=== PATIENT | female | born 1950 | race Caucasian/White ===

== ENCOUNTER → 2016-09-13 | Outpatient (REF) | payer MEDICARE ==
[~2016-09-13] MED LIST: ALPR0.5T6 PO; AMBI10TA PO; ATEN25TA PO; BUPR150T3 PO; BUSP10TA PO; CVS20TAB PO; GABA300C3 PO; HYDR-3713 PO; LIPI20TA PO; LOTRCRE TOP; NITR4TASL SL; PLAV75TA38 PO; PROA1AER IN; PROZ20CA11 PO; SYMB80INH INH
[2016-09-13 13:41] LABS: AMYLASE 32 U/L (25-115)
== END ==
LOC: M LAB REF 12:03
DX: R11.2 Nausea with vomiting, unspecified (principal)

== ENCOUNTER → 2017-06-20 | Outpatient (REF) | payer MEDICARE ==
[~2017-06-20] MED LIST changes: +GABA-282 PO; -GABA300C3 PO; +PLAV1TAB2 PO; -PLAV75TA38 PO; -PROA1AER IN; +PROAAER10 IN
[2017-06-20 20:25] LABS: PERCENT SATURATION 5.3 % (13.2-45.0)
== END ==
LOC: M LAB REF 18:39
PROVIDERS: ATTEND Family Medicine
DX: D50.9 Iron deficiency anemia, unspecified (principal)

== ENCOUNTER → 2017-07-20 | Outpatient (CLI) | payer MEDICARE | LOC: M WUC 13:16 | DX: S20.212A Contusion of left front wall of thorax, initial encounter (principal); X58.XXXA Exposure to other specified factors, initial encounter; Y92.9 Unspecified place or not applicable; Y93.9 Activity, unspecified | CPT/HCPCS: 71101 ==

== ENCOUNTER → 2017-11-08 | Outpatient (REF) | payer MEDICARE ==
[2017-11-08 12:53] LABS: FERRITIN 21 NG/ML (8-252); IRON (FE) 270 UG/DL (50-170); PERCENT SATURATION 67.8 % (13.2-45.0); TOTAL IRON BINDING CAPACITY 398 UG/DL (250-450)
== END ==
LOC: M LAB REF 11:51
DX: D64.9 Anemia, unspecified (principal)
CPT/HCPCS: 83550

== ENCOUNTER 2017-12-29 10:28 | Emergency (ER) | payer MEDICARE ==
[2017-12-29] MEDS: METHOCARBAMOL 500 MG TAB PO (11:13)
[2017-12-29] MEDS: NORCO, ANEXSIA 5/325MG TABLET (HYDROcodone/ACETAMINOPHEN) PO (11:14)
== END 2017-12-29 12:40 | disposition home or self-care (01) ==
LOC: M ED 10:28
DX: M48.061 Spinal stenosis, lumbar region without neurogenic claudication (principal); Z91.81 History of falling; Z88.0 Allergy status to penicillin; I10 Essential (primary) hypertension; K44.9 Diaphragmatic hernia without obstruction or gangrene; M54.9 Dorsalgia, unspecified; E11.9 Type 2 diabetes mellitus without complications; F32.9 Major depressive disorder, single episode, unspecified; Z79.899 Other long term (current) drug therapy; Z79.02 Long term (current) use of antithrombotics/antiplatelets
CPT/HCPCS: 72131

== ENCOUNTER → 2018-02-08 | Outpatient (REF) | payer MEDICARE ==
[2018-02-08 20:05] LABS: FERRITIN 20 NG/ML (8-252); IRON (FE) 218 UG/DL (50-170); PERCENT SATURATION 59.1 % (13.2-45.0); TOTAL IRON BINDING CAPACITY 369 UG/DL (250-450)
== END ==
LOC: M LAB REF 17:51
DX: D64.9 Anemia, unspecified (principal)
CPT/HCPCS: 83550

== ENCOUNTER 2018-04-21 15:37 | Emergency (ER) | payer MEDICARE ==
[2018-04-21] MEDS: NS 500 ML IV (16:45)
[2018-04-21] MEDS: NORCO, ANEXSIA 5/325MG TABLET (HYDROcodone/ACETAMINOPHEN) PO (17:30)
[2018-04-21 17:40] LABS: BASO # 0.1 10^3/uL (0.0-0.2); BASO % 0.6 % (0.0-1.0); EOS # 0.5 10^3/uL (0.0-0.50); EOS % 3.8 % (0.0-3.0); HEMATOCRIT 40.7 % (36.0-47.0); HEMOGLOBIN 13.1 g/dl (12.0-15.5); IMMATURE GRANULOCYTE % 0.8 % (0-3.0); LYMPH # 1.6 10^3/uL (1.5-4.5); MEAN CORPUSCULAR HGB CONC 32.2 g/dl (32.0-36.5); MONO # 1.2 10^3/uL (0.0-0.8); MONO % 9.9 % (0.0-5.0); NEUTROPHILS # 8.8 10^3/uL (1.8-7.7); NEUTROPHILS % 71.9 % (36.0-66.0); PLATELET COUNT, AUTOMATED 311 10^3/uL (150-450); RED BLOOD COUNT 4.68 10^6/uL (4.00-5.40); RED CELL DISTRIBUTION WIDTH 15.1 % (11.5-14.5); WHITE BLOOD COUNT 12.2 10^3/uL (4.0-10.0)
[2018-04-21 17:44] LABS: APPEARANCE, URINE CLEAR (CLEAR); BACTERIA, URINE AUTO NEGATIVE (NEGATIVE); BILIRUBIN, URINE AUTO NEGATIVE (NEGATIVE); BLOOD, URINE BLOOD NEGATIVE (NEGATIVE); COLOR, URINE YELLOW (YELLOW); GLUCOSE, URINE (UA) AUTO NEGATIVE (NEGATIVE); KETONE, URINE AUTO NEGATIVE (NEGATIVE); LEUKOCYTE ESTERASE, URINE AUTO 1+ (NEGATIVE); NITRITE, URINE AUTO NEGATIVE (NEGATIVE); PROTEIN, URINE AUTO 1+ mg/dL (NEGATIVE); RBC, URINE AUTO 2 /HPF (0-3); SPECIFIC GRAVITY URINE AUTO 1.015 (1.002-1.035); SQUAMOUS EPITHELIAL CELL UR AU 0 /HPF (0-6); UROBILINOGEN, URINE AUTO 0.2 mg/dL (0.0-2.0); WBC, URINE AUTO 3 /HPF (0-3)
[2018-04-21 17:52] LABS: INR 0.92; PROTHROMBIN TIME 12.5 SECONDS (12.1-14.4)
[2018-04-21 18:09] LABS: ALBUMIN 3.7 GM/DL (3.2-5.2); ALBUMIN/GLOBULIN RATIO 0.97 (1.00-1.93); ALKALINE PHOSPHATASE 122 U/L (45-117); ALT/SGPT 22 U/L (12-78); ANION GAP 8 MEQ/L (8-16); AST/SGOT 19 U/L (7-37); BILIRUBIN,DIRECT 0.1 MG/DL (0.0-0.2); BILIRUBIN,TOTAL 0.5 MG/DL (0.2-1.0); BLOOD UREA NITROGEN 21 MG/DL (7-18); CARBON DIOXIDE LEVEL 26 MEQ/L (21-32); CHLORIDE LEVEL 106 MEQ/L (98-107); GLOMERULAR FILTRATION RATE 47.6 (>45); GLUCOSE, FASTING 150 MG/DL (70-100); POTASSIUM SERUM 4.6 MEQ/L (3.5-5.1); SODIUM LEVEL 140 MEQ/L (136-145); TOTAL PROTEIN 7.5 GM/DL (6.4-8.2)
[2018-04-21] MEDS ORDERED: ISOVUE-370 76% 100ML VIAL (Q9967) As Ordered (18:10)
== END 2018-04-21 19:55 | disposition left against medical advice (07) ==
LOC: M ED 15:37
DX: S30.1XXA Contusion of abdominal wall, initial encounter (principal); W06.XXXA Fall from bed, initial encounter; Y92.89 Other specified places as the place of occurrence of the external cause; I25.10 Atherosclerotic heart disease of native coronary artery without angina pectoris; E11.9 Type 2 diabetes mellitus without complications; I10 Essential (primary) hypertension; K21.9 Gastro-esophageal reflux disease without esophagitis; F17.210 Nicotine dependence, cigarettes, uncomplicated; Z98.890 Other specified postprocedural states; Z95.5 Presence of coronary angioplasty implant and graft; Z79.01 Long term (current) use of anticoagulants; Z88.0 Allergy status to penicillin; Z79.899 Other long term (current) drug therapy
CPT/HCPCS: J2270

== ENCOUNTER 2018-04-21 21:23 | Emergency (ER) | payer MEDICARE ==
[2018-04-21] MEDS: GABAPENTIN 300 MG CAP PO ×2 (22:40→23:23)
[2018-04-21] MEDS ORDERED: MORPHINE 4 MG/ML 1ML VIAL/SYRINGE (J2270) As Ordered (23:20)
[2018-04-21] MEDS: MORPHINE 4 MG/ML 1ML VIAL/SYRINGE (J2270) IV (23:29)
== END 2018-04-22 00:24 | disposition short-term general hospital (02) ==
LOC: M ED 04-22 00:24
DX: I77.72 Dissection of iliac artery (principal); J44.9 Chronic obstructive pulmonary disease, unspecified; E11.51 Type 2 diabetes mellitus with diabetic peripheral angiopathy without gangrene; I25.10 Atherosclerotic heart disease of native coronary artery without angina pectoris; I73.9 Peripheral vascular disease, unspecified; F33.9 Major depressive disorder, recurrent, unspecified; Z79.899 Other long term (current) drug therapy; Z79.02 Long term (current) use of antithrombotics/antiplatelets; Z88.0 Allergy status to penicillin; F17.210 Nicotine dependence, cigarettes, uncomplicated

== ENCOUNTER 2019-01-18 18:55 | Inpatient (IN) | payer MEDICARE ==
[~2019-01-18] VITALS: Ht 170.2 cm; Wt 84.3 kg
[~2019-01-18 18:55] MED LIST changes: +ALPR0.25 PO; -CVS20TAB PO; +FLUO40CA PO; -GABA-282 PO; +GABA-843 PO; +OMEP20TA9 PO; +ROBA500T PO
--- NOTE | 2019-01-18 19:23 | REP ---
Clinical: Acute altered mental status. Comparison: 06/02/2016 . Findings: Age-related atrophy and microvascular ischemic changes are appreciated. The ventricles and sulci are symmetric. Vega-white differentiation is maintained. There is no evidence for acute intracranial hemorrhage, mass/mass effect, pathology or infarction. No extra-axial fluid collection. Calvarium is intact. Paranasal sinuses and mastoid air cells are clear. Impression: Age related atrophy and microvascular ischemic changes. No acute intracranial hemorrhage, infarction, or mass/mass effect. Electronically Signed by Cholo Messer MD 01/18/2019 07:15 P
[2019-01-18 19:46] LABS: BASO # 0.1 10^3/uL (0.0-0.2); BASO % 0.6 % (0.0-1.0); EOS # 0.3 10^3/uL (0.0-0.50); EOS % 2.1 % (0.0-3.0); HEMATOCRIT 27.8 % (36.0-47.0); LYMPH # 1.7 10^3/uL (1.5-4.5); LYMPH % 10.9 % (24.0-44.0); MEAN CORPUSCULAR HEMOGLOBIN 26.8 pg (27.0-33.0); MEAN CORPUSCULAR HGB CONC 32.4 g/dl (32.0-36.5); MEAN CORPUSCULAR VOLUME 82.7 fl (80.0-96.0); MONO # 1.3 10^3/uL (0.0-0.8); MONO % 8.2 % (0.0-5.0); NEUTROPHILS # 12.4 10^3/uL (1.8-7.7); NEUTROPHILS % 77.4 % (36.0-66.0); PLATELET COUNT, AUTOMATED 245 10^3/uL (150-450); RED BLOOD COUNT 3.36 10^6/uL (4.00-5.40)
[2019-01-18 19:47] LABS: VENOUS BASE EXCESS 0.1 (-2.0-2.0); VENOUS HCO3 24.6 MEQ/L (23.0-27.0); VENOUS O2 SATURATION 97.2 % (60.0-80.0); VENOUS PARTIAL PRESSURE O2 100.2 mmHg (30.0-50.0); VENOUS PH 7.417 UNITS (7.330-7.430); VENOUS STANDARD HCO3 24.6 MEQ/L; VENOUS TOTAL CO2 25.8 MEQ/L (24.0-28.0)
--- NOTE | 2019-01-18 19:51 | REP ---
Clinical: Altered mental status . Comparison: 07/20/2017 . Findings: The mediastinum and cardiac silhouette are stable and within normal limits for portable technique. The lung giles are clear without acute consolidation, effusion, or pneumothorax. Skeletal structures are intact. Impression: No acute cardiopulmonary process appreciated. Electronically Signed by Cholo Messer MD 01/18/2019 07:43 P
[2019-01-18 20:25] LABS: ALBUMIN 2.8 GM/DL (3.2-5.2); ALT/SGPT 15 U/L (12-78); BILIRUBIN,DIRECT < 0.1 MG/DL (0.0-0.2); BILIRUBIN,TOTAL 0.2 MG/DL (0.2-1.0); BLOOD UREA NITROGEN 56 MG/DL (7-18); CALCIUM LEVEL 8.9 MG/DL (8.8-10.2); CARBON DIOXIDE LEVEL 26 MEQ/L (21-32); CHLORIDE LEVEL 106 MEQ/L (98-107); CPK CREATINE PHOSPHOKINASE 196 U/L (26-192); CREATININE FOR GFR 1.29 MG/DL (0.55-1.30); GLOMERULAR FILTRATION RATE 43.6 (>45); GLUCOSE, FASTING 161 MG/DL (70-100); MB/CK RELATIVE INDEX 1.53 (< OR =4); SODIUM LEVEL 140 MEQ/L (136-145); TOTAL PROTEIN 6.1 GM/DL (6.4-8.2); TROPONIN I 0.02 NG/ML (< 0.10)
[2019-01-18] MEDS ORDERED: FISH1000 PO (20:25)
[2019-01-18] MEDS ORDERED: GABA-843 PO (20:25)
[2019-01-18] MEDS ORDERED: BAYE325T12 PO (20:25)
[2019-01-18] MEDS ORDERED: BUPR15TASR PO (20:25)
[2019-01-18] MEDS ORDERED: REDCAP4 PO (20:25)
--- NOTE | 2019-01-18 20:32 | ECGEPIP ---
[facility] - ED Test Date: 2019-01-18 Pat Name: KRISTEL SILVA Department: Room: - Gender: Female [employer] Liaison: FERNANDO : 1950 Requested By: Fay Lainez Order Number: [id number] Reading MD: Nitesh Mccarty Measurements Intervals Slemp Rate: 77 P: 11 AK: 165 QRS: 6 QRSD: 88 T: 42 QT: 389 QTc: 441 Interpretive Statements SINUS RHYTHM WITH SINUS ARRHYTHMIA NONSPECIFIC T-WAVE ABNORMALITY SIMILAR TO 10/30/15 Electronically Signed on 01-18-2019 20:32:17 EDT by Nitesh Mccarty
[2019-01-18] MEDS ORDERED: ISOVUE-370 76% 100ML VIAL (Q9967) As Ordered ONE (21:30)
--- NOTE | 2019-01-18 22:39 | REPVR ---
EXAM: CT Abdomen and Pelvis With Contrast EXAM DATE/TIME: 01/18/2019 9:47 PM CLINICAL HISTORY: 68 years old, female; Abdominal pain; Epigastric; Additional info: Epigastric pain, gi bleed, R/O perf TECHNIQUE: Imaging protocol: Axial computed tomography images of the abdomen and pelvis with intravenous contrast. Coronal and sagittal reformatted images were created and reviewed. Radiation optimization: All CT scans at this facility use at least one of these dose optimization techniques: automated exposure control; mA and/or kV adjustment per patient size (includes targeted exams where dose is matched to clinical indication); or iterative reconstruction. Contrast material: ISOVUE 370; Contrast volume: 100 ml; Contrast route: IV; COMPARISON: CT ABD/PEL W/IV CONTRAST ONLY 04/21/2018 6:20 PM FINDINGS: Liver: There is a diffuse decrease in hepatic parenchymal density, consistent with fatty infiltration. Gallbladder and bile ducts: The gallbladder is incompletely distended. This is most likely related to incomplete fasting. Clinical correlation to exclude gallbladder pathology suggested. Pancreas: Normal. No ductal dilation. Spleen: Normal. No splenomegaly. Adrenals: There is a focal hypodense mass in the left adrenal gland measuring 1.5 x 2 cm, consistent in appearance and density with a benign adrenal adenoma. Left adrenal hyperplasia. Kidneys and ureters: Small bilateral renal cysts measure up to 12 mm in the left kidney. Focal parenchymal scars posterior upper pole right and left kidneys. Small probable hyperdense cyst demonstrated in the subcapsular mid pole of the left kidney measuring 7 mm. Ultrasound correlation could be obtained if clinically desired. Stomach and bowel: Mild diverticulosis is present in the distal colon. No diverticulitis. Appendix: No evidence of appendicitis. Intraperitoneal space: Normal. No free air. No significant fluid collection. Vasculature: The aorta demonstrates mild atherosclerotic calcification. 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 Lymph nodes: Normal. No enlarged lymph nodes. Bladder: Unremarkable as visualized. Reproductive: Unremarkable as visualized. Bones/joints: Severe central spinal stenosis at L1 to, mild to moderate central spinal stenosis at L2 through, severe central spinal stenosis at L3-4, severe central spinal stenosis at L4-5, moderate central spinal stenosis at L5-S1. Nonunited fracture right 11th rib. Healed fracture right ninth rib. Soft tissues: Fusiform thick walled fluid collection in the left flank measures 5 x 9 x 1.9 cm containing calcification in the lateral wall. Finding may represent sequelae of prior hemorrhage/ trauma. No air collections demonstrated which might suggest an abscess. Other findings: Osteoporosis. IMPRESSION: 1. There is a diffuse decrease in hepatic parenchymal density, consistent with fatty infiltration. 2. The gallbladder is incompletely distended. This is most likely related to incomplete fasting. Clinical correlation to exclude gallbladder pathology suggested. 3. There is a focal hypodense mass in the left adrenal gland measuring 1.5 x 2 cm, consistent in appearance and density with a benign adrenal adenoma. Left adrenal hyperplasia. 4. Mild diverticulosis is present in the distal colon. No diverticulitis. 5. Fusiform thick walled fluid collection in the left flank measures 5 x 9 x 1.9 cm containing calcification in the lateral wall. Finding may represent sequelae of prior hemorrhage/ trauma. No air collections demonstrated which might suggest an abscess. COMMENT: Consistent with the [employer]'s Incidental Findings Committee Report (J Am Julia Radiol 2010): Unless the patient's specific circumstances suggest otherwise, any liver lesion 0.5 cm or less, any cystic kidney lesion less than 1.0 cm, and/or any adrenal lesion 1.0 cm or less not otherwise characterized in this report as possessing suspicious or indeterminate imaging features is/are highly likely to be benign and do not require follow-up imaging or biopsy. Electronically signed by: Jaxon Cohn On 01/18/2019 22:39:09 PM
[2019-01-18] MEDS: PANTOPRAZOLE SODIUM 40 MG in D5W 50 ML IV SCH (23:09)
[2019-01-19] MEDS ORDERED: ALPRAZolam 0.25 MG TAB PO ONE (01:30)
[2019-01-19] MEDS ORDERED: D5W/0.9% SODIUM CHLORIDE 1,000 ML IV SCH (01:49)
[2019-01-19] MEDS ORDERED: ALPRAZolam 0.25 MG TAB PO PRN (02:00)
[2019-01-19] MEDS ORDERED: PANTOPRAZOLE 40MG INJ (PROTONIX) (C9113) IV ONE (02:00)
[2019-01-19] MEDS ORDERED: FUROSEMIDE 40 MG/4 ML VIAL (J1940) IV ONE (02:15)
[2019-01-19] MEDS: NS 1,000 ML IV SCH ×3 (02:30→20:35)
[2019-01-19] MEDS ORDERED: ALBUTEROL SULFATE 2.5 MG/0.5 ML INH NEB SOLN NEB PRN (03:00)
--- NOTE | 2019-01-19 03:03 | HPEPDOC ---
General Date of Admission Jan 19, 2019 at 01:49 Date of Service: Jan 19, 2019 Chief Complaint The patient is a 68-year-old female admitted with a reason for visit of Gi Bleed. Source: Patient, RN/MD, Old records Exam Limitations: No limitations Severity: Severe History of Present Illness 68 year old female with PMH of COPD, Diabetes, Diaphragmatic hernia, Lumber spinal canal stenosis, chronic low back pain, obesity, PAD s/p bilateral stents, CAD s/p stents, Hypertension, Hyperlipidemia, Anxiety and depression, H/o recurrent fall in the past, Sciatica, osteoarthritis, adrenal adenoma, lumber vertebral fractures after fall on past, diverticulosis called the EMS for weakness. Patient started having hematemesis x 3 last afternoon followed by melena x 4 then started feeling very weak and tired so called the EMS. In the ED she had had melena. She also complained of abdominal pain located in chun epigastrium, left upper quadrant and some in the right upper quadrant, constantly present, 8/10 in intensity , sharp and burning in nature, without any radiation. She says that she has been taking 12 to 16 over the counter ibupr ofen for more than 1 month for her intractable low back pain. She was admitted for GIB. Home Medications Scheduled Aspirin (Aspirin) 325 Mg Tablet, 325 MG PO DAILY, (Reported) Atenolol (Atenolol) 25 Mg Tab, 25 MG PO DAILY, (Reported) Budesonide/Formoterol (Symbicort 80-4.5 Mcg Inhaler) 60 Puff/Inhaler Aers, 2 PUFFS INH BID, (Reported) Bupropion HCl (Bupropion HCl Sr) 150 Mg Tab.er.12h, 150 MG PO DAILY, (Reported) Clopidogrel Bisulfate (Plavix) 75 Mg Tab, 75 MG PO DAILY, (Reported) Fluoxetine Hcl (Fluoxetine HCl) 40 Mg Cap, 40 MG PO DAILY, (Reported) Gabapentin (Gabapentin) 300 Mg Cap, 900 MG PO QAM, (Reported) Gabapentin (Gabapentin) 300 Mg Capsule, 600 MG PO BID, (Reported) TAKES MIDDAY AND AT HS [place]-3 Fatty Acids/Fish Oil (Fish Oil 1,000 mg Capsule) 1 Each Capsule, 1,000 MG PO DAILY, (Reported) Omeprazole (Omeprazole) 20 Mg Tab, 20 MG PO DAILY, (Reported) Red Yeast Rice (Red Yeast Rice) 600 Mg Capsule, 600 MG PO DAILY, (Reported) Zolpidem Tartrate (Ambien) 10 Mg Tab, 10 MG PO QHS, (Reported) Scheduled PRN Alprazolam (Alprazolam) 0.25 Mg Tab, 0.25 MG PO TID PRN for ANXIETY, (Reported) Hydrocodone/Acetaminophen (Hydrocodone-Acetamin 5-325 mg) 1 Tab Tab, 1 TAB PO TID PRN for PAIN, (Reported) Nitroglycerin (Nitrostat) 0.4 Mg Subl, 0.4 MG SL for CHEST PAIN, (Reported) Allergies Coded Allergies: Penicillins (Verified Allergy, Intermediate, SWELLING, 01/18/19) Past Medical History Medical History COPD, Diabetes, Diaphragmatic hernia, Lumber spinal canal stenosis, chronic low back pain, obesity, PAD s/p bilateral stents, CAD s/p stents, Hypertension, Hyperlipidemia, Anxiety and depression, H/o recurrent fall in the past, Sciatica, osteoarthritis, adrenal adenoma, lumber vertebral fractures after fall on past, diverticulosis Surgical History right knee replacement right shoulder surgery Family History Significant Family History: Diabetes (mother an father), Heart disease (mother) Social History * Smoker: current smoker Alcohol: Denies Drugs: denies A-FIB/CHADSVASC A-FIB History Current/History of A-Fib/PAF?: No Review of Systems Constitutional: Reports: Weakness, Fatigue; Denies: Chills, Fever, Night Sweats Eyes: Denies: Pain, Vision change ENT: Denies: Head Aches, Ear Pain, Dysphagia Skin: Denies: Rash, Lesions, Breakdown Pulmonary: Reports: Dyspnea; Denies: Cough, Pleuritic Chest Pain Cardiovascular: Denies: Chest Pain, Palpitations, Orthopnea, Paroxysmal Noc. Dyspnea, Lt Headedness Gastrointestinal: Reports: Nausea, Vomiting, Abdominal Pain, Melena, Other Symptoms (hemetemesis) Genitourinary: Denies: Dysuria, Frequency, Incontinence, Retention Hematologic: Denies: Bruising, Bleeding Excessively Musculoskeletal: Reports: Back Pain, Shoulder Pain, Joint Pain, Muscle Pain, Spasms; Denies: Neck Pain Neurological: Reports: Weakness Psych: Reports: Anxiety, Depression Physical Examination General Exam: Positive: Alert, Cooperative, Moderate Distress Eye Exam: Positive: PERRLA, Conjunctiva & lids normal, EOMI; Negative: Sclera icteric ENT Exam: Positive: Atraumatic, Mucous membr. moist/pink, Pharynx Normal Neck Exam: Positive: Supple; Negative: JVD, thyromegaly Chest Exam: Positive: Wheezing (on deep expiration), Diminished Heart Exam: Positive: Tachycardic, Regular Rhythm, Normal S1, Normal S2; Negative: Murmurs, Rubs Telemetry: Positive: No significant arrhythmia Abdomen Exam: Positive: BS Hypoactive, Soft, Tenderness (in the epigastrium and left upper quadrant), Other (No guarding or rigidity) Extremity Exam: Negative: Clubbing, Cyanosis, Edema Skin Exam: Positive: Nl turgor and temperature; Negative: Breakdown, Lesion Neuro Exam: Positive: Normal Speech, Strength at 5/5 X4 ext, Normal Tone Psych Exam: Positive: Anxiety, Memory Intact, Oriented x 3 Vital Signs Vital Signs Date Time Temp Pulse Resp B/P (MAP) Pulse Ox O2 Delivery O2 Flow Rate FiO2 01/19/19 02:19 79 18 134/82 (99) 94 Room Air 01/18/19 19:37 98.5 Laboratory Data Labs 24H Laboratory Tests 2 01/18/19 19:31: Immature Granulocyte % (Auto) 0.8, White Blood Count 16.0H, Red Blood Count 3.36L, Hemoglobin 9.0L, Hematocrit 27.8L, Mean Corpuscular Volume 82.7, Mean Corpuscular Hemoglobin 26.8L, Mean Corpuscular Hemoglobin Concent 32.4, Red Cell Distribution Width 14.9H, Platelet Count 245, Neutrophils (%) (Auto) 77.4H, Lymphocytes (%) (Auto) 10.9L, Monocytes (%) (Auto) 8.2H, Eosinophils (%) (Auto) 2.1, Basophils (%) (Auto) 0.6, Neutrophils # (Auto) 12.4H, Lymphocytes # (Auto) 1.7, Monocytes # (Auto) 1.3H, Eosinophils # (Auto) 0.3, Basophils # (Auto) 0.1, Nucleated Red Blood Cells % (auto) 0.0, Blood Gas Bicarbonate Standard 24.6, Venous Blood pH 7.417, Venous Blood Partial Pressure CO2 39.0, Venous Blood Pa rtial Pressure O2 100.2H, Venous Blood Total Carbon Dioxide 25.8, Venous Blood HCO3 24.6, Venous Blood Oxygen Saturation 97.2H, Venous Blood Base Excess 0.1, Anion Gap 8, Glomerular Filtration Rate 43.6L, Lactic Acid Level 2.0, Calcium Level 8.9, Aspartate Amino Transf (AST/SGOT) 22, Alanine Aminotransferase (ALT/SGPT) 15, Alkaline Phosphatase 65, Total Bilirubin 0.2, Direct Bilirubin < 0.1, Total Creatine Kinase 196H, Creatine Kinase MB 3.0, Creatine Kinase MB Relative Index 1.53, Troponin I 0.02, Total Protein 6.1L, Albumin 2.8L, Albumin/Globulin Ratio 0.85L, Thyroid Stimulating Hormone (TSH) 1.310 CBC/BMP Laboratory Tests 01/18/19 19:31 Red Blood Count 3.36 L, Mean Corpuscular Volume 82.7, Mean Corpuscular Hemoglobin 26.8 L, Mean Corpuscular Hemoglobin Concent 32.4, Red Cell Distribution Width 14.9 H, Neutrophils (%) (Auto) 77.4 H, Lymphocytes (%) (Auto) 10.9 L, Monocytes (%) (Auto) 8.2 H, Eosinophils (%) (Auto) 2.1, Basophils (%) (Auto) 0.6, Neutrophils # (Auto) 12.4 H, Lymphocytes # (Auto) 1.7, Monocytes # (Auto) 1.3 H, Eosinophils # (Auto) 0.3, Basophils # (Auto) 0.1 Microbiology Microbiology 01/18/19 Blood Culture, Received Pending 01/18/19 Blood Culture, Received Pending Assessment/Plan 68 year old female with PMH of COPD, Diabetes, Diaphragmatic hernia, Lumber sp inal canal stenosis, chronic low back pain, obesity, PAD s/p bilateral stents, CAD s/p stents, Hypertension, Hyperlipidemia, Anxiety and depression, H/o recurrent fall in the past, Sciatica, osteoarthritis, adrenal adenoma, lumber vertebral fractures after fall on past, diverticulosis called the EMS for weakness. Patient started having hematemesis x 3 last afternoon followed by melena x 4 then started feeling very weak and tired so called the EMS. In the ED she had had melena. SHe also complained of abdominal pain located in chun epigastrium, left upper quadrant and some in the right upper quadrant, constantly present, 8/10 in intensity , sharp and burning in nature, without any radiation. She says that she has been taking 12 to 16 over the counter ibuprofen for more than 1 month for her intractable low back pain. She was admitted for GIB. Upper GIB probably due to large mumber of NSAIDS causing gastric erosions/ulcers pantoprazole 80 mg loading followed by 8 mg/ hr infusion, sucralfate GI consult will need EGD. Have not got any response to call at 3: 30 am. Please call again in AM. HH q 6 hrs PRBC transfusion. NPO except meds, NS Will hold ASA and plavix for now. has stents in the legs as well as cardiac so will have to be restarted as soon as safely possible. Morphine prn for pain. COPD seems to be at baseline continue home meds. Symbicort. albuterol prn. Hypertension will continue atenolol with hold parameters. Anxiety and depression will continue xanax but will hold bupropion and fluoxetine till eating orally Lumber stenosis and sciatica will hold gabapentin for now till eating orally offer K pad for low back pain PAD with bilateral stents in legs hold gabapentin for now till eating orally. can use morphine for severe low back and leg pain DVT prophylaxis TEDs and SCDs Plan / VTE VTE Prophylaxis Ordered?: Yes LEDA LOVE MD Jan 19, 2019 03:03
[2019-01-19 03:13] LABS: BASO # 0.1 10^3/uL (0.0-0.2); BASO % 0.5 % (0.0-1.0); EOS % 0.1 % (0.0-3.0); HEMATOCRIT 26.2 % (36.0-47.0); HEMOGLOBIN 8.3 g/dl (12.0-15.5); LYMPH # 1.9 10^3/uL (1.5-4.5); LYMPH % 11.2 % (24.0-44.0); MEAN CORPUSCULAR HEMOGLOBIN 26.3 pg (27.0-33.0); MEAN CORPUSCULAR HGB CONC 31.7 g/dl (32.0-36.5); MEAN CORPUSCULAR VOLUME 82.9 fl (80.0-96.0); MONO # 1.1 10^3/uL (0.0-0.8); MONO % 6.2 % (0.0-5.0); NEUTROPHILS # 14.1 10^3/uL (1.8-7.7); NEUTROPHILS % 81.1 % (36.0-66.0); PLATELET COUNT, AUTOMATED 246 10^3/uL (150-450); RED BLOOD COUNT 3.16 10^6/uL (4.00-5.40); WHITE BLOOD COUNT 17.3 10^3/uL (4.0-10.0)
[2019-01-19] MEDS: PANTOPRAZOLE SODIUM 40 MG in D5W 50 ML IV SCH ×4 (04:39→20:35)
[2019-01-19] MEDS: ONDANSETRON 4MG/2ML VIAL (J2405) IV PRN (04:39)
[2019-01-19 07:08] LABS: HEMATOCRIT 28.6 % (36.0-47.0); HEMOGLOBIN 8.9 g/dl (12.0-15.5)
[2019-01-19] MEDS: SYMBICORT 80/4.5MCG INHALER 6GM INH SCH ×2 (07:36→21:00)
[2019-01-19] MEDS: SUCRALFATE 1 GM TAB PO SCH ×4 (07:42→20:36)
[2019-01-19] MEDS: ATENOLOL 25 MG TAB PO SCH (07:42)
[2019-01-19] MEDS ORDERED: LIDOCAINE 1% MDV 20ML VIAL As Ordered ONE ×3 (11:02→16:40)
[2019-01-19] MEDS ORDERED: LIDOCAINE 1% MDV 20ML VIAL IM ONE (11:03)
[2019-01-19] MEDS ORDERED: PERCOCET 5MG/325MG TAB PO ONE (12:00)
--- NOTE | 2019-01-19 15:11 | IPNPDOC ---
Date Seen The patient was seen on 01/19/19. Progress Note SUBJECTIVE: Pt had multiple bloody bowel movements overnight, with loss of iv access this morning. s/p 2 units RBC transfusion with repeat hgb 10 and systolic pressure of 114 mmHg. Despite 4 attempts by RN to place peripheral line, 2 attempts by general surgery for left subclavian and internal jugular approach with venous collapse at each attempt, and Interventional radiology unable to find access, Thoracic Surgery could not be reached, vascular surgery Dr. Duke has been consulted to assist in the central line placement for poor iv access, iv protonix gtt, and rbc transfusion. pt denies any sob, chest pain, pressure, tightness, lightheadedness, dizziness, or near syncope. OBJECTIVE: Physical Examination VITALS: PLS SEE BELOW General Exam: Positive: Alert, Cooperative, Moderate Distress Eye Exam: Positive: PERRLA, Conjunctiva & lids normal, EOMI; Negative: Sclera icteric ENT Exam: Positive: Atraumatic, Mucous membr. moist/pink, Pharynx Normal Neck Exam: Positive: Supple; Negative: JVD, thyromegaly Chest Exam: Positive: Wheezing (on deep expiration), Diminished Heart Exam: Positive: Tachycardic, Regular Rhythm, Normal S1, Normal S2; Negative: Murmurs, Rubs Telemetry: Positive: No significant arrhythmia Abdomen Exam: Positive: BS Hypoactive, Soft, Tenderness (in the epigastrium and left upper quadrant), Other (No guarding or rigidity) Extremity Exam: Negative: Clubbing, Cyanosis, Edema Skin Exam: Positive: Nl turgor and temperature; Negative: Breakdown, Lesion Neuro Exam: Positive: Normal Speech, Strength at 5/5 X4 ext, Normal Tone Psych Exam: Positive: Anxiety, Memory Intact, Oriented x 3 ADMISSION LABORATORY DATA: 01/18/19 19:31: Immature Granulocyte % (Auto) 0.8, White Blood Count 16.0H, Red Blood Count 3.36L, Hemoglobin 9.0L, Hematocrit 27.8L, Mean Corpuscular Volume 82.7, Mean Corpuscular Hemoglobin 26.8L, Mean Corpuscular Hemoglobin Concent 32.4, Red Cell Distribution Width 14.9H, Platelet Count 245, Neutrophils (%) (Auto) 77.4H, Lymphocytes (%) (Auto) 10.9L, Monocytes (%) (Auto) 8.2H, Eosinophils (%) (Auto) 2.1, Basophils (%) (Auto) 0.6, Neutrophils # (Auto) 12.4H, Lymphocytes # (Auto) 1.7, Monocytes # (Auto) 1.3H, Eosinophils # (Auto) 0.3, Basophils # (Auto) 0.1, Nucleated Red Blood Cells % (auto) 0.0, Blood Gas Bicarbonate Standard 24.6, Venous Blood pH 7.417, Venous Blood Partial Pressure CO2 39.0, Venous Blood Partial Pressure O2 100.2H, Venous Blood Total Carbon Dioxide 25.8, Venous Blood HCO3 24.6, Venous Blood Oxygen Saturation 97.2H, Venous Blood Base Excess 0.1, Anion Gap 8, Glomerular Filtration Rate 43.6L, Lactic Acid Level 2.0, Calcium Level 8.9, Aspartate Amino Transf (AST/SGOT) 22, Alanine Aminotransferase (ALT/SGPT) 15, Alkaline Phosphatase 65, Total Bilirubin 0.2, Direct Bilirubin < 0.1, Total Creatine Kinase 196H, Creatine Kinase MB 3.0, Creatine Kinase MB Relative Index 1.53, Troponin I 0.02, Total Protein 6.1L, Albumin 2.8L, Albumin/Globulin Ratio 0.85L, Thyroid Stimulating Hormone (TSH) 1.310 CBC/BMP Laboratory Tests 01/18/19 19:31 Red Blood Count 3.36 L, Mean Corpuscular Volume 82.7, Mean Corpuscular Hemoglobin 26.8 L, Mean Corpuscular Hemoglobin Concent 32.4, Red Cell Distribution Width 14.9 H, Neutrophils (%) (Auto) 77.4 H, Lymphocytes (%) (Auto) 10.9 L, Monocytes (%) (Auto) 8.2 H, Eosinophils (%) (Auto) 2.1, Basophils (%) (Auto) 0.6, Neutrophils # (Auto) 12.4 H, Lymphocytes # (Auto) 1.7, Monocytes # (Auto) 1.3 H, Eosinophils # (Auto) 0.3, Basophils # (Auto) 0.1 Microbiology Microbiology 01/18/19 Blood Culture, Received Pending 01/18/19 Blood Culture, Received Pending TODAY'S LABORATORY DATA, IMAGING STUDIES, MICROBIOLOGY: PLS SEE BELOW CT abd/pelvis 01/18/19: IMPRESSION: 1. There is a diffuse decrease in hepatic parenchymal density, consistent with fatty infiltration. 2. The gallbladder is incompletely distended. This is most likely related to incomplete fasting. Clinical correlation to exclude gallbladder pathology suggested. 3. There is a focal hypodense mass in the left adrenal gland measuring 1.5 x 2 cm, consistent in appearance and density with a benign adrenal adenoma. Left adrenal hyperplasia. 4. Mild diverticulosis is present in the distal colon. No diverticulitis. 5. Fusiform thick walled fluid collection in the left flank measures 5 x 9 x 1.9 cm containing calcification in the lateral wall. Finding may represent sequelae of prior hemorrhage/ trauma. No air collections demonstrated which might suggest an abscess. Electronically signed by: Jaxon Morris On 01/18/2019 22:39:09 PM DD: JAXON MORRIS MD [id number]/[id number] DT: MARTIN [id number]/18/[id number] DS: CLAUDIA [id number]/[id number] ASSESSMENT AND PLAN: 68 year old female with PMH of COPD, Diabetes, Diaphragmatic hernia, Lumber spinal canal stenosis, chronic low back pain, obesity, PAD s/p bilateral stents, CAD s/p stents, Hypertension, Hyperlipidemia, Anxiety and depression, H/o recurrent fall in the past, Sciatica, osteoarthritis, adrenal adenoma, lumber vertebral fractures after fall on past, diverticulosis called the EMS for weakness. Patient started having hematemesis x 3 last afternoon followed by melena x 4 then started feeling very weak and tired so called the EMS. In the ED she had had melena. SHe also complained of abdominal pain located in chun epigastrium, left upper quadrant and some in the right upper quadrant, constantly present, 8/10 in intensity , sharp and burning in nature, without any radiation. She says that she has been taking 12 to 16 over the counter ibuprofen for more than 1 month for her intractable low back pain. She was admitted for GIB. Upper GIB probably due to large mumber of NSAIDS causing gastric erosions/ulcers pantoprazole 80 mg loading followed by 8 mg/ hr infusion, sucralfate GI consult will need EGD. Have not got any response to call at 3: 30 am. Please call again in AM. HH q 6 hrs PRBC transfusion. NPO except meds, NS Will hold ASA and plavix for now. has stents in the legs as well as cardiac so will have to be restarted as soon as safely possible. Morphine prn for pain. Acute Blood loss anemia due to upper GI bleed probably due to large mumber of NSAIDS causing gastric erosions/ulcers pantoprazole 80 mg loading followed by 8 mg/ hr infusion, sucralfate GI consult will need EGD. Have not got any response to call at 3: 30 am. Please call again in AM. HH q 6 hrs PRBC transfusion. NPO except meds, NS Will hold ASA and plavix for now. has stents in the legs as well as cardiac so will have to be restarted as soon as safely possible. Morphine prn for pain. COPD seems to be at baseline continue home meds. Symbicort. albuterol prn. Hypertension will continue atenolol with hold parameters. Anxiety and depression will continue xanax but will hold bupropion and fluoxetine till eating orally Lumber stenosis and sciatica will hold gabapentin for now till eating orally offer K pad for low back pain PAD with bilateral stents in legs hold gabapentin for now till eating orally. can use morphine for severe low back and leg pain DVT prophylaxis TEDs and SCDs Plan / VTE VTE Prophylaxis Ordered?: Yes VS, I&O, [facility], [facility] Vital Signs/I&O Vital Signs Date Time Temp Pulse Resp B/P (MAP) Pulse Ox O2 Delivery O2 Flow Rate FiO2 01/19/19 06:46 98.9 84 20 142/77 (98) 98 Room Air I&O- Last 24 Hours up to 6 AM 01/19/19 06:00 Output Total 650 ml Balance -650 ml Laboratory Data 24H LABS Laboratory Tests 2 01/18/19 19:31: Immature Granulocyte % (Auto) 0.8, White Blood Count 16.0H, Red Blood Count 3.36L, Hemoglobin 9.0L, Hematocrit 27.8L, Mean Corpuscular Volume 82.7, Mean Corpuscular Hemoglobin 26.8L, Mean Corpuscular Hemoglobin Concent 32.4, Red Cell Distribution Width 14.9H, Platelet Count 245, Neutrophils (%) (Auto) 77.4H, Lymphocytes (%) (Auto) 10.9L, Monocytes (%) (Auto) 8.2H, Eosinophils (%) (Auto) 2.1, Basophils (%) (Auto) 0.6, Neutrophils # (Auto) 12.4H, Lymphocytes # (Auto) 1.7, Monocytes # (Auto) 1.3H, Eosinophils # (Auto) 0.3, Basophils # (Auto) 0.1, Nucleated Red Blood Cells % (auto) 0.0, Blood Gas Bicarbonate Standard 24.6, Venous Blood pH 7.417, Venous Blood Partial Pressure CO2 39.0, Venous Blood Partial Pressure O2 100.2H, Venous Blood Total Carbon Dioxide 25.8, Venous Blood HCO3 24.6, Venous Blood Oxygen Saturation 97.2H, Venous Blood Base Excess 0.1, Anion Gap 8, Glomerular Filtration Rate 43.6L, Lactic Acid Level 2.0, Calcium Level 8.9, Aspartate Amino Transf (AST/SGOT) 22, Alanine Aminotransferase (ALT/S GPT) 15, Alkaline Phosphatase 65, Total Bilirubin 0.2, Direct Bilirubin < 0.1, Total Creatine Kinase 196H, Creatine Kinase MB 3.0, Creatine Kinase MB Relative Index 1.53, Troponin I 0.02, Total Protein 6.1L, Albumin 2.8L, Albumin/Globulin Ratio 0.85L, Thyroid Stimulating Hormone (TSH) 1.310 01/19/19 02:48: Immature Granulocyte % (Auto) 0.9, White Blood Count 17.3H, Red Blood Count 3.16L, Hemoglobin 8.3L, Hematocrit 26.2L, Mean Corpuscular Volume 82.9, Mean Corpuscular Hemoglobin 26.3L, Mean Corpuscular Hemoglobin Concent 31.7L, Red Cell Distribution Width 15.0H, Platelet Count 246, Neutrophils (%) (Auto) 81.1H, Lymphocytes (%) (Auto) 11.2L, Monocytes (%) (Auto) 6.2H, Eosinophils (%) (Auto) 0.1, Basophils (%) (Auto) 0.5, Neutrophils # (Auto) 14.1H, Lymphocytes # (Auto) 1.9, Monocytes # (Auto) 1.1H, Eosinophils # (Auto) 0.0, Basophils # (Auto) 0.1, Nucleated Red Blood Cells % (auto) 0.0 CBC/BMP Laboratory Tests 01/18/19 19:31 Red Blood Count 3.36 L, Mean Corpuscular Volume 82.7, Mean Corpuscular Hemoglobin 26.8 L, Mean Corpuscular Hemoglobin Concent 32.4, Red Cell Distribution Width 14.9 H, Neutrophils (%) (Auto) 77.4 H, Lymphocytes (%) (Auto) 10.9 L, Monocytes (%) (Auto) 8.2 H, Eosinophils (%) (Auto) 2.1, Basophils (%) (Auto) 0.6, Neutrophils # (Auto) 12.4 H, Lymphocytes # (Auto) 1.7, Monocytes # (Auto) 1.3 H, Eosinophils # (Auto) 0.3, Basophils # (Auto) 0.1 01/19/19 02:48 Red Blood Count 3.16 L, Mean Corpuscular Volume 82.9, Mean Corpuscular Hemoglobin 26.3 L, Mean Corpuscular Hemoglobin Concent 31.7 L, Red Cell Distribution Width 15.0 H, Neutrophils (%) (Auto) 81.1 H, Lymphocytes (%) (Auto) 11.2 L, Monocytes (%) (Auto) 6.2 H, Eosinophils (%) (Auto) 0.1, Basophils (%) (Auto) 0.5, Neutrophils # (Auto) 14.1 H, Lymphocytes # (Auto) 1.9, Monocytes # (Auto) 1.1 H, Eosinophils # (Auto) 0.0, Basophils # (Auto) 0.1 Microbiology Microbiology 01/18/19 Blood Culture, Received Pending 01/18/19 Blood Culture, Received Pending EDA GRIMM MD Jan 19, 2019 06:58
[2019-01-19] MEDS ORDERED: PROPOFOL 200 MG/20 ML VIAL As Ordered ONE (16:15)
[2019-01-19] MEDS ORDERED: LIDOCAINE 2% INJ 100 MG/5 ML SDV (FOR ANES.) As Ordered ONE (16:15)
[2019-01-19] MEDS ORDERED: MIDAZOLAM INJ 2 MG/2 ML VIAL (J2250) As Ordered ONE (16:15)
[2019-01-19] MEDS ORDERED: fentaNYL 100 MCG/2 ML INJECTION (J3010) As Ordered ONE (16:15)
[2019-01-19 18:08] LABS: HEMATOCRIT 28.7 % (36.0-47.0); HEMOGLOBIN 9.4 g/dl (12.0-15.5)
--- NOTE | 2019-01-19 18:34 | ROOR ---
Patient Name: Amira Gotti Procedure Date: 01/19/2019 6:12 PM Date of : 1950 Age: 68 Room: Main OR Gender: Female Note Status: Finalized Procedure: Upper GI endoscopy Indications: Acute post hemorrhagic anemia, Hematemesis Providers: Héctor Gresham MD Referring MD: 2. Inpatient 2. Inpatient Requesting Provider: Medicines: Monitored Anesthesia Care Complications: No immediate complications. Procedure: Pre-Anesthesia Assessment: - The heart rate, respiratory rate, oxygen saturations, blood pressure, adequacy of pulmonary ventilation, and response to care were monitored throughout the procedure. The Endoscope was introduced through the mouth, and advanced to the second part of duodenum. The upper GI endoscopy was accomplished without difficulty. The patient tolerated the procedure well. Findings: The Z-line was regular and was found 40 cm from the incisors. One non-bleeding cratered gastric ulcer with no stigmata of bleeding was found at the pylorus. The exam of the duodenum was otherwise normal. Impression: - Z-line regular, 40 cm from the incisors. - Non-bleeding gastric ulcer with no stigmata of bleeding. - No specimens collected. - The examination was otherwise normal. Recommendation: - Return patient to hospital [facility] for ongoing care. - NPO. - Continue present medications. - The findings and recommendations were discussed with the referring physician. Héctor Gresham MD Héctor Gresham MD 01/19/2019 6:34:29 PM Electronically signed by Héctor Gresham MD Number of Addenda: 0 Note Initiated On: 01/19/2019 6:12 PM Estimated Blood Loss: Estimated blood loss: none.
[2019-01-19] MEDS ORDERED: NITROGLYCERIN 0.4 MG SUBL TABLET SL PRN (18:45)
[2019-01-19] MEDS ORDERED: LR 1,000 ML IV SCH (19:00)
[2019-01-19] MEDS ORDERED: ONDANSETRON 4MG/2ML VIAL (J2405) IV PRN (19:00)
[2019-01-19 20:00] VITALS: BP 178/70
[2019-01-19] MEDS ORDERED: SODIUM CHLORIDE 0.9% INJ 10 ML SYR IV PRN (20:00)
[2019-01-19 22:00] VITALS: BP 144/68
[2019-01-19] MEDS: zolPIDEM TARTRATE 5 MG TAB PO PRN (22:14)
[2019-01-19] MEDS: GABAPENTIN 300 MG CAP PO SCH (22:14)
[2019-01-19 22:55] LABS: CALCIUM LEVEL 7.9 MG/DL (8.8-10.2); CREATININE FOR GFR 1.6 MG/DL (0.55-1.30); MAGNESIUM LEVEL 1.8 MG/DL (1.8-2.4); POTASSIUM SERUM 3.9 MEQ/L (3.5-5.1)
[2019-01-19 23:59] VITALS: BP 130/63
[2019-01-20] MEDS: PANTOPRAZOLE SODIUM 40 MG in D5W 50 ML IV SCH ×5 (00:05→21:34)
[2019-01-20] MEDS: NORCO, ANEXSIA 5/325MG TABLET (HYDROcodone/ACETAMINOPHEN) PO PRN ×3 (00:06→13:14)
[2019-01-20 00:10] LABS: HEMATOCRIT 27.4 % (36.0-47.0); HEMOGLOBIN 8.8 g/dl (12.0-15.5)
[2019-01-20] MEDS ORDERED: POTASSIUM CHLORIDE 10 MEQ SR TABLET PO ONE (01:45)
[2019-01-20] MEDS ORDERED: MAG SULF 1GM/100ML (MAG RUN) 1 GM in APPROPRIATE DILUENT 1 EA IV ONE (01:45)
[2019-01-20 04:00] VITALS: BP 127/60
[2019-01-20] MEDS: SODIUM CHLORIDE 0.9% INJ 10 ML SYR IV SCH ×2 (05:18→17:28)
[2019-01-20 05:43] LABS: BASO # 0.1 10^3/uL (0.0-0.2); BASO % 0.8 % (0.0-1.0); EOS # 0.3 10^3/uL (0.0-0.50); EOS % 2.2 % (0.0-3.0); HEMATOCRIT 24.5 % (36.0-47.0); HEMOGLOBIN 7.9 g/dl (12.0-15.5); LYMPH # 2.2 10^3/uL (1.5-4.5); LYMPH % 18.7 % (24.0-44.0); MEAN CORPUSCULAR HEMOGLOBIN 27.1 pg (27.0-33.0); MEAN CORPUSCULAR HGB CONC 32.2 g/dl (32.0-36.5); MEAN CORPUSCULAR VOLUME 84.2 fl (80.0-96.0); MONO # 1.1 10^3/uL (0.0-0.8); MONO % 9.6 % (0.0-5.0); NEUTROPHILS # 8.1 10^3/uL (1.8-7.7); NEUTROPHILS % 68.1 % (36.0-66.0); PLATELET COUNT, AUTOMATED 168 10^3/uL (150-450); RED BLOOD COUNT 2.91 10^6/uL (4.00-5.40); WHITE BLOOD COUNT 11.8 10^3/uL (4.0-10.0)
[2019-01-20 06:04] LABS: CALCIUM LEVEL 7.4 MG/DL (8.8-10.2); CREATININE FOR GFR 1.31 MG/DL (0.55-1.30); GLOMERULAR FILTRATION RATE 42.9 (>45); POTASSIUM SERUM 3.8 MEQ/L (3.5-5.1)
[2019-01-20] MEDS: MORPHINE 4 MG/ML 1ML VIAL/SYRINGE (J2270) IV PRN ×3 (06:12→21:35)
[2019-01-20] MEDS: NS 1,000 ML IV SCH (06:45)
[2019-01-20] MEDS: SYMBICORT 80/4.5MCG INHALER 6GM INH SCH ×2 (07:31→19:52)
[2019-01-20 08:00] VITALS: BP 133/63
[2019-01-20] MEDS: ATENOLOL 25 MG TAB PO SCH (08:18)
[2019-01-20] MEDS: SUCRALFATE 1 GM TAB PO SCH ×4 (08:18→21:33)
[2019-01-20] MEDS ORDERED: OMEPRAZOLE 20 MG CAP PO SCH (09:00)
[2019-01-20] MEDS: GABAPENTIN 300 MG CAP PO SCH ×3 (09:00→21:33)
[2019-01-20] MEDS: FLUoxetine 20 MG CAP PO SCH (09:00)
[2019-01-20] MEDS ORDERED: ASPIRIN 325 MG TAB PO SCH (09:00)
[2019-01-20] MEDS ORDERED: CLOPIDOGREL 75 MG TAB PO SCH (09:00)
[2019-01-20] MEDS: buPROPion **SR TABLET** (ZYBAN) 150MG PO SCH (09:00)
--- NOTE | 2019-01-20 09:46 | IPNPDOC ---
Date Seen The patient was seen on 01/20/19. Progress Note SUBJECTIVE:Pt denies any sob, chest pain, pressure, tightness, lightheadedness, dizziness, or near syncope. s/p EGD by Dr. Gresham 01/19/19-gastric ulcer. on IV protonix gtt and no recurrent bloody bowel movements overnight. Pt had no iv access yesteray. s/p 2 units RBC transfusion with repeat hgb 10 and systolic pressure of 114 mmHg. Despite 4 attempts by RN to place peripheral line, 2 attempts by general surgery for left subclavian and internal jugular approach with venous collapse at each attempt, and Interventional radiology unable to find access, Thoracic Surgery could not be reached, vascular surgery Dr. Duke was consulted to assist in the central line placement for poor iv ac cess, iv protonix gtt, and rbc transfusion. OBJECTIVE: Physical Examination VITALS: PLS SEE BELOW General Exam: Positive: Alert, Cooperative, Moderate Distress Eye Exam: Positive: PERRLA, Conjunctiva & lids normal, EOMI; Negative: Sclera icteric ENT Exam: Positive: Atraumatic, Mucous membr. moist/pink, Pharynx Normal Neck Exam: Positive: Supple; Negative: JVD, thyromegaly Chest Exam: Positive: Wheezing (on deep expiration), Diminished Heart Exam: Positive: Tachycardic, Regular Rhythm, Normal S1, Normal S2; Negative: Murmurs, Rubs Telemetry: Positive: No significant arrhythmia Abdomen Exam: Positive: BS Hypoactive, Soft, Tenderness (in the epigastrium and left upper quadrant), Other (No guarding or rigidity) Extremity Exam: Negative: Clubbing, Cyanosis, Edema Skin Exam: Positive: Nl turgor and temperature; Negative: Breakdown, Lesion Neuro Exam: Positive: Normal Speech, Strength at 5/5 X4 ext, Normal Tone Psych Exam: Positive: Anxiety, Memory Intact, Oriented x 3 ADMISSION LABORATORY DATA: 01/18/19 19:31: Immature Granulocyte % (Auto) 0.8, White Blood Count 16.0H, Red Blood Count 3.36L, Hemoglobin 9.0L, Hematocrit 27.8L, Mean Corpuscular Volume 82.7, Mean Corpuscular Hemoglobin 26.8L, Mean Corpuscular Hemoglobin Concent 32.4, Red Cell Distribution Width 14.9H, Platelet Count 245, Neutrophils (%) (Auto) 77.4H, Lymphocytes (%) (Auto) 10.9L, Monocytes (%) (Auto) 8.2H, Eosinophils (%) (Auto) 2.1, Basophils (%) (Auto) 0.6, Neutrophils # (Auto) 12.4H, Lymphocytes # (Auto) 1.7, Monocytes # (Auto) 1.3H, Eosinophils # (Auto) 0.3, Basophils # (Auto) 0.1, Nucleated Red Blood Cells % (auto) 0.0, Blood Gas Bicarbonate Standard 24.6, Venous Blood pH 7.417, Venous Blood Partial Pressure CO2 39.0, Venous Blood Partial Pressure O2 100.2H, Venous Blood Total Carbon Dioxide 25.8, Venous Blood HCO3 24.6, Venous Blood Oxygen Saturation 97.2H, Venous Blood Base Excess 0.1, Anion Gap 8, Glomerular Filtration Rate 43.6L, Lactic Acid Level 2.0, Calcium Level 8.9, Aspartate Amino Transf (AST/SGOT) 22, Alanine Aminotransferase (ALT/SGPT) 15, Alkaline Phosphatase 65, Total Bilirubin 0.2, Direct Bilirubin < 0.1, Total Creatine Kinase 196H, Creatine Kinase MB 3.0, Creatine Kinase MB Relative Index 1.53, Troponin I 0.02, Total Protein 6.1L, Albumin 2.8L, Albumin/Globulin Ratio 0.85L, Thyroid Stimulating Hormone (TSH) 1.310 CBC/BMP Laboratory Tests 01/18/19 19:31 Red Blood Count 3.36 L, Mean Corpuscular Volume 82.7, Mean Corpuscular Hemoglobin 26.8 L, Mean Corpuscular Hemoglobin Concent 32.4, Red Cell Distribution Width 14.9 H, Neutrophils (%) (Auto) 77.4 H, Lymphocytes (%) (Auto) 10.9 L, Monocytes (%) (Auto) 8.2 H, Eosinophils (%) (Auto) 2.1, Basophils (%) (Auto) 0.6, Neutrophils # (Auto) 12.4 H, Lymphocytes # (Auto) 1.7, Monocytes # (Auto) 1.3 H, Eosinophils # (Auto) 0.3, Basophils # (Auto) 0.1 Microbiology Microbiology 01/18/19 Blood Culture, Received Pending 01/18/19 Blood Culture, Received Pending TODAY'S LABORATORY DATA, IMAGING STUDIES, MICROBIOLOGY: PLS SEE BELOW CT abd/pelvis 01/18/19: IMPRESSION: 1. There is a diffuse decrease in hepatic parenchymal density, consistent with fatty infiltration. 2. The gallbladder is incompletely distended. This is most likely related to incomplete fasting. Clinical correlation to exclude gallbladder pathology suggested. 3. There is a focal hypodense mass in the left adrenal gland measuring 1.5 x 2 cm, consistent in appearance and density with a benign adrenal adenoma. Left adrenal hyperplasia. 4. Mild diverticulosis is present in the distal colon. No diverticulitis. 5. Fusiform thick walled fluid collection in the left flank measures 5 x 9 x 1.9 cm containing calcification in the lateral wall. Finding may represent sequelae of prior hemorrhage/ trauma. No air collections demonstrated which might suggest an abscess. Electronically signed by: Jaxon Morris On 01/18/2019 22:39:09 PM DD: JAXON MORRIS MD [id number]/18/[id number] DT: MARTIN 01/18/192238 DS: CLAUDIA 01/18/192238 ASSESSMENT AND PLAN: 68 year old female with PMH of COPD, Diabetes, Diaphragmatic hernia, Lumber spinal canal stenosis, chronic low back pain, obesity, PAD s/p bilateral stents, CAD s/p stents, Hypertension, Hyperlipidemia, Anxiety and depression, H/o recurrent fall in the past, Sciatica, osteoarthritis, adrenal adenoma, lumber vertebral fractures after fall on past, diverticulosis called the EMS for weakness. Patient started having hematemesis x 3 last afternoon followed by melena x 4 then started feeling very weak and tired so called the EMS. In the ED she had had melena. SHe also complained of abdominal pain located in chun epigastrium, left upper quadrant and some in the right upper quadrant, constantly present, 8/10 in intensity , sharp and burning in nature, without any radiation. She says that she has been taking 12 to 16 over the counter ibuprofen for more than 1 month for her intractable low back pain. She was admitted for GIB. Gastric Ulcer / Upper GIB probably due to large mumber of NSAIDS causing gastric erosions/ulcers pantoprazole 80 mg loading followed by 8 mg/ hr infusion, sucralfate GI consulted for EGD. HH q 6 hrs PRBC transfusion-4units s/p NPO except meds, NS Will hold ASA and plavix for now. has stents in the legs as well as cardiac so will have to be restarted as soon as safely possible. Morphine prn for pain. will need repeat egd as outpt for gastric ulcer healing documentation due to increased risk of cancer. Gastric Ulcer/ Acute Blood loss anemia due to upper GI bleed probably due to large mumber of NSAIDS causing gastric erosions/ulcers pantoprazole 80 mg loading followed by 8 mg/ hr infusion, sucralfate GI consult ed EGD. HH q 6 hrs PRBC transfusion-4units NPO except meds, NS Will hold ASA and plavix for now. has stents in the legs as well as cardiac so will have to be restarted as soon as safely possible. Morphine prn for pain. will need repeat egd as outpt for gastric ulcer healing documentation due to increased risk of cancer. COPD seems to be at baseline continue home meds. Symbicort. albuterol prn. Hypertension will continue atenolol with hold parameters. Anxiety and depression will continue xanax but will hold bupropion and fluoxetine till eating orally Lumber stenosis and sciatica will hold gabapentin for now till eating orally offer K pad for low back pain PAD with bilateral stents in legs hold gabapentin for now till eating orally. can use morphine for severe low back and leg pain DVT prophylaxis TEDs and SCDs Plan / VTE VTE Prophylaxis Ordered?: Yes VS, I&O, 24H, Fishbone Vital Signs/I&O Vital Signs Date Time Temp Pulse Resp B/P (MAP) Pulse Ox O2 Delivery O2 Flow Rate FiO2 01/20/19 06:12 18 01/20/19 04:00 98.5 74 127/60 (82) 94 01/19/19 16:00 Room Air 01/19/19 11:12 2.0 I&O- Last 24 Hours up to 6 AM 01/20/19 06:00 Intake Total 1585 ml Output Total 300 ml Balance 1285 ml Laboratory Data 24H LABS Laboratory Tests 2 01/19/19 20:06: Bedside Glucose (Misc Panel) 150H 01/19/19 22:19: Anion Gap 5L, Glomerular Filtration Rate 34.0L, Blood Urea Nitrogen 56H, Creatinine 1.60H, Sodium Level 141, Potassium Level 3.9#, Chloride Level 106, Carbon Dioxide Level 30, Calcium Level 7.9L, Magnesium Level 1.8 01/20/19 05:17: Anion Gap 5L, Glomerular Filtration Rate 42.9L, Blood Urea Nitrogen 49H, Creatinine 1.31H, Sodium Level 143, Potassium Level 3.8, Chloride Level 108H, Carbon Dioxide Level 30, Calcium Level 7.4L, Immature Granulocyte % (Auto) 0.6, White Blood Count 11.8H, Red Blood Count 2.91L, Hemoglobin 7.9L, Hematocrit 24.5L, Mean Corpuscular Volume 84.2, Mean Corpuscular Hemoglobin 27.1, Mean Corpuscular Hemoglobin Concent 32.2, Red Cell Distribution Width 16.4H, Platelet Count 168, Neutrophils (%) (Auto) 68.1H, Lymphocytes (%) (Auto) 18.7L, Monocytes (%) (Auto) 9.6H, Eosinophils (%) (Auto) 2.2, Basophils (%) (Auto) 0.8, Neutrophils # (Auto) 8.1H, Lymphocytes # (Auto) 2.2, Monocytes # (Auto) 1.1H, Eosinophils # (Auto) 0.3, Basophils # (Auto) 0.1, Nucleated Red Blood Cells % (auto) 0.0 CBC/BMP Laboratory Tests 01/19/19 11:51 01/19/19 17:52 01/19/19 22:19 Calcium Level 7.9 L 01/20/19 00:00 01/20/19 05:17 Red Blood Count 2.91 L, Mean Corpuscular Volume 84.2, Mean Corpuscular Hemoglobin 27.1, Mean Corpuscular Hemoglobin Concent 32.2, Red Cell Distribution Width 16.4 H, Neutrophils (%) (Auto) 68.1 H, Lymphocytes (%) (Auto) 18.7 L, Monocytes (%) (Auto) 9.6 H, Eosinophils (%) (Auto) 2.2, Basophils (%) (Auto) 0.8, Neutrophils # (Auto) 8.1 H, Lymphocytes # (Auto) 2.2, Monocytes # (Auto) 1.1 H, Eosinophils # (Auto) 0.3, Basophils # (Auto) 0.1, Calcium Level 7.4 L Microbiology Microbiology 01/18/19 Blood Culture - Preliminary, Resulted No growth after 24 hours . All specim... 01/18/19 Blood Culture - Preliminary, Resulted No growth after 24 hours . All specim... EDA GRIMM MD Jan 20, 2019 06:23
[2019-01-20 11:49] LABS: HEMATOCRIT 25.8 % (36.0-47.0); HEMOGLOBIN 8.1 g/dl (12.0-15.5)
[2019-01-20 12:00] VITALS: BP 144/71
[2019-01-20] MEDS: ONDANSETRON 4MG/2ML VIAL (J2405) IV PRN (13:13)
[2019-01-20] MEDS ORDERED: hydrOXYzine 25 MG TAB PO ONE (14:45)
[2019-01-20] MEDS ORDERED: hydrOXYzine 25 MG TAB PO PRN (14:45)
--- NOTE | 2019-01-20 15:01 | REP ---
Clinical: Chest pain and altered mental status. Comparison: 01/18/2019 . Findings: Left sided PICC line with tip in the SVC. The mediastinum and cardiac silhouette are stable and within normal limits for portable technique. The lung giles are clear without acute consolidation, effusion, or pneumothorax. Skeletal structures are intact. Impression: No acute cardiopulmonary process appreciated. Electronically Signed by Cholo Messer MD 01/20/2019 07:27 A
--- NOTE | 2019-01-20 15:03 | CR ---
DATE OF CONSULTATION: 01/20/2018 This is a 68-year-old white female admitted to [facility] with a known past medical history of chronic obstructive pulmonary disease (COPD), diabetes, lumbar spinal canal stenosis, chronic low back pain, obesity, peripheral artery disease status post bilateral stents, coronary artery disease status post stents, hypertension, hyperlipidemia, anxiety, and depression. The patient has had recurrent falls. She has osteoarthritis, sciatica, adrenal adenoma, lumber vertebral fractures in the past. The patient apparently had three bouts of hematemesis with the admission. She has had melena for approximately 3-4 days prior to admission. The patient has had chronic low back pain and has been taking up to 16 ibuprofen a day. She says the number has been 16 at least for several months. She was also on aspirin and Plavix for her cardiac stents. The patient is being seen by GI for evaluation of the upper GI bleeding. MEDICATIONS: Include: - aspirin 325 daily - atenolol - budesonide inhaler - Plavix 75 mg a day - gabapentin - omeprazole 20 mg daily ALLERGIES: To PENICILLIN. PAST MEDICAL HISTORY: As above. SURGICAL HISTORY: Right knee replacement and right shoulder surgery. FAMILY HISTORY: Is positive for diabetes and heart disease in the patient's family. The patient is a current smoker. Denies alcohol or intravenous (IV) drugs. REVIEW OF SYSTEMS: Is noncontributory to this current acute problem. PHYSICAL EXAMINATION: General: A slightly obese white female in no acute distress. Appears stated age. Chest is clear. Cardiovascular examination showed a 2/6 systolic ejection murmur left lower sternal border. Abdomen: Was soft, globose. Slight epigastric tenderness. No hepatosplenomegaly. Bowel sounds were positive. LABORATORY STUDIES ON ADMISSION: Showed a hemoglobin of 9.0 and hematocrit 27.8, platelets were 245,000. The patient during the hospital admission received 2 units of packed cells. Last bout of hematemesis was approximately 12 hours prior to the endoscopy. Imaging studies, including an abdominal CT on 01/18/2019 of the abdomen and pelvis, showed diffuse fatty infiltration of the liver. No gallstones were seen in the gallbladder. Left adrenal gland lesion 1.5 x 2 cm. Diverticulosis with a fluid collection in the left flank area. ANALYSIS: Hematemesis and melena secondary to nonsteroidal gastropathy. The plan will be to set the patient up for upper endoscopy with possible therapeutics to control the probable ulcer that the patient has developed since she has been taking aspirin, Plavix, and 3200 mg of ibuprofen a day. PLAN: 1. Esophagogastroduodenoscopy (EGD) as soon as possible/ 2. Proton pump inhibitors plus cytoprotection with Carafate. 3. Blood transfusions as needed. 4. The patient is advised that she cannot continue to take 3200 mg a day for her chronic back issues, and some other remedy has be considered to control her symptoms, possibly consideration for a transcutaneous electrical nerve stimulator (TENS) unit. Dorsal column stimulator may help control her symptoms MTDD
[2019-01-20 16:00] VITALS: BP 149/70
[2019-01-20 20:00] VITALS: BP 144/73
[2019-01-20] MEDS: zolPIDEM TARTRATE 5 MG TAB PO PRN (22:52)
[2019-01-20 23:59] VITALS: BP 187/82
[2019-01-21] MEDS: NS 1,000 ML IV SCH ×2 (00:16→08:11)
[2019-01-21 00:19] LABS: HEMATOCRIT 28.9 % (36.0-47.0); HEMOGLOBIN 9.2 g/dl (12.0-15.5)
[2019-01-21] MEDS: PANTOPRAZOLE SODIUM 40 MG in D5W 50 ML IV SCH ×5 (03:01→23:14)
[2019-01-21] MEDS: NORCO, ANEXSIA 5/325MG TABLET (HYDROcodone/ACETAMINOPHEN) PO PRN ×3 (03:02→20:44)
[2019-01-21 04:00] VITALS: BP 150/65
[2019-01-21] MEDS: SODIUM CHLORIDE 0.9% INJ 10 ML SYR IV SCH ×2 (06:00→18:00)
[2019-01-21 06:21] LABS: BASO # 0.1 10^3/uL (0.0-0.2); BASO % 0.5 % (0.0-1.0); EOS # 0.5 10^3/uL (0.0-0.50); EOS % 5.6 % (0.0-3.0); HEMATOCRIT 28.2 % (36.0-47.0); LYMPH # 1.6 10^3/uL (1.5-4.5); LYMPH % 16.3 % (24.0-44.0); MEAN CORPUSCULAR HEMOGLOBIN 27.6 pg (27.0-33.0); MEAN CORPUSCULAR HGB CONC 31.9 g/dl (32.0-36.5); MEAN CORPUSCULAR VOLUME 86.5 fl (80.0-96.0); MONO # 0.9 10^3/uL (0.0-0.8); MONO % 8.9 % (0.0-5.0); NEUTROPHILS # 6.6 10^3/uL (1.8-7.7); NEUTROPHILS % 68.2 % (36.0-66.0); PLATELET COUNT, AUTOMATED 145 10^3/uL (150-450); RED BLOOD COUNT 3.26 10^6/uL (4.00-5.40); WHITE BLOOD COUNT 9.7 10^3/uL (4.0-10.0)
[2019-01-21 06:42] LABS: CALCIUM LEVEL 7.2 MG/DL (8.8-10.2); CREATININE FOR GFR 1.1 MG/DL (0.55-1.30); GLOMERULAR FILTRATION RATE 52.4 (>45); POTASSIUM SERUM 3.9 MEQ/L (3.5-5.1)
[2019-01-21] MEDS: SYMBICORT 80/4.5MCG INHALER 6GM INH SCH ×2 (07:20→20:09)
[2019-01-21 08:00] VITALS: BP 160/100
[2019-01-21] MEDS: SUCRALFATE 1 GM TAB PO SCH ×4 (08:05→20:43)
[2019-01-21] MEDS: FLUoxetine 20 MG CAP PO SCH (08:05)
[2019-01-21] MEDS: GABAPENTIN 300 MG CAP PO SCH ×3 (08:05→20:43)
[2019-01-21] MEDS: buPROPion **SR TABLET** (ZYBAN) 150MG PO SCH (08:05)
[2019-01-21] MEDS: ATENOLOL 25 MG TAB PO SCH (08:17)
[2019-01-21] MEDS ORDERED: GLUCOSE 4 GM CHEW TABLET PO PRN (11:00)
[2019-01-21] MEDS ORDERED: D5W/0.45% SODIUM CHLORIDE 1,000 ML IV SCH (11:00)
[2019-01-21] MEDS ORDERED: GLUCAGON FOR INJ 1 MG VIAL (J1610) SC PRN (11:00)
[2019-01-21] MEDS ORDERED: DEXTROSE 50% 50 ML SYRINGE IV PRN (11:00)
--- NOTE | 2019-01-21 12:04 | IPNPDOC ---
Date Seen The patient was seen on 01/21/19. Progress Note SUBJECTIVE: Pt c/o Left leg pain 8/10 pain scale despite norco, but no cyanosis, pulses intact, and warm to touch. arterial doppler ordered. ASA, plavix held due to active GI bleed. Pt denies any sob, chest pain, pressure, tightness, lightheadedness, dizziness, or near syncope. s/p EGD by Dr. Gresham 01/19/19-gastric ulcer. on IV protonix gtt and no recurrent bloody bowel movements overnight. OBJECTIVE: Physical Examination VITALS: PLS SEE BELOW General Exam: Positive: Alert, Cooperative, Moderate Distress Eye Exam: Positive: PERRLA, Conjunctiva & lids normal, EOMI; Negative: Sclera icteric ENT Exam: Positive: Atraumatic, Mucous membr. moist/pink, Pharynx Normal Neck Exam: Positive: Supple; Negative: JVD, thyromegaly Chest Exam: Positive: Wheezing (on deep expiration), Diminished Heart Exam: Positive: Tachycardic, Regular Rhythm, Normal S1, Normal S2; Negative: Murmurs, Rubs Telemetry: Positive: No significant arrhythmia Abdomen Exam: Positive: BS Hypoactive, Soft, Tenderness (in the epigastrium and left upper quadrant), Other (No guarding or rigidity) Extremity Exam: Negative: Clubbing, Cyanosis, Edema Skin Exam: Positive: Nl turgor and temperature; Negative: Breakdown, Lesion Neuro Exam: Positive: Normal Speech, Strength at 5/5 X4 ext, Normal Tone Psych Exam: Positive: Anxiety, Memory Intact, Oriented x 3 ADMISSION LABORATORY DATA: 01/18/19 19:31: Immature Granulocyte % (Auto) 0.8, White Blood Count 16.0H, Red Blood Count 3.36L, Hemoglobin 9.0L, Hematocrit 27.8L, Mean Corpuscular Volume 82.7, Mean Corpuscular Hemoglobin 26.8L, Mean Corpuscular Hemoglobin Concent 32.4, Red Cell Distribution Width 14.9H, Platelet Count 245, Neutrophils (%) (Auto) 77.4H, Lymphocytes (%) (Auto) 10.9L, Monocytes (%) (Auto) 8.2H, Eosinophils (%) (Auto) 2.1, Basophils (%) (Auto) 0.6, Neutrophils # (Auto) 12.4H, Lymphocytes # (Auto) 1.7, Monocytes # (Auto) 1.3H, Eosinophils # (Auto) 0.3, Basophils # (Auto) 0.1, Nucleated Red Blood Cells % (auto) 0.0, Blood Gas Bicarbonate Standard 24.6, Venous Blood pH 7.417, Venous Blood Partial Pressure CO2 39.0, Venous Blood Partial Pressure O2 100.2H, Venous Blood Total Carbon Dioxide 25.8, Venous Blood HCO3 24.6, Venous Blood Oxygen Saturation 97.2H, Venous Blood Base Excess 0.1, Anion Gap 8, Glomerular Filtration Rate 43.6L, Lactic Acid Level 2.0, Calcium Level 8.9, Aspartate Amino Transf (AST/SGOT) 22, Alanine Aminotransferase (ALT/SGPT) 15, Alkaline Phosphatase 65, Total Bilirubin 0.2, Direct Bilirubin < 0.1, Total Creatine Kinase 196H, Creatine Kinase MB 3.0, Creatine Kinase MB Relative Index 1.53, Troponin I 0.02, Total Protein 6.1L, Albumin 2.8L, Albumin/Globulin Ratio 0.85L, Thyroid Stimulating Hormone (TSH) 1.310 CBC/BMP Laboratory Tests 01/18/19 19:31 Red Blood Count 3.36 L, Mean Corpuscular Volume 82.7, Mean Corpuscular Hemoglobin 26.8 L, Mean Corpuscular Hemoglobin Concent 32.4, Red Cell Dis tribution Width 14.9 H, Neutrophils (%) (Auto) 77.4 H, Lymphocytes (%) (Auto) 10.9 L, Monocytes (%) (Auto) 8.2 H, Eosinophils (%) (Auto) 2.1, Basophils (%) (Auto) 0.6, Neutrophils # (Auto) 12.4 H, Lymphocytes # (Auto) 1.7, Monocytes # (Auto) 1.3 H, Eosinophils # (Auto) 0.3, Basophils # (Auto) 0.1 Microbiology Microbiology 01/18/19 Blood Culture, Received Pending 01/18/19 Blood Culture, Received Pending TODAY'S LABORATORY DATA, IMAGING STUDIES, MICROBIOLOGY: PLS SEE BELOW CT abd/pelvis 01/18/19: IMPRESSION: 1. There is a diffuse decrease in hepatic parenchymal density, consistent with fatty infiltration. 2. The gallbladder is incompletely distended. This is most likely related to incomplete fasting. Clinical correlation to exclude gallbladder pathology suggested. 3. There is a focal hypodense mass in the left adrenal gland measuring 1.5 x 2 cm, consistent in appearance and density with a benign adrenal adenoma. Left adrenal hyperplasia. 4. Mild diverticulosis is present in the distal colon. No diverticulitis. 5. Fusiform thick walled fluid collection in the left flank measures 5 x 9 x 1.9 cm containing calcification in the lateral wall. Finding may represent sequelae of prior hemorrhage/ trauma. No air collections demonstrated which might suggest an abscess. Electronically signed by: Jaxon Morris On 01/18/2019 22:39:09 PM DD: JAXON MORRIS MD [id number] DT: MARTIN [id number]/18/[id number] DS: CLAUDIA 01/[id number] ASSESSMENT AND PLAN: 68 year old female with PMH of COPD, Diabetes, Diaphragmatic hernia, Lumber spinal canal stenosis, chronic low back pain, obesity, PAD s/p bilateral stents, CAD s/p stents, Hypertension, Hyperlipidemia, Anxiety and depression, H/o recurrent fall in the past, Sciatica, osteoarthritis, adrenal adenoma, lumber vertebral fractures after fall on past, diverticulosis called the EMS for weakness. Patient started having hematemesis x 3 last afternoon followed by melena x 4 then started feeling very weak and tired so called the EMS. In the ED she had had melena. SHe also complained of abdominal pain located in chun e pigastrium, left upper quadrant and some in the right upper quadrant, constantly present, 8/10 in intensity , sharp and burning in nature, without any radiation. She says that she has been taking 12 to 16 over the counter ibuprofen for more than 1 month for her intractable low back pain. She was admitted for GIB. Gastric Ulcer / Upper GIB probably due to large mumber of NSAIDS causing gastric erosions/ulcers pantoprazole 80 mg loading followed by 8 mg/ hr infusion, sucralfate GI consulted for EGD. HH q 6 hrs PRBC transfusion-4units s/p NPO except meds, NS Will hold ASA and plavix for now. has stents in the legs as well as cardiac so will have to be restarted as soon as safely possible. Morphine prn for pain. will need repeat egd as outpt for gastric ulcer healing documentation due to increased risk of cancer. Gastric Ulcer/ Acute Blood loss anemia due to upper GI bleed probably due to large mumber of NSAIDS causing gastric erosions/ulcers pantoprazole 80 mg loading followed by 8 mg/ hr infusion, sucralfate GI consult ed EGD. HH q 6 hrs PRBC transfusion-4units NPO except meds, NS Will hold ASA and plavix for now. has stents in the legs as well as cardiac so will have to be restarted as soon as safely possible. Morphine prn for pain. will need repeat egd as outpt for gastric ulcer healing documentation due to increased risk of cancer. COPD seems to be at baseline continue home meds. Symbicort. albuterol prn. Hypertension will continue atenolol with hold parameters. Anxiety and depression will continue xanax but will hold bupropion and fluoxetine till eating orally Lumber stenosis and sciatica will hold gabapentin for now till eating orally offer K pad for low back pain PAD with bilateral stents in legs hold gabapentin for now till eating orally. c/o pain in the Left LE without cyanosis, and warm to touch with dp, pt pulses intact check arterial us held asa and plavix due to acute gi bleed s/p 4units rbc transfusion. DVT prophylaxis TEDs and SCDs Plan / VTE VTE Prophylaxis Ordered?: Yes VS, I&O, 24H, Fishbone Vital Signs/I&O Vital Signs Date Time Temp Pulse Resp B/P (MAP) Pulse Ox O2 Delivery O2 Flow Rate FiO2 01/21/19 04:00 98.3 63 20 150/65 (93) 95 01/19/19 16:00 Room Air 01/19/19 11:12 2.0 I&O- Last 24 Hours up to 6 AM 01/21/19 06:00 Intake Total 0 ml Output Total 1200 ml Balance -1200 ml Laboratory Data 24H LABS Laboratory Tests 2 01/21/19 06:04: Immature Granulocyte % (Auto) 0.5, White Blood Count 9.7, Red Blood Count 3.26L, Hemoglobin 9.0L, Hematocrit 28.2L, Mean Corpuscular Volume 86.5, Mean Corpuscular Hemoglobin 27.6, Mean Corpuscular Hemoglobin Concent 31.9L, Red Cell Distribution Width 15.6H, Platelet Count 145L, Neutrophils (%) (Auto) 68.2H, Lymphocytes (%) (Auto) 16.3L, Monocytes (%) (Auto) 8.9H, Eosinophils (%) (Auto) 5.6H, Basophils (%) (Auto) 0.5, Neutrophils # (Auto) 6.6, Lymphocytes # (Auto) 1.6, Monocytes # (Auto) 0.9H, Eosinophils # (Auto) 0.5, Basophils # (Auto) 0.1, Nucleated Red Blood Cells % (auto) 0.0 CBC/BMP Laboratory Tests 01/20/19 11:08 01/20/19 23:55 01/21/19 06:04 Red Blood Count 3.26 L, Mean Corpuscular Volume 86.5, Mean Corpuscular Hemoglobin 27.6, Mean Corpuscular Hemoglobin Concent 31.9 L, Red Cell Distribution Width 15.6 H, Neutrophils (%) (Auto) 68.2 H, Lymphocytes (%) (Auto) 16.3 L, Monocytes (%) (Auto) 8.9 H, Eosinophils (%) (Auto) 5.6 H, Basophils (%) (Auto) 0.5, Neutrophils # (Auto) 6.6, Lymphocytes # (Auto) 1.6, Monocytes # (Auto) 0.9 H, Eosinophils # (Auto) 0.5, Basophils # (Auto) 0.1 Microbiology Microbiology 01/18/19 Blood Culture - Preliminary, Resulted No Growth after 48 hours. All Specime... 01/18/19 Blood Culture - Preliminary, Resulted No Growth after 48 hours. All Specime... EDA GRIMM MD Jan 21, 2019 06:34
[2019-01-21] MEDS: amLODIPine 5 MG TAB PO SCH ×2 (14:10→20:43)
[2019-01-21 16:00] VITALS: BP 119/53
[2019-01-21 17:04] VITALS: BP 166/67
[2019-01-21] MEDS: zolPIDEM TARTRATE 5 MG TAB PO PRN (20:43)
[2019-01-21 22:00] VITALS: BP 137/62
[2019-01-22 02:00] VITALS: BP 166/75
[2019-01-22] MEDS: MORPHINE 4 MG/ML 1ML VIAL/SYRINGE (J2270) IV PRN (02:49)
[2019-01-22] MEDS: PANTOPRAZOLE SODIUM 40 MG in D5W 50 ML IV SCH ×2 (04:24→09:50)
[2019-01-22] MEDS: SODIUM CHLORIDE 0.9% INJ 10 ML SYR IV SCH (05:39)
[2019-01-22 06:00] VITALS: BP 162/72
[2019-01-22 06:08] LABS: BASO % 0.4 % (0.0-1.0); EOS # 0.6 10^3/uL (0.0-0.50); EOS % 6.7 % (0.0-3.0); HEMATOCRIT 28.5 % (36.0-47.0); HEMOGLOBIN 9.1 g/dl (12.0-15.5); LYMPH # 1.7 10^3/uL (1.5-4.5); LYMPH % 20.4 % (24.0-44.0); MEAN CORPUSCULAR HEMOGLOBIN 26.7 pg (27.0-33.0); MEAN CORPUSCULAR HGB CONC 31.9 g/dl (32.0-36.5); MEAN CORPUSCULAR VOLUME 83.6 fl (80.0-96.0); MONO # 0.9 10^3/uL (0.0-0.8); MONO % 10.8 % (0.0-5.0); NEUTROPHILS % 61.1 % (36.0-66.0); PLATELET COUNT, AUTOMATED 156 10^3/uL (150-450); RED BLOOD COUNT 3.41 10^6/uL (4.00-5.40); WHITE BLOOD COUNT 8.2 10^3/uL (4.0-10.0)
[2019-01-22 06:27] LABS: CALCIUM LEVEL 7.3 MG/DL (8.8-10.2); CREATININE FOR GFR 1.04 MG/DL (0.55-1.30); GLOMERULAR FILTRATION RATE 55.9 (>45); POTASSIUM SERUM 3.6 MEQ/L (3.5-5.1)
[2019-01-22] MEDS: SUCRALFATE 1 GM TAB PO SCH ×4 (07:30→21:20)
[2019-01-22] MEDS ORDERED: MORPHINE 4 MG/ML 1ML VIAL/SYRINGE (J2270) IV ONE (08:15)
[2019-01-22] MEDS ORDERED: ANEXSIA, NORCO 7.5MG/325MG TABLET(HYDROCODONE/APAP) PO ONE (08:15)
[2019-01-22] MEDS: SYMBICORT 80/4.5MCG INHALER 6GM INH SCH ×2 (08:24→20:07)
[2019-01-22] MEDS: buPROPion **SR TABLET** (ZYBAN) 150MG PO SCH (09:50)
[2019-01-22] MEDS: amLODIPine 5 MG TAB PO SCH ×2 (09:52→21:21)
[2019-01-22] MEDS: ATENOLOL 25 MG TAB PO SCH (09:52)
[2019-01-22] MEDS: FLUoxetine 20 MG CAP PO SCH (09:52)
[2019-01-22 10:00] VITALS: BP 197/87
[2019-01-22] MEDS: GABAPENTIN 300 MG CAP PO SCH ×3 (10:00→21:20)
[2019-01-22] MEDS ORDERED: ISOSORBIDE MON. (IMDUR) 30 MG XR TAB PO ONE (10:15)
--- NOTE | 2019-01-22 12:53 | REP ---
DUPLEX DOPPLER ULTRASOUND LEFT LOWER EXTREMITY ARTERIAL SYSTEM: Real-time ultrasound evaluation and duplex Doppler interrogation of left lower extremity arterial system is performed. CHUY is 1.0. There is moderate diffuse plaquing and narrowing of the arterial system of the left lower extremity. There is a patent stent in the femoral artery extending from the proximal aspect to the distal aspect. Collateral vessel communicates with the distal femoral artery. Triphasic and biphasic waveforms are seen throughout the left lower extremity arterial system and there are normal flow velocities. PEAK SYSTOLIC VELOCITY LEFT Common femoral artery 101.0 cm/s Profunda 39.9 Proximal SFA 132.0 Superficial femoral artery mid 130.0 Superficial femoral artery distal 96.8 Popliteal 68.0 Proximal anterior tibial artery 54.9 Tibial peroneal trunk 57.9 Proximal posterior tibial artery 63.5 Distal posterior tibial artery 80.7 Distal anterior tibial artery 21.5 IMPRESSION: Patent femoral artery stent. Moderate scattered plaquing and narrowing of the arterial system of left lower extremity without evidence of severe stenosis. Electronically Signed by Corona Vega MD 01/22/2019 04:25 P
--- NOTE | 2019-01-22 14:33 | IPNPDOC ---
Date Seen The patient was seen on 01/22/19. Progress Note SUBJECTIVE: Lost IV Access. PICC line not working. Pt has not had any bleeding episodes. tolerated liquids yesterday. on regular diet. no recurrent hematemesis, brbpr, or melena. still requiring iv morphine overnight at 2:30 am. no c/o chest pain, sob, chest pain,pressure, tightness, dizziness, lightheadedness, or near syncope. protonix iv gtt changed to po bid with ac carafate po. needs to be off asa and plavix x 1 wk. OBJECTIVE: Physical Examination VITALS: PLS SEE BELOW General Exam: Positive: Alert, Cooperative, Moderate Distress Eye Exam: Positive: PERRLA, Conjunctiva & lids normal, EOMI; Negative: Sclera icteric ENT Exam: Positive: Atraumatic, Mucous membr. moist/pink, Pharynx Normal Neck Exam: Positive: Supple; Negative: JVD, thyromegaly Chest Exam: Positive: Wheezing (on deep expiration), Diminished Heart Exam: Positive: Tachycardic, Regular Rhythm, Normal S1, Normal S2; Negative: Murmurs, Rubs Telemetry: Positive: No significant arrhythmia Abdomen Exam: Positive: BS Hypoactive, Soft, Tenderness (in the epigastrium and left upper quadrant), Other (No guarding or rigidity) Extremity Exam: Negative: Clubbing, Cyanosis, Edema Skin Exam: Positive: Nl turgor and temperature; Negative: Breakdown, Lesion Neuro Exam: Positive: Normal Speech, Strength at 5/5 X4 ext, Normal Tone Psych Exam: Positive: Anxiety, Memory Intact, Oriented x 3 ADMISSION LABORATORY DATA: 01/18/19 19:31: Immature Granulocyte % (Auto) 0.8, White Blood Count 16.0H, Red Blood Count 3.36L, Hemoglobin 9.0L, Hematocrit 27.8L, Mean Corpuscular Volume 82.7, Mean Corpuscular Hemoglobin 26.8L, Mean Corpuscular Hemoglobin Concent 32.4, Red Cell Distribution Width 14.9H, Platelet Count 245, Neutrophils (%) (Auto) 77.4H, Lymphocytes (%) (Auto) 10.9L, Monocytes (%) (Auto) 8.2H, Eosinophils (%) (Auto) 2.1, Basophils (%) (Auto) 0.6, Neutrophils # (Auto) 12.4H, Lymphocytes # (Auto) 1.7, Monocytes # (Auto) 1.3H, Eosinophils # (Auto) 0.3, Basophils # (Auto) 0.1, Nucleated Red Blood Cells % (auto) 0.0, Blood Gas Bicarbonate Standard 24.6, Venous Blood pH 7.417, Venous Blood Partial Pressure CO2 39.0, Venous Blood Partial Pressure O2 100.2H, Venous Blood Total Carbon Dioxide 25.8, Venous Blood HCO3 24.6, Venous Blood Oxygen Saturation 97.2H, Venous Blood Base Excess 0.1, Anion Gap 8, Glomerular Filtration Rate 43.6L, Lactic Acid Level 2.0, Calcium Level 8.9, Aspartate Amino Transf (AST/SGOT) 22, Alanine Aminotransferase (ALT/SGPT) 15, Alkaline Phosphatase 65, Total Bilirubin 0.2, Direct Bilirubin < 0.1, Total Creatine Kinase 196H, Creatine Kinase MB 3.0, Creatine Kinase MB Re lative Index 1.53, Troponin I 0.02, Total Protein 6.1L, Albumin 2.8L, Albumin/Globulin Ratio 0.85L, Thyroid Stimulating Hormone (TSH) 1.310 CBC/BMP Laboratory Tests 01/18/19 19:31 Red Blood Count 3.36 L, Mean Corpuscular Volume 82.7, Mean Corpuscular Hemoglobin 26.8 L, Mean Corpuscular Hemoglobin Concent 32.4, Red Cell Distribution Width 14.9 H, Neutrophils (%) (Auto) 77.4 H, Lymphocytes (%) (Auto) 10.9 L, Monocytes (%) (Auto) 8.2 H, Eosinophils (%) (Auto) 2.1, Basophils (%) (Auto) 0.6, Neutrophils # (Auto) 12.4 H, Lymphocytes # (Auto) 1.7, Monocytes # (Auto) 1.3 H, Eosinophils # (Auto) 0.3, Basophils # (Auto) 0.1 Microbiology Microbiology 01/18/19 Blood Culture, Received Pending 01/18/19 Blood Culture, Received Pending TODAY'S LABORATORY DATA, IMAGING STUDIES, MICROBIOLOGY: PLS SEE BELOW CT abd/pelvis 01/18/19: IMPRESSION: 1. There is a diffuse decrease in hepatic parenchymal density, consistent with fatty infiltration. 2. The gallbladder is incompletely distended. This is most likely related to incomplete fasting. Clinical correlation to exclude gallbladder pathology suggested. 3. There is a focal hypodense mass in the left adrenal gland measuring 1.5 x 2 cm, consistent in appearance and density with a benign adrenal adenoma. Left adrenal hyperplasia. 4. Mild diverticulosis is present in the distal colon. No diverticulitis. 5. Fusiform thick walled fluid collection in the left flank measures 5 x 9 x 1.9 cm containing calcification in the lateral wall. Finding may represent sequelae of prior hemorrhage/ trauma. No air collections demonstrated which might suggest an abscess. Electronically signed by: Jaxon Morris On 01/18/2019 22:39:09 PM DD: JAXON MORRIS MD [id number]/18/[id number] DT: MARTIN 01/18/192238 DS: CLAUDIA 01/18/192238 ASSESSMENT AND PLAN: 68 year old female with PMH of COPD, Diabetes, Diaphragmatic hernia, Lumber spinal canal stenosis, chronic low back pain, obesity, PAD s/p bilateral stents, CAD s/p stents, Hypertension, Hyperlipidemia, Anxiety and depression, H/o recurrent fall in the past, Sciatica, osteoarthritis, adrenal adenoma, lumber vertebral fractures after fall on past, diverticulosis called the EMS for weakne ss. Patient started having hematemesis x 3 last afternoon followed by melena x 4 then started feeling very weak and tired so called the EMS. In the ED she had had melena. SHe also complained of abdominal pain located in chun epigastrium, left upper quadrant and some in the right upper quadrant, constantly present, 8/10 in intensity , sharp and burning in nature, without any radiation. She says that she has been taking 12 to 16 over the counter ibuprofen for more than 1 month for her intractable low back pain. She was admitted for GIB. Gastric Ulcer / Upper GIB due to large mumber of NSAIDS causing gastric erosions/ulcers s/p pantoprazole 80 mg loading followed by 8 mg/ hr infusion, sucralfate GI consulted for EGD. HH q 6 hrs stable PRBC transfusion-4units s/p NPO except meds, NS Will hold ASA and plavix for one week. Morphine prn for pain. will need repeat egd as outpt for gastric ulcer healing documentation due to increased risk of cancer. on bid ppi Gastric Ulcer/ Acute Blood loss anemia due to upper GI bleed probably due to large mumber of NSAIDS causing gastric erosions/ulcers s/p pantoprazole 80 mg loading followed by 8 mg/ hr infusion, sucralfate on bid ppi GI consult ed EGD. HH q 6 hrs PRBC transfusion-4units NPO except meds, NS Will hold ASA and plavix for one week has stents in the legs as well as cardiac so will have to be restarted as soon as safely possible. Morphine prn for pain. will need repeat egd as outpt for gastric ulcer healing documentation due to increased risk of cancer. COPD seems to be at baseline continue home meds. Symbicort. albuterol prn. Hypertension will continue atenolol with hold parameters. Anxiety and depression will continue xanax but will hold bupropion and fluoxetine till eating orally Lumber stenosis and sciatica will hold gabapentin for now till eating orally offer K pad for low back pain PAD with bilateral stents in legs hold gabapentin for now till eating orally. c/o pain in the Left LE without cyanosis, and warm to touch with dp, pt pulses intact check arterial us held asa and plavix due to acute gi bleed s/p 4units rbc transfusion. DVT prophylaxis TEDs and SCDs Plan / VTE VTE Prophylaxis Ordered?: Yes VS, I&O, 24H, Fishbone Vital Signs/I&O Vital Signs Date Time Temp Pulse Resp B/P (MAP) Pulse Ox O2 Delivery O2 Flow Rate FiO2 01/22/19 02:59 18 01/22/19 02:00 98.0 61 166/75 (105) 93 01/19/19 16:00 Room Air 01/19/19 11:12 2.0 I&O- Last 24 Hours up to 6 AM 01/22/19 06:00 Intake Total 1055 ml Output Total 1300 ml Balance -245 ml Laboratory Data 24H LABS Laboratory Tests 2 01/22/19 05:50: Immature Granulocyte % (Auto) 0.6, White Blood Count 8.2, Red Blood Count 3.41L, Hemoglobin 9.1L, Hematocrit 28.5L, Mean Corpuscular Volume 83.6, Mean Corpuscular Hemoglobin 26.7L, Mean Corpuscular Hemoglobin Concent 31.9L, Red Cell Distribution Width 15.6H, Platelet Count 156, Neutrophils (%) (Auto) 61.1, Lymphocytes (%) (Auto) 20.4L, Monocytes (%) (Auto) 10.8H, Eosinophils (%) (Auto) 6.7H, Basophils (%) (Auto) 0.4, Neutrophils # (Auto) 5.0, Lymphocytes # (Auto) 1.7, Monocytes # (Auto) 0.9H, Eosinophils # (Auto) 0.6H, Basophils # (Auto) 0.0, Nucleated Red Blood Cells % (auto) 0.0 CBC/BMP Laboratory Tests 01/22/19 05:50 Red Blood Count 3.41 L, Mean Corpuscular Volume 83.6, Mean Corpuscular Hemoglobin 26.7 L, Mean Corpuscular Hemoglobin Concent 31.9 L, Red Cell Distribution Width 15.6 H, Neutrophils (%) (Auto) 61.1, Lymphocytes (%) (Auto) 20.4 L, Monocytes (%) (Auto) 10.8 H, Eosinophils (%) (Auto) 6.7 H, Basophils (%) (Auto) 0.4, Neutrophils # (Auto) 5.0, Lymphocytes # (Auto) 1.7, Monocytes # (Auto) 0.9 H, Eosinophils # (Auto) 0.6 H, Basophils # (Auto) 0.0 Microbiology Microbiology 01/18/19 Blood Culture - Preliminary, Resulted No Growth after 72 hours. All specime... 01/18/19 Blood Culture - Preliminary, Resulted No Growth after 72 hours. All specime... EDA GRIMM MD Jan 22, 2019 06:11
[2019-01-22] MEDS: PANTOPRAZOLE 40MG TAB (PROTONIX) PO SCH ×2 (15:24→21:20)
[2019-01-22 18:00] VITALS: BP 121/57
[2019-01-22] MEDS: zolPIDEM TARTRATE 5 MG TAB PO PRN (21:20)
[2019-01-22] MEDS: NORCO, ANEXSIA 5/325MG TABLET (HYDROcodone/ACETAMINOPHEN) PO PRN (21:22)
[2019-01-22 22:00] VITALS: BP 158/64
[2019-01-23 02:00] VITALS: BP 150/74
[2019-01-23 06:00] VITALS: BP 170/68
[2019-01-23] MEDS: NORCO, ANEXSIA 5/325MG TABLET (HYDROcodone/ACETAMINOPHEN) PO PRN ×2 (06:15→14:34)
[2019-01-23 07:32] LABS: BASO # 0.1 10^3/uL (0.0-0.2); BASO % 0.5 % (0.0-1.0); EOS # 0.5 10^3/uL (0.0-0.50); EOS % 5.4 % (0.0-3.0); HEMATOCRIT 30.3 % (36.0-47.0); HEMOGLOBIN 9.7 g/dl (12.0-15.5); LYMPH # 1.1 10^3/uL (1.5-4.5); LYMPH % 12.4 % (24.0-44.0); MEAN CORPUSCULAR HEMOGLOBIN 27.5 pg (27.0-33.0); MEAN CORPUSCULAR VOLUME 85.8 fl (80.0-96.0); MONO % 10.7 % (0.0-5.0); NEUTROPHILS # 6.5 10^3/uL (1.8-7.7); NEUTROPHILS % 70.6 % (36.0-66.0); PLATELET COUNT, AUTOMATED 168 10^3/uL (150-450); RED BLOOD COUNT 3.53 10^6/uL (4.00-5.40); WHITE BLOOD COUNT 9.2 10^3/uL (4.0-10.0)
[2019-01-23 07:43] LABS: CALCIUM LEVEL 7.5 MG/DL (8.8-10.2); CREATININE FOR GFR 1.1 MG/DL (0.55-1.30); GLOMERULAR FILTRATION RATE 52.4 (>45); POTASSIUM SERUM 3.4 MEQ/L (3.5-5.1)
[2019-01-23] MEDS: SYMBICORT 80/4.5MCG INHALER 6GM INH SCH (07:59)
[2019-01-23] MEDS: PANTOPRAZOLE 40MG TAB (PROTONIX) PO SCH (08:18)
[2019-01-23] MEDS: buPROPion **SR TABLET** (ZYBAN) 150MG PO SCH (08:18)
[2019-01-23] MEDS: SUCRALFATE 1 GM TAB PO SCH ×2 (08:19→12:24)
[2019-01-23] MEDS: GABAPENTIN 300 MG CAP PO SCH (08:19)
[2019-01-23] MEDS: FLUoxetine 20 MG CAP PO SCH (08:19)
[2019-01-23 08:20] VITALS: BP 159/88
[2019-01-23] MEDS: ATENOLOL 25 MG TAB PO SCH (08:20)
[2019-01-23] MEDS: amLODIPine 5 MG TAB PO SCH (08:20)
[2019-01-23] MEDS ORDERED: ISOSORBIDE MON. (IMDUR) 30 MG XR TAB PO SCH (09:00)
[2019-01-23] MEDS ORDERED: POTASSIUM CHLORIDE 10 MEQ SR TABLET PO ONE (09:45)
[2019-01-23] MEDS ORDERED: SUCR1TA PO (13:18)
[2019-01-23] MEDS ORDERED: PANT40TA3 PO (13:18)
--- NOTE | 2019-01-23 19:07 | DS.PDOC ---
Discharge Summary General Date of Admission Jan 19, 2019 at 01:49 Date of Discharge 01/23/19 Discharge Summary PROCEDURES PERFORMED DURING STAY: Upper GI Endoscopy 01/19 Findings: The Z-line was regular and was found 40 cm from the incisors. One non-bleeding cratered gastric ulcer with no stigmata of bleeding was found at the pylorus. The exam of the duodenum was otherwise normal. Impression: - Z-line regular, 40 cm from the incisors. - Non-bleeding gastric ulcer with no stigmata of bleeding. - No specimens collected. - The examination was otherwise normal. Recommendation: - Return patient to hospital [facility] for ongoing care. - NPO. - Continue present medications. - The findings and recommendations were discussed with the referring physician. Héctor Gresham MD ADMITTING DIAGNOSES: 1. GI bleed 2. COPD 3. HTN 4. Anxiety and Depression 5. Lumbar stenosis and Sciatica 6. PAD w/ bilateral stents DISCHARGE DIAGNOSES: 1. GI bleed 2. COPD 3. HTN 4. Anxiety and Depression 5. Lumbar stenosis and Sciatica 6. PAD w/ bilateral stents COMPLICATIONS/CHIEF COMPLAINT: Gi Bleed. HISTORY OF PRESENT ILLNESS: "68 year old female with PMH of COPD, Diabetes, Diaphragmatic hernia, Lumber spinal canal stenosis, chronic low back pain, obesity, PAD s/p bilateral stents, CAD s/p stents, Hypertension, Hyperlipidemia, Anxiety and depression, H/o rec urrent fall in the past, Sciatica, osteoarthritis, adrenal adenoma, lumber vertebral fractures after fall on past, diverticulosis called the EMS for weakness. Patient started having hematemesis x 3 last afternoon followed by melena x 4 then started feeling very weak and tired so called the EMS. In the ED she had had melena. She also complained of abdominal pain located in chun epigastrium, left upper quadrant and some in the right upper quadrant, constantly present, 8/10 in intensity , sharp and burning in nature, without any radiation. She says that she has been taking 12 to 16 over the counter ibuprofen for more than 1 month for her intractable low back pain. She was admitted for GIB." HOSPITAL COURSE: Patient underwent EGD showing non bleeding gastric ulcers. NSAIDs were held and patient was on PPI with resolution of symptoms. She denies any complaints including bleeding. H/H stable. To follow up with PMD as well as GI to likely repeat EGD. To hold ASA and Plavix for 1 week prior to reinitiation if bleeding does not recurs. DISCHARGE MEDICATIONS: Please see below. ALLERGIES: Please see below. PHYSICAL EXAMINATION ON DISCHARGE: VITAL SIGNS: Please see below. General: No acute distress, Alert Eyes: Normal sclera, EOMI, COLLEEN HENT: Atraumatic, neck supple, moist mucous membranes Cardiovascular: Normal rate, normal rhythm. Pulmonary: Clear to auscultation b/l GI: Soft, nontender, nondistended Skin: Warm and dry Neuro: CN grossly intact. No focal deficits. Strengths equal b/l. Psych: oriented x 3 LABORATORY DATA: Please see below. IMAGING: Head CT- Impression: Age related atrophy and microvascular ischemic changes. No acute intracranial hemorrhage, infarction, or mass/mass effect. Abdominal/pelvis CT- IMPRESSION: 1. There is a diffuse decrease in hepatic parenchymal density, consistent with fatty infiltration. 2. The gallbladder is incompletely distended. This is most likely related to incomplete fasting. Clinical correlation to exclude gallbladder pathology suggested. 3. There is a focal hypodense mass in the left adrenal gland measuring 1.5 x 2 cm, consistent in appearance and density with a benign adrenal adenoma. Left adrenal hyperplasia. 4. Mild diverticulosis is present in the distal colon. No diverticulitis. 5. Fusiform thick walled fluid collection in the left flank measures 5 x 9 x 1.9 cm containing calcification in the lateral wall. Finding may represent sequelae of prior hemorrhage/ trauma. No air collections demonstrated which might suggest an abscess. LLE doppler- IMPRESSION: Patent femoral artery stent. Moderate scattered plaquing and narrowing of the arterial system of left lower extremity without evidence of severe stenosis. ACTIVITY: [As tolerated]. DIET: Regular diet DISCHARGE PLAN: To hold ASA and Plavix for now, resume 7/5. Total 1 week. f/u PMD and GI. Likely will require repeat EGD DISPOSITION: 01 Home, Self-Care. DISCHARGE INSTRUCTIONS: To hold ASA and Plavix for now, resume 7/5. Total 1 week. f/u PMD and GI. Likely will require repeat EGD ITEMS TO FOLLOWUP ON ON OUTPATIENT: None DISCHARGE CONDITION: [Stable]. TIME SPENT ON DISCHARGE: 33 minutes. Vital Signs/I&Os Vital Signs Date Time Temp Pulse Resp B/P (MAP) Pulse Ox O2 Delivery O2 Flow Rate FiO2 01/23/19 15:04 18 01/23/19 08:20 159/88 01/23/19 08:20 67 01/23/19 06:00 98.5 93 01/22/19 10:21 2.0 01/19/19 16:00 Room Air I&O- Last 24 Hours up to 6 AM 01/23/19 06:00 Intake Total 1710 ml Output Total 1300 ml Balance 410 ml Laboratory Data Labs 24H Laboratory Tests 2 01/23/19 07:03: Immature Granulocyte % (Auto) 0.4, White Blood Count 9.2, Red Blood Count 3.53L, Hemoglobin 9.7L, Hematocrit 30.3L, Mean Corpuscular Volume 85.8, Mean Corpuscular Hemoglobin 27.5, Mean Corpuscular Hemoglobin Concent 32.0, Red Cell Distribution Width 15.9H, Platelet Count 168, Neutrophils (%) (Auto) 70.6H, Lymphocytes (%) (Auto) 12.4L, Monocytes (%) (Auto) 10.7H, Eosinophils (%) (Auto) 5.4H, Basophils (%) (Auto) 0.5, Neutrophils # (Auto) 6.5, Lymphocytes # (Auto) 1.1L, Monocytes # (Auto) 1.0H, Eosinophils # (Auto) 0.5, Basophils # (Auto) 0.1, Nucleated Red Blood Cells % (auto) 0.0, Anion Gap 9, Glomerular Filtration Rate 52.4, Blood Urea Nitrogen 14, Creatinine 1.10, Sodium Level 143, Potassium Level 3.4L, Chloride Level 107, Carbon Dioxide Level 27, Calcium Level 7.5L CBC/BMP Laboratory Tests 01/23/19 07:03 Red Blood Count 3.53 L, Mean Corpuscular Volume 85.8, Mean Corpuscular Hemoglobin 27.5, Mean Corpuscular Hemoglobin Concent 32.0, Red Cell Distribution Width 15.9 H, Neutrophils (%) (Auto) 70.6 H, Lymphocytes (%) (Auto) 12.4 L, Monocytes (%) (Auto) 10.7 H, Eosinophils (%) (Auto) 5.4 H, Basophils (%) (Auto) 0.5, Neutrophils # (Auto) 6.5, Lymphocytes # (Auto) 1.1 L, Monocytes # (Auto) 1.0 H, Eosinophils # (Auto) 0.5, Basophils # (Auto) 0.1, Calcium Level 7.5 L Microbiology Microbiology 01/18/19 Blood Culture - Preliminary, Resulted No Growth after 72 hours. All specime... 01/18/19 Blood Culture - Preliminary, Resulted No Growth after 72 hours. All specime... Discharge Medications Scheduled Atenolol (Atenolol) 25 Mg Tab, 25 MG PO DAILY, (Reported) Budesonide/Formoterol (Symbicort 80-4.5 Mcg Inhaler) 60 Puff/Inhaler Aers, 2 PUFFS INH BID, (Reported) Bupropion HCl (Bupropion HCl Sr) 150 Mg Tab.er.12h, 150 MG PO DAILY, (Reported) Fluoxetine Hcl (Fluoxetine HCl) 40 Mg Cap, 40 MG PO DAILY, (Reported) Gabapentin (Gabapentin) 300 Mg Cap, 900 MG PO QAM, (Reported) Gabapentin (Gabapentin) 300 Mg Capsule, 600 MG PO BID, (Reported) TAKES MIDDAY AND AT HS [place]-3 Fatty Acids/Fish Oil (Fish Oil 1,000 mg Capsule) 1 Each Capsule, 1,000 MG PO DAILY, (Reported) Omeprazole (Omeprazole) 20 Mg Tab, 20 MG PO DAILY, (Reported) Pantoprazole Sodium (Pantoprazole Sodium) 40 Mg Tablet.dr, 40 MG PO DAILY Red Yeast Rice (Red Yeast Rice) 600 Mg Capsule, 600 MG PO DAILY, (Reported) Sucralfate (Sucralfate) 1 Gm Tablet, 1 GM PO BID Zolpidem Tartrate (Ambien) 10 Mg Tab, 10 MG PO QHS, (Reported) Scheduled PRN Alprazolam (Alprazolam) 0.25 Mg Tab, 0.25 MG PO TID PRN for ANXIETY, (Reported) Hydrocodone/Acetaminophen (Hydrocodone-Acetamin 5-325 mg) 1 Tab Tab, 1 TAB PO TID PRN for PAIN, (Reported) Nitroglycerin (Nitrostat) 0.4 Mg Subl, 0.4 MG SL for CHEST PAIN, (Reported) Allergies Coded Allergies: Penicillins (Verified Allergy, Intermediate, SWELLING, 01/18/19) MAGUI KINCAID MD Jan 23, 2019 19:07
--- NOTE | 2019-01-31 06:41 | REPIR ---
DATE OF PROCEDURE: 01/19/2019 ATTENDING SURGEON: Dr. Arthur Duke DEHYDRATOR: Flaquita Celeste PREOPERATIVE DIAGNOSES: Poor intravenous (IV) access. Gastrointestinal (GI) bleed. POSTOPERATIVE DIAGNOSES: Poor intravenous (IV) access. Gastrointestinal (GI) bleed. PROCEDURE: Ultrasound and fluoroscopic guided 53 cm left basilic vein PICC line placement. INDICATION: The patient is a 68-year-old female with a gastrointestinal bleed and poor IV access. The patient requires access and will undergo placement of a PICC line. ANESTHESIA: Local with 2 mL of 2% lidocaine mixed 0.5% Marcaine. FLUORO TIME: 0.8 minutes. CONTRAST: None. COMPLICATIONS: None. DRAINS: None. SPECIMENS: None. IMPLANTS: None. PROCEDURE: Patient was taken to the angiography suite, placed supine on the angiography room table and then prepped and draped in a standard surgical fashion. The left basilic vein was evaluated with ultrasound, cannulated and 53 cm PICC line was placed under fluoroscopic guidance. Dressings were then applied. The patient tolerated the procedure well. All instrument, sponge and needle counts were correct at the end of the case. There were no complications. Dr. Duke was present for directed the entire case. The patient was transferred to the holding area and subsequently to the floor in stable condition.
== END 2019-01-23 15:50 | disposition home or self-care (01) | DRG 378 ==
LOC: M ED 18:55 → EDBD 18:55 → M ED INP 01-19 01:49 → M PCU 01-19 19:38 → M MSPAV 01-21 17:03
PROVIDERS: ADMIT Internal Medicine Nephrology; ATTEND Student in an Organized Health Care Education/Training Program
PROC: 30233N1 Transfusion of Nonautologous Red Blood Cells into Peripheral Vein, Percutaneous Approach (ICD-10-PCS; 2019-01-19)
PROC: 02HV33Z Insertion of Infusion Device into Superior Vena Cava, Percutaneous Approach (ICD-10-PCS; 2019-01-19)
PROC: 0DJ08ZZ Inspection of Upper Intestinal Tract, Via Natural or Artificial Opening Endoscopic (ICD-10-PCS; principal; 2019-01-19 17:00)
DX: K28.4 Chronic or unspecified gastrojejunal ulcer with hemorrhage (principal); D62 Acute posthemorrhagic anemia; J44.9 Chronic obstructive pulmonary disease, unspecified; E11.51 Type 2 diabetes mellitus with diabetic peripheral angiopathy without gangrene; K44.9 Diaphragmatic hernia without obstruction or gangrene; M48.061 Spinal stenosis, lumbar region without neurogenic claudication; E66.9 Obesity, unspecified; I10 Essential (primary) hypertension; E78.5 Hyperlipidemia, unspecified; T39.395A Adverse effect of other nonsteroidal anti-inflammatory drugs [NSAID], initial encounter; F41.9 Anxiety disorder, unspecified; F32.9 Major depressive disorder, single episode, unspecified; Z95.820 Peripheral vascular angioplasty status with implants and grafts; Z79.82 Long term (current) use of aspirin; Z79.899 Other long term (current) drug therapy; Z88.0 Allergy status to penicillin; Z79.02 Long term (current) use of antithrombotics/antiplatelets; Z96.651 Presence of right artificial knee joint; Z79.1 Long term (current) use of non-steroidal anti-inflammatories (NSAID); Z68.31 Body mass index [BMI] 31.0-31.9, adult

== ENCOUNTER 2019-03-09 17:52 | Emergency (ER) | payer MEDICARE ==
[~2019-03-09] VITALS: Ht 167.6 cm; Wt 86.4 kg
[~2019-03-09 17:52] MED LIST changes: +ASPI81CH17 PO; +ATOR1TAB21 PO; +BAYE325T12 PO; +BUPR15TASR PO; +CHOL100029 PO; +CLOP75TA2 PO; +FISH1000 PO; +PANT40TA3 PO; +REDCAP4 PO; +SUCR1TA PO
[2019-03-09 18:45] LABS: BASO # 0.1 10^3/uL (0.0-0.2); BASO % 0.7 % (0.0-1.0); EOS # 0.2 10^3/uL (0.0-0.50); EOS % 1.6 % (0.0-3.0); HEMATOCRIT 35.9 % (36.0-47.0); HEMOGLOBIN 11.4 g/dl (12.0-15.5); LYMPH # 1.6 10^3/uL (1.5-4.5); LYMPH % 13.8 % (24.0-44.0); MEAN CORPUSCULAR HEMOGLOBIN 26.1 pg (27.0-33.0); MEAN CORPUSCULAR HGB CONC 31.8 g/dl (32.0-36.5); MEAN CORPUSCULAR VOLUME 82.3 fl (80.0-96.0); MONO # 1.1 10^3/uL (0.0-0.8); NEUTROPHILS # 8.3 10^3/uL (1.8-7.7); NEUTROPHILS % 73.4 % (36.0-66.0); PLATELET COUNT, AUTOMATED 310 10^3/uL (150-450); RED BLOOD COUNT 4.36 10^6/uL (4.00-5.40); WHITE BLOOD COUNT 11.3 10^3/uL (4.0-10.0)
[2019-03-09 19:13] LABS: ALBUMIN 3.4 GM/DL (3.2-5.2); BILIRUBIN,TOTAL 0.5 MG/DL (0.2-1.0); CALCIUM LEVEL 9.4 MG/DL (8.8-10.2); CREATININE FOR GFR 1.23 MG/DL (0.55-1.30); GLOMERULAR FILTRATION RATE 46.1 (>45); POTASSIUM SERUM 3.8 MEQ/L (3.5-5.1); TOTAL PROTEIN 7.1 GM/DL (6.4-8.2)
--- NOTE | 2019-03-09 20:20 | REP ---
LEFT HAND COMPLETE: 03/09/2019. Clinical history: Trauma. A wrist series was also done this date. Findings: Four views show a mildly impacted distal radial metaphyseal fracture with slight dorsal angulation of the distal fragment. There is also a nondisplaced fracture of the ulnar styloid. I cannot confirm intra-articular involvement of the radius. Carpal bones show no definite acute fracture, subluxation or malalignment. Metacarpals show some degenerative changes as do carpal articulations. MCP and IP joints, slightly narrowed with some spurring at IP joints. No erosions. Bones demineralized. Impression: 1. Mildly impacted distal radial metaphyseal fracture and a nondisplaced ulnar styloid fracture. 2. Demineralization and degenerative changes. No other definite fracture. Electronically Signed by Ras Epps MD 03/09/2019 08:28 P
--- NOTE | 2019-03-09 20:21 | REP ---
LEFT WRIST COMPLETE: 03/09/2019. Comparison: Left hand this date. Clinical history: Trauma, patient fell. Findings: Distal radius shows mildly impacted metaphyseal fracture with slight dorsal angulation of the distal fragment. There is a nondisplaced ulnar styloid fracture. Bones are demineralized. Carpal bones with some degenerative changes as are the first and second CMC joints. No fracture of the metacarpals or carpals. Impression: 1. Impacted fracture distal radial metaphysis with a nondisplaced ulnar styloid fracture. Mild dorsal angulation of the distal fragment. No other acute finding. Electronically Signed by Ras Epps MD 03/09/2019 08:29 P
--- NOTE | 2019-03-09 20:26 | ECGEPIP ---
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
[2019-03-09 21:07] VITALS: BP 135/89
== END 2019-03-09 21:07 | disposition home or self-care (01) ==
LOC: M ED 19:45
DX: S52.592A Other fractures of lower end of left radius, initial encounter for closed fracture (principal); S52.615A Nondisplaced fracture of left ulna styloid process, initial encounter for closed fracture; W18.39XA Other fall on same level, initial encounter; Y92.018 Other place in single-family (private) house as the place of occurrence of the external cause; I10 Essential (primary) hypertension; J44.9 Chronic obstructive pulmonary disease, unspecified; Z79.899 Other long term (current) drug therapy; Z79.82 Long term (current) use of aspirin; Z88.0 Allergy status to penicillin; F17.210 Nicotine dependence, cigarettes, uncomplicated

== ENCOUNTER 2019-03-11 13:39 | Emergency (ER) | payer MEDICARE ==
[~2019-03-11] VITALS: Ht 167.6 cm; Wt 83.0 kg
[2019-03-11 15:29] LABS: BASO # 0.1 10^3/uL (0.0-0.2); BASO % 0.5 % (0.0-1.0); EOS # 0.1 10^3/uL (0.0-0.50); EOS % 0.4 % (0.0-3.0); HEMOGLOBIN 11.5 g/dl (12.0-15.5); LYMPH # 1.7 10^3/uL (1.5-4.5); LYMPH % 13.8 % (24.0-44.0); MEAN CORPUSCULAR HEMOGLOBIN 26.3 pg (27.0-33.0); MEAN CORPUSCULAR HGB CONC 31.9 g/dl (32.0-36.5); MEAN CORPUSCULAR VOLUME 82.2 fl (80.0-96.0); MONO # 1.5 10^3/uL (0.0-0.8); MONO % 12.3 % (0.0-5.0); NEUTROPHILS % 72.6 % (36.0-66.0); PLATELET COUNT, AUTOMATED 285 10^3/uL (150-450); RED BLOOD COUNT 4.38 10^6/uL (4.00-5.40); WHITE BLOOD COUNT 12.4 10^3/uL (4.0-10.0)
[2019-03-11] MEDS ORDERED: NS 1,000 ML IV ONE (15:45)
[2019-03-11 15:54] LABS: ALBUMIN 3.7 GM/DL (3.2-5.2); BILIRUBIN,DIRECT 0.2 MG/DL (0.0-0.2); BILIRUBIN,TOTAL 0.7 MG/DL (0.2-1.0); CALCIUM LEVEL 9.3 MG/DL (8.8-10.2); CREATININE FOR GFR 1.41 MG/DL (0.55-1.30); GLOMERULAR FILTRATION RATE 39.4 (>45); POTASSIUM SERUM 3.7 MEQ/L (3.5-5.1); TOTAL PROTEIN 7.5 GM/DL (6.4-8.2)
[2019-03-11] MEDS ORDERED: ISOVUE-370 76% 100ML VIAL (Q9967) As Ordered ONE (17:07)
--- NOTE | 2019-03-11 19:12 | REPVR ---
EXAM: CT Abdomen and Pelvis With Contrast EXAM DATE/TIME: 03/11/2019 5:43 PM CLINICAL HISTORY: 68 years old, female; Abdominal pain; Generalized; Additional info: Abd pain, leukocytosis TECHNIQUE: Imaging protocol: Axial computed tomography images of the abdomen and pelvis with intravenous contrast. Coronal and sagittal reformatted images were created and reviewed. Radiation optimization: All CT scans at this facility use at least one of these dose optimization techniques: automated exposure control; mA and/or kV adjustment per patient size (includes targeted exams where dose is matched to clinical indication); or iterative reconstruction. Contrast material: ISOVUE 370;Contrast volume: 100 ml;Contrast route: IV; COMPARISON: CT ABD/PEL W/IV CONTRAST ONLY 01/18/2019 9:25 PM FINDINGS: Liver: The liver attenuation is 80 Hounsfield units and the spleen is 109 Hounsfield units. Gallbladder and bile ducts: Normal. No calcified stones. No ductal dilation. Pancreas: Normal. No ductal dilation. Spleen: Normal. No splenomegaly. Adrenals: Fullness of the right adrenal with question of a nodule measuring 2.3 x 1.6 x 2.2 cm and a left adrenal nodule measuring 10 x 15 x 17 mm. Kidneys and ureters: Lobular configuration of the kidneys bilaterally. There are bilateral renal cysts measuring up to 19 mm on the left. Stomach and bowel: Minimal distal colonic diverticulosis without diverticulitis. Appendix: A normal retrocecal appendix is seen. Intraperitoneal space: Normal. No free air. No significant fluid collection. Vasculature: Coronary artery calcifications are present. There is mild calcification of the abdominal aorta with extension into the iliac arteries. Lymph nodes: Normal. No enlarged lymph nodes. Bladder: Unremarkable as visualized. Reproductive: Unremarkable as visualized. Bones/joints: No acute fracture. No dislocation. Soft tissues: Thick walled collection in the left flank subcutaneous tissues with central low attenuation of 21 Hounsfield units and minimal calcification suggesting residua of old hematoma and is unchanged. IMPRESSION: 1. There has been little change from 01/18/2019. No acute interval process is identified. 2. Minimal colonic diverticulosis without diverticulitis. Electronically signed by: Tray Shelton On 03/11/2019 19:12:20 PM
[2019-03-11] MEDS ORDERED: NS 500 ML IV ONE (19:15)
[2019-03-11] MEDS ORDERED: ONDA4TAB6 PO (19:34)
[2019-03-11 19:36] VITALS: BP 162/78
--- NOTE | 2019-03-12 09:57 | REP ---
CT BRAIN WITHOUT CONTRAST: 03/11/2019. Comparison: 01/18/2019. Clinical history: Confusion. Findings: Noncontrast images show lateral ventricles midline, symmetric, dilated and in proportion to the diffuse moderately severe cerebral atrophy. Third and fourth ventricles are proportionate and unchanged. There is heterogeneous white matter attenuation representing small-vessel ischemic changes bilaterally and stable. There is an old lacunar infarct in the head of the left caudate nucleus, stable. No evidence of an acute infarct, intracranial hemorrhage, mass or mass effect. Brainstem intact. Cerebellum shows some atrophy in a symmetric fashion. Basal cisterns are intact. Mastoids and sinuses clear. Skull base and calvarium without fracture or focal lesion. Impression: 1. Ventriculomegaly and proportionate atrophy, unchanged from 01/18/2019 but certainly have progressed since the 06/02/2016 prior. 2. Old lacunar infarct left basal ganglia, stable. 3. Chronic small vessel ischemic changes. No sinus, mastoid skull base or calvarial abnormality is identified. Electronically Signed by Ras Epps MD 03/12/2019 10:17 A
--- NOTE | 2019-03-13 10:06 | ECGEPIP ---
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 Order Number: [id number] Reading MD: Fay Lainez Measurements Intervals [place] Rate: 95 P: -51 NM: 141 QRS: 34 QRSD: 93 T: 28 QT: 393 QTc: 496 Interpretive Statements ECTOPIC ATRIAL RHYTHM MODERATE ST DEPRESSION Electronically Signed on 03-13-2019 10:05:54 EDT by Fay Lainez
== END 2019-03-11 19:54 | disposition home or self-care (01) ==
LOC: M ED 13:39
DX: E86.0 Dehydration (principal); F01.50 Vascular dementia, unspecified severity, without behavioral disturbance, psychotic disturbance, mood disturbance, and anxiety; E11.9 Type 2 diabetes mellitus without complications; E78.00 Pure hypercholesterolemia, unspecified; G62.9 Polyneuropathy, unspecified; Z79.899 Other long term (current) drug therapy; Z79.82 Long term (current) use of aspirin; Z88.0 Allergy status to penicillin; F17.210 Nicotine dependence, cigarettes, uncomplicated
CPT/HCPCS: 36415; 70450; 74177; 80048; 80076; 81001; 83690; 85025; 86850; 86900; 86901; 87086; 93005; 99284; Q9967

== ENCOUNTER 2019-03-14 07:29 | Day surgery (SDC) | payer MEDICARE ==
[~2019-03-14] VITALS: Ht 167.6 cm; Wt 79.8 kg
[~2019-03-14 07:29] MED LIST changes: -CHOL100029 PO; +NS 1,000 ML IV ONE; +ONDA4TAB6 PO; +VITAD1000T PO
[2019-03-14] MEDS ORDERED: PROPOFOL 200 MG/20 ML VIAL As Ordered ONE (08:22)
[2019-03-14] MEDS ORDERED: LIDOCAINE 2% INJ 100 MG/5 ML SDV (FOR ANES.) As Ordered ONE (08:22)
--- NOTE | 2019-03-14 08:34 | ROOR ---
Patient Name: Amira Gotti Procedure Date: 03/14/2019 8:17 AM Date of : 1950 Age: 68 Room: [facility] Gender: Female Note Status: Finalized Procedure: Upper Endoscopy + Biopsies Indications: Exclusion of peptic ulcer, Follow-up of peptic ulcer Providers: Héctor Gresham MD Referring MD: Hipolito Parikh MD Requesting Provider: Medicines: Monitored Anesthesia Care Complications: No immediate complications. Procedure: Pre-Anesthesia Assessment: - The heart rate, respiratory rate, oxygen saturations, blood pressure, adequacy of pulmonary ventilation, and response to care were monitored throughout the procedure. The Endoscope was introduced through the mouth, and advanced to the second part of duodenum. The upper GI endoscopy was accomplished without difficulty. The patient tolerated the procedure well. Findings: The Z-line was irregular and was found 40 cm from the incisors. A small hiatal hernia was present. Localized moderate inflammation characterized by congestion (edema) and erythema was found in the prepyloric region of the stomach. Biopsies were taken with a cold forceps for Helicobacter pylori testing. Flattening was found in the first portion of the duodenum. Biopsies were taken with a cold forceps for histology. The exam was otherwise without abnormality. Impression: - Z-line irregular, 40 cm from the incisors. - Small hiatal hernia. - Mucosal changes suspicious for gastritis. Biopsied. - Duodenal mucosal changes seen, suspicious for celiac disease. Biopsied. - The examination was otherwise normal. Recommendation: - Await pathology results. - Discharge patient to home. - Continue present medications. - Await pathology results. - Telephone GI clinic for pathology results in 1 week. - Return to referring physician. - The findings and recommendations were discussed with the patient's family. Héctor Gresham MD Héctor Gresham MD 03/14/2019 8:34:05 AM Electronically signed by Héctor Gresham MD Number of Addenda: 0 Note Initiated On: 03/14/2019 8:17 AM Estimated Blood Loss: Estimated blood loss: none.
[2019-03-14 08:55] VITALS: BP 151/73
== END 2019-03-14 09:02 | disposition home or self-care (01) ==
LOC: M OPP 07:29
PROVIDERS: ATTEND Internal Medicine Gastroenterology
DX: K22.8 Other specified diseases of esophagus (principal); K44.9 Diaphragmatic hernia without obstruction or gangrene; K31.89 Other diseases of stomach and duodenum; K25.9 Gastric ulcer, unspecified as acute or chronic, without hemorrhage or perforation; Z79.82 Long term (current) use of aspirin; Z79.891 Long term (current) use of opiate analgesic; Z79.899 Other long term (current) drug therapy; Z88.0 Allergy status to penicillin; Z95.5 Presence of coronary angioplasty implant and graft

== ENCOUNTER → 2019-09-07 | Outpatient (REF) | payer MEDICARE ==
[~2019-09-07] MED LIST changes: +CHOL100029 PO; -NS 1,000 ML IV ONE; -VITAD1000T PO
[2019-09-07 12:55] LABS: PERCENT SATURATION 7.8 % (13.2-45.0)
== END ==
LOC: M LAB REF 12:30
PROVIDERS: ATTEND Family Medicine
DX: D50.9 Iron deficiency anemia, unspecified (principal)

== ENCOUNTER 2020-08-19 17:19 | Inpatient (IN) | payer MEDICARE ==
[~2020-08-19] VITALS: Ht 170.2 cm; Wt 87.7 kg
[~2020-08-19 17:19] MED LIST changes: -BUPR150T3 PO; +BUPR150T4 PO; +GABA-282 PO; -GABA-843 PO; +PANT40TA29 PO; -PANT40TA3 PO
--- NOTE | 2020-08-19 18:05 | REPVR ---
PROCEDURE INFORMATION: Exam: CT Head Without Contrast Exam date and time: 08/19/2020 5:44 PM Age: 70 years old Clinical indication: Altered mental status/memory loss TECHNIQUE: Imaging protocol: Computed tomography of the head without contrast. Radiation optimization: All CT scans at this facility use at least one of these dose optimization techniques: automated exposure control; mA and/or kV adjustment per patient size (includes targeted exams where dose is matched to clinical indication); or iterative reconstruction. COMPARISON: CT Head without contrast 03/11/2019 3:46 PM FINDINGS: Brain: There is volume loss. There is white matter lucency consistent with chronic microvascular disease. There are old white matter and basal ganglia lacunar infarcts. There is no evidence of acute infarct. There is no hemorrhage or extra-axial collection. There is no mass. Cerebral ventricles: No ventriculomegaly. Bones/joints: There is a small right frontal inner table calvarial osteoma. No fracture. Paranasal sinuses: There is mucosal thickening in the ethmoids. No air-fluid levels. Mastoid air cells: Visualized mastoid air cells are well aerated. Soft tissues: Unremarkable. IMPRESSION: 1. 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 2. No acute intracranial lesion or injury. No change from prior scan. Electronically signed by: Jatin Lees On 08/19/2020 18:04:55 PM
[2020-08-19 18:13] LABS: VENOUS BASE EXCESS -5.6 (-2.0-2.0); VENOUS HCO3 19.8 MEQ/L (23.0-27.0); VENOUS O2 SATURATION 88.4 % (60.0-80.0); VENOUS PARTIAL PRESSURE CO2 38.4 mmHg (38.0-50.0); VENOUS PARTIAL PRESSURE O2 61.2 mmHg (30.0-50.0); VENOUS STANDARD HCO3 19.7 MEQ/L
--- NOTE | 2020-08-19 18:14 | REPVR ---
PROCEDURE INFORMATION: Exam: CT Cervical Spine Without Contrast Exam date and time: 08/19/2020 5:55 PM Age: 70 years old Clinical indication: Injury or trauma; Fall; Blunt trauma TECHNIQUE: Imaging protocol: Computed tomography images of the cervical spine without contrast. Radiation optimization: All CT scans at this facility use at least one of these dose optimization techniques: automated exposure control; mA and/or kV adjustment per patient size (includes targeted exams where dose is matched to clinical indication); or iterative reconstruction. COMPARISON: No relevant prior studies available. FINDINGS: Bones/joints: There is no fracture. Vertebral alignment is normal. There is anterior surgical fusion from C4 to C6 with metal plate and screws. There is intact osseous fusion across these disc spaces with no evidence of pseudoarthrosis. Discs/Spinal canal/Neural foramina: C3-C4: Spondylosis and disc space narrowing with posterior osteophyte and disc bulge resulting in [id number] central spinal stenosis. C6-C7: Spondylosis and disc space narrowing with posterior osteophyte and disc bulge. No central stenosis. There is foraminal stenosis bilaterally at C3-C4, and on the right at C4-C5. Lungs: Lung apices are normal. Soft tissues: Unremarkable. IMPRESSION: 1. No fracture. 2. Postoperative and degenerative findings described above. Electronically signed by: Jatin Lees On 08/19/2020 18:13:51 PM
[2020-08-19 18:16] LABS: BASO # 0.1 10^3/uL (0.0-0.2); BASO % 0.4 % (0.0-1.0); EOS % 0.3 % (0.0-3.0); HEMATOCRIT 30.3 % (36.0-47.0); HEMOGLOBIN 8.6 g/dl (12.0-15.5); LYMPH # 0.5 10^3/uL (1.5-5.0); LYMPH % 3.9 % (24.0-44.0); MEAN CORPUSCULAR HEMOGLOBIN 19.8 pg (27.0-33.0); MEAN CORPUSCULAR HGB CONC 28.4 g/dl (32.0-36.5); MEAN CORPUSCULAR VOLUME 69.8 fl (80.0-96.0); MONO # 1.1 10^3/uL (0.0-0.8); MONO % 9.1 % (0.0-5.0); NEUTROPHILS # 10.6 10^3/uL (1.5-8.5); NEUTROPHILS % 85.7 % (36.0-66.0); PLATELET COUNT, AUTOMATED 195 10^3/uL (150-450); RED BLOOD COUNT 4.34 10^6/uL (4.00-5.40); WHITE BLOOD COUNT 12.4 10^3/uL (4.0-10.0)
[2020-08-19 18:27] LABS: INR 1.14; PROTHROMBIN TIME 14.9 SECONDS (12.5-14.3)
[2020-08-19 18:28] LABS: PARTIAL THROMBOPLASTIN TIME 29.4 SECONDS (24.2-38.5)
--- NOTE | 2020-08-19 18:36 | REP ---
INDICATION: Altered Mental Status. COMPARISON: 01/20/2019 also portable TECHNIQUE: Portable FINDINGS: The technique utilized in obtaining the radiograph has magnified the cardiac silhouette and accentuated the interstitial markings. The superior mediastinal structures are midline. The cardiac silhouette is unremarkable in size, shape, and position. The diaphragmatic surfaces of the lungs are regular, and the costophrenic angles are clear. The pulmonary giles are clear. The imaged osseous structures are intact. IMPRESSION: There is no acute cardiopulmonary disease. <Electronically signed by Sunny Ball > 08/19/20 [id number]
[2020-08-19 18:48] LABS: OSMOLALITY SERUM 300 MOSM/KG (280-301)
[2020-08-19 18:57] LABS: ACETAMINOPHEN LEVEL < 2.0 UG/ML (10.0-30.0); ALBUMIN 3.1 GM/DL (3.2-5.2); ALT/SGPT 48 U/L (12-78); AMPHETAMINES LEVEL URINE NEGATIVE (NEGATIVE); BARBITURATES URINE NEGATIVE (NEGATIVE); BENZODIAZEPINES URINE POSITIVE (NEGATIVE); BILIRUBIN,DIRECT 0.3 MG/DL (0.0-0.2); BILIRUBIN,TOTAL 0.7 MG/DL (0.2-1.0); BLOOD UREA NITROGEN 45 MG/DL (7-18); CALCIUM LEVEL 8.8 MG/DL (8.8-10.2); CANNABINOIDS URINE NEGATIVE (NEGATIVE); CARBON DIOXIDE LEVEL 25 MEQ/L (21-32); CHLORIDE LEVEL 106 MEQ/L (98-107); CK-MB VALUE MASS 3.4 NG/ML (<3.6); COCAINE METABOLITE URINE NEGATIVE (NEGATIVE); CPK CREATINE PHOSPHOKINASE 340 U/L (26-192); CREATININE FOR GFR 1.96 MG/DL (0.55-1.30); ETHYL ALCOHOL (ETHANOL) < 0.003 % (0.000-0.010); GLOMERULAR FILTRATION RATE 26.8 (>39); GLUCOSE, FASTING 117 MG/DL (70-100); METHADONE URINE NEGATIVE (NEGATIVE); OPIATES URINE POSITIVE (NEGATIVE); PHENCYCLIDINE URINE NEGATIVE (NEGATIVE); POTASSIUM SERUM 4.3 MEQ/L (3.5-5.1); SALICYLATE LEVEL 1.8 MG/DL (5.0-30.0); SODIUM LEVEL 138 MEQ/L (136-145); THYROID STIMULATING HORMONE 0.381 uIU/ML (0.358-3.740); TOTAL PROTEIN 7.1 GM/DL (6.4-8.2); TROPONIN I < 0.02 NG/ML (< 0.10)
[2020-08-19] MEDS ORDERED: NS 1,000 ML IV ONE (19:30)
[2020-08-19] MEDS ORDERED: atenoloL 25 MG TAB PO ONE (19:45)
[2020-08-19] MEDS ORDERED: PANT-23 PO (20:14)
[2020-08-19] MEDS ORDERED: COMMENTS (20:18)
[2020-08-19 20:35] LABS: RSV AMPLIFICATION NEGATIVE (NEGATIVE)
[2020-08-19] MEDS: PANTOPRAZOLE 40MG VIAL (C9113 PER 1) IV SCH (20:47)
--- OUTSIDE RECORDS SUMMARY | 2020-08-19 21:11 | CCD | Continuity of Care Document ---
Author Author Amira OHARA M.D. Organization Unknown Address [address] [facility] [address] [place] [address] Phone [phone] Care Team Providers Care Cocoa Roaster Name Role Phone Jose Ramon Haas MD AUTM [phone] Beronica Juarez DO AUTM Unavailable Hipolito Ohara MD AUTM [phone] [facility] AUTM [phone] Problems Active Problems Provider Date Anxiety state Beronica Juarez D.O. Onset: 2010 Depressive disorder Beronica Juarez D.O. Onset: 2010 Type 2 diabetes mellitus Beronica Juarez D.O. Onset: 0 02/19/2011 Essential hypertension Beronica Juarez D.O. Onset: Insomnia Beronica Juarez D.O. Onset: 2015 Social History Type Date Description Comments Sex Unknown ETOH Use Rarely consumes alcohol Tobacco Use Start: Unknown Patient is a current smoker, smo kes every day 1 PPD Allergies, Adverse Reactions, Alerts Active Allergies Reaction Severity Comments Date Metformin nausea and vomiting 03/18/20 15 Penicillin face swells and hives 2014 Medications Active Medications SIG Qnty Indications Ordering Provide r Date Glimepiride 1mg Tablets take one tablet by mouth every day with breakfast 30tabs Kimmy Carlson 04/23/2020 Walker With Seat dx spinal stenosis wheels and hand brakes with a seat. 1units Hipolito Ohara M.D. 05/08/[address] 1 by mouth every day Yuko Cameron FNP 01/31/2019 Sucralfate 1gm Tablets 1 by mouth bid 120tabs Yuko Cameron FNP 01/31/2019 Bupropion Hydrochloride ER (SR) 150mg Tablets ER 12HR 1 by mouth every day 30taoksana Ohara M.D. 12/01/2018 Vitamin D High Potency 1000Unit Ca psules 1 by mouth every day Hipolito Ohara M.D. 01/11/20 18 Red Yeast Rice 600mg Capsules 1 by mouth every day Hipolito Ohara M.D. 01/10/2018 Fish Oil Burp-Less 1000mg Capsules 1 by mouth twice a day Hipolito Ohara M.D. 8 Symbicort 80-4.5mcg/Act Aerosol inhale two puffs by mouth twice a day if needed 10.2units Hipolito kirk M.D. 06/20/2017 Lancets 30G 30G Misc test three times/week and as needed e11.9 200units Hipolito Ohara M.D. 017 Lipitor 20mg Tablets take one tablet by mouth every day 90taoksana Ohara M.D. 05/14/2016 Zolpidem Tartrate 10mg Tablets take one tablet by mouth at bedtime as needed for insomnia maximum daily dose = 1 tablet 30tabs Hipolito Ohara M.D. 09/30/2015 Prozac 40mg Capsules 1 by mouth every day 90caps Hipolito Ohara M.D. 07/10/2015 Hydrocodone-Acetaminophen 5-325mg Tablets 1 by mouth tid/prn/pain m54.5 90taLatrice Arzola 11/21/2013 Nitrostat 0.4mg Tablets Sub one under tongue every 5 minutes x 3 as needed for chest discomfort 25tabs Rafiq Gilbert MD 07/10/2013 Atenolol 25mg Tablets 1 by mouth every day 90jake Ohara M.D. 08/14/2012 Alprazolam 0.25mg Tablets take one tablet by mouth three times a day as needed for anxiety maximum daily dose = 3 90tabs Hipolito Jane White, M.D. 06/29/2011 Gabapentin 300mg Capsules 2 tablets by mouth tid 180caps Hipolito Ohara M.D. Pantoprazole Sodium 40mg Tablets D R 1 by mouth every day 30tabs Hipolito Ohara M.D. Medications Administered in Office Medication SIG Qnty Indications Ordering Provider Date Administration Of Flu Vaccine Inj kavonion Hipolito Ohara M.D. 05/08/2019 Administration Of Flu Vaccine Inj ection Hipolito Ohara M.D. 05/15/2018 Administration Of Flu Vaccine Inj ection Hipolito Ohara M.D. 06/20/2017 Administration Of Flu Vaccine Inj ection Beronica Juarez D.O. 06/17 Immunizations CPT Code Status Date Vaccine Lot # [id number] Given 05/08/2019 Influenza Vaccin e Quadrivalent Preser/Antibiotic Free Im Use [id number] Given 05/15/2018 Influenza Virus Vaccine, Quadrivalent ([id number]), Derived From 7 Given 06/20/2017 Influenza Vaccin e Quadrivalent Preser/Antibiotic Free Im Use [id number] Given 06/17/2015 Fluvirin Virus Vaccine [id number] 01 20110 Given 02/19/2011 Pneumovax 23 Vital Signs Date Vital Result Comment 04/23/2020 3:02pm BP Systolic 152 mmHg BP Diastolic 84 mmHg Heart Rate 64 /min Height 63.5 inches 5'3.50" Weight 182.00 lb BMI (Body Mass Index) 31.7 kg/m2 12/26/2019 2:58pm BP Systolic 144 mmHg BP Diastolic 78 mmHg BP Systolic Recheck 138 mmHg BP Diastolic Recheck 80 mmHg Heart Rate 78 /min Height 63.5 inches 5'3.50" Weight 182.00 lb BMI (Body Mass Index) 31.7 kg/m2 Results Test Acquired Date Facility Test Result H/L Range Note A1c 04/22/2020 [facility] , [facility] Pattern Checker: Dr Rafiq Gilbert [place], [place] [id number] [phone] Hba1c 7.2 % High <5.7 1 Est Avg Glucose 160 mg/dL High 60 - 110 Comprehensive Chem Profile 04/22/2020 [facility] Pattern Checker: Dr Rafiq Gilbert [place], [place] [id number] [phone] Glucose 126 mg/dL High 74 - 99 2 BUN 24 mg/dL High 7 - 18 Creatinine 1.3 mg/dL 0.6 - 1.3 Sodium 137 mEq/L 136 - 145 Potassium 4.8 mEq/L 3.5 - 5.1 Chloride 102 mEq/L 98 - 107 Carbon Dioxide 23 mEq/L 21 - 32 Calcium 8.7 mg/dL 8.5 - 10.1 Alk. Phosphatase 102 mg/dL 46 - 116 Total Bilirubin 0.4 mg/dL 0.2 - 1.0 Ast (Sgot) 16 U/L 15 - 37 Alt (SGPT) 21 U/L 12 - 78 Albumin 3.5 g/dL 3.4 - 5.0 Total Protein 7.3 g/dL 6.4 - 8.2 A/G Ratio 0.92 CALC Low 1.00 - 1.90 GFR 40 mL/min Low >60 GFR 49 mL/min Low >60 3 Lipid Profile 04/22/2020 [facility] , Pattern Checker: [place] [address] [phone] Cholesterol 141 mg/dL 131 - 200 Triglycerides 144 mg/dL 30 - 150 HDL Cholesterol 41 mg/dL 35 - 60 LDL (Calculated) 71 CALC 50 - 159 Laboratory test finding 04/22/2020 [facility] Pattern Checker: Dr Rafiq Gilbert [place], [place] [id number] [phone] Thyroid Stimulating Hormone 0.39 uIU/mL 0.3 6 - 3.74 Complete Blood Count 12/26/2019 [facility] Pattern Checker: Dr Rafiq Gilbert [place], [place] [id number] [phone] WBC 11.1 x10*3/UL High 4.1 - 10.9 RBC 4.69 x10*6/UL 4.20 - 6.30 Hemoglobin 10.5 g/dL Low 12.0 - 18.0 4 Hematocrit 32.8 % Low 37.0 - 51.0 MCV 69.9 fL Low 80.0 - 97.0 MCH 22.5 pg Low 26.0 - 32.0 MCHC 32.1 g/dL 31.0 - 38.0 RDW 15.0 % High 11.6 - 13.7 PLT 303 x10*3/UL 140 - 440 MPV 8.7 FL 7.8 - 11.0 Lymph % 10.2 % 10.0 - 58.5 Mid % 4.1 % 1.7 - 9.3 Neut % 85.7 % 37.0 - 92.0 Lymph # 1.1 x10*3/UL 0.6 - 4.1 Mid # 0.5 x10*3/UL 0.1 - 0.6 Neut # 9.5 x10*3/UL High 2.0 - 7.8 A1c 12/26/2019 [facility] , Pattern Checker: [place] [address] [phone] Hba1c 7.9 g/dL High 4.8 - 5.6 5 Est Avg Glucose 180 mg/dL High 60 - 110 Comprehensive Chem Profile 12/26/2019 [facility], Pattern Checker: [place] [address] [phone] Glucose 157 mg/dL High 74 - 99 6 BUN 18 mg/dL 7 - 18 Creatinine 1.4 mg/dL High 0.6 - 1.3 Sodium 142 mEq/L 136 - 145 Potassium 4.7 mEq/L 3.5 - 5.1 Chloride 105 mEq/L 98 - 107 Carbon Dioxide 23 mEq/L 21 - 32 Calcium 8.9 mg/dL 8.5 - 10.1 Alk. Phosphatase 102 mg/dL 46 - 116 Total Bilirubin 0.4 mg/dL 0.2 - 1.0 Ast (Sgot) 15 U/L 15 - 37 Alt (SGPT) 21 U/L 12 - 78 Albumin 3.8 g/dL 3.4 - 5.0 Total Protein 7.6 g/dL 6.4 - 8.2 A/G Ratio 1.00 CALC 1.00 - 1.90 GFR 37 mL/min Low >60 GFR 45 mL/min Low >60 7 Laboratory test finding 12/26/2019 [facility], Pattern Checker: [place] [address] [phone] Thyroid Stimulating Hormone 0.58 uIU/mL 0.3 6 - 3.74 Laboratory test finding 12/26/2019 [facility] paulino Pattern Checker: [place] [address] [phone] T4 Free 0.99 ng/dL 0.76 - 1.46 1 Lab Result Notes: Pre-Diabetes 5.7 - 6.4 % Diabetes = or > 6.5% 2 100-125 mg/dL PRE-DIABET ES/FASTING >126 mg/dL DIABETES/FASTING 3 CHRONIC KIDNEY DISEASE STAGI NG PER NKF STAGE I & II GFR >= 60 NORMAL TO MILDLY DECREASED STAGE III GFR 30-59 MODERATELY DECREASED STAGE IV GFR 15-29 SEVERELY DECREASED STAGE V GFR <15 VERY LITTLE GFR LEFT ESRD GFR <15 ON CONTINUOUS DRYOUT OPERATOR HELPER 4 NOTE: RESULT VERIFIED. 5 Lab Result Notes: Pre-Diabetes 5.7 - 6.4 % Diabetes = or > 6.5% 6 100-125 mg/dL PRE-DIABET ES/FASTING >126 mg/dL DIABETES/FASTING 7 CHRONIC KIDNEY DISEASE STAGI NG PER NKF STAGE I & II GFR >= 60 NORMAL TO MILDLY DECREASED STAGE III GFR 30-59 MODERATELY DECREASED STAGE IV GFR 15-29 SEVERELY DECREASED STAGE V GFR <15 VERY LITTLE GFR LEFT ESRD GFR <15 ON CONTINUOUS DRYOUT OPERATOR HELPER Procedures Date Code Description Status 10/11/2016 [id number] Diabetic Retinal Eye Exam [facility] 09/03/2013 [id number] Bone Mineral Density Test [facility] 09/03/2013 [id number] Mammogram Completed 08/09/2013 [id number] Diabetic Retinal Eye Exam [facility] 08/07/2012 [id number] Mammogram Completed 08/31/2007 [id number] Mammogram Completed 08/22/2007 [id number] Bone Mineral Density Test [facility] Medical Devices Description No Information Available Encounters Type Date Location Provider Dx Diagnosis Office Visit 04/23/2020 3:00p [facility] Hipolito Ohara M.D. 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 04/23/2020 I10 Essential (primary) hypertension Hipolito Ohara M.D. 04/23/2020 D50.9 Iron deficiency anemia, unspecif ied Hipolito Ohara M.D. 04/23/2020 I25.10 Atherosclerotic hear t disease of [place] coronary artery without a Hipolito Ohara M.D. 04/23/2020 I73.9 Peripheral vascular disease, uns pecified Hipolito Ohara M.D. 04/23/2020 M54.5 Low back pain Hipolito Ohara M.D. 04/23/2020 F17.210 Nicotine dependence, cigarettes, uncomplicated Hipolito Ohara M.D. 04/23/2020 E07.9 Disorder of thyroid, unspecified Hipolito Ohara M.D. 04/22/2020 E11.40 Type 2 diabetes jennyfer itus with diabetic neuropathy, unspecified Hipolito Ohara M.D. 04/22/2020 E11.40 Type 2 diabetes jennyfer itus with diabetic neuropathy, unspecified Lab Schedule 04/22/2020 E78.00 Pure hypercholesterolemia, unspe cified Hipolito Ohara M.D. 04/22/2020 E78.00 Pure hypercholesterolemia, unspe cified Lab Schedule 04/22/2020 N18.3 Chronic kidney disease, stage 3 (moderate) Hipolito Ohara M.D. 04/22/2020 N18.3 Chronic kidney disease, stage 3 (moderate) Lab Schedule 12/26/2019 E11.40 Type 2 diabetes mellitus with di abetic neuropathy, unspecifi Hipolito Ohara M.D. 12/26/2019 I10 Essential (primary) hypertension Hipolito Ohara M.D. 12/26/2019 D50.9 Iron deficiency anemia, unspecif ied Hipolito Ohara M.D. 12/26/2019 E05.90 Thyrotoxicosis, unsp ecified without thyrotoxic crisis or storm Hipolito Ohara M.D. Plan of Treatment Future Appointment(s):* 08/27/2020 9:30 am - [facility] 12[facility]26/2019 - Hipolito Ohara M.D.* E11.40 Type 2 diabetes mellitus with diabetic neuropathy, unsp * I10 Essential (primary) hypertension * D50.9 Iron deficiency anemia, unspecified * E05.90 Thyrotoxicosis, unsp without thyrotoxic crisis or storm Functional Status Description No Information Available Mental Status Description No Information Available Referrals Refer to Dr Reason for Referral Status Appt Date Ankita Flowers MD CONSULT FOR LOW BACK PAIN WITH RADICULOPATHY Elia reyes Notified 05/08/2020 [facility] [place] [address] [phone]
--- OUTSIDE RECORDS SUMMARY | 2020-08-19 21:11 | CCD | Continuity of Care Document ---
Author Author Amira CONN M.D. Organization Unknown Address [address] [place] [address] Phone [phone] Care Team Providers Care Doctor Chiropractic Name Role Phone Hipolito Parikh M.D. AUTM [phone] Problems Active Problems Provider Date Low back pain Cehyanne Conn M.D. Onset: 05/08/2020 Skin sensation disturbance Cheyanne Conn M.D. Onset: 04/24 Muscle weakness Cheyanne Conn M.D. Onset: 05/08/2020 Insomnia Onset: 07/22/2016 Anxiety state Onset: 02/19/2011 Depressive disorder Onset: 02/19/2011 Type 2 diabetes mellitus Onset: 02/20/20 11 Essential hypertension Onset: 02/19/2011 Social History Type Date Description Comments Sex Unknown Tobacco Use Start: Unknown Heavy tobacco smoker (more than 10 cigarettes/day) Allergies, Adverse Reactions, Alerts Active Allergies Reaction Severity Comments Date Penicillin V 05/08/2020 Metformin nausea and vomiting 05/08/20 20 Medications Active Medications SIG Qnty Indications Ordering Provide r Date Glimepiride 1mg Tablets take one tablet by mouth every day with breakfast 30tabs Hipolito Parikh M.D. 04/23/[address]in [address] 1 by mouth every day Yuko Cameron, F.N.P. 01/31 Sucralfate 1gm Tablets 1 by mouth bid 120tabs Yuko Cameron, F.N.P. 01/31/2019 Bupropion Hydrochloride ER (SR) 150mg Tablets ER 12HR 1 by mouth every day 30tabs Hipolito Parikh M.D . 12/01/2018 Red Yeast Rice 600mg Capsules 1 by mouth every day Hipolito Parikh M.D. 01/10/2018 Fish Oil Burp-Less 1000mg Capsules 1 by mouth twice a day Hipolito Parikh M.D. 01/11/20 18 Symbicort 80-4.5mcg/Act Aerosol inhale two puffs by mouth twice a day if needed 10.2units Jacki Parikh M.D. 06/20/2017 Lipitor 20mg Tablets take one tablet by mouth every day 90tabs Hipolito Parikh M.D. 05/14/2016 Zolpidem Tartrate 10mg Tablets take one tablet by mouth at bedtime as needed for insomnia maximum daily dose = 1 tablet 30tabs Hipolito Parikh M.D. 09/30/2015 Prozac 40mg Capsules 1 by mouth every day 90caps Hipolito Parikh M.D. 07/10/2015 Hydrocodone-Acetaminophen 5-325mg Tablets 1 by mouth tid/prn/pain m54.5 90taHipolito Da Silva M .D. 11/21/2013 Nitrostat 0.4mg Tablets Sub one under tongue every 5 minutes x 3 as needed for chest discomfort 25tabs Rafiq Gilbert M.D. 07/10/2013 Atenolol 25mg Tablets 1 by mouth every day 90tabs Hipolito Parikh M.D. 08/14/2012 Alprazolam 0.25mg Tablets take one tablet by mouth three times a day as needed for anxiety maximum daily dose = 3 90tabs Hipolito Parikh M.D. 06/29/2011 Gabapentin 300mg Capsules Patient takes 3 capsules Am, and 2 capsules at Noon and 2 capsules at PM. Cheyanne Conn M.D. Pantoprazole Sodium 40mg Tablets D R 1 by mouth every day 30taHipolito Da Silva M.D. Immunizations Description No Information Available Vital Signs Date Vital Result Comment 08/15/2020 12:22pm Respiratory Rate 12 /min Height 66 inches 5'6" Weight 183.00 lb BMI (Body Mass Index) 29.5 kg/m2 [place] Body Weight 130 lb 05/08/2020 10:25am Respiratory Rate 12 /min Height 66 inches 5'6" Weight 183.00 lb BMI (Body Mass Index) 29.5 kg/m2 [place] Body Weight 130 lb Results Description No Information Available Procedures Date Code Description Status 05/16/2020 62515 Sympathetic Skin Responses Compl eted 05/16/2020 17125 Sympathetic Skin Responses Compl eted 05/16/2020 83201 Test Autonomic Nervous System, C ardiovagal Innervation Completed 05/16/2020 26946 Test Autonomic Nervous System, C ardiovagal Innervation Completed 05/14/2020 53715 Nerve Conduction 13+ Studies Com pleted 05/14/2020 22493 Needle Electromyography Complete , Five Or More Muscles Studied Completed 05/14/2020 66846 Needle Electromyography Complete , Five Or More Muscles Studied Completed Medical Devices Description No Information Available Encounters Type Date Location Provider Dx Diagnosis Office Visit 05/08/2020 10:00a Main office - [place] Cheyanne ivan M.D. M54.5 Low back pain R20.2 Paresthesia of skin G62.9 Polyneuropathy, unspecified I73.9 Peripheral vascular disease, unspecified Assessments Date Code Description Provider 08/15/2020 G62.9 Polyneuropathy, unspecified Debbie Conn M.D. 08/15/2020 M54.5 Low back pain Cheyanne Conn M.D. 08/15/2020 M54.2 Cervicalgia Cheyanne Conn M.D. 08/15/2020 R20.2 Paresthesia of skin Cheyanne ivan M.D. 05/16/2020 G62.9 Polyneuropathy, unspecified [place] Lionel M.D. 05/16/2020 G62.9 Polyneuropathy, unspecified Ans/ VS 05/14/2020 M54.5 Low back pain Cheyanne Conn M.D. 05/14/2020 R20.2 Paresthesia of skin Cheyanne ivan M.D. 05/14/2020 G60.9 Hereditary and idiopathic neurop athy, unspecified Cheyanne Conn M.D. 05/14/2020 M54.16 Radiculopathy, lumbar region Lewis Conn M.D. 05/08/2020 M54.5 Low back pain Cheyanne Conn M.D. 05/08/2020 R20.2 Paresthesia of skin Cheyanne ivan M.D. 05/08/2020 G62.9 Polyneuropathy, unspecified Debbie Conn M.D. 05/08/2020 I73.9 Peripheral vascular disease, uns pecified Cheyanne Conn M.D. Plan of Treatment No Information Available Functional Status Description No Information Available Mental Status Description No Information Available Referrals Refer to Dr Reason for Referral Status Appt Date Cheyanne Conn M.D. Created [address] [place] [address] [phone]
--- OUTSIDE RECORDS SUMMARY | 2020-08-19 21:17 | CCD ---
Author Author [facility] Organization [facility] Address Unknown Phone Unavailable Care Team Providers Care Housekeeper/Custodian/Laundry Worker Name Role Phone Brian Parikh MD Unavailable Unavailable Brian Parikh MD Unavailable Unavailable Brian Parikh MD Unavailable Unavailable Brian Parikh MD Unavailable Unavailable Brian Parikh MD Unavailable Unavailable Brian Parikh MD Unavailable Unavailable Brian Parikh MD Unavailable Unavailable Brian Parikh MD Unavailable Unavailable Brian Parikh MD Unavailable Unavailable Brian Parikh MD Unavailable Unavailable Brian Parikh MD Unavailable Unavailable Brian Parikh MD Unavailable Unavailable Brian Parikh MD Unavailable Unavailable Brian Parikh MD Unavailable Unavailable Brian Parikh MD Unavailable Unavailable Brian Parikh MD Unavailable Unavailable Brian Parikh MD Unavailable Unavailable Brian Parikh MD Unavailable Unavailable Brian Parikh MD Unavailable Unavailable Brian Parikh MD Unavailable Unavailable Brian Parikh MD Unavailable Unavailable Brian Parikh MD Unavailable Unavailable Brian Parikh MD Unavailable Unavailable Brian Parikh MD Unavailable Unavailable Brian Parikh MD Unavailable Unavailable Brian Parikh MD Unavailable Unavailable Brian Parikh MD Unavailable Unavailable Brian Parikh MD Unavailable Unavailable Brian Parikh MD Unavailable Unavailable Brian Parikh MD Unavailable Unavailable Brian Parikh MD Unavailable Unavailable Brian Parikh MD Unavailable Unavailable Brian Parikh MD Unavailable Unavailable Brian Parikh MD Unavailable Unavailable Brian Parikhson Unavailable Unavailable White F Hipolito Unavailable Unavailable White, F Hipolito MD Unavailable Unavailable White F Hipolito Unavailable Unavailable White F Hipolito Unavailable Unavailable White F Hipolito Unavailable Unavailable White F Hipolito Unavailable Unavailable White F Hipolito MD Unavailable Unavailable White F Hipolito MD Unavailable Unavailable White F Hipolito Unavailable Unavailable White F Hipolito Unavailable Unavailable White F Hipolito Unavailable Unavailable White F Hipolito Unavailable Unavailable White F Hipolito Unavailable Unavailable White F Hipolito Unavailable Unavailable White F Hipolito Unavailable Unavailable White F Hipolito Unavailable Unavailable White F Hipolito Unavailable Unavailable White F Hipolito Unavailable Unavailable Jl F Hipolito Unavailable Unavailable White F Hipolito Unavailable Unavailable Jl F Hipolito Unavailable Unavailable White F Hipolito Unavailable Unavailable White F Hipolito Unavailable Unavailable Jl F Hipolito Unavailable Unavailable Jl F Hipolito Unavailable Unavailable Jl F Hipolito Unavailable Unavailable Jl F Hipolito Unavailable Unavailable Jl F Hipolito Unavailable Unavailable Jl F Hipolito STAHL Unavailable Unavailable Jl F Hipolito Unavailable Unavailable Jl F Hipolito STAHL Unavailable Unavailable Jl F Hipolito Unavailable Unavailable Jl F Hipolito Unavailable Unavailable Jl F Hipolito STAHL Unavailable Unavailable Jl F Hipolito STAHL Unavailable Unavailable Jl F Hipolito STAHL Unavailable Unavailable Jl F Hipolito STAHL Unavailable Unavailable Jl F Hipolito Unavailable Unavailable Abdoulaye Rodriguez MD Unavailable Unavailable Abdoulaye Rodriguez MD Unavailable Unavailable Abdoulaye Rodriguez MD Unavailable Unavailable Abdoulaye Rodriguez MD Unavailable Unavailable Abdoulaye Rodriguez MD Unavailable Unavailable Michael O Cheyanne STAHL Unavailable Unavailable Michael O Samhodan STAHL Unavailable Unavailable Michael O Samah Unavailable Unavailable Michael O Samah Unavailable Unavailable Michael O Lewisah Unavailable Unavailable Michael O Samah Unavailable Unavailable Michael O Lewisah Unavailable Unavailable Michael, O Lewisah Unavailable Unavailable Michael O Lewisah Unavailable Unavailable Michael O Lewisah Unavailable Unavailable Michael O Lewisah Unavailable Unavailable Michael, O Cheyanne STAHL Unavailable Unavailable Abdoulaye Rodriguez MD Unavailable Unavailable Abdoulaye Rodriguez MD Unavailable Unavailable Abdoulaye Rodriguez MD Unavailable Unavailable Abdoulaye Rodriguez MD Unavailable Unavailable Abdoulaye Rodriguez MD Unavailable Unavailable Abdoulaye Rodriguez MD Unavailable Unavailable Abdoulaye Rodriguez MD Unavailable Unavailable Abdoulaye Rodriguez MD Unavailable Unavailable Abdoulaye Rodriguez MD Unavailable Unavailable Abdoulaye Rodriguez MD Unavailable Unavailable Abdoulaye Rodriguez MD Unavailable Unavailable Abdoulaye Rodriguez MD Unavailable Unavailable Abdoulaye Rodriguez MD Unavailable Unavailable Abdoulaye Rodriguez MD Unavailable Unavailable Abdoulaye Rodriguez MD Unavailable Unavailable Abdoulaye Rodriguez MD Unavailable Unavailable Abdoulaye Rodriguez MD Unavailable Unavailable Abdoulaye Rodriguez MD Unavailable Unavailable Abdoulaye Rodriguez MD Unavailable Unavailable Abdoulaye Rodriguez MD Unavailable Unavailable Abdoulaye Rodriguez MD Unavailable Unavailable Abdoulaye Rodriguez MD Unavailable Unavailable Abdoulaye Rodriguez MD Unavailable Unavailable Abdoulaye Rodriguez MD Unavailable Unavailable Abdoulaye Rodriguez MD Unavailable Unavailable Abdoulaye Rodriguez MD Unavailable Unavailable Abdoulaye Rodriguez MD Unavailable Unavailable Abdoulaye Rodriguez MD Unavailable Unavailable Abdoulaye Rodriguez MD Unavailable Unavailable Abdoulaye Rodriguez MD Unavailable Unavailable Abdoulaye Rodriguez MD Unavailable Unavailable Abdoulaye Rodriguez MD Unavailable Unavailable Abdoulaye Rodriguez MD Unavailable Unavailable Abdoulaye Rodriguez MD Unavailable Unavailable Abdoulaye Rodriguez MD Unavailable Unavailable Abdoulaye Rodriguez MD Unavailable Unavailable Abdoulaye Rodriguez MD Unavailable Unavailable Abdoulaye Rodriguez MD Unavailable Unavailable Abdoulaye Rodriugez MD Unavailable Unavailable Abdoulaye Rodriguez MD Unavailable Unavailable Abdoulaye Rodriguez MD Unavailable Unavailable Abdoulaye Rodriguez MD Unavailable Unavailable Abdoulaye Rodriguez MD Unavailable Unavailable Abdoulaye Rodriguez MD Unavailable Unavailable Abdoualye Rodriguez MD Unavailable Unavailable Michael, O Samah MD Unavailable Unavailable Michael, O Samah MD Unavailable Unavailable Michael, O Samah MD Unavailable Unavailable Michael, O Samah MD Unavailable Unavailable Michael, O Samah MD Unavailable Unavailable Michael, O Samah MD Unavailable Unavailable Michael, O Samah MD Unavailable Unavailable Michael, O Samah MD Unavailable Unavailable Michael, O Samah MD Unavailable Unavailable Michael, O Samah MD Unavailable Unavailable Michael, O Samah MD Unavailable Unavailable Michael, O Samah MD Unavailable Unavailable Michael, O Samah MD Unavailable Unavailable Michael, O Samah MD Unavailable Unavailable Re-disclosure Warning The records that you are about to access may contain information from federally-assisted alcohol or drug abuse programs. If such information is present, then the following federally mandated warning applies: This information has been disclosed to you from records protected by federal confidentiality rules (42 CFR part 2). The federal rules prohibit you from making any further disclosure of this information unless further disclosure is expressly permitted by the written consent of the person to whom it pertains or as otherwise permitted by 42 CFR part 2. A general authorization for the release of medical or other information is NOT sufficient for this purpose. The Federal rules restrict any use of the information to criminally investigate or prosecute any alcohol or drug abuse patient.The records that you are about to access may contain highly sensitive health information, the redisclosure of which is protected by Article 27-F of the [facility] Public Health law. If you continue you may have access to information: Regarding HIV / AIDS; Provided by facilities licensed or operated by the [facility] Office of Mental Health; or Provided by the [facility] Office for People With Developmental Disabilities. If such information is present, then the following [facility] mandated warning applies: This information has been disclosed to you from confidential records which are protected by state law. State law prohibits you from making any further disclosure of this information without the specific written consent of the person to whom it pertains, or as otherwise permitted by law. Any unauthorized further disclosure in violation of state law may result in a fine or mcc sentence or both. A general authorization for the release of medical or other information is NOT sufficient authorization for further disc losure. Family History Family Member Name Family Member Gender Family Member Status Date o f Status Description Data Source(s) Unknown Unknown Problem [facility] ([facility]) Unknown Unknown Problem [facility] ([facility]) Encounters Encounter Providers Location Date Indications Data Source(s ) Outpatient Attender: Cheyanne Rodriguez MD Main office - [facility] 05/08/2020 10:00:00 AM EDT [facility] ([facility]) Outpatient Attender: Hip[facility]ito [facility] 04/23 03:00:00 PM EDT MED[facility] ([facility] ) Immunizations Vaccine Date Status Description Data Source(s) INFLUENZA VACCINE QUADRIVALENT (65 YR UP)/MF59 C.1/PF 06/16/2020 12:00:00 AM EST completed [facility] Medications Medication Brand Name Start Date Product Form Dose Route Admi nistrative Instructions Pharmacy Instructions Status Indications Reaction Description Data Source(s) 10 mg 08/15/2020 12:00:00 AM EST tablet 30 TAKE ONE TABLET BY MOUTH AT BEDTIME NEEDED FOR INSOMNIA MAXIMUM DAILY DOSE = 1 TABLET TAKE ONE TABLET BY MOUTH AT BEDTIME NEEDED FOR INSOMNIA MAXIMUM DAILY DOSE = 1 TABLET SOLD: 08/15/2020 [facility] 5-325 mg 08/14/2020 12:00:00 AM EST tablet 90 TAKE ONE TABLET BY MOUTH THREE TIMES A DAY NEEDED FOR PAIN MAXIMUM DAILY DOSE = 3 TABLETS TAKE ONE TABLET BY MOUTH THREE TIMES A DAY NEEDED FOR PAIN MAXIMUM DAILY DOSE = 3 TABLETS SOLD: 08/15/2020 [facility] pantoprazole 40 MG Delayed Release Oral Tablet PANTOPRAZOLE SODIUM 07/29/2020 12:00:00 AM EST tablet,delayed release (DR/EC) 30 T RATNA ONE TABLET BY MOUTH EVERY DAY TAKE ONE TABLET BY MOUTH EVERY DAY SOLD: 07/29/2020 [facility] Alprazolam 0.25 MG Oral Tablet ALPRAZOLAM 07/28/2020 12:00:00 AM EST tablet 90 TAKE ONE TABLET BY MOUTH THREE TIMES A D AY NEEDED FOR ANXIETY MAXIMUM DAILY DOSE = 3 TABLETS TAKE ONE TABLET BY MOUTH THREE TIMES A D AY NEEDED FOR ANXIETY MAXIMUM DAILY DOSE = 3 TABLETS SOLD: 07/29/2020 [facility] 10 mg 07/16/2020 12:00:00 AM EST tablet 30 TAKE ONE TABLET BY MOUTH AT BEDTIME NEEDED FOR INSOMNIA MAXIMUM DAILY DOSE = ONE TABLET TAKE ONE TABLET BY MOUTH AT BEDTIME NEEDED FOR INSOMNIA MAXIMUM DAILY DOSE = ONE TABLET SOLD: 07/16/2020 [facility] 5-325 mg 07/16/2020 12:00:00 AM EST tablet 90 TAKE ONE TABLET BY MOUTH THREE TIMES A DAY NEEDED FOR PAIN MAXIMUM DAILY DOSE = THREE TABLETS TAKE ONE TABLET BY MOUTH THREE TIMES A DAY NEEDED FOR PAIN MAXIMUM DAILY DOSE = THREE TABLETS SOLD: 07/16/2020 [facility] 40 mg 07/09/2020 12:00:00 AM EST capsule 90 TAKE ONE CAPSULE BY MOUTH EVERY DAY TAKE ONE CAPSULE BY MOUTH EVERY DAY SOLD: 2020 [facility] Alprazolam 0.25 MG Oral Tablet ALPRAZOLAM 06/25/2020 12:00:00 AM EST tablet 90 TAKE ONE TABLET BY MOUTH THREE TIMES A D AY NEEDED FOR ANXIETY MAXIMUM DAILY DOSE = 3 TABLETS TAKE ONE TABLET BY MOUTH THREE TIMES A D AY NEEDED FOR ANXIETY MAXIMUM DAILY DOSE = 3 TABLETS SOLD: 06/25/2020 [facility] 5-325 mg 06/17/2020 12:00:00 AM EST tablet 90 TAKE ONE TABLET BY MOUTH THREE TIMES A DAY NEEDED FOR PAIN MAXIMUM DAILY DOSE = THREE TABLETS TAKE ONE TABLET BY MOUTH THREE TIMES A DAY NEEDED FOR PAIN MAXIMUM DAILY DOSE = THREE TABLETS SOLD: 06/20/2020 [facility] 10 mg 06/17/2020 12:00:00 AM EST tablet 30 TAKE ONE TABLET BY MOUTH AT BEDTIME NEEDED FOR INSOMNIA MAXIMUM DAILY DOSE = ONE TABLET TAKE ONE TABLET BY MOUTH AT BEDTIME NEEDED FOR INSOMNIA MAXIMUM DAILY DOSE = ONE TABLET SOLD: 06/20/2020 [facility] 10 mg 05/23/2020 12:00:00 AM EDT tablet 30 TAKE ONE TABLET BY MOUTH AT BEDTIME NEEDED FOR INSOMNIA MAXIMUM DAILY DOSE = 1 TABLET TAKE ONE TABLET BY MOUTH AT BEDTIME NEEDED FOR INSOMNIA MAXIMUM DAILY DOSE = 1 TABLET SOLD: 05/24/2020 [facility] 5-325 mg 05/23/2020 12:00:00 AM EDT tablet 90 TAKE ONE TABLET BY MOUTH THREE TIMES A DAY NEEDED FOR PAIN MAXIMUM DAILY DOSE = 3 TABLETS TAKE ONE TABLET BY MOUTH THREE TIMES A DAY NEEDED FOR PAIN MAXIMUM DAILY DOSE = 3 TABLETS SOLD: 05/24/2020 [facility] 300 mg 05/06/2020 12:00:00 AM EDT capsule 180 TAKE TWO CAPSULES BY MOUTH THREE TIMES A DAY TAKE TWO CAPSULES BY MOUTH THREE TIMES A DAY SOLD: 0 [facility] 300 mg 05/06/2020 12:00:00 AM EDT capsule 180 TAKE TWO CAPSULES BY MOUTH THREE TIMES A DAY TAKE TWO CAPSULES BY MOUTH THREE TIMES A DAY SOLD: 0 [facility] 300 mg 05/06/2020 12:00:00 AM EDT capsule 180 TAKE TWO CAPSULES BY MOUTH THREE TIMES A DAY TAKE TWO CAPSULES BY MOUTH THREE TIMES A DAY SOLD: 0 [facility] 300 mg 05/06/2020 12:00:00 AM EDT capsule 180 TAKE TWO CAPSULES BY MOUTH THREE TIMES A DAY TAKE TWO CAPSULES BY MOUTH THREE TIMES A DAY SOLD: [facility] Atenolol 25 MG Oral Tablet ATENOLOL 04/29/2020 12:00:00 AM EDT tablet 43 TAKE ONE TABLET BY MOUTH EVERY DAY TAKE ONE TABLET BY MOUTH EVERY DAY SOLD: 07/26/2020 [facility] 25 mg 04/29/2020 12:00:00 AM EDT tablet 90 TAKE ONE TABLET BY MOUTH EVERY DAY TAKE ONE TABLET BY MOUTH EVERY DAY SOLD: 04/29/2020 [facility] Alprazolam 0.25 MG Oral Tablet ALPRAZOLAM 04/27/2020 12:00:00 AM EDT tablet 90 TAKE ONE TABLET BY MOUTH THREE TIMES A D AY NEEDED FOR ANXIETY MAXIMUM DAILY DOSE = 3 TABLETS TAKE ONE TABLET BY MOUTH THREE TIMES A D AY NEEDED FOR ANXIETY MAXIMUM DAILY DOSE = 3 TABLETS SOLD: 04/27/2020 [facility] 80-4.5 mcg/actuation 04/26/2020 12:00:00 AM EDT HFA aerosol inhaler 10 INHALE TWO PUFFS BY MOUTH TWICE A DAY NEEDED INHALE TWO PUFFS BY MOUTH TWICE A DAY NEEDED SOLD: 04/26/2020 [facility] 10 mg 04/26/2020 12:00:00 AM EDT tablet 30 TAKE ONE TABLET BY MOUTH AT BEDTIME NEEDED FOR INSOMNIA MAXIMUM DAILY DOSE = 1 TABLET TAKE ONE TABLET BY MOUTH AT BEDTIME NEEDED FOR INSOMNIA MAXIMUM DAILY DOSE = 1 TABLET SOLD: 04/26/2020 [facility] glimepiride 1 MG Oral Tablet GLIMEPIRIDE 04/25/2020 12:00:00 AM EDT ta blet 30 TAKE ONE TABLET BY MOUTH EVERY DAY WITH BREAKFAST TAKE ONE TABLET BY MOUTH EVERY DAY WITH BREAKFAST SOLD: 04/26/2020 [facility] 5-325 mg 04/25/2020 12:00:00 AM EDT tablet 90 TAKE ONE TABLET BY MOUTH THREE TIMES A DAY NEEDED FOR PAIN MAXIMUM DAILY DOSE = 3 TABLETS TAKE ONE TABLET BY MOUTH THREE TIMES A DAY NEEDED FOR PAIN MAXIMUM DAILY DOSE = 3 TABLETS SOLD: 04/26/2020 [facility] glimepiride 1 MG Oral Tablet Glimepiride 04/23/2020 12:00:00 AM EDT ORAL active [facility] glimepiride 1 MG Oral Tablet Glimepiride 04/23/2020 12:00:00 AM EDT ORAL active MED[facility] ([facility]) 300 mg 04/22/2020 12:00:00 AM EDT capsule 150 TAKE THREE CAPSULES BY MOUTH EVERY MORNING AND 2 TWO TIMES A DAY DIRECTED TAKE THREE CAPSULES BY MOUTH EVERY MORNING AND 2 TWO TIMES A DAY DIRECTED SOLD: 04/22/2020 [facility] 5-325 mg 03/30/2020 12:00:00 AM EDT tablet 90 TAKE ONE TABLET BY MOUTH THREE TIMES A DAY NEEDED FOR PAIN MAXIMUM DAILY DOSE = 3 TABLETS TAKE ONE TABLET BY MOUTH THREE TIMES A DAY NEEDED FOR PAIN MAXIMUM DAILY DOSE = 3 TABLETS SOLD: 03/30/2020 [facility] Alprazolam 0.25 MG Oral Tablet ALPRAZOLAM 03/29/2020 12:00:00 AM EDT tablet 90 TAKE ONE TABLET BY MOUTH THREE TIMES A D AY NEEDED MAXIMUM DAILY DOSE = 3 TABLETS TAKE ONE TABLET BY MOUTH THREE TIMES A D AY NEEDED MAXIMUM DAILY DOSE = 3 TABLETS SOLD: 03/29/2020 [facility] 10 mg 03/28/2020 12:00:00 AM EDT tablet 30 TAKE ONE TABLET BY MOUTH AT BEDTIME NEEDED FOR INSOMNIA MAXIMUM DAILY DOSE = ONE TABLET TAKE ONE TABLET BY MOUTH AT BEDTIME NEEDED FOR INSOMNIA MAXIMUM DAILY DOSE = ONE TABLET SOLD: 03/28/2020 [facility] atorvastatin 20 MG Oral Tablet ATORVASTATIN CALCIUM 03/11/2020 1 2:00:00 AM EDT tablet 90 TAKE ONE TABLET BY MOUTH EVERY D AY TAKE ONE TABLET BY MOUTH EVERY DAY SOLD: 06/11/2020 [facility] atorvastatin 20 MG Oral Tablet ATORVASTATIN CALCIUM 03/11/2020 1 2:00:00 AM EDT tablet 90 TAKE ONE TABLET BY MOUTH EVERY D AY TAKE ONE TABLET BY MOUTH EVERY DAY SOLD: 03/12/2020 [facility] 5-325 mg 03/01/2020 12:00:00 AM EDT tablet 90 TAKE ONE TABLET BY MOUTH THREE TIMES A DAY NEEDED FOR PAIN MAXIMUM DAILY DOSE = 3 TABLETS TAKE ONE TABLET BY MOUTH THREE TIMES A DAY NEEDED FOR PAIN MAXIMUM DAILY DOSE = 3 TABLETS SOLD: 03/01/2020 [facility] 10 mg 02/29/2020 12:00:00 AM EDT tablet 30 TAKE ONE TABLET BY MOUTH AT BEDTIME NEEDED FOR INSOMNIA MAXIMUM DAILY DOSE = 1 TABLET TAKE ONE TABLET BY MOUTH AT BEDTIME NEEDED FOR INSOMNIA MAXIMUM DAILY DOSE = 1 TABLET SOLD: 02/29/2020 [facility] Alprazolam 0.25 MG Oral Tablet ALPRAZOLAM 02/29/2020 12:00:00 AM EDT tablet 90 TAKE ONE TABLET BY MOUTH THREE TIMES A D AY NEEDED FOR ANXIETY MAXIMUM DAILY DOSE = 3 TABLETS TAKE ONE TABLET BY MOUTH THREE TIMES A D AY NEEDED FOR ANXIETY MAXIMUM DAILY DOSE = 3 TABLETS SOLD: 02/29/2020 [facility] 5-325 mg 02/22/2020 12:00:00 AM EDT tablet 21 TAKE ONE TABLET BY MOUTH THREE TIMES A DAY NEEDED FOR PAIN MAXIMUM DAILY DOSE = 3 TABLETS TAKE ONE TABLET BY MOUTH THREE TIMES A DAY NEEDED FOR PAIN MAXIMUM DAILY DOSE = 3 TABLETS SOLD: 02/22/2020 [facility] 5-325 mg 02/15/2020 12:00:00 AM EDT tablet 21 TAKE ONE TABLET BY MOUTH THREE TIMES A DAY NEEDED FOR PAIN MAXIMUM DAILY DOSE = THREE TABLETS TAKE ONE TABLET BY MOUTH THREE TIMES A DAY NEEDED FOR PAIN MAXIMUM DAILY DOSE = THREE TABLETS SOLD: 02/15/2020 [facility] pantoprazole 40 MG Delayed Release Oral Tablet PANTOPRAZOLE SODIUM 02/09/2020 12:00:00 AM EDT tablet,delayed release (DR/EC) 30 T RATNA ONE TABLET BY MOUTH EVERY DAY TAKE ONE TABLET BY MOUTH EVERY DAY SOLD: 03/12/2020 [facility] pantoprazole 40 MG Delayed Release Oral Tablet PANTOPRAZOLE SODIUM 02/09/2020 12:00:00 AM EDT tablet,delayed release (DR/EC) 30 T RATNA ONE TABLET BY MOUTH EVERY DAY TAKE ONE TABLET BY MOUTH EVERY DAY SOLD: 02/09/2020 [facility] pantoprazole 40 MG Delayed Release Oral Tablet PANTOPRAZOLE SODIUM 02/09/2020 12:00:00 AM EDT tablet,delayed release (DR/EC) 30 T RATNA ONE TABLET BY MOUTH EVERY DAY TAKE ONE TABLET BY MOUTH EVERY DAY SOLD: 05/12/2020 [facility] 40 mg 02/09/2020 12:00:00 AM EDT tablet,delayed release (DR/EC) 30 TAKE ONE TABLET BY MOUTH EVERY DAY TAKE ONE TABLET BY MOUTH EVERY DAY SOLD: 04/11/2020 [facility] pantoprazole 40 MG Delayed Release Oral Tablet PANTOPRAZOLE SODIUM 02/09/2020 12:00:00 AM EDT tablet,delayed release (DR/EC) 30 T RATNA ONE TABLET BY MOUTH EVERY DAY TAKE ONE TABLET BY MOUTH EVERY DAY SOLD: 06/11/2020 [facility] pantoprazole 40 MG Delayed Release Oral Tablet PANTOPRAZOLE SODIUM 02/09/2020 12:00:00 AM EDT tablet,delayed release (DR/EC) 30 T RATNA ONE TABLET BY MOUTH EVERY DAY TAKE ONE TABLET BY MOUTH EVERY DAY SOLD: 07/08/2020 [facility] 10 mg 02/01/2020 12:00:00 AM EDT tablet 30 TAKE ONE TABLET BY MOUTH AT BEDTIME NEEDED FOR INSOMNIA MAXIMUM DAILY DOSE = 1 TABLET TAKE ONE TABLET BY MOUTH AT BEDTIME NEEDED FOR INSOMNIA MAXIMUM DAILY DOSE = 1 TABLET SOLD: 02/01/2020 [facility] Alprazolam 0.25 MG Oral Tablet ALPRAZOLAM 02/01/2020 12:00:00 AM EDT tablet 90 TAKE ONE TABLET BY MOUTH THREE TIMES A D AY NEEDED FOR ANXIETY MAXIMUM DAILY DOSE = 3 TABLETS TAKE ONE TABLET BY MOUTH THREE TIMES A D AY NEEDED FOR ANXIETY MAXIMUM DAILY DOSE = 3 TABLETS SOLD: 02/01/2020 [facility] Alprazolam 0.25 MG Oral Tablet ALPRAZOLAM 01/05/2020 12:00:00 AM EDT tablet 90 TAKE ONE TABLET BY MOUTH THREE TIMES A D AY NEEDED FOR ANXIETY MAXIMUM DAILY DOSE = 3 TABLETS TAKE ONE TABLET BY MOUTH THREE TIMES A D AY NEEDED FOR ANXIETY MAXIMUM DAILY DOSE = 3 TABLETS SOLD: 01/05/2020 [facility] 10 mg 01/05/2020 12:00:00 AM EDT tablet 30 TAKE ONE TABLET BY MOUTH AT BEDTIME NEEDED FOR INSOMNIA MAXIMUM DAILY DOSE = 1 TABLET TAKE ONE TABLET BY MOUTH AT BEDTIME NEEDED FOR INSOMNIA MAXIMUM DAILY DOSE = 1 TABLET SOLD: 01/05/2020 [facility] 5-325 mg 01/04/2020 12:00:00 AM EDT tablet 90 TAKE ONE TABLET BY MOUTH THREE TIMES A DAY NEEDED FOR PAIN MAXIMUM DAILY DOSE = 3 TABLETS TAKE ONE TABLET BY MOUTH THREE TIMES A DAY NEEDED FOR PAIN MAXIMUM DAILY DOSE = 3 TABLETS SOLD: 01/05/2020 [facility] 5-325 mg 12/07/2019 12:00:00 AM EDT tablet 90 TAKE ONE TABLET BY MOUTH THREE TIMES A DAY NEEDED FOR PAIN MAXIMUM DAILY DOSE = 3 TABLETS TAKE ONE TABLET BY MOUTH THREE TIMES A DAY NEEDED FOR PAIN MAXIMUM DAILY DOSE = 3 TABLETS SOLD: 12/09/2019 [facility] 10 mg 12/07/2019 12:00:00 AM EDT tablet 30 TAKE ONE TABLET BY MOUTH AT BEDTIME NEEDED FOR INSOMNIA MAXIMUM DAILY DOSE = 1 TABLET TAKE ONE TABLET BY MOUTH AT BEDTIME NEEDED FOR INSOMNIA MAXIMUM DAILY DOSE = 1 TABLET SOLD: 12/09/2019 [facility] Alprazolam 0.25 MG Oral Tablet ALPRAZOLAM 12/07/2019 12:00:00 AM EDT tablet 90 TAKE ONE TABLET BY MOUTH THREE TIMES A D AY NEEDED FOR ANXIETY MAXIMUM DAILY DOSE = 3 TABLETS TAKE ONE TABLET BY MOUTH THREE TIMES A D AY NEEDED FOR ANXIETY MAXIMUM DAILY DOSE = 3 TABLETS SOLD: 12/09/2019 [facility] Alprazolam 0.25 MG Oral Tablet ALPRAZOLAM 11/12/2019 12:00:00 AM EDT tablet 90 TAKE ONE TABLET BY MOUTH THREE TIMES A D AY NEEDED FOR ANXIETY MAXIMUM DAILY DOSE = THREE TABLETS TAKE ONE TABLET BY MOUTH THREE TIMES A D AY NEEDED FOR ANXIETY MAXIMUM DAILY DOSE = THREE TABLETS SOLD: 11/12/2019 [facility] 10 mg 11/12/2019 12:00:00 AM EDT tablet 30 TAKE ONE TABLET BY MOUTH AT BEDTIME NEEDED FOR INSOMNIA MAXIMUM DAILY DOSE = 1 TAKE ONE TABLET BY MOUTH AT BEDTIME NEEDED FOR INSOMNIA MAXIMUM DAILY DOSE = 1 SOLD: 11/12/2019 [facility] 5-325 mg 11/09/2019 12:00:00 AM EDT tablet 90 TAKE ONE TABLET BY MOUTH THREE TIMES A DAY NEEDED FOR PAIN MAXIMUM DAILY DOSE = 3 TABLETS TAKE ONE TABLET BY MOUTH THREE TIMES A DAY NEEDED FOR PAIN MAXIMUM DAILY DOSE = 3 TABLETS SOLD: 11/09/2019 [facility] 300 mg 11/05/2019 12:00:00 AM EDT capsule 150 TAKE THREE CAPSULES BY MOUTH EVERY MORNING AND 2 LATER DIRECTED TAKE THREE CAPSULES BY MOUTH EVERY MORNI NG AND 2 LATER DIRECTED SOLD: 02/27/2020 [facility] 300 mg 11/05/2019 12:00:00 AM EDT capsule 150 TAKE THREE CAPSULES BY MOUTH EVERY MORNING AND 2 LATER DIRECTED TAKE THREE CAPSULES BY MOUTH EVERY MORNI NG AND 2 LATER DIRECTED SOLD: 12/05/2019 [facility] 300 mg 11/05/2019 12:00:00 AM EDT capsule 150 TAKE THREE CAPSULES BY MOUTH EVERY MORNING AND 2 LATER DIRECTED TAKE THREE CAPSULES BY MOUTH EVERY MORNI NG AND 2 LATER DIRECTED SOLD: 11/06/2019 [facility] 300 mg 11/05/2019 12:00:00 AM EDT capsule 150 TAKE THREE CAPSULES BY MOUTH EVERY MORNING AND 2 LATER DIRECTED TAKE THREE CAPSULES BY MOUTH EVERY MORNI NG AND 2 LATER DIRECTED SOLD: 03/26/2020 [facility] 300 mg 11/05/2019 12:00:00 AM EDT capsule 150 TAKE THREE CAPSULES BY MOUTH EVERY MORNING AND 2 LATER DIRECTED TAKE THREE CAPSULES BY MOUTH EVERY MORNI NG AND 2 LATER DIRECTED SOLD: 01/01/2020 [facility] 300 mg 11/05/2019 12:00:00 AM EDT capsule 150 TAKE THREE CAPSULES BY MOUTH EVERY MORNING AND 2 LATER DIRECTED TAKE THREE CAPSULES BY MOUTH EVERY MORNI NG AND 2 LATER DIRECTED SOLD: 01/29/2020 [facility] 10 mg 10/15/2019 12:00:00 AM EDT tablet 30 TAKE ONE TABLET BY MOUTH AT BEDTIME NEEDED FOR INSOMNIA MAXIMUM DAILY DOSE = 1 TABLET TAKE ONE TABLET BY MOUTH AT BEDTIME NEEDED FOR INSOMNIA MAXIMUM DAILY DOSE = 1 TABLET SOLD: 10/16/2019 [facility] Alprazolam 0.25 MG Oral Tablet ALPRAZOLAM 10/12/2019 12:00:00 AM EDT tablet 90 TAKE ONE TABLET BY MOUTH THREE TIMES A D AY NEEDED FOR ANXIETY MAXIMUM DAILY DOSE = 3 TAKE ONE TABLET BY MOUTH THREE TIMES A D AY NEEDED FOR ANXIETY MAXIMUM DAILY DOSE = 3 SOLD: 10/12/2019 [facility] 5-325 mg 10/11/2019 12:00:00 AM EDT tablet 90 TAKE ONE TABLET BY MOUTH THREE TIMES A DAY NEEDED FOR PAIN MAXIMUM DAILY DOSE = 3 TAKE ONE TABLET BY MOUTH THREE TIMES A DAY NEEDED FOR PAIN MAXIMUM DAILY DOSE = 3 SOLD: 10/12/2019 [facility] 300 mg 10/05/2019 12:00:00 AM EDT capsule 150 TAKE THREE CAPSULES BY MOUTH EVERY MORNING AND 2 EVERY EVENING TAKE THREE CAPSULES BY MOUTH EVERY MORNI NG AND 2 EVERY EVENING SOLD: 10/06/2019 [facility] 5-325 mg 09/15/2019 12:00:00 AM EST tablet 90 TAKE ONE TABLET BY MOUTH THREE TIMES A DAY NEEDED FOR PAIN MAXIMUM DAILY DOSE = 3 TAKE ONE TABLET BY MOUTH THREE TIMES A DAY NEEDED FOR PAIN MAXIMUM DAILY DOSE = 3 SOLD: 09/15/2019 [facility] Alprazolam 0.25 MG Oral Tablet ALPRAZOLAM 09/14/2019 12:00:00 AM EST tablet 90 TAKE ONE TABLET BY MOUTH THREE TIMES A D AY NEEDED FOR ANXIETY MAXIMUM DAILY DOSE = 3 TABLETS TAKE ONE TABLET BY MOUTH THREE TIMES A D AY NEEDED FOR ANXIETY MAXIMUM DAILY DOSE = 3 TABLETS SOLD: 09/15/2019 [facility] 0.4 mg 09/14/2019 12:00:00 AM EST tablet, sublingual 25 PLACE ONE TABLET UNDER THE TONGUE EVERY 5 MINUTES FOR UP TO 3 DOSES NEEDED FOR CHEST PAIN. IF CHEST PAIN STILL PERSISTS CONTACT [address] ONE TABLET UNDER THE TONGUE EVERY 5 MINUTES FOR UP TO 3 DOSES NEEDED FOR CHEST PAIN. IF CHEST PAIN STILL PERSISTS CONTACT 911 SOLD: 09/15/2019 [facility] 10 mg 09/14/2019 12:00:00 AM EST tablet 30 TAKE ONE TABLET BY MOUTH AT BEDTIME NEEDED FOR INSOMNIA MAXIMUM DAILY DOSE = 1 TABLET TAKE ONE TABLET BY MOUTH AT BEDTIME NEEDED FOR INSOMNIA MAXIMUM DAILY DOSE = 1 TABLET SOLD: 09/15/2019 [facility] 300 mg 09/03/2019 12:00:00 AM EST capsule 150 TAKE THREE CAPSULES BY MOUTH EVERY MORNING AND 2 EVERY EVENING TAKE THREE CAPSULES BY MOUTH EVERY MORNI NG AND 2 EVERY EVENING SOLD: 09/04/2019 [facility] Alprazolam 0.25 MG Oral Tablet ALPRAZOLAM 08/18/2019 12:00:00 AM EST tablet 90 TAKE ONE TABLET BY MOUTH THREE TIMES A D AY NEEDED FOR ANXIETY MAXIMUM DAILY DOSE = 3 TAKE ONE TABLET BY MOUTH THREE TIMES A D AY NEEDED FOR ANXIETY MAXIMUM DAILY DOSE = 3 SOLD: 08/18/2019 [facility] 10 mg 08/17/2019 12:00:00 AM EST tablet 30 TAKE ONE TABLET BY MOUTH AT BEDTIME NEEDED FOR INSOMNIA MAXIMUM DAILY DOSE = 1 TAKE ONE TABLET BY MOUTH AT BEDTIME NEEDED FOR INSOMNIA MAXIMUM DAILY DOSE = 1 SOLD: 08/18/2019 [facility] 5-325 mg 08/17/2019 12:00:00 AM EST tablet 90 TAKE ONE TABLET BY MOUTH THREE TIMES A DAY NEEDED FOR PAIN MAXIMUM DAILY DOSE = 3 TAKE ONE TABLET BY MOUTH THREE TIMES A DAY NEEDED FOR PAIN MAXIMUM DAILY DOSE = 3 SOLD: 08/18/2019 [facility] 80-4.5 mcg/actuation 08/10/2019 12:00:00 AM EST HFA aerosol inhaler 10 INHALE TWO PUFFS BY MOUTH TWICE A DAY NEEDED INHALE TWO PUFFS BY MOUTH TWICE A DAY NEEDED SOLD: 08/10/2019 [facility] 300 mg 08/10/2019 12:00:00 AM EST capsule 150 TAKE THREE CAPSULES BY MOUTH EVERY MORNING AND 2 TWO TIMES A DAY TAKE THREE CAPSULES BY MOUTH EVERY MORNI NG AND 2 TWO TIMES A DAY SOLD: 08/10/2019 [facility] 10 mg 07/20/2019 12:00:00 AM EST tablet 30 TAKE ONE TABLET BY MOUTH AT BEDTIME NEEDED FOR INSOMNIA MAXIMUM DAILY DOSE = ONE TABLET TAKE ONE TABLET BY MOUTH AT BEDTIME NEEDED FOR INSOMNIA MAXIMUM DAILY DOSE = ONE TABLET SOLD: 07/20/2019 [facility] 40 mg 07/20/2019 12:00:00 AM EST capsule 90 TAKE ONE CAPSULE BY MOUTH EVERY DAY TAKE ONE CAPSULE BY MOUTH EVERY DAY SOLD: 07/20/2019 [facility] 40 mg 07/20/2019 12:00:00 AM EST capsule 90 TAKE ONE CAPSULE BY MOUTH EVERY DAY TAKE ONE CAPSULE BY MOUTH EVERY DAY SOLD: 10/16/2019 [facility] 40 mg 07/20/2019 12:00:00 AM EST capsule 90 TAKE ONE CAPSULE BY MOUTH EVERY DAY TAKE ONE CAPSULE BY MOUTH EVERY DAY SOLD: 04/11/2020 [facility] 5-325 mg 07/20/2019 12:00:00 AM EST tablet 90 TAKE ONE TABLET BY MOUTH THREE TIMES A DAY NEEDED FOR PAIN MAXIMUM DAILY DOSE = THREE TABLETS TAKE ONE TABLET BY MOUTH THREE TIMES A DAY NEEDED FOR PAIN MAXIMUM DAILY DOSE = THREE TABLETS SOLD: 07/20/2019 [facility] 40 mg 07/20/2019 12:00:00 AM EST capsule 90 TAKE ONE CAPSULE BY MOUTH EVERY DAY TAKE ONE CAPSULE BY MOUTH EVERY DAY SOLD: 01/16/2020 [facility] 0.25 mg 07/20/2019 12:00:00 AM EST tablet 90 TAKE ONE TABLET BY MOUTH THREE TIMES A DAY NEEDED FOR ANXIETY MAXIMUM DAILY DOSE = THREE TABLETS TAKE ONE TABLET BY MOUTH THREE TIMES A DAY NEEDED FOR ANXIETY MAXIMUM DAILY DOSE = THREE TABLETS SOLD: 07/20/2019 [facility] 300 mg 07/12/2019 12:00:00 AM EST capsule 150 TAKE THREE TABLETS BY MOUTH EVERY MORNING AND TAKE 2 TABLETS TWO TIMES A DAY TAKE THREE TABLETS BY MOUTH EVERY MORNING AND TAKE 2 TABLETS TWO TIMES A DAY SOLD: 07/14/2019 [facility] 10 mg 06/22/2019 12:00:00 AM EST tablet 30 TAKE ONE TABLET BY MOUTH AT BEDTIME NEEDED FOR INSOMNIA MAXIMUM DAILY DOSE = ONE TABLET TAKE ONE TABLET BY MOUTH AT BEDTIME NEEDED FOR INSOMNIA MAXIMUM DAILY DOSE = ONE TABLET SOLD: 06/22/2019 [facility] Alprazolam 0.25 MG Oral Tablet ALPRAZOLAM 06/22/2019 12:00:00 AM EST tablet 90 TAKE ONE TABLET BY MOUTH THREE TIMES A D AY NEEDED FOR ANXIETY MAXIMUM DAILY DOSE = THREE TABLETS TAKE ONE TABLET BY MOUTH THREE TIMES A D AY NEEDED FOR ANXIETY MAXIMUM DAILY DOSE = THREE TABLETS SOLD: 06/22/2019 [facility] 5-325 mg 06/22/2019 12:00:00 AM EST tablet 90 TAKE ONE TABLET BY MOUTH THREE TIMES A DAY NEEDED FOR PAIN MAXIMUM DAILY DOSE = THREE TABLETS TAKE ONE TABLET BY MOUTH THREE TIMES A DAY NEEDED FOR PAIN MAXIMUM DAILY DOSE = THREE TABLETS SOLD: 06/22/2019 [facility] 150 mg 06/18/2019 12:00:00 AM EST tablet sustained-releas e 12 hr 30 TAKE ONE TABLET BY MOUTH EVERY DAY TAKE ONE TABLET BY MOUTH EVERY DAY SOLD: 09/25/2019 [facility] 150 mg 06/18/2019 12:00:00 AM EST tablet sustained-releas e 12 hr 30 TAKE ONE TABLET BY MOUTH EVERY DAY TAKE ONE TABLET BY MOUTH EVERY DAY SOLD: 06/22/2019 [facility] 150 mg 06/18/2019 12:00:00 AM EST tablet sustained-releas e 12 hr 30 TAKE ONE TABLET BY MOUTH EVERY DAY TAKE ONE TABLET BY MOUTH EVERY DAY SOLD: 11/28/2019 [facility] 150 mg 06/18/2019 12:00:00 AM EST tablet sustained-releas e 12 hr 30 TAKE ONE TABLET BY MOUTH EVERY DAY TAKE ONE TABLET BY MOUTH EVERY DAY SOLD: 07/14/2019 [facility] 150 mg 06/18/2019 12:00:00 AM EST tablet sustained-releas e 12 hr 30 TAKE ONE TABLET BY MOUTH EVERY DAY TAKE ONE TABLET BY MOUTH EVERY DAY SOLD: 08/23/2019 [facility] 150 mg 06/18/2019 12:00:00 AM EST tablet sustained-releas e 12 hr 30 TAKE ONE TABLET BY MOUTH EVERY DAY TAKE ONE TABLET BY MOUTH EVERY DAY SOLD: 10/30/2019 [facility] 25 mg 05/08/2019 12:00:00 AM EDT tablet 90 TAKE ONE TABLET BY MOUTH EVERY DAY TAKE ONE TABLET BY MOUTH EVERY DAY SOLD: 08/10/2019 [facility] 25 mg 05/08/2019 12:00:00 AM EDT tablet 90 TAKE ONE TABLET BY MOUTH EVERY DAY TAKE ONE TABLET BY MOUTH EVERY DAY SOLD: 02/03/2020 [facility] 25 mg 05/08/2019 12:00:00 AM EDT tablet 90 TAKE ONE TABLET BY MOUTH EVERY DAY TAKE ONE TABLET BY MOUTH EVERY DAY SOLD: 11/06/2019 [facility] atorvastatin 20 MG Oral Tablet ATORVASTATIN CALCIUM 03/15/2019 1 2:00:00 AM EDT tablet 90 TAKE ONE TABLET BY MOUTH EVERY D AY TAKE ONE TABLET BY MOUTH EVERY DAY SOLD: 09/15/2019 [facility] atorvastatin 20 MG Oral Tablet ATORVASTATIN CALCIUM 03/15/2019 1 2:00:00 AM EDT tablet 90 TAKE ONE TABLET BY MOUTH EVERY D AY TAKE ONE TABLET BY MOUTH EVERY DAY SOLD: 12/12/2019 [facility] 40 mg 02/13/2019 12:00:00 AM EDT tablet,delayed release (DR/EC) 90 TAKE ONE TABLET BY MOUTH EVERY DAY TAKE ONE TABLET BY MOUTH EVERY DAY SOLD: 08/18/2019 [facility] 40 mg 02/13/2019 12:00:00 AM EDT tablet,delayed release (DR/EC) 90 TAKE ONE TABLET BY MOUTH EVERY DAY TAKE ONE TABLET BY MOUTH EVERY DAY SOLD: 11/12/2019 [facility] 75 mg 11/28/2018 12:00:00 AM EDT tablet 90 TAKE ONE TABLET BY MOUTH EVERY DAY TAKE ONE TABLET BY MOUTH EVERY DAY SOLD: 09/15/2019 [facility] Insurance Providers Payer name Policy type / Coverage type Policy ID Covered alliance party ID Covered alliance party's relationship to schroeder Policy Schroeder Plan Information MEDICARE BLUE PPO [id number] SP [id number] EXCELLUS BCBS B [id number] S VYM [id number] BS Medicare Ppo Commercial [id number] Self [id number] Medicare Blue Ppo Commercial [id number] Self [id number] Medicare [place] Govt Servic Medicare Primary [id number] Self [id number] Medicare [place] Govt Serv[employer] Medicare Primary [id number] Self [id number] Ghi/[employer] Medigap Part B [id number] Self [id number] Cigna/MVP Con Gen/Prefcar Commercial [id number] Self [id number] BC/[place] Of [place] Medigap Part B [id number] Self [id number] Medicare Blue Ppo Commercial [id number] Self [id number] Medicare Blue Ppo Commercial VYM [id number] Self VYM [id number] MEDICARE [id number] SP [id number] A EXCELLUS MEDICARE BLUE PPO G [id number] Self [id number] BS Medicare Blue Ppo/Hmo Commercial [id number] Self [id number] BS Medicare Blue Ppo/Hmo Commercial [id number] Self [id number] Medicare Blue Ppo Commercial [id number] Self [id number] Medicare [place] Govt Serv[employer] Medicare Primary [id number] Self [id number] Medicare [place] [employer]t [employer] Medicare Primary [id number] Self [id number] MEDICARE BLUE PPO [id number] SP [id number] EXCELLUS BCBS B [id number] S VYM [id number] EXCELLUS BCBS B [id number] S VYM [id number] Medicare [place] Govt Serv[employer] Medicare Primary Self Medicare Blue Ppo Commercial [id number] Self [id number] 02 Medicare Blue Ppo Commercial Blue Ppo Direct Self Blue Ppo Direct Medicare Nat[place] Govt Servic Medicare Primary Self Ghi/[employer] Medigap Part B Ppo Self Ppo Cigna/MVP Con Gen/Prefcar Commercial [id number] Self [id number] BC/BS [facility] Part B [id number] Self [id number] Medicare Blue Ppo Commercial 802 Self 8 02 MEDICARE [id number] SP [id number] A MEDICARE BLUE PPO [id number] SP [id number] BS Medicare Ppo Commercial Self EXCELLUS BCBS S UNAVAILABLE S UNAV AILABLE EXCELLUS BCBS MEDICARE [id number] Judy [id number] EXCELLUS BCBS P [id number] S VYM [id number] MEDICARE S [id number] S [id number] A MEDICARE BLUE PPO P [id number] S [id number] Problems, Conditions, and Diagnoses Code Display Name Description Problem Type Effective Dates Data Source(s) 95677824 Muscle weakness Muscle weakness Problem 05/08/2020 12:0 0:00 AM EDT [facility] ([facility], ) [id number] Skin sensation disturbance Skin sensation disturbance Problem 05/08/2020 12:00:00 AM EDT [facility] ([facility] ) [id number] Low back pain Low back pain Problem 05/08/2020 12:00:00 AM EDT [facility] ([facility] ) Surgeries/Procedures Procedure Description Date Indications Data Source(s) TSTG ANS FUNCJ CARDIOVAGAL INNERVAJ PARASYMP 0 12:00:00 AM EDT [facility] ([facility] ) TSTG ANS FUNCJ CARDIOVAGAL INNERVAJ PARASYMP 0 12:00:00 AM EDT [facility] ([facility] ) TESTING AUTONOMIC NERVOUS SYSTEM FUNCTION 05/16/2020 1 2:00:00 AM EDT [facility] ([facility] ) TESTING AUTONOMIC NERVOUS SYSTEM FUNCTION 05/16/2020 1 2:00:00 AM EDT [facility] ([facility], ) NON-INVASIVE PHYSIOLOGIC STUDY EXTREMITY 3 LEVLS 05/16 12:00:00 AM EDT [facility] ([facility], ) Needle electromyography, each extremity, with related paraspinal areas, when performed, done with nerve conduction, amplitude and latency/velocity study; complete, five or more muscles studied, innervated by three or more nerves or four or more spinal levels (list separately in addition to the code for primary procedure). 05/14/2020 12:00:00 AM EDT [facility] ([facility], ) Needle electromyography, each extremity, with related paraspinal areas, when performed, done with nerve conduction, amplitude and latency/velocity study; complete, five or more muscles studied, innervated by three or more nerves or four or more spinal levels (list separately in addition to the code for primary procedure). 05/14/2020 12:00:00 AM EDT [facility] ([facility], ) [id number] Nerve conduction studies 13 or more studies NEW 201205/14/2020 12:00:00 AM EDT [facility] ([facility] ) RADEX WRIST 2 VIEWS 07/09/2019 12:00:00 AM EST [facility] ([facility] ) Results ID Date Data Source [id number] 04/22/2020 08:46:00 AM EDT [facility] ([facility]) Name Value Range Interpretation Code Description Data Dariana rce(s) Supporting Document(s) Thyrotropin [Units/volume] in Serum or Plasma by Detec tion limit <= 0.05 mIU/L 0.39 uIU/mL 0.36-3.74 [facility] ) ID Date Data Source [id number] 04/22/2020 08:46:00 AM EDT [facility] ([facility]) Name Value Range Interpretation Code Description Data Dariana rce(s) Supporting Document(s) Cholesterol [Mass/volume] in Serum or Plasma 141 mg/dL 131-200 [facility] ([facility]) Triglyceride [Mass/volume] in Serum or Plasma 144 mg/dL 30-150 [facility] ([facility]) Cholesterol in LDL [Mass/volume] in Serum or Plasma by calcu lation 71 CALC 50-159 [facility] ([facility]) Cholesterol in HDL [Mass/volume] in Serum or Plasma 41 mg/dL 35-60 [facility] ([facility]) ID Date Data Source [id number] 04/22/2020 08:46:00 AM EDT [facility] ([facility]) Name Value Range Interpretation Code Description Data Dariana rce(s) Supporting Document(s) Glucose [Mass/volume] in Serum or Plasma 126 mg/dL 74-99 [facility] ([facility]) 100-125 mg/dL PRE-DIABETES/FASTING >126 mg/dL DIABETES/FASTING Creatinine 1.3 mg/dL 0.6-1.3 [facility] ([facility]) Sodium [Moles/volume] in Serum or Plasma 137 meq/L 136-145 [facility] ([facility]) Urea nitrogen [Mass/volume] in Serum or Plasma 24 mg/dL 7-18 [facility] ([facility]) Chloride [Moles/volume] in Serum or Plasma 102 meq/L 98-107 [facility] ([facility]) Potassium [Moles/volume] in Serum or Plasma 4.8 meq/L 3.5-5.1 [facility] ([facility]) Calcium [Mass/volume] in Serum or Plasma 8.7 mg/dL 8.5-10.1 [facility] ([facility]) Carbon dioxide, total [Moles/volume] in Serum or Plasma 23 meq/L 21 -32 [facility] ([facility]) Aspartate aminotransferase [Enzymatic activity/volume] in Serum or Plasma 16 U/L 15-37 [facility] ([facility] ) Alkaline phosphatase isoenzyme [Units/volume] in Serum or Pl asma 102 mg/dL 46-116 [facility] ([facility]) Total Bilirubin 0.4 mg/dL 0.2-1.0 [facility] ([facility]) Alanine aminotransferase [Enzymatic activity/volume] in Seru m or Plasma 21 U/L 12-78 [facility] ([facility]) Proteinase 3 Ab [Units/volume] in Serum 7.3 g/dL 6.4-8.2 [facility] ([facility]) Albumin [Mass/volume] in Serum or Plasma 3.5 g/dL 3.4-5.0 [facility] ([facility]) Glomerular filtration rate/1.73 sq M pre dicted among blacks [Volume Rate/Area] in Serum or Plasma by Creatinine-based formula (MDRD) 49 mL/min [facility] ([facility]) <content>CHRONIC KIDNEY DISEASE STAGING PER NKF</content>
<content></content>
<content>STAGE I & II GFR >= 60 NORMAL TO MILDLY DECREASED</content>
<content>STAGE III GFR 30-59 MODERATELY DECREASED</content>
<content>STAGE IV GFR 15-29 SEVERELY DECREASED</content>
<content>STAGE V GFR <15 VERY LITTLE GFR LEFT</content>
<content>ESRD GFR <15 ON ENGINEER EXHAUSTER</content>
<content></content> A/G Ratio 0.92 CALC 1.00-1.90 [facility]) Glomerular filtration rate/1.73 sq M pre dicted among non-blacks [Volume Rate/Area] in Serum or Plasma by Creatinine-based formula (MDRD) 40 mL/min [facility] ([facility]) ID Date Data Source [id number] 04/22/2020 08:46:00 AM EDT [facility] Name Value Range Interpretation Code Description Data Dariana rce(s) Supporting Document(s) Hemoglobin A1c/Hemoglobin.total in Blood 7.2 % [facility] ([facility]) Lab Result Notes: Pre-Diabetes 5.7 - 6.4 % Diabetes = or > 6.5% Glucose mean value [Mass/volume] in Blood Estimated fr om glycated hemoglobin 160 mg/dL 60-110 [facility] ([facility] ) ID Date Data Source [id number] 04/22/2020 08:46:00 AM EDT [facility] Name Value Range Interpretation Code Description Data Dariana rce(s) Supporting Document(s) Hemoglobin A1c/Hemoglobin.total in Blood Laboratory test result [facility] ([facility]) ID Date Data Source [id number] 12/26/2019 09:18:00 AM EDT [facility] Name Value Range Interpretation Code Description Data Dariana rce(s) Supporting Document(s) Thyroxine (T4) free [Mass/volume] in Serum or Plasma 0.99 ng/dL 0.76- 1.46 [facility] ID Date Data Source [id number] 12/26/2019 09:18:00 AM EDT [facility] ([facility]) Name Value Range Interpretation Code Description Data Dariana rce(s) Supporting Document(s) Thyrotropin [Units/volume] in Serum or Plasma by Detec tion limit <= 0.05 mIU/L 0.58 uIU/mL 0.36-3.74 [facility] ID Date Data Source [id number] 12/26/2019 09:18:00 AM EDT [facility] ([facility]) Name Value Range Interpretation Code Description Data Dariana rce(s) Supporting Document(s) Glucose [Mass/volume] in Serum or Plasma 157 mg/dL 74-99 [facility] ([facility]) 100-125 mg/dL PRE-DIABETES/FASTING >126 mg/dL DIABETES/FASTING Creatinine 1.4 mg/dL 0.6-1.3 [facility] ([facility]) Urea nitrogen [Mass/volume] in Serum or Plasma 18 mg/dL 7-18 [facility] ([facility]) Sodium [Moles/volume] in Serum or Plasma 142 meq/L 136-145 [facility] ([facility]) Chloride [Moles/volume] in Serum or Plasma 105 meq/L 98-107 [facility] ([facility]) Potassium [Moles/volume] in Serum or Plasma 4.7 meq/L 3.5-5.1 [facility] ([facility]) Carbon dioxide, total [Moles/volume] in Serum or Plasma 23 meq/L 21 -32 [facility] ([facility]) Alkaline phosphatase isoenzyme [Units/volume] in Serum or Pl asma 102 mg/dL 46-116 [facility] ([facility]) Calcium [Mass/volume] in Serum or Plasma 8.9 mg/dL 8.5-10.1 [facility] ([facility]) Aspartate aminotransferase [Enzymatic activity/volume] in Serum or Plasma 15 U/L 15-37 [facility] ([facility] ) Total Bilirubin 0.4 mg/dL 0.2-1.0 [facility] ([facility]) Alanine aminotransferase [Enzymatic activity/volume] in Seru m or Plasma 21 U/L 12-78 [facility] ([facility]) Albumin [Mass/volume] in Serum or Plasma 3.8 g/dL 3.4-5.0 [facility]) Proteinase 3 Ab [Units/volume] in Serum 7.6 g/dL 6.4-8.2 [facility] ([facility]) A/G Ratio 1.00 CALC 1.00-1.90 [facility] Glomerular filtration rate/1.73 sq M pre dicted among non-blacks [Volume Rate/Area] in Serum or Plasma by Creatinine-based formula (MDRD) 37 mL/min [facility] Glomerular filtration rate/1.73 sq M pre dicted among blacks [Volume Rate/Area] in Serum or Plasma by Creatinine-based formula (MDRD) 45 mL/min [facility] <content>CHRONIC KIDNEY DISEASE STAGING PER NKF</content>
<content></content>
<content>STAGE I & II GFR >= 60 NORMAL TO MILDLY DECREASED</content>
<content>STAGE III GFR 30-59 MODERATELY DECREASED</content>
<content>STAGE IV GFR 15-29 SEVERELY DECREASED</content>
<content>STAGE V GFR <15 VERY LITTLE GFR LEFT</content>
<content>ESRD GFR <15 ON ENGINEER EXHAUSTER</content>
<content></content> ID Date Data Source [id number] [facility] Name Value Range Interpretation Code Description Data Dariana rce(s) Supporting Document(s) Hemoglobin A1c/Hemoglobin.total in Blood 7.9 g/dL 4.8-5.6 [facility] Lab Result Notes: Pre-Diabetes 5.7 - 6.4 % Diabetes = or > 6.5% Glucose mean value [Mass/volume] in Blood Estimated fr om glycated hemoglobin 180 mg/dL 60-110 [facility] ID Date Data Source [id number] [facility]2019 [facility] Name Value Range Interpretation Code Description Data Dariana rce(s) Supporting Document(s) Erythrocytes [#/volume] in Blood by Automated count 4.69 x10*6/UL 4.2 0-6.30 [facility] ([facility]) Hemoglobin [Mass/volume] in Blood 10.5 g/dL 12.0-18.0 [facility] ([facility]) NOTE: RESULT VERIFIED. Leukocytes [#/volume] in Blood by Automated count 11.1 x10*3/UL 4.1-1 0.9 [facility] ([facility]) MCV 69.9 fL 80.0-97.0 [facility] ([facility]) Hematocrit [Volume Fraction] of Blood by Automated count 32.8 % 3 7.0-51.0 [facility] ([facility]) MCH 22.5 pg 26.0-32.0 [facility] ([facility]) MCHC 32.1 g/dL 31.0-38.0 [facility] ([facility]) Erythrocyte distribution width [Ratio] by Automated count 15.0 % 11.6-13.7 [facility] ([facility]) Platelets [#/volume] in Blood by Automated count 303 x10*3/UL 140-440 [facility] ([facility]) MPV 8.7 FL 7.8-11.0 [facility] ([facility]) Mid % 4.1 % 1.7-9.3 [facility] ([facility]) Lymph % 10.2 % 10.0-58.5 [facility] ([facility]) Neut % 85.7 % 37.0-92.0 [facility]) Mid # 0.5 x10*3/UL 0.1-0.6 [facility] ([facility]) Lymph # 1.1 x10*3/UL 0.6-4.1 [facility] ([facility]) Neut # 9.5 x10*3/UL 2.0-7.8 [facility] ([facility]) ID Date Data Source [id number] 12/26/2019 09:18:00 AM EDT [facility] ([facility]) Name Value Range Interpretation Code Description Data Dariana rce(s) Supporting Document(s) Hemoglobin A1c/Hemoglobin.total in Blood Laboratory test result [facility] ID Date Data Source [id number] 10/10/2019 09:17:00 AM EDT [facility] ([facility]) Name Value Range Interpretation Code Description Data Dariana rce(s) Supporting Document(s) Thyrotropin [Units/volume] in Serum or Plasma by Detec tion limit <= 0.05 mIU/L 0.21 uIU/mL 0.36-3.74 [facility] ID Date Data Source [id number] 10/10/2019 09:17:00 AM EDT [facility] Name Value Range Interpretation Code Description Data [facility] rce(s) Supporting Document(s) Urea nitrogen [Mass/volume] in Serum or Plasma 31 mg/dL 7-18 [facility] ([facility]) Glucose [Mass/volume] in Serum or Plasma 162 mg/dL 74-99 [facility] ([facility]) 100-125 mg/dL PRE-DIABETES/FASTING >126 mg/dL DIABETES/FASTING Creatinine 1.6 mg/dL 0.6-1.3 [facility] Potassium [Moles/volume] in Serum or Plasma 4.3 meq/L 3.5-5.1 [facility] ([facility]) Sodium [Moles/volume] in Serum or Plasma 138 meq/L 136-145 [facility] ([facility]) Chloride [Moles/volume] in Serum or Plasma 101 meq/L 98-107 [facility] ([facility]) Carbon dioxide, total [Moles/volume] in Serum or Plasma 26 meq/L 21 -32 [facility] ([facility]) Calcium [Mass/volume] in Serum or Plasma 9.5 mg/dL 8.5-10.1 [facility] ([facility]) Alkaline phosphatase isoenzyme [Units/volume] in Serum or Pl asma 90 mg/dL 46-116 [facility] ([facility]) Total Bilirubin 0.4 mg/dL 0.2-1.0 [facility] Aspartate aminotransferase [Enzymatic activity/volume] in Serum or Plasma 15 U/L 15-37 [facility] ([facility] ) Alanine aminotransferase [Enzymatic activity/volume] in Seru m or Plasma 21 U/L 12-78 [facility] ([facility]) Albumin [Mass/volume] in Serum or Plasma 3.4 g/dL 3.4-5.0 [facility] ([facility]) Proteinase 3 Ab [Units/volume] in Serum 7.8 g/dL 6.4-8.2 [facility] Glomerular filtration rate/1.73 sq M pre dicted among non-blacks [Volume Rate/Area] in Serum or Plasma by Creatinine-based formula (MDRD) 32 mL/min [facility] A/G Ratio 0.77 CALC 1.00-1.90 [facility] Glomerular filtration rate/1.73 sq M pre dicted among blacks [Volume Rate/Area] in Serum or Plasma by Creatinine-based formula (MDRD) 39 mL/min [facility] ([facility]) <content>CHRONIC KIDNEY DISEASE STAGING PER NKF</content>
<content></content>
<content>STAGE I & II GFR >= 60 NORMAL TO MILDLY DECREASED</content>
<content>STAGE III GFR 30-59 MODERATELY DECREASED</content>
<content>STAGE IV GFR 15-29 SEVERELY DECREASED</content>
<content>STAGE V GFR <15 VERY LITTLE GFR LEFT</content>
<content>ESRD GFR <15 ON ENGINEER EXHAUSTER</content>
<content></content> ID Date Data Source [id number] 10/10/2019 09:17:00 AM EDT [facility] Name Value Range Interpretation Code Description Data Dariana rce(s) Supporting Document(s) Hemoglobin A1c/Hemoglobin.total in Blood 7.8 g/dL 4.8-5.6 [facility] ([facility]) Lab Result Notes: Pre-Diabetes 5.7 - 6.4 % Diabetes = or > 6.5% Glucose mean value [Mass/volume] in Blood Estimated fr om glycated hemoglobin 177 mg/dL 60-110 [facility] ([facility] ) ID Date Data Source [id number] 10/10/2019 09:17:00 AM EDT [facility] ([facility]) Name Value Range Interpretation Code Description Data Dariana rce(s) Supporting Document(s) Leukocytes [#/volume] in Blood by Automated count 7.3 x10*3/UL 4.1-10 .9 [facility] ([facility]) Erythrocytes [#/volume] in Blood by Automated count 4.51 x10*6/UL 4.2 0-6.30 [facility] ([facility]) Hemoglobin [Mass/volume] in Blood 10.3 g/dL 12.0-18.0 [facility] ([facility]) Hematocrit [Volume Fraction] of Blood by Automated count 31.1 % 3 7.0-51.0 [facility] ([facility]) MCH 22.9 pg 26.0-32.0 [facility] ([facility]) MCV 68.9 fL 80.0-97.0 [facility] ([facility]) MCHC 33.2 g/dL 31.0-38.0 [facility] ([facility]) Erythrocyte distribution width [Ratio] by Automated count 14.6 % 11.6-13.7 [facility] ([facility]) Platelets [#/volume] in Blood by Automated count 279 x10*3/UL 140-440 [facility] ([facility]) MPV 8.7 FL 7.8-11.0 [facility] ([facility]) Lymph % 14.1 % 10.0-58.5 [facility] ([facility]) Mid % 4.3 % 1.7-9.3 [facility] ([facility]) Lymph # 1.0 x10*3/UL 0.6-4.1 [facility] ([facility]) Neut % 81.6 % 37.0-92.0 [facility] ([facility]) Mid # 0.3 x10*3/UL 0.1-0.6 [facility] ([facility]) Neut # 6.0 x10*3/UL 2.0-7.8 [facility] ([facility]) ID Date Data Source [id number] 09/07/2019 10:09:00 AM EST [facility] ([facility]) Name Value Range Interpretation Code Description Data Dariana rce(s) Supporting Document(s) Iron (Fe) 32 ug/dL 50-170 [facility]) Total Iron Binding Capacity 408 ug/dL 250-450 [facility] ([facility]) Percent Saturation 7.8 % 13.2-45.0 [facility] ([facility]) ID Date Data Source [id number] 09/07/2019 10:09:00 AM EST [facility] ([facility]) Name Value Range Interpretation Code Description Data Dariana rce(s) Supporting Document(s) Ferritin [Mass/volume] in Serum or Plasma 8 ng/mL 8-252 [facility] ([facility]) <content>note:<nlbl:[email or web address]> </content>
<content></content> ID Date Data Source [id number] 09/07/2019 10:08:00 AM EST [facility] ([facility]) Name Value Range Interpretation Code Description Data Dariana rce(s) Supporting Document(s) Microalbumin Urine 192.9 mg/L 1.3-20.0 [facility] ([facility]) Urine Creatinine 141.1 mg/dL 30.0-125.0 [facility] ([facility]) Microalb/Creat Ratio 136.7 ug/mg 0.0-30.0 [facility] ([facility]) ID Date Data Source [id number] 09/07/2019 10:08:00 AM EST [facility] ([facility]) Name Value Range Interpretation Code Description Data Dariana rce(s) Supporting Document(s) Glucose [Mass/volume] in Serum or Plasma 155 mg/dL 74-99 [facility] ([facility]) 100-125 mg/dL PRE-DIABETES/FASTING >126 mg/dL DIABETES/FASTING Urea nitrogen [Mass/volume] in Serum or Plasma 24 mg/dL 7-18 [facility] ([facility]) Sodium [Moles/volume] in Serum or Plasma 140 meq/L 136-145 [facility] ([facility]) Creatinine 1.4 mg/dL 0.6-1.3 [facility] ([facility]) Potassium [Moles/volume] in Serum or Plasma 4.3 meq/L 3.5-5.1 [facility] ([facility]) Carbon dioxide, total [Moles/volume] in Serum or Plasma 25 meq/L 21 -32 [facility] ([facility]) Chloride [Moles/volume] in Serum or Plasma 105 meq/L 98-107 [facility] ([facility]) Calcium [Mass/volume] in Serum or Plasma 8.8 mg/dL 8.5-10.1 [facility] ([facility]) Total Bilirubin 0.4 mg/dL 0.2-1.0 [facility] ([facility]) Alkaline phosphatase isoenzyme [Units/volume] in Serum or Pl asma 91 mg/dL 46-116 [facility] ([facility]) Aspartate aminotransferase [Enzymatic activity/volume] in Serum or Plasma 13 U/L 15-37 [facility] ([facility] ) Alanine aminotransferase [Enzymatic activity/volume] in Seru m or Plasma 20 U/L 12-78 [facility] ([facility]) Albumin [Mass/volume] in Serum or Plasma 3.6 g/dL 3.4-5.0 [facility] ([facility]) Proteinase 3 Ab [Units/volume] in Serum 7.6 g/dL 6.4-8.2 [facility] ([facility]) A/G Ratio 0.90 CALC 1.00-1.90 [facility]) Glomerular filtration rate/1.73 sq M pre dicted among non-blacks [Volume Rate/Area] in Serum or Plasma by Creatinine-based formula (MDRD) 37 mL/min [facility] ([facility]) Glomerular filtration rate/1.73 sq M pre dicted among blacks [Volume Rate/Area] in Serum or Plasma by Creatinine-based formula (MDRD) 45 mL/min [facility] ([facility]) <content>CHRONIC KIDNEY DISEASE STAGING PER NKF</content>
<content></content>
<content>STAGE I & II GFR >= 60 NORMAL TO MILDLY DECREASED</content>
<content>STAGE III GFR 30-59 MODERATELY DECREASED</content>
<content>STAGE IV GFR 15-29 SEVERELY DECREASED</content>
<content>STAGE V GFR <15 VERY LITTLE GFR LEFT</content>
<content>ESRD GFR <15 ON ENGINEER EXHAUSTER</content>
<content></content> ID Date Data Source [id number] 09/07/2019 10:08:00 AM EST [facility] Name Value Range Interpretation Code Description Data Dariana rce(s) Supporting Document(s) Hemoglobin A1c/Hemoglobin.total in Blood 7.9 g/dL 4.8-5.6 [facility] ([facility]) Lab Result Notes: Pre-Diabetes 5.7 - 6.4 % Diabetes = or > 6.5% Glucose mean value [Mass/volume] in Blood Estimated fr om glycated hemoglobin 180 mg/dL 60-110 [facility] ([facility] ) ID Date Data Source [id number] 09/07/2019 10:08:00 AM EST [facility] ([facility] Name Value Range Interpretation Code Description Data Dariana rce(s) Supporting Document(s) Leukocytes [#/volume] in Blood by Automated count 9.3 x10*3/UL 4.1-10 .9 [facility] ([facility]) Erythrocytes [#/volume] in Blood by Automated count 4.57 x10*6/UL 4.2 0-6.30 [facility] ([facility]) Hemoglobin [Mass/volume] in Blood 10.6 g/dL 12.0-18.0 [facility] ([facility]) NOTE: RESULT VERIFIED. MCV 71.5 fL 80.0-97.0 [facility] ([facility]) Hematocrit [Volume Fraction] of Blood by Automated count 32.7 % 3 7.0-51.0 [facility] ([facility]) MCH 23.2 pg 26.0-32.0 [facility] ([facility]) MCHC 32.5 g/dL 31.0-38.0 [facility] ([facility]) Erythrocyte distribution width [Ratio] by Automated count 14.1 % 11.6-13.7 [facility] ([facility]) Platelets [#/volume] in Blood by Automated count 263 x10*3/UL 140-440 [facility] ([facility]) MPV 8.9 FL 7.8-11.0 [facility]) Mid % 4.5 % 1.7-9.3 [facility]) Lymph % 15.0 % 10.0-58.5 [facility]) Neut % 80.5 % 37.0-92.0 [facility]) Lymph # 1.4 x10*3/UL 0.6-4.1 [facility] ([facility]) Mid # 0.4 x10*3/UL 0.1-0.6 [facility] ([facility]) Neut # 7.5 x10*3/UL 2.0-7.8 [facility] ([facility]) Procedure Vital Signs ID Date Data Source [id number] Name Value Range Interpretation Code Description Data Source(s) [place] body weight 130 [lb_av] 130 [lb_av] [facility] ([facility]) Body mass index (BMI) [Ratio] 29.5 kg/m2 29.5 [facility] Body weight 183.00 [lb_av] 183.00 [lb_av] [facility] ([facility]) Body height 66 [in_i] 66 [in_i] [facility] ([facility]) 5'6" Respiratory rate 12 /min 12 /min [facility] ( [facility]) [place] body weight 130 [lb_av] 130 [lb_av] [facility] ([facility]) Body mass index (BMI) [Ratio] 29.5 kg/m2 29.5 k g/m2 [facility] ([facility]) Body weight 183.00 [lb_av] 183.00 [lb_av] [facility] ([facility]) Body height 66 [in_i] 66 [in_i] [facility] ([facility]) 5'6" Respiratory rate 12 /min 12 /min [facility] ( [facility], ) Body mass index (BMI) [Ratio] 31.7 kg/m2 31.7 k g/m2 [facility] ([facility]) Body weight 182.00 [lb_av] 182.00 [lb_av] [facility] ([facility]) Body height 63.5 [in_i] 63.5 [in_i] [facility] ([facility]) 5'3.50" Heart rate 64 /min 64 /min [facility] ([facility]) Diastolic blood pressure 84 mm[Hg] 84 mm[Hg] [facility] ([facility]) Systolic blood pressure 152 mm[Hg] 152 mm[Hg] [facility] ([facility]) Body mass index (BMI) [Ratio] 31.7 kg/m2 31.7 k g/m2 [facility] ([facility], ) Body weight 182.00 [lb_av] 182.00 [lb_av] [facility] ([facility], ) Body height 63.5 [in_i] 63.5 [in_i] [facility] ([facility] ) Heart rate 64 /min 64 /min [facility] ([facility], ) Diastolic blood pressure 84 mm[Hg] 84 mm[Hg] [facility] ([facility] ) Systolic blood pressure 152 mm[Hg] 152 mm[Hg] [facility] ([facility], ) Body mass index (BMI) [Ratio] 31.7 kg/m2 31.7 k g/m2 [facility] ([facility]) Body weight 182.00 [lb_av] 182.00 [lb_av] [facility] ([facility]) Body height 63.5 [in_i] 63.5 [in_i] [facility] ([facility]) 5'3.50" Heart rate 78 /min 78 /min [facility] Diastolic blood pressure 80 mm[Hg] 80 mm[Hg] [facility] ([facility]) Systolic blood pressure 138 mm[Hg] 138 mm[Hg] [facility] ([facility]) Diastolic blood pressure 78 mm[Hg] 78 mm[Hg] [facility] ([facility]) Systolic blood pressure 144 mm[Hg] 144 mm[Hg] [facility] ([facility]) Body mass index (BMI) [Ratio] 30.9 kg/m2 30.9 k g/m2 [facility] ([facility]) Oxygen saturation in Arterial blood by Pulse oximetry 98 % 98 % [facility] ([facility]) Air Body weight 177.00 [lb_av] 177.00 [lb_av] [facility] Body height 63.5 [in_i] 63.5 [in_i] [facility] ([facility]) 5'3.50" Heart rate 63 /min 63 /min [facility] ([facility]) Diastolic blood pressure 60 mm[Hg] 60 mm[Hg] [facility] ([facility]) Systolic blood pressure 110 mm[Hg] 110 mm[Hg] [facility] ([facility]) Body mass index (BMI) [Ratio] 32.1 kg/m2 32.1 k g/m2 [facility] ([facility]) Body weight 184.00 [lb_av] 184.00 [lb_av] [facility] Body height 63.5 [in_i] 63.5 [in_i] [facility] ([facility]) 5'3.50" Heart rate 78 /min 78 /min [facility] ([facility]) Diastolic blood pressure 80 mm[Hg] 80 mm[Hg] [facility] ([facility]) Systolic blood pressure 122 mm[Hg] 122 mm[Hg] [facility] ([facility])
[2020-08-19] MEDS: NS 1,000 ML IV SCH (21:18)
--- NOTE | 2020-08-19 21:28 | HPEPDOC ---
[facility] Medical History & Physical Date of Admission Aug 19, 2020 Date of Service: Aug 19, 2020 Primary Care Physician: NITO OHARA M.D. Attending Physician: QUAN FERGUSON MD History and Physical CHIEF COMPLAINT: Altered Mental Status, Syncope/Fall HISTORY OF PRESENT ILLNESS: Patient is a 70 year old female with a past medical history significant for COPD, lumbar spinal canal stenosis, chronic low back pain, PAD s/p bilateral stents, CAD s/p stents, HTN, hyperlipidemia, anxiet y/depression, h/o recurrent falls, and history of upper GI bleed who presented to the [facility] ER after being found down at home. The complete history is difficult to obtain as patient is intermittently confused. She states that she is in the ER because she was "not with the program". Per EMS report the patient was found down at home in the bathroom with fecal matter on the sorto. Patient reportedly had told EMS she was down for two days. She currently states that she may have fell but she isn't sure. She currently denies any chest pain, chest pressure, palpitations, lightheadedness. She states she has chronic pain but denies any worsening pain currently. She does state that she feels tired. In the ER the patient was hypertensive but otherwise vitally stable. She received CT imaging of her cervical spine and head which was negative for acute pathology. Chest x-ray was unremarkable. Her labs did show an anemia, elevated Cr, and elevated CK. Hospitalist service was consulted and the patient was admitted for further evaluation and management PAST MEDICAL HISTORY: 1. COPD 2. CAD s/p stent 3. PAD s/p stent in bilateral legs 4. Lumbar Spinal Canal Stenosis and chronic lower back pain 5. hyperlipidemia 6. anxiety/depression 7. H/o recurrent falls 8. H/O upper GI bleed due to NSAID use PAST SURGICAL HISTORY: 1. Right knee replacement 2. Right shoulder surgery 3. Upper endoscopy SOCIAL HISTORY: Patient is a current smoker and smokes 1 ppd. She denies IV drug use. She denies alcohol use. She lives at home alone and is retired FAMILY HISTORY: Father and mother had diabetes. Her mother had heart disease as well ALLERGIES: Please see below. REVIEW OF SYSTEMS: CONSTITUTIONAL: Denies fevers, chills, nightsweats HEENT: Denies dysphagia. Denies pain on swallowing CARDIOVASCULAR: Denies chest pain, pressure, palpitations or feelings of the heart racing RESPIRATORY: Denies shortness of breath. Denies cough or wheeze. Denies hemoptysis GASTROINTESTINAL: Denies abdominal pain. Denies diarrhea or constipation. Denies dark or tarry stools. Denies hematemesis. Denies nausea or vomiting GENITOURINARY: Denies dysuria or increased frequency SKIN: Denies rashes or lesions MUSCULOSKELETAL: Admits to chronic lower back pain and leg pain NEUROLOGICAL: Denies changes in her speech or gait PSYCHIATRIC: Admits to anxiety and depression ENDOCRINE: Denies heat or cold intolerance. HEMATOLOGIC/LYMPHATIC: Denies easy bruising or bleeding. Denies DVT or PE HOME MEDICATIONS: Please see below. PHYSICAL EXAMINATION: VITAL SIGNS: Temperature 97.4, pulse 72, respiratory rate 18, blood pressure 186/87, pulse oximetry 97% on room air. GENERAL APPEARANCE: Patient is awake and alert. She appears tired and intermittently confused. She is oriented person and place. She is not oriented to time. She does not appear to be in acute distress HEENT: Atraumatic, normocephalic. Eyes are nonicteric. Right eye proptosis. Neck is leal. trachea is midline. Mucous membranes are slightly dry CARDIOVASCULAR: Normal S1, S2. Regular rate and rhythm. No clicks rubs or murmurs LUNGS: Clear vesicular breath sounds bilaterally. No wheezes rhonchi or rales. ABDOMEN: Soft, nondistended. Nontender. Normoactive bowel sounds. Obese EXTREMITIES: No edema. Bilateral feet are cool to touch. There are palpable posterior tibial and DP pulses bilaterally. There is no calf swelling or ten derness NEUROLOGICAL: no focal neurological deficits LABORATORY DATA: See below. IMAGING: PROCEDURE INFORMATION: Exam: CT Head Without Contrast Exam date and time: 08/19/2020 5:44 PM Age: 70 years old Clinical indication: Altered mental status/memory loss TECHNIQUE: Imaging protocol: Computed tomography of the head without contrast. Radiation optimization: All CT scans at this facility use at least one of these dose optimization techniques: automated exposure control; mA and/or kV adjustment per patient size (includes targeted exams where dose is matched to clinical indication); or iterative reconstruction. COMPARISON: CT Head without contrast 03/11/2019 3:46 PM FINDINGS: Brain: There is volume loss. There is white matter lucency consistent with chronic microvascular disease. There are old white matter and basal ganglia lacunar infarcts. There is no evidence of acute infarct. There is no hemorrhage or extra-axial collection. There is no mass. Cerebral ventricles: No ventriculomegaly. Bones/joints: There is a small right frontal inner table calvarial osteoma. No fracture. Paranasal sinuses: There is mucosal thickening in the ethmoids. No air-fluid levels. Mastoid air cells: Visualized mastoid air cells are well aerated. Soft tissues: Unremarkable. IMPRESSION: 1. 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 2. No acute intracranial lesion or injury. No change from prior scan. Electronically signed by: Jatin Lees On 08/19/2020 18:04:55 PM INDICATION: Altered Mental Status. COMPARISON: 01/20/2019 also portable TECHNIQUE: Portable FINDINGS: The technique utilized in obtaining the radiograph has magnified the cardiac silhouette and accentuated the interstitial markings. The superior mediastinal structures are midline. The cardiac silhouette is unremarkable in size, shape, and position. The diaphragmatic surfaces of the lungs are regular, and the costophrenic angles are clear. The pulmonary giles are clear. The imaged osseous structures are intact. IMPRESSION: There is no acute cardiopulmonary disease. <Electronically signed by Sunny Ball > 08/19/20 1833 PROCEDURE INFORMATION: Exam: CT Cervical Spine Without Contrast Exam date and time: 08/19/2020 5:55 PM Age: 70 years old Clinical indication: Injury or trauma; Fall; Blunt trauma TECHNIQUE: Imaging protocol: Computed tomography images of the cervical spine without contrast. Radiation optimization: All CT scans at this facility use at least one of these dose optimization techniques: automated exposure control; mA and/or kV adjustment per patient size (includes targeted exams where dose is matched to clinical indication); or iterative reconstruction. COMPARISON: No relevant prior studies available. FINDINGS: Bones/joints: There is no fracture. Vertebral alignment is normal. There is anterior surgical fusion from C4 to C6 with metal plate and screws. There is intact osseous fusion across these disc spaces with no evidence of pseudoarthrosis. Discs/Spinal canal/Neural foramina: C3-C4: Spondylosis and disc space narrowing with posterior osteophyte and disc bulge resulting in [id number] central spinal stenosis. C6-C7: Spondylosis and disc space narrowing with posterior osteophyte and disc bulge. No central stenosis. There is foraminal stenosis bilaterally at C3-C4, and on the right at C4-C5. Lungs: Lung apices are normal. Soft tissues: Unremarkable. IMPRESSION: 1. No fracture. 2. Postoperative and degenerative findings described above. Electronically signed by: Jatin Lees On 08/19/2020 18:13:51 PM MICROBIOLOGY: Please see below. ASSESSMENT: Patient is a 70 year old female with a past medical history significant for COPD, lumbar spinal canal stenosis, chronic low back pain, PAD s/p bilateral stents, CAD s/p stents, HTN, hyperlipidemia, anxiety/depression, h/o recurrent falls, and history of upper GI bleed who presented to the [facility] ER after being found down at home. Patient is intermittently confused and unable to recall a complete history. On admission the patient was found to have an ANDREY and anemia . PLAN: 1. Metabolic Encephalopathy likely 2/2 polypharmacy -Patient found down at home and confused. She continues to be intermittently confused and appears tired. Likely due to her medications. She is taking Xanax, Gabapentin, Ambien, and Percocet at home. Additionally the patient has an ANDREY which likely exacerbated these effects. -Will hold these medications. Patient should have these medications reevaluated at discharge and in follow-up with her PCP. She reportedly has a history of recurrent falls and her current medication regiment is certainly not helping that 2. Syncope/Fall -Patient found down at home. Unwitnessed as patient lives alone. Unknown downtime. Cannot rule out syncope. -Telemetry monitoring -Echocardiogram in AM. 3. Acute kidney injury in setting of CKD stage 3 -Patient presenting with ANDREY. Unclear etiology. Likely pre-renal. -Serum sodium, serum Cr, Urine Na and Urine Cr ordered and pending -Renal ultrasound ordered -U/A ordered -Will avoid nephrotoxic medications -IV NS 4. Anemia -Hgb of 8.6. Down from baseline of 10-11. Patient has history of GI bleed previously. She denies any hematemesis or dark tarry stools however she is also intermittently confused and unable to provide a complete accurate history. BUN is elevated at 45 -Type and screen -Clear liquids diet for now. -Trend Hgb -Protonix 40mg IV BID -stool for occult blood 5. Severe Asymptomatic Hypertension/Hypertensive Urgency -Patient has BP of 200/90 in ED. She was given her home Atenolol. If patient remains hypertensive will give Norvasc -Continue to monitor 6. Peripheral Artery Disease -Patient has a history of peripheral artery disease. She has stents in her bilateral legs. Feet are slightly cool with palpable PT and DP pulses. 7. CAD s/p Stent -Currently holding ASA due to anemia 8. DVT prophylaxis -TEDS and Sequentials Vital Signs Vital Signs Date Time Temp Pulse Resp B/P (MAP) Pulse Ox O2 Delivery O2 Flow Rate FiO2 08/19/20 19:47 75 185/82 08/19/20 19:17 16 96 Room Air 08/19/20 17:32 97.4 Laboratory Data Labs 24H Laboratory Tests 2 08/19/20 17:36: Immature Granulocyte % (Auto) 0.6, Neutrophils (%) (Auto) 85.7H, Lymphocytes (%) (Auto) 3.9L, Monocytes (%) (Auto) 9.1H, Eosinophils (%) (Auto) 0.3, Basophils (%) (Auto) 0.4, Neutrophils # (Auto) 10.6H, Lymphocytes # (Auto) 0.5L, Monocytes # (Auto) 1.1H, Eosinophils # (Auto) 0.0, Basophils # (Auto) 0.1, Nucleated Red Blood Cells % (auto) 0.0, Prothrombin Time 14.9H, Prothromb Time International Ratio 1.14, Activated Partial Thromboplast Time 29.4, Anion Gap 7L, Glomerular Filtration Rate 26.8L, Osmolality 300, Lactic Acid Level 1.2, Calcium Level 8.8, Total Bilirubin 0.7, Direct Bilirubin 0.3H, Aspartate Amino Transf (AST/SGOT) 35, Alanine Aminotransferase (ALT/SGPT) 48, Alkaline Phosphatase 103, Ammonia 11, Total Creatine Kinase 340H, Creatine Kinase MB 3.4, Creatine Kinase MB Relative Index 1.00, Troponin I < 0.02, Total Protein 7.1, Albumin 3.1L, Albumin/Globulin Ratio 0.8L, Thyroid Stimulating Hormone (TSH) 0.381, Salicylates Level 1.8L, Urine Opiates Screen POSITIVEH, Urine Methadone Screen NEGATIVE, Acetaminophen Level < 2.0L, Urine Barbiturates Screen NEGATIVE, Urine Phencyclidine Screen NEGATIVE, Urine Amphetamines Screen NEGATIVE, Urine Benzodiazepines Screen POSITIVEH, Urine Cocaine Metabolite Screen NEGATIVE, Urine Cannabinoids Screen NEGATIVE, Ethyl Alcohol Level < 0.003 08/19/20 17:55: Blood Gas Bicarbonate Standard 19.7, Venous Blood pH 7.330, Venous Blood Partial Pressure CO2 38.4, Venous Blood Partial Pressure O2 61.2H, Venous Blood Total Carbon Dioxide 21.0L, Venous Blood HCO3 19.8L, Venous Blood Oxygen Saturation 88.4H, Venous Blood Base Excess -5.6L 08/19/20 18:15: Urine Color YELLOW, Urine Appearance HAZY, Urine pH 5.0, Urine Specific Ballard 1.014, Urine Protein 1+H, Urine Glucose (UA) NEGATIVE, Urine Ketones NEGATIVE, Urine Blood 1+H, Urine Nitrite NEGATIVE, Urine Bilirubin NEGATIVE, Urine Urobilinogen 0.2, Urine Leukocyte Esterase NEGATIVE, Urine WBC (Auto) 2, Urine RBC (Auto) 1, Urine Hyaline Casts (Auto) 0, Urine Bacteria (Auto) NEGATIVE, Urine Squamous Epithelial Cells 0, Urine Mucus (Auto) SMALL, Urine Sperm (Auto) 08/19/20 19:49: CBC/BMP Laboratory Tests 08/19/20 17:36 Home Medications Scheduled Aspirin (Aspirin) 81 Mg Tab.chew, 81 MG PO DAILY Atenolol (Atenolol) 25 Mg Tab, 25 MG PO DAILY Atorvastatin Calcium (Atorvastatin Calcium) 20 Mg Tablet, 20 MG PO DAILY Fluoxetine Hcl (Fluoxetine HCl) 40 Mg Cap, 40 MG PO DAILY Gabapentin (Gabapentin) 300 Mg Capsule, 600 MG PO TID Magnesium Oxide (Magnesium Oxide) 400 Mg Tablet, 400 MG PO DAILY Pantoprazole Sodium (Pantoprazole Sodium) 40 Mg Tablet.dr, 40 MG PO DAILY Scheduled PRN Hydrocodone/Acetaminophen (Hydrocodone-Acetamin 5-325 mg) 1 Tab Tab, 1 TAB PO TID PRN for PAIN Allergies Coded Allergies: Penicillins (Verified Allergy, Intermediate, SWELLING, 03/06/19) A-FIB/CHADSVASC A-FIB History Current/History of A-Fib/PAF?: No GME ATTESTATION GME ATTESTATION My faculty preceptor for this patient encounter was physically present during the encounter and was fully available. All aspects of the patient interview, examination, medical decision making process, and medical care plan development were reviewed and approved by the faculty preceptor. The faculty preceptor is aware and concurs with the plan as stated in the body of this note and will attest to such by his/her cosignature. ATTENDING NOTE I examined the patient, reviewed the H&P and agree with the findings as documented by DELFINA Shelby DO Aug 19, 2020 21:28 QUAN FERGUSON MD Aug 26, 2020 14:29
--- NOTE | 2020-08-19 22:16 | REPVR ---
PROCEDURE INFORMATION: Exam: US Retroperitoneal Limited, Kidneys Exam date and time: 08/19/2020 9:53 PM Age: 70 years old Clinical indication: Other: Clark TECHNIQUE: Imaging protocol: Real-time ultrasound of the retroperitoneum with image documentation. Examination was focused on the kidneys. COMPARISON: CT ABD/PEL W/IV CONTRAST ONLY 03/11/2019 5:42 PM FINDINGS: Right kidney: The right kidney measures 10.1 x 4.1 x 5.0 cm. No mass or cyst. Normal echogenicity. No hydronephrosis or hydroureter. Left kidney: The left kidney measures 12.1 x 5.6 x 5.3 cm. Hypoechoic cortical lesion left kidney measuring 10 x 12 x 19 mm. No definite through transmission to identify as cyst. No hydronephrosis or hydroureter. Bladder: No abnormality of the bladder identified. IMPRESSION: 1. No acute abnormality of the kidneys. 2. 10 x 12 x 19 mm left renal cortical lesion not definitively demonstrated to be a cyst on this study. It was also not d a simple cyst on the prior CT. Recommend follow-up with pre and post contrast CT. Electronically signed by: Jatin Lees On 08/19/2020 22:15:35 PM
[2020-08-19 23:45] VITALS: BP 188/86
[2020-08-20] MEDS ORDERED: amLODIPine 10 MG TAB PO ONE
[2020-08-20 04:43] LABS: CREATININE,RANDOM URINE 58.9 MG/DL
[2020-08-20 05:10] VITALS: BP 161/80
[2020-08-20] MEDS: NS 1,000 ML IV SCH ×3 (05:29→21:01)
[2020-08-20] MEDS: ACETAMINOPHEN TAB 650MG DOSE (2X325MG) PO PRN (05:29)
[2020-08-20 06:00] VITALS: BP 161/80
[2020-08-20 06:20] LABS: HEMATOCRIT 27.2 % (36.0-47.0); HEMOGLOBIN 7.7 g/dl (12.0-15.5); MEAN CORPUSCULAR HEMOGLOBIN 19.6 pg (27.0-33.0); MEAN CORPUSCULAR HGB CONC 28.3 g/dl (32.0-36.5); MEAN CORPUSCULAR VOLUME 69.4 fl (80.0-96.0); PLATELET COUNT, AUTOMATED 164 10^3/uL (150-450); RED BLOOD COUNT 3.92 10^6/uL (4.00-5.40); WHITE BLOOD COUNT 7.6 10^3/uL (4.0-10.0)
[2020-08-20 06:44] LABS: ALBUMIN 2.7 GM/DL (3.2-5.2); BILIRUBIN,TOTAL 0.7 MG/DL (0.2-1.0); CALCIUM LEVEL 8.2 MG/DL (8.8-10.2); CREATININE FOR GFR 1.41 MG/DL (0.55-1.30); GLOMERULAR FILTRATION RATE 39.1 (>39); POTASSIUM SERUM 3.8 MEQ/L (3.5-5.1); TOTAL PROTEIN 6.6 GM/DL (6.4-8.2)
[2020-08-20 07:11] LABS: C REACTIVE PROTEIN QUANTITATIV 15.4 MG/DL (0.00-0.30)
[2020-08-20] MEDS ORDERED: PNEUMOCOCCAL VACCINE 0.5ML SYRINGE (PNEUMOVAX 23) IM ONE (09:00)
[2020-08-20] MEDS: PANTOPRAZOLE 40MG VIAL (C9113 PER 1) IV SCH ×2 (10:02→20:59)
[2020-08-20] MEDS: ATORVASTATIN 20 MG TAB PO SCH (10:03)
[2020-08-20] MEDS: GABAPENTIN 300 MG CAP PO SCH ×3 (10:03→20:59)
[2020-08-20] MEDS: atenoloL 25 MG TAB PO SCH (10:07)
[2020-08-20 12:40] LABS: HEMATOCRIT 25.8 % (36.0-47.0); HEMOGLOBIN 7.5 g/dl (12.0-15.5); MEAN CORPUSCULAR HEMOGLOBIN 20.2 pg (27.0-33.0); MEAN CORPUSCULAR HGB CONC 29.1 g/dl (32.0-36.5); MEAN CORPUSCULAR VOLUME 69.4 fl (80.0-96.0); PLATELET COUNT, AUTOMATED 168 10^3/uL (150-450); RED BLOOD COUNT 3.72 10^6/uL (4.00-5.40); WHITE BLOOD COUNT 7.2 10^3/uL (4.0-10.0)
[2020-08-20 13:03] LABS: PERCENT SATURATION 4.1 % (13.2-45.0)
[2020-08-20 14:00] VITALS: BP 144/70
[2020-08-20 18:21] LABS: HEMATOCRIT 26.9 % (36.0-47.0); HEMOGLOBIN 7.7 g/dl (12.0-15.5); MEAN CORPUSCULAR HEMOGLOBIN 19.9 pg (27.0-33.0); MEAN CORPUSCULAR HGB CONC 28.6 g/dl (32.0-36.5); MEAN CORPUSCULAR VOLUME 69.7 fl (80.0-96.0); PLATELET COUNT, AUTOMATED 180 10^3/uL (150-450); RED BLOOD COUNT 3.86 10^6/uL (4.00-5.40); WHITE BLOOD COUNT 6.6 10^3/uL (4.0-10.0)
[2020-08-20 18:38] LABS: D-DIMER QUANT 2566.17 ng/ml (<500)
--- NOTE | 2020-08-20 20:02 | IPNPDOC ---
Subjective Date Seen The patient was seen on 08/20/20. Subjective Chief Complaint/HPI Patient is a 70 year old female who is here with toxic metabolic encephalopathy secondary to polypharmacy and ANDREY on CKD. This morning, she was still mildly confused. Otherwise denied chest pain or dyspnea. Spoke with her sister about consent for blood products which she was agreeable. Objective Physical Examination General Exam: Positive: Cooperative Eye Exam: Negative: Sclera icteric Neck Exam: Positive: Supple Chest Exam: Positive: Clear to auscultation; Negative: Rales, Rhonchi, Wheezing Heart Exam: Positive: Rate Normal, Regular Rhythm Abdomen Exam: Positive: Normal bowel sounds, Soft; Negative: Tenderness Psych Exam: Negative: Memory Intact, Oriented x 3 Assessment /Plan Assessment Patient is a 70 year old female who is here with toxic metabolic encephalopathy secondary to polypharmacy and ANDREY on CKD. Alprazolam, zolpidem, and hydrocodone/acetaminophen was held. Her gabapentin was renally adjusted. Otherwise, hemoglobin is low. Recommending transfusion when hemoglobin drops below 7. Pending improvement in mental status and renal function. Plan/VTE VTE Prophylaxis Ordered?: Yes Plan 1. Toxic metabolic encephalopathy -Secondary to polypharmacy and ANDREY -Gabapentin was renally dosed -Ambien, Zolpidem, and hydrocodone/acetaminophen held 2. ANDREY -On admission, creatinine 1.96 -Unknown baseline, but about a year ago, creatinine 1.2 -Continue IVF and supportive care 3. Hypertension -continue atenolol 4. Anemia -Continue trending CBC -Spoke with sister who agreed to blood transfusions if needed -Reticulocyte index low indicate hypoproliferation. Iron also low. Pending blood smear and haptoglobin. 5. DVT ppx -TEDs and sequentials VS, I&O, 24H, Fishbone Vital Signs/I&O Vital Signs Date Time Temp Pulse Resp B/P (MAP) Pulse Ox O2 Delivery O2 Flow Rate FiO2 08/20/20 14:00 97.5 69 18 144/70 (94) 97 Room Air I&O- Last 24 Hours up to 6 AM 08/20/20 06:00 Intake Total 1960 ml Output Total 1450 ml Balance 510 ml Laboratory Data 24H LABS Laboratory Tests 2 08/20/20 04:00: Urine Random Creatinine 58.9, Urine Random Sodium 76 08/20/20 05:29: Nucleated Red Blood Cells % (auto) 0.0, Anion Gap 7L, Glomerular Filtration Rate 39.1, Calcium Level 8.2L, Total Bilirubin 0.7, Aspartate Amino Transf (AST/SGOT) 26, Alanine Aminotransferase (ALT/SGPT) 38, Alkaline Phosphatase 85, Total Creatine Kinase 187, C-Reactive Protein, Quantitative 15.40H, Total Protein 6.6, Albumin 2.7L, Albumin/Globulin Ratio 0.7L 08/20/20 12:21: Nucleated Red Blood Cells % (auto) 0.0, Reticulocyte # (auto) 30.9, Percent Reticulocyte Count 0.8, Reticulocyte Hemoglobin Equivalent 18.9L, Iron Level 12L, Total Iron Binding Capacity 295, Transferrin % Saturation 4.1L, Ferritin 52, Lactate Dehydrogenase 256H 08/20/20 18:03: Nucleated Red Blood Cells % (auto) 0.0, Differential Slide Review Report, Peripheral Blood Smear Path Consult PERIPHERAL SMEAR, Fibrinogen 522H, D-Dimer, Quantitative 2566.17H CBC/BMP Laboratory Tests 08/20/20 05:29 08/20/20 12:21 08/20/20 18:03 Microbiology Microbiology 08/20/20 Blood Culture, Received Pending 08/20/20 Blood Culture, Received Pending 08/20/20 Stool Occult Blood (SUSANNA) - Final, Complete RAMSEY OCHOA DO Aug 20, 2020 20:02
[2020-08-20 22:00] VITALS: BP 147/67
[2020-08-21] VITALS (11 sets, daily range): BP systolic 138–172; BP diastolic 66–86
[2020-08-21 00:12] LABS: HEMATOCRIT 23.7 % (36.0-47.0); MEAN CORPUSCULAR HEMOGLOBIN 20.6 pg (27.0-33.0); MEAN CORPUSCULAR HGB CONC 29.5 g/dl (32.0-36.5); MEAN CORPUSCULAR VOLUME 69.7 fl (80.0-96.0); PLATELET COUNT, AUTOMATED 161 10^3/uL (150-450); WHITE BLOOD COUNT 6.7 10^3/uL (4.0-10.0)
[2020-08-21] MEDS: NS 1,000 ML IV SCH ×2 (05:58→20:54)
[2020-08-21 07:44] LABS: MEAN CORPUSCULAR HEMOGLOBIN 20.2 pg (27.0-33.0); MEAN CORPUSCULAR HGB CONC 29.2 g/dl (32.0-36.5); MEAN CORPUSCULAR VOLUME 69.2 fl (80.0-96.0); PLATELET COUNT, AUTOMATED 175 10^3/uL (150-450); RED BLOOD COUNT 3.47 10^6/uL (4.00-5.40); WHITE BLOOD COUNT 6.3 10^3/uL (4.0-10.0)
[2020-08-21] MEDS ORDERED: NS 1,000 ML IV SCH (07:47)
[2020-08-21] MEDS: ATORVASTATIN 20 MG TAB PO SCH (08:18)
[2020-08-21] MEDS: PANTOPRAZOLE 40MG VIAL (C9113 PER 1) IV SCH ×2 (08:18→20:52)
[2020-08-21] MEDS: GABAPENTIN 300 MG CAP PO SCH ×3 (08:18→20:52)
[2020-08-21] MEDS: atenoloL 25 MG TAB PO SCH (08:21)
[2020-08-21 08:43] LABS: ALBUMIN 2.5 GM/DL (3.2-5.2); ALT/SGPT 30 U/L (12-78); BILIRUBIN,TOTAL 0.6 MG/DL (0.2-1.0); BLOOD UREA NITROGEN 17 MG/DL (7-18); CARBON DIOXIDE LEVEL 24 MEQ/L (21-32); CHLORIDE LEVEL 110 MEQ/L (98-107); CREATININE FOR GFR 0.92 MG/DL (0.55-1.30); GLOMERULAR FILTRATION RATE > 60.0 (>39); GLUCOSE, FASTING 121 MG/DL (70-100); POTASSIUM SERUM 3.3 MEQ/L (3.5-5.1); SODIUM LEVEL 144 MEQ/L (136-145); TOTAL PROTEIN 5.7 GM/DL (6.4-8.2)
[2020-08-21] MEDS ORDERED: POTASSIUM CHLORIDE 10 MEQ SR TABLET PO ONE (11:15)
--- NOTE | 2020-08-21 17:49 | IPNPDOC ---
Subjective Date Seen The patient was seen on 08/21/20. Subjective Chief Complaint/HPI dPatient is a 70 year old female who is here with toxic metabolic encephalopathy secondary to polypharmacy and ANDREY on CKD. This morning, she was found anemic. She will be transfused 2u pRBC. Otherwise denies chest pain or dyspnea. Objective Physical Examination General Exam: Positive: Cooperative Eye Exam: Negative: Sclera icteric Neck Exam: Positive: Supple Chest Exam: Positive: Clear to auscultation; Negative: Rales, Rhonchi, Wheezing Heart Exam: Positive: Rate Normal, Regular Rhythm Abdomen Exam: Positive: Normal bowel sounds, Soft; Negative: Tenderness Psych Exam: Negative: Memory Intact, Oriented x 3 Assessment /Plan Assessment Patient is a 70 year old female who is here with toxic metabolic encephalopathy secondary to polypharmacy and ANDREY on CKD. Alprazolam, zolpidem, and hydrocodone/acetaminophen was held. Her gabapentin was renally adjusted. Otherwise, hemoglobin drop to 7. Transfusing her with 2u pRBC. Pending improvement in mental status, anemia, and renal function. Plan/VTE VTE Prophylaxis Ordered?: Yes Plan 1. Toxic metabolic encephalopathy -Secondary to polypharmacy and ANDREY -Gabapentin was renally dosed -Ambien, Zolpidem, and hydrocodone/acetaminophen held 2. ANDREY -On admission, creatinine 1.96 -Unknown baseline, but about a year ago, creatinine 1.2 -Resolved 3. Hypertension -continue atenolol 4. Anemia -Continue trending CBC -Spoke with sister who agreed to blood transfusions if needed -Transfusing 2u pRBC -Reticulocyte index low indicate hypoproliferation. Iron also low. Haptoglobin within normal range -Pending blood smear 5. DVT ppx -TEDs and sequentials Disposition: pending stabilization of anemia and mental status VS, I&O, 24H, Fishbone Vital Signs/I&O Vital Signs Date Time Temp Pulse Resp B/P (MAP) Pulse Ox O2 Delivery O2 Flow Rate FiO2 08/21/20 15:24 98.4 54 18 152/86 98 Room Air I&O- Last 24 Hours up to 6 AM 08/21/20 06:00 Intake Total 2910 ml Output Total 725 ml Balance 2185 ml Laboratory Data 24H LABS Laboratory Tests 2 08/20/20 18:03: Nucleated Red Blood Cells % (auto) 0.0, Differential Slide Review Report, Peripheral Blood Smear Path Consult PERIPHERAL SMEAR, Fibrinogen 522H, D-Dimer, Quantitative 2566.17H 08/21/20 00:03: Nucleated Red Blood Cells % (auto) 0.0 08/21/20 07:23: Nucleated Red Blood Cells % (auto) 0.0, Anion Gap 10, Glomerular Filtration Rate > 60.0, Calcium Level 8.0L, Total Bilirubin 0.6, Aspartate Amino Transf (AST/SGOT) 14, Alanine Aminotransferase (ALT/SGPT) 30, Alkaline Phosphatase 78, Total Protein 5.7L, Albumin 2.5L, Albumin/Globulin Ratio 0.8L CBC/BMP Laboratory Tests 08/20/20 18:03 08/21/20 00:03 08/21/20 07:23 Microbiology Microbiology 08/20/20 Blood Culture - Preliminary, Resulted No growth after 24 hours . All specim... 08/20/20 Blood Culture - Preliminary, Resulted No growth after 24 hours . All specim... 08/20/20 Stool Occult Blood (SUSANNA) - Final, Complete RAMSEY OCHOA DO Aug 21, 2020 15:30
[2020-08-21 19:07] LABS: HEMATOCRIT 30.8 % (36.0-47.0); MEAN CORPUSCULAR HEMOGLOBIN 21.7 pg (27.0-33.0); MEAN CORPUSCULAR HGB CONC 29.9 g/dl (32.0-36.5); MEAN CORPUSCULAR VOLUME 72.6 fl (80.0-96.0); PLATELET COUNT, AUTOMATED 188 10^3/uL (150-450); RED BLOOD COUNT 4.24 10^6/uL (4.00-5.40); WHITE BLOOD COUNT 8.4 10^3/uL (4.0-10.0)
[2020-08-21 19:56] LABS: HEMOGLOBIN 9.2 g/dl (12.0-15.5)
[2020-08-21] MEDS ORDERED: RAMELTEON 8 MG TAB (ROZEREM) PO SCH (21:00)
[2020-08-22] MEDS: ACETAMINOPHEN TAB 650MG DOSE (2X325MG) PO PRN ×2 (03:41→10:30)
[2020-08-22 05:09] LABS: HEMATOCRIT 30.2 % (36.0-47.0); HEMOGLOBIN 9.1 g/dl (12.0-15.5); MEAN CORPUSCULAR HEMOGLOBIN 21.8 pg (27.0-33.0); MEAN CORPUSCULAR HGB CONC 30.1 g/dl (32.0-36.5); MEAN CORPUSCULAR VOLUME 72.4 fl (80.0-96.0); PLATELET COUNT, AUTOMATED 187 10^3/uL (150-450); RED BLOOD COUNT 4.17 10^6/uL (4.00-5.40); WHITE BLOOD COUNT 8.4 10^3/uL (4.0-10.0)
[2020-08-22 05:35] LABS: ALBUMIN 2.6 GM/DL (3.2-5.2); ALT/SGPT 30 U/L (12-78); BILIRUBIN,TOTAL 0.8 MG/DL (0.2-1.0); BLOOD UREA NITROGEN 12 MG/DL (7-18); CALCIUM LEVEL 8.2 MG/DL (8.8-10.2); CARBON DIOXIDE LEVEL 25 MEQ/L (21-32); CHLORIDE LEVEL 107 MEQ/L (98-107); CREATININE FOR GFR 0.82 MG/DL (0.55-1.30); GLOMERULAR FILTRATION RATE > 60.0 (>39); GLUCOSE, FASTING 98 MG/DL (70-100); POTASSIUM SERUM 3.1 MEQ/L (3.5-5.1); SODIUM LEVEL 142 MEQ/L (136-145)
[2020-08-22] MEDS: NS 1,000 ML IV SCH ×2 (05:38→07:00)
[2020-08-22 06:00] VITALS: BP 157/89
[2020-08-22 08:12] LABS: MAGNESIUM LEVEL 1.5 MG/DL (1.8-2.4)
[2020-08-22] MEDS ORDERED: MAGNESIUM OXIDE 400 MG TAB (MAG-OX) PO SCH (09:00)
[2020-08-22] MEDS: atenoloL 25 MG TAB PO SCH (09:00)
[2020-08-22] MEDS ORDERED: NORCO, ANEXSIA 5/325MG TABLET (HYDROcodone/ACETAMINOPHEN) PO PRN (09:00)
[2020-08-22] MEDS: PANTOPRAZOLE 40MG VIAL (C9113 PER 1) IV SCH (09:28)
[2020-08-22] MEDS: GABAPENTIN 300 MG CAP PO SCH (09:29)
[2020-08-22] MEDS: KCL 10MEQ/100ML SWI (KRUN) 10 MEQ in IV 1 EA IV SCH ×2 (09:29→11:00)
[2020-08-22] MEDS: ATORVASTATIN 20 MG TAB PO SCH (09:29)
[2020-08-22] MEDS ORDERED: **hydrALAZINE HCL** 25 MG TAB PO ONE (10:00)
[2020-08-22] MEDS ORDERED: MAG400TA PO (10:00)
[2020-08-22 10:31] VITALS: BP 184/65
[2020-08-22] MEDS ORDERED: POTASSIUM CHLORIDE 10 MEQ SR TABLET PO ONE (11:45)
--- NOTE | 2020-08-22 19:52 | DS.PDOC ---
Discharge Summary General Date of Admission Aug 19, 2020 at 19:47 Date of Discharge Aug 22, 2020 Attending Physician: RAMSEY OCHOA DO Discharge Summary PROCEDURES PERFORMED DURING STAY: None. ADMITTING DIAGNOSES: 1. Toxic metabolic encephalopathy 2/2 polypharmacy 2. ANDREY on CKD stage 3 3. Anemia 4. Peripheral artery disease 5. CAD s/p stent DISCHARGE DIAGNOSES: 1. Toxic metabolic encephalopathy 2/2 polypharmacy 2. ANDREY on CKD stage 3 3. Anemia 4. Peripheral artery disease 5. CAD s/p stent COMPLICATIONS/CHIEF COMPLAINT: Fall, Andrey. HISTORY OF PRESENT ILLNESS: Patient is a 70 year old female with COPD, chronic low back pain, and history of recurrent falls and upper GI bleed who presented to [facility] after being found down at home and confused. History was difficult to obtain due to this confusion. Per EMS report, patient was found down in the bathroom with fecal matter on the sorto. Christian had told EMS that she was down for two days, but in the ED, she was not sure. She was admitted for ANDREY and altered mental status. HOSPITAL COURSE: Her altered mental status was thought to be secondary to gabapentin, Zolpidem, Xanax, and Pindall in the setting of acute kidney injury. Zolpidem, Xanax, and Pindall was held and gabapentin was renally dosed. She was given IVF for ANDREY. During her hospitalization, she became anemic requiring 2u pRBC. Work up demonstrated iron deficiency anemia. Reticulocyte index was also low indicating hypoproliferation. Occult stool was negative. Patient's H&H remained stable after transfusion. This morning, she was feeling well. Denied fever, chest pain, dyspnea, or abdominal pain. She felt cognitively stronger and was A&Ox3. She was anxious to go home and was subsequently discharged home. DISCHARGE MEDICATIONS: Please see below. ALLERGIES: Please see below. PHYSICAL EXAMINATION ON DISCHARGE: VITAL SIGNS: Please see below. GENERAL: Comfortable, in no apparent distress. HEENT: Head normocephalic/atraumatic, EOMI, sclera clear. NECK: Supple, no JVD. RESPIRATORY: Lungs clear to auscultation bilaterally, no rales, wheeze or rhonchi. CARDIOVASCULAR: Regular rate and rhythm. ABDOMEN: Soft, nontender, no guarding or rebound tenderness. Normal bowel sounds. MUSCLE SKELETAL: Muscle strength 5/5 in all extremities. NEUROLOGICAL: CN 312 grossly intact, no focal deficits noted, A&Ox3 PSYCHOLOGICAL: Normal mood and affect LABORATORY DATA: Please see below. IMAGING: CXR There is no acute cardiopulmonary disease. CT head 1. 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 2. No acute intracranial lesion or injury. No change from prior scan. CT cervical spine 1. No fracture. 2. Postoperative and degenerative findings US kidney 1. No acute abnormality of the kidneys. 2. 10 x 12 x 19 mm left renal cortical lesion not definitively demonstrated to be a cyst on this study. It was also not d a simple cyst on the prior CT. Recommend follow-up with pre and post contrast CT. PROGNOSIS: Good ACTIVITY: As tolerated. DIET: As tolerated DISCHARGE PLAN: Home with home services DISPOSITION: 01 Home, Self-Care. DISCHARGE INSTRUCTIONS: 1. Follow up with PCP within 1 week 2. I do not recommend taking Ambien or Xanax until seeing your PCP 3. Drink plenty of fluids ITEMS TO FOLLOWUP ON ON OUTPATIENT: 1. Left kidney lesion. Radiology recommend CT abd/pelvis with and without IV contrast. Since kidneys had just recovered from injury, recommend waiting a few days before obtaining contrast study. Follow up with PCP about CT abd/pelvis with and without IV contrast study. DISCHARGE CONDITION: Stable. Total time spent on discharge planning, discharge summary, and medication reconciliation: 40 minutes Vital Signs/I&Os Vital Signs Date Time Temp Pulse Resp B/P (MAP) Pulse Ox O2 Delivery O2 Flow Rate FiO2 08/22/20 10:31 184/65 08/22/20 09:00 53 08/22/20 06:00 97.0 20 96 08/21/20 18:24 Room Air I&O- Last 24 Hours up to 6 AM0 08/22/20 06:00 Intake Total 3750 ml Output Total 2275 ml Balance 1475 ml Laboratory Data Labs 24H Laboratory Tests 2 08/22/20 04:51: Nucleated Red Blood Cells % (auto) 0.0, Anion Gap 10, Glomerular Filtration Rate > 60.0, Calcium Level 8.2L, Magnesium Level 1.5L, Total Bilirubin 0.8, Aspartate Amino Transf (AST/SGOT) 17, Alanine Aminotransferase (ALT/SGPT) 30, Alkaline Phosphatase 84, Total Protein 6.0L, Albumin 2.6L, Albumin/Globulin Ratio 0.8L CBC/BMP Laboratory Tests 1/29/21 04:51 Microbiology Microbiology 08/20/20 Blood Culture - Preliminary, Resulted No Growth after 48 hours. All Specime... 08/20/20 Blood Culture - Preliminary, Resulted No Growth after 48 hours. All Specime... 08/20/20 Stool Occult Blood (SUSANNA) - Final, Complete Discharge Medications Scheduled Aspirin (Aspirin) 81 Mg Tab.chew, 81 MG PO DAILY, (Reported) Atenolol (Atenolol) 25 Mg Tab, 25 MG PO DAILY, (Reported) Atorvastatin Calcium (Atorvastatin Calcium) 20 Mg Tablet, 20 MG PO DAILY, (Reported) Fluoxetine Hcl (Fluoxetine HCl) 40 Mg Cap, 40 MG PO DAILY, (Reported) Gabapentin (Gabapentin) 300 Mg Capsule, 600 MG PO TID, (Reported) Magnesium Oxide (Magnesium Oxide) 400 Mg Tablet, 400 MG PO DAILY Pantoprazole Sodium (Pantoprazole Sodium) 40 Mg Tablet.dr, 40 MG PO DAILY, (Reported) Scheduled PRN Hydrocodone/Acetaminophen (Hydrocodone-Acetamin 5-325 mg) 1 Tab Tab, 1 TAB PO TID PRN for PAIN, (Reported) Allergies Coded Allergies: Penicillins (Verified Allergy, Intermediate, SWELLING, 03/06/19) RAMSEY OCHOA DO Aug 22, 2020 19:52
--- NOTE | 2020-08-26 09:01 | ECHO ---
DATE OF PROCEDURE: 08/20/2020 Age: 70 Gender: Female REFERRING PROVIDER: Virgen Hdez MD. PATIENT LOCATION: Room 4202. REASON FOR STUDY: Syncope. 2D MEASUREMENTS: IVS 0.98 cm LV 5.2 cm LVPW 1.0 cm LA 3.9 cm Aorta 3.1 cm IVC 1.3 cm DOPPLER MEASUREMENT Peak velocity across the aortic valve 1.4 m/s Peak velocity across the LVOT 0.99 m/s Mitral E 1.0 Mitral A 0.86 with a ratio of 1.2 Maximum tricuspid valve velocity 2.3 m/s 2D COMMENTS: 1. Normal left ventricular size, wall thickness, and low normal global left ventricular systolic function. The estimated left ventricular systolic ejection fraction is 50 to 55%. 2. Normal left atrium. Normal right atrium and right ventricle. 3. The atrial septum appeared to be normal without evidence of defect or shunt. 4. Normal aortic root. 5. No pericardial effusion seen. 6. Mildly calcified aortic valve with normal leaflet excursion. Normal mitral valve and tricuspid valve. The pulmonic valve and proximal pulmonary artery branches were not well visualized. 7. The inferior vena cava was normal in size, central venous pressure was most likely normal. DOPPLER: It detects trace aortic regurgitation, trace mitral regurgitation and mild tricuspid regurgitation. The calculated pulmonary artery systolic pressure was about 30 mmHg. Abnormal relaxation pattern was noted across the mitral valve annulus consistent with features of Grade II left ventricular diastolic dysfunction. IMPRESSION: 1. Normal global left ventricular systolic function. There were some features of left ventricular diastolic dysfunction, grade 2. 2. Aortic valve sclerosis with trace aortic regurgitation but no aortic stenosis. 3. Trace mitral regurgitation. 4. Mild tricuspid regurgitation with probably mild pulmonary hypertension. 5. This study was technically limited due to poor acoustic window. [facility]
== END 2020-08-22 13:17 | disposition home or self-care (01) | DRG 71 ==
LOC: M ED 17:19 → EDBD 17:19 → M ED INP 19:47 → ENRESERV 22:29 → M MSPAV 23:28
PROVIDERS: ADMIT Internal Medicine; ATTEND Internal Medicine
PROC: 30233N1 Transfusion of Nonautologous Red Blood Cells into Peripheral Vein, Percutaneous Approach (ICD-10-PCS; principal; 2020-08-21)
DX: G93.41 Metabolic encephalopathy (principal); N17.9 Acute kidney failure, unspecified; D50.9 Iron deficiency anemia, unspecified; I73.9 Peripheral vascular disease, unspecified; I25.10 Atherosclerotic heart disease of native coronary artery without angina pectoris; Z95.2 Presence of prosthetic heart valve; N18.30 Chronic kidney disease, stage 3 unspecified; J44.9 Chronic obstructive pulmonary disease, unspecified; R29.6 Repeated falls; Z79.82 Long term (current) use of aspirin; Z79.899 Other long term (current) drug therapy; Z88.0 Allergy status to penicillin; E78.5 Hyperlipidemia, unspecified; F41.9 Anxiety disorder, unspecified; F32.9 Major depressive disorder, single episode, unspecified; F17.200 Nicotine dependence, unspecified, uncomplicated; I16.0 Hypertensive urgency; I12.9 Hypertensive chronic kidney disease with stage 1 through stage 4 chronic kidney disease, or unspecified chronic kidney disease

== ENCOUNTER 2020-12-25 14:44 | Inpatient (IN) | payer MEDICARE ==
[~2020-12-25] VITALS: Ht 170.2 cm; Wt 72.9 kg
[~2020-12-25 14:44] MED LIST changes: +ASPI-281 PO; -ASPI81CH17 PO; +BUPR150T12 PO; -BUPR150T4 PO; +COMMENTS; +MAGN400T35 PO; +OMEP20TA2 PO; -OMEP20TA9 PO; +PANT-23 PO
[2020-12-25 17:24] LABS: VENOUS BASE EXCESS -3.3 (-2.0-2.0); VENOUS HCO3 19.9 MEQ/L (23.0-27.0); VENOUS O2 SATURATION 98.4 % (60.0-80.0); VENOUS PARTIAL PRESSURE CO2 30.2 mmHg (38.0-50.0); VENOUS PARTIAL PRESSURE O2 112.6 mmHg (30.0-50.0); VENOUS PH 7.436 UNITS (7.330-7.430); VENOUS STANDARD HCO3 21.7 MEQ/L; VENOUS TOTAL CO2 20.8 MEQ/L (24.0-28.0)
[2020-12-25 17:34] LABS: BASO % 0.3 % (0.0-1.0); EOS # 0.1 10^3/uL (0.0-0.5); EOS % 0.4 % (0.0-3.0); HEMATOCRIT 34.4 % (36.0-47.0); LYMPH # 0.7 10^3/uL (1.5-5.0); LYMPH % 4.6 % (24.0-44.0); MEAN CORPUSCULAR HEMOGLOBIN 27.8 pg (27.0-33.0); MEAN CORPUSCULAR VOLUME 86.9 fl (80.0-96.0); MONO # 2.3 10^3/uL (0.0-0.8); MONO % 15.1 % (2.0-8.0); NEUTROPHILS # 11.9 10^3/uL (1.5-8.5); NEUTROPHILS % 78.1 % (36.0-66.0); PLATELET COUNT, AUTOMATED 182 10^3/uL (150-450); RED BLOOD COUNT 3.96 10^6/uL (4.00-5.40)
[2020-12-25 18:07] LABS: ACETAMINOPHEN LEVEL < 2.0 UG/ML (10.0-30.0); ALBUMIN 2.6 GM/DL (3.2-5.2); ALT/SGPT 60 U/L (12-78); BILIRUBIN,DIRECT 0.4 MG/DL (0.0-0.2); BLOOD UREA NITROGEN 22 MG/DL (7-18); CALCIUM LEVEL 8.8 MG/DL (8.8-10.2); CARBON DIOXIDE LEVEL 25 MEQ/L (21-32); CHLORIDE LEVEL 107 MEQ/L (98-107); CK-MB VALUE MASS 1.8 NG/ML (<3.6); CPK CREATINE PHOSPHOKINASE 375 U/L (26-192); CREATININE FOR GFR 0.91 MG/DL (0.55-1.30); ETHYL ALCOHOL (ETHANOL) < 0.003 % (0.000-0.010); GLOMERULAR FILTRATION RATE > 60.0 (>39); GLUCOSE, FASTING 134 MG/DL (70-100); MB/CK RELATIVE INDEX 0.48 (< OR =4); POTASSIUM SERUM 3.8 MEQ/L (3.5-5.1); SALICYLATE LEVEL 2.2 MG/DL (5.0-30.0); SODIUM LEVEL 138 MEQ/L (136-145); THYROID STIMULATING HORMONE 0.071 uIU/ML (0.358-3.740); TOTAL PROTEIN 6.3 GM/DL (6.4-8.2); TROPONIN I < 0.02 NG/ML (< 0.10)
[2020-12-25 18:09] LABS: AMPHETAMINES LEVEL URINE NEGATIVE (NEGATIVE); BARBITURATES URINE NEGATIVE (NEGATIVE); BENZODIAZEPINES URINE POSITIVE (NEGATIVE); CANNABINOIDS URINE NEGATIVE (NEGATIVE); COCAINE METABOLITE URINE NEGATIVE (NEGATIVE); METHADONE URINE NEGATIVE (NEGATIVE); OPIATES URINE POSITIVE (NEGATIVE); PHENCYCLIDINE URINE NEGATIVE (NEGATIVE)
[2020-12-25 18:14] LABS: WHITE BLOOD COUNT 15.1 10^3/uL (4.0-10.0)
[2020-12-25] MEDS ORDERED: ZOLP10TA2 PO (19:24)
[2020-12-25] MEDS ORDERED: GABA-282 PO (19:24)
[2020-12-25] MEDS ORDERED: ALPR0.25 PO (19:24)
[2020-12-25] MEDS ORDERED: MAALOX 30 ML SUSP *UDC PO PRN (19:30)
[2020-12-25] MEDS ORDERED: ACETAMINOPHEN TAB 650MG DOSE (2X325MG) PO PRN (19:30)
[2020-12-25] MEDS ORDERED: MOM 30ML SUSPENSION UDC PO PRN (19:30)
--- NOTE | 2020-12-25 19:59 | REPVR ---
PROCEDURE INFORMATION: Exam: CT Head Without Contrast Exam date and time: 12/25/2020 5:56 PM Age: 70 years old Clinical indication: Altered mental status/memory loss; Confusion or disorientation TECHNIQUE: Imaging protocol: Computed tomography of the head without contrast. Radiation optimization: All CT scans at this facility use at least one of these dose optimization techniques: automated exposure control; mA and/or kV adjustment per patient size (includes targeted exams where dose is matched to clinical indication); or iterative reconstruction. COMPARISON: CT Head without contrast 08/19/2020 5:45 PM FINDINGS: Brain: The brain demonstrates diffuse volume loss. There is white matter hypodensity most consistent with chronic small vessel ischemic change. No visible evolving territorial infarct. No hemorrhage. Cerebral ventricles: The ventricles are enlarged in keeping with volume loss. Paranasal sinuses: Mild posterior ethmoid sinus mucosal thickening. Mastoid air cells: Visualized mastoid air cells are well aerated. Bones/joints: Unremarkable. No acute fracture. Soft tissues: Unremarkable. IMPRESSION: No acute intracranial abnormality seen. Electronically signed by: Vandana Mahan On 12/25/2020 19:59:22 PM
--- NOTE | 2020-12-25 19:59 | REP ---
INDICATION: altered COMPARISON: 08/19/2020 TECHNIQUE: Portable AP view of the chest FINDINGS: The mediastinum and cardiac silhouette are stable and within normal limits for portable technique. The lung giles are clear without acute consolidation, effusion, or pneumothorax. Skeletal structures are intact. IMPRESSION: No acute cardiopulmonary process appreciated. <Electronically signed by Cholo Messer > 12/25/201954
[2020-12-25 20:05] LABS: AMPHETAMINES LEVEL URINE NEGATIVE (NEGATIVE); BARBITURATES URINE NEGATIVE (NEGATIVE); BENZODIAZEPINES URINE POSITIVE (NEGATIVE); CANNABINOIDS URINE NEGATIVE (NEGATIVE); COCAINE METABOLITE URINE NEGATIVE (NEGATIVE); METHADONE URINE NEGATIVE (NEGATIVE); OPIATES URINE POSITIVE (NEGATIVE); PHENCYCLIDINE URINE NEGATIVE (NEGATIVE)
--- NOTE | 2020-12-25 20:20 | ECGEPIP ---
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
[2020-12-25 20:24] LABS: FREE T3 2.7 PG/ML (2.2-4.0); MAGNESIUM LEVEL 1.7 MG/DL (1.8-2.4)
[2020-12-25 20:58] LABS: RSV AMPLIFICATION NEGATIVE (NEGATIVE)
--- NOTE | 2020-12-25 20:58 | HPEPDOC ---
General Date of Admission 12/25/20 Date of Service: Dec 25, 2020 Chief Complaint The patient is a 70-year-old female admitted with a reason for visit of Multiple Falls. Source: Patient, RN/MD Exam Limitations: Dementia, Mild cognitive slowing Timing/Duration: Unsure Severity: Mild Associated Symptoms: Syncope History of Present Illness Ms. Gotti, is a 70 year-old female with significant PMH of vascular dementia, PAD with s/p cardiac stents, CAD, Vascular surgery with 3 stents p laced in left leg and 1 right leg, s/p DVT, hiatal hernia, diverticulosis, hematemesis, lumbar stenosis with sciatica, incontinence, diabetic peripheral neuropathy, insomnia, chronic pain, essential hypertension, GERD, COPD, osteoarthritis, RA, anemia, nicotine dependence, and current pack half a day cigarette smoker, depression, bipolar disease and anxiety, presents to [facility] ER reporting she fell down at home hitting her head on the floor however she says she does not remember or know what actually happened that she woke up lying on the floor. She called out for her sister and other family member who found her on the floor and assisted her as she could not get her self off of the floor. In reviewing her laboratory result she has elevated total white blood cell count of 15.1, hemoglobin 11.0, hematocrit 34.4, absolute neutrophil count elevated at 78.1 and absolute monocyte 15.1, TSH low 0.071, Total CK 375, Magnesium 1.7, elevated Alkaline phosphatase is elevated 142, lactic acid is normal at 0.9, ammonia level is normal at 26, and T3 free is normal at 2.7. Patients chest x- ray A/P is clear not showing vascular pulmonary congestion, consolidations or infiltrates at this time. Patient will be admitted Medical-Surgical unit on telemetry with continuous pulse oximetry(remote) for ongoing evaluation, neurological checks q 2-4 hours, fall precautions and she may need IV antibiotic treatment for acute leukocytosis and fever treated with po medications. Home Medications Scheduled Atenolol (Atenolol) 25 Mg Tab, 25 MG PO DAILY, (Reported) Fluoxetine Hcl (Fluoxetine HCl) 40 Mg Cap, 40 MG PO DAILY, (Reported) Gabapentin (Gabapentin) 300 Mg Capsule, 900 MG PO QAM, (Reported) Gabapentin (Gabapentin) 300 Mg Capsule, 600 MG PO BID, (Reported) TAKES AFTERNOON AND AT BEDTIME Pantoprazole Sodium (Pantoprazole Sodium) 40 Mg Tablet.dr, 40 MG PO DAILY, (Reported) Zolpidem Tartrate (Zolpidem Tartrate) 10 Mg Tablet, 10 MG PO QHS, (Reported) Scheduled PRN Alprazolam (Alprazolam) 0.25 Mg Tablet, 0.25 MG PO TID PRN for ANXIETY, (Reported) Hydrocodone/Acetaminophen (Hydrocodone-Acetamin 5-325 mg) 1 Tab Tab, 1 TAB PO TID PRN for PAIN, (Reported) Allergies Coded Allergies: Penicillins (Verified Allergy, Intermediate, SWELLING, 03/06/19) Past Medical History Medical History Diabetic peripheral neuropathy, PAD with Cardiac stents, CAD, Vascular surgery 3 stents left leg and 1 right leg. last coronary artery stent 1-15 years ago (patient unsure), DVT, Hiatal hernia, diverticulosis, hematemesis, incontinence, lumbar stenosis with sciatica, osteoarthritis, RA, anemia, nicotine dependence, Surgical History Rightand Left rotator cuff repair, Right knee arthroscopy x2 with Right total knee replacement, cervical fusion; adrenal adenoma Family History Significant Family History: Cancer (brother and sister cancer), Diabetes (Dad. all 4 sisters and 1 brother), Hypertension (Brother) Social History * Smoker: current smoker, greater than 1 pack/day, cigarettes Alcohol: Denies Drugs: denies Psychosocial History: Anxiety, Bipolar, Decreased mood, Dementia (Vacular), Depression, Other (Insomnia) A-FIB/CHADSVASC A-FIB History Current/History of A-Fib/PAF?: No Review of Systems Constitutional: Reports: Weakness, Fatigue, Other (poor historian and intermittent confusion) Eyes: Denies: Pain, Vision change, Conjunctivae inflammation, Eyelid inflammation, Redness, Other ENT: Reports: Head Aches Skin: Reports: Other (bump on head) Pulmonary: Reports: Dyspnea (copd), Cough Gastrointestinal: Reports: Constipation; Denies: Nausea, Vomiting, Abdominal Pain, Diarrhea, Melena, Hematochezia, Other Symptoms Genitourinary: Denies: Dysuria, Frequency, Incontinence, Hematuria, Retention, Other Symptoms Hematologic: Denies: Bruising, Bleeding Excessively, Petecchia, Purpura, Enlarged Lymph Nodes, Other Hematologic Endocrine: Denies: Polydipsia, Polyphagia, Polyuria, Heat Intolerance, Cold Intolerance, Other Endocrine Sx Musculoskeletal: Reports: Back Pain Neurological: Reports: Weakness, Incoordination, Confusion Psych: Reports: Anxiety, Depression, Memory Issues Physical Examination General Exam: Positive: Alert, Cooperative, No Acute Distress Eye Exam: Positive: PERRLA, Conjunctiva & lids normal ENT Exam: Positive: Atraumatic, Mucous membr. moist/pink, Nares Patent (CT shows ethmoid sinus thickening) Neck Exam: Positive: Supple Chest Exam: Positive: Wheezing Heart Exam: Positive: Normal S1, Normal S2 Abdomen Exam: Positive: Normal bowel sounds, Soft, Tenderness Extremity Exam: Positive: Normal pulses Skin Exam: Positive: Nl turgor and temperature, Other skin issue (lump right forehead ) Neuro Exam: Positive: Normal Speech, Cranial Nerves 3-12 NL Psych Exam: Positive: Mood NL, Anxiety, Other (confusion intermittently) Vital Signs Vital Signs Date Time Temp Pulse Resp B/P (MAP) Pulse Ox O2 Delivery O2 Flow Rate FiO2 12/25/20 18:29 100.9 12/25/20 15:11 88 16 188/88 (121) 98 Room Air Laboratory Data Labs 24H Laboratory Tests 2 12/25/20 15:28: Urine Color YELLOW, Urine Appearance HAZY, Urine pH 5.0, Urine Specific [place] 1.014, Urine Protein 2+H, Urine Glucose (UA) NEGATIVE, Urine Ketones NEGATIVE, Urine Blood 1+H, Urine Nitrite NEGATIVE, Urine Bilirubin NEGATIVE, Urine Urobilinogen 0.2, Urine Leukocyte Esterase NEGATIVE, Urine WBC (Auto) 7H, Urine RBC (Auto) 5H, Urine Hyaline Casts (Auto) 0, Urine Bacteria (Auto) NEGATIVE, Urine Squamous Epithelial Cells 1, Urine Sperm (Auto) , Urine Opiates Screen POSITIVEH, Urine Methadone Screen NEGATIVE, Urine Barbiturates Screen NEGATIVE, Urine Phencyclidine Screen NEGATIVE, Urine Amphetamines Screen NEGATIVE, Urine Benzodiazepines Screen POSITIVEH, Urine Cocaine Metabolite Screen NEGATIVE, Urine Cannabinoids Screen NEGATIVE 12/25/20 16:50: Immature Granulocyte % (Auto) 1.5, Neutrophils (%) (Auto) 78.1H, Lymphocytes (%) (Auto) 4.6L, Monocytes (%) (Auto) 15.1H, Eosinophils (%) (Auto) 0.4, Basophils (%) (Auto) 0.3, Neutrophils # (Auto) 11.9H, Lymphocytes # (Auto) 0.7L, Monocytes # (Auto) 2.3H, Eosinophils # (Auto) 0.1, Basophils # (Auto) 0.0, Nucleated Red Blood Cells % (auto) 0.0, Blood Gas Bicarbonate Standard 21.7, Venous Blood pH 7.436H, Venous Blood Partial Pressure CO2 30.2L, Venous Blood Partial Pressure O2 112.6H, Venous Blood Total Carbon Dioxide 20.8L, Venous Blood HCO3 19.9L, Venous Blood Oxygen Saturation 98.4H, Venous Blood Base Excess -3.3L, Anion Gap 6L, Glomerular Filtration Rate > 60.0, Calcium Level 8.8, Total Bilirubin 1.0, Direct Bilirubin 0.4H, Aspartate Amino Transf (AST/SGOT) 17, Alanine Aminotransferase (ALT/SGPT) 60, Alkaline Phosphatase 142H, Ammonia 26, Total Creatine Kinase 375H, Creatine Kinase MB 1.8, Creatine Kinase MB Relative Index 0.48, Troponin I < 0.02, Total Protein 6.3L, Albumin 2.6L, Albumin/Globulin Ratio 0.7L, Thyroid Stimulating Hormone (TSH) 0.071L, Salicylates Level 2.2L, Acetaminophen Level < 2.0L, Ethyl Alcohol Level < 0.003 CBC/BMP Laboratory Tests 12/25/20 16:50 Problems (1) Altered mental status Status: Acute Problem Text: Ms. Gotti is a 70 year-old elderly female admitted to [facility] for AMS, medication misuse/overuse of benzodiazepines, and elevated WBC 15.1. Overuse of medication-Acute Plan Admit to Medical-Surgical unit on telemetry Neurological checks q 2 hours Fall precautions, may ambulate with help from nurse Initiate bowel regimen- Colace 100mg po bid, MOM 30 ml q 6 hours prn constipation TSH is very low, ordered T3 free. Leukocytosis with fever-Acute WBC 15.1, Urinalysis shows no bacteria or nitrites. Will obtain ua c/s and Chest x-ray. Re-check CBC with differential in AM Blood cultures Head injury with Right Forehead lump s/p Fall in home-Acute Continue Neuro checks Assist with ambulation to bathroom or use bedside commode CT head shows no acute intracranial abnormalities, no hemorrhage. PT to evaluate and treat Hypomagnesium-Acute Replacement ordered 1 GM Magnesium Sulfate IV x 1 dose now for Magnesium 1.7 Re-check magnesium level in AM Vascular dementia-Chronic CT Head w/o IV contrast: shows diffuse volume loss with chronic small vessel ischemic changes, without any territorial infarcts.Ventricles enlarged. BP goal SBP <160. Added Apresoline 10 mg IV q 6 hours prn SBP >160. Essential Hypertension-chronic Regular diet low Sodium Monitor VS q shift or prn symptoms Continue home medications: Atenolol 25 mg po daily Chronic pain-Chronic HOLD HYDROCODONE/ACEAT 5-325 MG PO TID PAIN due to AMS Continue home regimen (in partiality)-Gabapentin 600 mg po qHS. Will HOLD GABAPENTIN 900 MG PO QAM DUE TO PATIENT AMS. GERD-chronic continue home medications: Protonix 40 mg po daily; add-Mylanta 30 ml po q daily for heartburn HOB elevate 30-45 degrees Insomnia-chronic HOLD HOME SLEEP AIDE AMBIEN 10 MG PO QHS DUE TO AMS and taking Opiates per home regimen as well. *Start Rozerem 8 mg po qhs prn insomnia. Depression and Anxiety-Chronic -Home medication regimen Xanax 0.25 mg po TID prn anxiety. CHANGED TO: Xanax 0.25 mg po q12 hours prn anxiety (to decrease benzodiazepine withdrawal) She is overusing this medication it appears.Continue home medication: Fluoxetine 40 mg po QAM Drug toxicology screen shows levels : SFS referral for Medication overuse CODP with Nicotine dependence-Chronic Supplemental O2 2 L per N/C as needed with goal O2 88-92% Nicotine patch 21 mcg topical daily Duoneb nebulizer treatment by Respiratory q 6 hours prn sob, wheezing, coughing Full code Referral: Social Work-medication management at home upon discharge or home nurse visit PPI Prophylaxis: continue home medication-Protonix 40 mg daily po DVT Prophylaxis: Lovenox 40 mg SC daily, SCDs with LIZETT DENIS BLE Discharge: pending clinical course (2) Fall with injury Status: Acute Problem Specific Plan: Monitor Clinically, Repeat Labs (3) Hypomagnesemia Status: Acute Response to Treatment: Improving Problem Specific Plan: Monitor Clinically, Repeat Labs Problem Text: replacement IV magnesium sulfate 1GM ordered (4) ANDREY (acute kidney injury) Status: Acute (5) Overuse of medication Status: Acute (6) Dehydration Status: Acute (7) Vascular dementia Status: Chronic Problem Specific Plan: Monitor Clinically (8) Hypertension Status: Chronic Response to Treatment: Uncontrolled Problem Specific Plan: Monitor Clinically, Repeat Labs (9) Anxiety and depression Status: Chronic Problem Specific Plan: Monitor Clinically (10) Insomnia Status: Chronic Problem Specific Plan: Monitor Clinically (11) GERD (gastroesophageal reflux disease) Status: Chronic Problem Specific Plan: Monitor Clinically (12) Chronic back pain Status: Chronic Problem Specific Plan: Monitor Clinically (13) Spinal stenosis of lumbar region at multiple levels Status: Chronic Problem Specific Plan: Monitor Clinically (14) COPD (chronic obstructive pulmonary disease) Status: Chronic Problem Specific Plan: Monitor Clinically (15) Nicotine dependence Status: Chronic Problem Specific Plan: Monitor Clinically Plan / VTE VTE Prophylaxis Ordered?: Yes Plan Activity: Bedrest (bathroom privilege with nursing personnel assisting) Therapy: PT, Home Safety Eval Pt and Family Services: Home Care Medications: Bowel Regimen, Decrease pain Meds Respiratory: Pulse Ox on Room Air Diagnostics: Check Labs, Repeat Labs in AM, Obtain Cultures, CT Anticipated Discharge: Home With Services CORI SYED Dec 25, 2020 19:27
[2020-12-25] MEDS: GABAPENTIN 300 MG CAP PO SCH (21:00)
[2020-12-25] MEDS: DOCUSATE SODIUM 100MG CAPSULE PO SCH (21:00)
[2020-12-25] MEDS ORDERED: RAMELTEON 8 MG TAB (ROZEREM) PO PRN (21:30)
[2020-12-25] MEDS ORDERED: hydrALAZINE 20MG/ML 1ML VIAL (J0360 PER 20MG) IV PRN (21:30)
[2020-12-25] MEDS ORDERED: IPRATROPIUM 0.5MG/ALBUTEROL 2.5MG INH SOL UD 3ML (DUONEB) NEB PRN (22:45)
[2020-12-25 22:50] VITALS: BP 164/88
[2020-12-25] MEDS: NICOTINE 21MG/24HR 1 EA TRANSDERMAL TD SCH (23:43)
[2020-12-25] MEDS: ENOXAPARIN 40MG/0.4ML SYRINGE (J1650 PER 10MG) SC SCH (23:44)
[2020-12-25] MEDS: PANTOPRAZOLE 40MG TAB (PROTONIX) PO SCH (23:44)
[2020-12-25] MEDS: atenoloL 25 MG TAB PO SCH (23:46)
[2020-12-26] MEDS ORDERED: MAG SULF 1GM/100ML (MAG RUN) 1 GM in IV 1 EA IV ONE ×2
[2020-12-26 06:00] VITALS: BP 121/52
[2020-12-26 06:40] LABS: BASO % 0.4 % (0.0-1.0); EOS # 0.2 10^3/uL (0.0-0.5); EOS % 1.4 % (0.0-3.0); HEMOGLOBIN 9.8 g/dl (12.0-15.5); LYMPH # 0.6 10^3/uL (1.5-5.0); MEAN CORPUSCULAR HGB CONC 32.7 g/dl (32.0-36.5); MEAN CORPUSCULAR VOLUME 85.7 fl (80.0-96.0); MONO # 1.7 10^3/uL (0.0-0.8); MONO % 15.6 % (2.0-8.0); NEUTROPHILS # 8.1 10^3/uL (1.5-8.5); NEUTROPHILS % 75.9 % (36.0-66.0); PLATELET COUNT, AUTOMATED 167 10^3/uL (150-450)
[2020-12-26 06:42] LABS: WHITE BLOOD COUNT 10.6 10^3/uL (4.0-10.0)
[2020-12-26 07:04] LABS: ALBUMIN 2.3 GM/DL (3.2-5.2); ALT/SGPT 46 U/L (12-78); BILIRUBIN,TOTAL 0.8 MG/DL (0.2-1.0); BLOOD UREA NITROGEN 20 MG/DL (7-18); CALCIUM LEVEL 8.4 MG/DL (8.8-10.2); CARBON DIOXIDE LEVEL 25 MEQ/L (21-32); CHLORIDE LEVEL 107 MEQ/L (98-107); CREATININE FOR GFR 0.88 MG/DL (0.55-1.30); GLOMERULAR FILTRATION RATE > 60.0 (>39); GLUCOSE, FASTING 156 MG/DL (70-100); POTASSIUM SERUM 3.5 MEQ/L (3.5-5.1); SODIUM LEVEL 140 MEQ/L (136-145); TOTAL PROTEIN 5.5 GM/DL (6.4-8.2)
[2020-12-26 09:00] LABS: ERYTHROCYTE SEDIMENTATION RATE 77 mm/hr (0-30)
[2020-12-26] MEDS: DOCUSATE SODIUM 100MG CAPSULE PO SCH ×2 (09:00→20:39)
[2020-12-26] MEDS: FLUoxetine 20 MG CAP PO SCH (09:01)
[2020-12-26] MEDS: GABAPENTIN 300 MG CAP PO SCH ×2 (09:01→20:40)
[2020-12-26] MEDS: atenoloL 25 MG TAB PO SCH ×2 (09:04→09:10)
[2020-12-26] MEDS: GASTROGRAFIN SOLUTION 30ML PO SCH ×2 (12:00→12:32)
[2020-12-26] MEDS ORDERED: ISOVUE-370 76% 100ML VIAL As Ordered ONE (13:19)
[2020-12-26 14:00] VITALS: BP 137/68
--- NOTE | 2020-12-26 15:38 | REP ---
INDICATION: Abdominal tenderness, fever . COMPARISON: Eighteen 19 TECHNIQUE: Axial contrast-enhanced images from the lung bases to the pubic symphysis using oral and 100 cc Isovue 370 intravenous contrast material. Coronal and sagittal reformations obtained. This CT examination was performed using the following dose reduction techniques: Automated exposure control, adjustment of mA and/or kv according to the patient's size, and the use of iterative reconstruction technique. FINDINGS: Liver demonstrates fatty infiltration and very small vague hypodensities are identified primarily in the right hepatic lobe which are is nonspecific but too small to characterize. Spleen, pancreas, and left adrenal gland are normal. Hyperplastic changes to the right adrenal gland remains stable. The gallbladder is mildly distended and there is common bile duct dilatation to the head of the pancreas measuring up to 12 mm without obvious obstructing cause. Kidneys demonstrate bilateral hypodensities likely representing cysts. However, there is a 1.2 cm isodense lesion along the lateral aspect of the left kidney (series 201; image 58) which is increased in size and nonspecific in appearance. The small and large bowel is without obstruction or acute inflammatory process. Normal terminal ileum and appendix in the right lower quadrant. Colonic diverticulosis noted without acute diverticulitis. Pelvis demonstrates normal bladder and age-appropriate uterus/adnexa. No ascites. No free air. No intraperitoneal or retroperitoneal adenopathy. Atherosclerotic changes to the aorta and vasculature noted without aneurysm or dissection. Musculoskeletal structures demonstrate degenerative changes. IMPRESSION: 1. Subtle hypodense liver lesions with surrounding enhancement are too small to characterize by CT. Consider ultrasound or MRI with contrast for further investigation. Findings may reflect underlying hepatocellular disease although malignancy/metastatic disease cannot be excluded. 2. Nonspecific dilatation to the common bile duct at 12 mm warrants ultrasound evaluation. 3. Renal hypodensities likely cysts although ultrasound correlation to exclude mass may be warranted. 4. Diverticulosis without acute diverticulitis. <Electronically signed by Cholo Messer > 12/26/20 [id number]
[2020-12-26] MEDS ORDERED: RIVAROXABAN 10 MG TAB (XARELTO) PO SCH (18:00)
--- NOTE | 2020-12-26 19:39 | IPNPDOC ---
Subjective Date Seen The patient was seen on 12/26/20. Subjective Chief Complaint/HPI Ms. Gotti is a 70 year old female with DM, peripheral neuropathy, PAD, CAD, and nicotine dependence who presents for a fall and was admitted for AMS and leukocytosis. Patient was seen this morning. She reported abdominal tenderness to palpation. CT abd/pelvis was ordered. Objective Physical Examination General Exam: Positive: Alert, Cooperative Eye Exam: Negative: Sclera icteric ENT Exam: Positive: Atraumatic Neck Exam: Positive: Supple Chest Exam: Positive: Clear to auscultation Heart Exam: Positive: Rate Normal, Regular Rhythm Abdomen Exam: Positive: Normal bowel sounds, Soft, Tenderness Extremity Exam: Positive: Normal pulses Skin Exam: Positive: Nl turgor and temperature, Other skin issue (lump right forehead ) Neuro Exam: Positive: Normal Speech, Cranial Nerves 3-12 NL Psych Exam: Positive: Mood NL, Other (confusion intermittently) Assessment /Plan Assessment Ms. Gotti is a 70 year old female with DM, peripheral neuropathy, PAD, CAD, and nicotine dependence who presents for a fall and was admitted for AMS and leukocytosis. It is unclear what had transpired, but her leukocytosis has been resolving without intervention. This may be reactive to the fall. No fevers since admission. Otherwise, imaged the abdomen. Demonstrated liver lesions (possibly hepatocellular disease vs malignancy/metastatic disease), CBD dilation at 12mm, renal cysts (possible mass), and diverticulosis without diverticulitis. Plan/VTE VTE Prophylaxis Ordered?: Yes Plan 1. Leukocytosis with fever -Unclear etiology. No signs of infection -Possibly reactive to fall -Possibly secondary to malignancy. CT abd/pelvis noticed liver lesions and kidney lesions -Resolving, monitor at this time. 2. CBD dilitation -Seen on CT abd/pelvis -Recommended US gallbladder -Patient will need to be NPO prior. Plan for US tomorrow morning 3. Kidney cysts vs kidney masses -Seen on CT abd/pelvis -Ordered US renal for differentiation 4. Hypertension -Continue Atenolol -PRN hydralazine 5. Anxiety and depression -PRN ativan but on a lower frequency -Continue fluoxetine 6. Insomnia -Continue Rozerem 7. Chronic pain -Continue gabapentin 8. DVT ppx -Lovenox Disposition: Pending imaging results and clinical improvement. VS, I&O, 24H, Fishbone Vital Signs/I&O Vital Signs Date Time Temp Pulse Resp B/P (MAP) Pulse Ox O2 Delivery O2 Flow Rate FiO2 12/26/20 14:00 98.2 70 18 137/68 (91) 94 Room Air I&O- Last 24 Hours up to 6 AM 12/26/20 06:00 Intake Total 260 ml Output Total 0 ml Balance 260 ml Laboratory Data 24H LABS Laboratory Tests 2 12/25/20 19:18: Urine Color YELLOW, Urine Appearance HAZY, Urine pH 5.0, Urine Specific [place] 1.014, Urine Protein 2+H, Urine Glucose (UA) NEGATIVE, Urine Ketones NEGATIVE, Urine Blood NEGATIVE, Urine Nitrite NEGATIVE, Urine Bilirubin NEGATIVE, Urine Urobilinogen 0.2, Urine Leukocyte Esterase TRACEH, Urine WBC (Auto) 17H, Urine RBC (Auto) 1, Urine Hyaline Casts (Auto) 0, Urine Bacteria (Auto) 1+H, Urine Squamous Epithelial Cells 4, Urine Sperm (Auto) 12/25/20 19:19: Lactic Acid Level 0.9, Urine Opiates Screen POSITIVEH, Urine Methadone Screen NEGATIVE, Urine Barbiturates Screen NEGATIVE, Urine Phencyclidine Screen NEGATIVE, Urine Amphetamines Screen NEGATIVE, Urine Benzodiazepines Screen POSITIVEH, Urine Cocaine Metabolite Screen NEGATIVE, Urine Cannabinoids Screen NEGATIVE, Coronavirus (COVID-19)(PCR) NEGATIVE, Influenza Type A (RT-PCR) NEGATIVE, Influenza Type B (RT-PCR) NEGATIVE, Respiratory Syncytial Virus (PCR) NEGATIVE 12/25/20 20:05: Procalcitonin 1.14, Acetaminophen Level < 2.0L 12/26/20 06:25: Immature Granulocyte % (Auto) 0.7, Neutrophils (%) (Auto) 75.9H, Lymphocytes (%) (Auto) 6.0L, Monocytes (%) (Auto) 15.6H, Eosinophils (%) (Auto) 1.4, Basophils (%) (Auto) 0.4, Neutrophils # (Auto) 8.1, Lymphocytes # (Auto) 0.6L, Monocytes # (Auto) 1.7H, Eosinophils # (Auto) 0.2, Basophils # (Auto) 0.0, Nucleated Red Blo od Cells % (auto) 0.0, Erythrocyte Sedimentation Rate 77H, Anion Gap 8, Glomerular Filtration Rate > 60.0, Calcium Level 8.4L, Total Bilirubin 0.8, Aspartate Amino Transf (AST/SGOT) 9, Alanine Aminotransferase (ALT/SGPT) 46, Alkaline Phosphatase 117, C-Reactive Protein, Quantitative 16.90H, Total Protein 5.5L, Albumin 2.3L, Albumin/Globulin Ratio 0.7L CBC/BMP Laboratory Tests 12/26/20 06:25 Microbiology Microbiology 12/25/20 Blood Culture, Received Pending 12/25/20 Blood Culture, Received Pending 12/25/20 Urine Culture, Received Pending RAMSEY OCHOA DO Dec 26, 2020 19:39
[2020-12-26] MEDS: ALPRAZolam 0.25 MG TAB PO PRN (20:40)
[2020-12-26] MEDS: PANTOPRAZOLE 40MG TAB (PROTONIX) PO SCH (20:40)
[2020-12-26] MEDS: ENOXAPARIN 40MG/0.4ML SYRINGE (J1650 PER 10MG) SC SCH (20:40)
[2020-12-26] MEDS: NICOTINE 21MG/24HR 1 EA TRANSDERMAL TD SCH (20:41)
[2020-12-26 22:00] VITALS: BP 137/68
[2020-12-27 06:00] VITALS: BP_SYST 140; BP_SYST 170; BP_DIAS 62; BP_DIAS 69
[2020-12-27 06:21] LABS: HEMATOCRIT 30.3 % (36.0-47.0); HEMOGLOBIN 9.8 g/dl (12.0-15.5); MEAN CORPUSCULAR HEMOGLOBIN 27.8 pg (27.0-33.0); MEAN CORPUSCULAR HGB CONC 32.3 g/dl (32.0-36.5); MEAN CORPUSCULAR VOLUME 85.8 fl (80.0-96.0); PLATELET COUNT, AUTOMATED 187 10^3/uL (150-450); RED BLOOD COUNT 3.53 10^6/uL (4.00-5.40); WHITE BLOOD COUNT 6.8 10^3/uL (4.0-10.0)
--- NOTE | 2020-12-27 06:51 | IPNPDOC ---
Text Note Date of Service The patient was seen on 12/27/20. NOTE Overnight was informed by nurse that urine cultures back and positive for Esch erichia coli. I reviewed the sensitivities and it is pansensitive. I started the patient on Bactrim. VS,Fishbone, I+O VS, Fishbone, I+O Laboratory Tests 12/27/20 05:52 Vital Signs Date Time Temp Pulse Resp B/P (MAP) Pulse Ox O2 Delivery O2 Flow Rate FiO2 12/27/20 06:00 97.9 76 18 140/69 (92) 96 Room Air I&O- Last 24 Hours up to 6 AM 12/27/20 06:00 Intake Total 600 ml Output Total 75 ml Balance 525 ml REGINA COUGHLIN MD Dec 27, 2020 06:51
[2020-12-27 06:54] LABS: ALBUMIN 2.1 GM/DL (3.2-5.2); ALT/SGPT 36 U/L (12-78); BILIRUBIN,TOTAL 0.5 MG/DL (0.2-1.0); BLOOD UREA NITROGEN 15 MG/DL (7-18); CALCIUM LEVEL 8.2 MG/DL (8.8-10.2); CARBON DIOXIDE LEVEL 26 MEQ/L (21-32); CHLORIDE LEVEL 109 MEQ/L (98-107); CREATININE FOR GFR 0.81 MG/DL (0.55-1.30); GLOMERULAR FILTRATION RATE > 60.0 (>39); GLUCOSE, FASTING 110 MG/DL (70-100); POTASSIUM SERUM 3.5 MEQ/L (3.5-5.1); SODIUM LEVEL 141 MEQ/L (136-145); TOTAL PROTEIN 5.5 GM/DL (6.4-8.2)
[2020-12-27 08:45] VITALS: BP 135/70
--- NOTE | 2020-12-27 08:56 | REP ---
INDICATION: CT Abd/pelvis demonstrates CBD dilitation TECHNIQUE: Real time B-mode najera scale ultrasound examination using curved array transducer. FINDINGS: The liver is essentially normal by ultrasound and the subtle small low-density lesions with surrounding enhancement on recent CT are not visible by ultrasound. A single small 11 mm echogenic focus in the right lobe is identified and nonspecific. Spleen and pancreas are grossly normal. Gallbladder is unremarkable and without wall thickening, pericholecystic fluid, or gallstones. The common bile duct measures 9 mm diameter without obvious obstruction by ultrasound. The right kidney measures 10.3 x 4.9 x 4.5 cm without hydronephrosis and the cyst as well as cortical scarring on CT is not visible by ultrasound. The left kidney measures 11.8 x 4.5 x 5.6 cm and demonstrates multiple presumed simple and complex cysts measuring up to 1.7 cm. IMPRESSION: 1. Heterogeneous changes to the liver seen on CT along with small cystic lesions not well evaluated by ultrasound. 2. Renal lesions identified on CT likely represent simple and complex cysts but subtle mass lesion cannot definitively be excluded. 3. The above findings warrant short-term follow-up CT of the abdomen including multiphase enhancement and delayed images. <Electronically signed by Cholo Messer > 12/27/20 [id number]
[2020-12-27] MEDS: NYSTATIN 500,000 U/5 ML SUSP UDC SS SCH ×4 (09:00→20:10)
[2020-12-27] MEDS: DOCUSATE SODIUM 100MG CAPSULE PO SCH ×2 (09:00→20:12)
[2020-12-27] MEDS: BACTRIM 160MG/800MG DS TAB PO SCH ×2 (09:26→20:11)
[2020-12-27] MEDS: FLUoxetine 20 MG CAP PO SCH (10:58)
[2020-12-27] MEDS: GABAPENTIN 300 MG CAP PO SCH ×2 (10:58→20:11)
[2020-12-27] MEDS: atenoloL 25 MG TAB PO SCH (10:59)
--- NOTE | 2020-12-27 11:19 | REP ---
INDICATION: Mild right droop COMPARISON: 12/25/2020 TECHNIQUE: Axial noncontrast images from the skull base to the thoracic inlet with coronal reformations. This CT examination was performed using the following dose reduction techniques: Automated exposure control, adjustment of mA and/or kv according to the patient's size, and use of iterative reconstruction technique. FINDINGS: Atrophy with periventricular leukomalacia and microvascular ischemic changes are appreciated. The ventricles and sulci are symmetric. Vega-white differentiation is maintained. There is no evidence for acute intracranial hemorrhage, mass/mass effect, pathology or infarction. No extra-axial fluid collection. Calvarium is intact. Paranasal sinuses and mastoid air cells are clear. IMPRESSION: Atrophy and microvascular ischemic changes. No acute intracranial hemorrhage, infarction, or mass/mass effect. <Electronically signed by Cholo Messer > 12/27/20 [id number]
[2020-12-27 14:00] VITALS: BP 136/68
[2020-12-27] MEDS ORDERED: LOPERAMIDE 2 MG CAPLET PO PRN (15:45)
[2020-12-27] MEDS: LIDOCAINE 5% (LIDODERM) PATCH TD SCH (17:30)
--- NOTE | 2020-12-27 18:13 | IPNPDOC ---
Subjective Date Seen The patient was seen on 12/27/20. Subjective Chief Complaint/HPI Ms. Gotti is a 70 year old female with DM, peripheral neuropathy, PAD, CAD, and nicotine dependence who presents for a fall and was admitted for AMS and leukocytosis. This morning, she was found to have jack-sensitive E.coli. Patient was started on Bactrim. Otherwise, this morning, patient reported diarrhea. She had 3 episodes in the morning. I ordered for GI panel which was negative. Her diarrhea may have been from PO contrast study yesterday. Otherwise, she looked like she had a facial droop. Otherwise, it spared the forehead and CN3-12 grossly intact. I was going to order the MRI, but patient refused. She looked at a mirror and did not see any new changes to her face. Objective Physical Examination General Exam: Positive: Alert, Cooperative Eye Exam: Negative: Sclera icteric ENT Exam: Positive: Atraumatic Neck Exam: Positive: Supple Chest Exam: Positive: Clear to auscultation Heart Exam: Positive: Rate Normal, Regular Rhythm Abdomen Exam: Positive: Normal bowel sounds, Soft, Tenderness Extremity Exam: Positive: Normal pulses Skin Exam: Positive: Nl turgor and temperature, Other skin issue (lump right forehead ) Neuro Exam: Positive: Normal Speech, Cranial Nerves 3-12 NL Psych Exam: Positive: Mood NL, Other (confusion intermittently) Assessment /Plan Assessment Ms. Gotti is a 70 year old female with DM, peripheral neuropathy, PAD, CAD, and nicotine dependence who presents for a fall and was admitted for AMS and leukocy tosis. It is unclear what had transpired, but her leukocytosis has been resolving without intervention. This may be reactive to the fall. No fevers since admission. Otherwise, imaged the abdomen. Demonstrated liver lesions (possibly hepatocellular disease vs malignancy/metastatic disease), CBD dilation at 12mm, renal cysts (possible mass), and diverticulosis without diverticulitis. The recommend ultrasound abdomen was obtained. The gallbladder did not have any stones or signs of acute cholecystitis. Reports still recommends outpatient follow-up CT of the abdomen with multiphasic enhancement and delayed images. Plan/VTE VTE Prophylaxis Ordered?: Yes Plan 1. Gram-negative sepsis secondary to Escherichia coli UTI Patient had a fever and leukocytosis Urine culture grew pansensitive Escherichia coli Bactrim day 1 2. CBD dilitation -Seen on CT abd/pelvis -Recommended US gallbladder -No obstruction, stones, acute cholecystitis 3. Kidney cysts vs kidney masses -Seen on CT abd/pelvis -Ultrasound renal still recommends outpatient CT with multiphasic enhancement and delayed images. 4. Hypertension -Continue Atenolol -PRN hydralazine 5. Anxiety and depression -PRN ativan but on a lower frequency -Continue fluoxetine 6. Insomnia -Continue Rozerem 7. Chronic pain -Continue gabapentin 8. DVT ppx -Lovenox Disposition: Pending clinical improvement. Patient may need a home safety eval tomorrow VS, I&O, 24H, Fishbone Vital Signs/I&O Vital Signs Date Time Temp Pulse Resp B/P (MAP) Pulse Ox O2 Delivery O2 Flow Rate FiO2 12/27/20 14:00 97.5 75 17 136/68 (90) 96 Room Air I&O- Last 24 Hours up to 6 AM 12/27/20 06:00 Intake Total 600 ml Output Total 75 ml Balance 525 ml Laboratory Data 24H LABS Laboratory Tests 2 12/26/20 20:37: Bedside Glucose (Misc Panel) 132H 12/27/20 05:52: Nucleated Red Blood Cells % (auto) 0.0, Anion Gap 6L, Glomerular Filtration Rate > 60.0, Calcium Level 8.2L, Total Bilirubin 0.5, Aspartate Amino Transf (AST/SGOT) 13, Alanine Aminotransferase (ALT/SGPT) 36, Alkaline Phosphatase 109, Total Protein 5.5L, Albumin 2.1L, Albumin/Globulin Ratio 0.6L CBC/BMP Laboratory Tests 12/27/20 05:52 Microbiology Microbiology 12/27/20 Gastrointestinal Tract Panel (PCR) - Final, Complete 12/25/20 Blood Culture - Preliminary, Resulted No growth after 24 hours . All specim... 12/25/20 Blood Culture - Preliminary, Resulted No growth after 24 hours . All specim... 12/25/20 Urine Culture - Final, Complete Escherichia Coli RAMSEY OCHOA DO Dec 27, 2020 18:13
[2020-12-27] MEDS: ENOXAPARIN 40MG/0.4ML SYRINGE (J1650 PER 10MG) SC SCH (20:10)
[2020-12-27] MEDS: PANTOPRAZOLE 40MG TAB (PROTONIX) PO SCH (20:11)
[2020-12-27] MEDS: NICOTINE 21MG/24HR 1 EA TRANSDERMAL TD SCH (20:11)
[2020-12-27] MEDS ORDERED: **NOTE PATIENT COMMENT** MISC XX SCH (21:00)
[2020-12-27] MEDS: ALPRAZolam 0.25 MG TAB PO PRN (21:55)
[2020-12-27 22:00] VITALS: BP 138/80
[2020-12-27] MEDS ORDERED: zolPIDEM TARTRATE 5 MG TAB PO ONE (23:00)
[2020-12-28 06:00] VITALS: BP 163/77
[2020-12-28 06:45] LABS: HEMATOCRIT 32.3 % (36.0-47.0); HEMOGLOBIN 10.3 g/dl (12.0-15.5); MEAN CORPUSCULAR HEMOGLOBIN 27.3 pg (27.0-33.0); MEAN CORPUSCULAR HGB CONC 31.9 g/dl (32.0-36.5); MEAN CORPUSCULAR VOLUME 85.7 fl (80.0-96.0); PLATELET COUNT, AUTOMATED 259 10^3/uL (150-450); RED BLOOD COUNT 3.77 10^6/uL (4.00-5.40)
[2020-12-28 07:13] LABS: BLOOD UREA NITROGEN 11 MG/DL (7-18); CALCIUM LEVEL 8.7 MG/DL (8.8-10.2); CARBON DIOXIDE LEVEL 26 MEQ/L (21-32); CHLORIDE LEVEL 108 MEQ/L (98-107); CREATININE FOR GFR 0.92 MG/DL (0.55-1.30); GLOMERULAR FILTRATION RATE > 60.0 (>39); GLUCOSE, FASTING 134 MG/DL (70-100); POTASSIUM SERUM 3.9 MEQ/L (3.5-5.1); SODIUM LEVEL 141 MEQ/L (136-145)
[2020-12-28 07:14] LABS: ERYTHROCYTE SEDIMENTATION RATE 69 mm/hr (0-30)
[2020-12-28] MEDS: NYSTATIN 500,000 U/5 ML SUSP UDC SS SCH (08:37)
[2020-12-28 08:38] VITALS: BP 152/74
[2020-12-28] MEDS: DOCUSATE SODIUM 100MG CAPSULE PO SCH (08:38)
[2020-12-28] MEDS: FLUoxetine 20 MG CAP PO SCH (08:38)
[2020-12-28] MEDS: atenoloL 25 MG TAB PO SCH (08:38)
[2020-12-28] MEDS: BACTRIM 160MG/800MG DS TAB PO SCH (08:38)
[2020-12-28] MEDS: GABAPENTIN 300 MG CAP PO SCH (08:38)
[2020-12-28] MEDS: LIDOCAINE 5% (LIDODERM) PATCH TD SCH (08:38)
[2020-12-28] MEDS ORDERED: BACTDSTA PO (08:46)
--- NOTE | 2020-12-28 22:15 | DS.PDOC ---
Discharge Summary General Date of Admission Dec 25, 2020 at 19:28 Date of Discharge Dec 28, 2020 Discharge Summary PROCEDURES PERFORMED DURING STAY: None ADMITTING DIAGNOSES: 1. Metabolic encephalopathy 2. Leukocytosis with fever 3. Vascular dementia 4. Hypertension 5. Chronic pain 6. GERD 7. Depression and anxiety 8. COPD with nicotine dependence DISCHARGE DIAGNOSES: 1. Metabolic encephalopathy 2/2 E.coli UTI 2. Gram negative sepsis 2/2 E.coli UTI 3. Vascular dementia 4. Hypertension 5. Chronic pain 6. GERD 7. Depression and anxiety 8. COPD with nicotine dependence COMPLICATIONS/CHIEF COMPLAINT: Altered Mental Status. HISTORY OF PRESENT ILLNESS: Copied from admitting provider's H&P " Ms. Gotti, is a 70 year-old female with significant PMH of vascular dementia, PAD with s/p cardiac stents, CAD, Vascular surgery with 3 stents placed in left leg and 1 right leg, s/p DVT, hiatal hernia, diverticulosis, hematemesis, lumbar stenosis with sciatica, incontinence, diabetic peripheral neuropathy, insomnia, chronic pain, essential hypertension, GERD, COPD, osteoarthritis, RA, anemia, nicotine dependence, and current pack half a day cigarette smoker, depression, bipolar disease and anxiety, presents to [facility] ER reporting she fell down at home hitting her head on the floor however she says she does not remember or know what actually happened that she woke up lying on the floor. She called out for her sister and other family member who found her on the floor and assisted her as she could not get her self off of the floor. In reviewing her laboratory result she has elevated total white blood cell count of 15.1, hemoglobin 11.0, hematocrit 34.4, absolute neutrophil count elevated at 78.1 and absolute monocyte 15.1, TSH low 0.071, Total CK 375, Magnesium 1.7, elevated Alkaline phosphatase is elevated 142, lactic acid is normal at 0.9, ammonia level is normal at 26, and T3 free is normal at 2.7. Patients chest x- ray A/P is clear not showing vascular pulmonary congestion, consolidations or infiltrates at this time. Patient will be admitted Medical-Surgical unit on telemetry with continuous pulse oximetry(remote) for ongoing evaluation, neurological checks q 2-4 hours, fall precautions and she may need IV antibiotic treatment for acute leukocytosis and fever treated with po medications. " HOSPITAL COURSE: During her hospitalization, Patient was found to have jack- sensitive E.coli. She was treated with Bactrim. Otherwise, she was noted to have a facial droop one morning. Ordered for CT head which was negative. Tried to order MRI, but patient did not want MRI. Patient looked at a hand mirror and said that her face is the same as it was before. Otherwise, this morning, she feels well. She denies any chest pain, dyspnea, or abdominal pain. She cleared physical therapy. She feels ready for home and was subsequently discharged home. DISCHARGE MEDICATIONS: Please see below. ALLERGIES: Please see below. PHYSICAL EXAMINATION ON DISCHARGE: VITAL SIGNS: Please see below. GENERAL: Comfortable, in no apparent distress HEENT: Head normocephalic, atraumatic NECK: Supple CARDIOVASCULAR EXAMINATION: Regular rate and rhythm RESPIRATORY EXAMINATION: Lungs clear to auscultation bilaterally ABDOMINAL EXAMINATION: Soft, non-tender, normal bowel sounds SKIN: Warm and dry NEUROLOGICAL EXAMINATION: CN 3-12 grossly intact PSYCHIATRIC EXAMINATION: Normal mood and affect LABORATORY DATA: Please see below. IMAGING: Radiologist interpretation CT head No acute intracranial abnormality seen. CXR No acute cardiopulmonary process appreciated. CT abd/pelvis with contrast 1. Subtle hypodense liver lesions with surrounding enhancement are too small to characterize by CT. Consider ultrasound or MRI with contrast for further investigation. Findings may reflect underlying hepatocellular disease although malignancy/metastatic disease cannot be excluded. 2. Nonspecific dilatation to the common bile duct at 12 mm warrants ultrasound evaluation. 3. Renal hypodensities likely cysts although ultrasound correlation to exclude mass may be warranted. 4. Diverticulosis without acute diverticulitis. US abdomen 1. Heterogeneous changes to the liver seen on CT along with small cystic lesions not well evaluated by ultrasound. 2. Renal lesions identified on CT likely represent simple and complex cysts but subtle mass lesion cannot definitively be excluded. 3. The above findings warrant short-term follow-up CT of the abdomen including multiphase enhancement and delayed images. CT head Atrophy and microvascular ischemic changes. No acute intracranial hemorrhage, infarction, or mass/mass effect. PROGNOSIS: Good ACTIVITY: As tolerated. DIET: As tolerated DISCHARGE PLAN: Home with home health DISPOSITION: Home Health Service. DISCHARGE INSTRUCTIONS: 1. Follow up with your PCP within 1 week ITEMS TO FOLLOWUP ON ON OUTPATIENT: 1. Patient will need a CT abdomen/pelvis with multiphase enhancement and delayed images to evaluate renal and liver lesions DISCHARGE CONDITION: Stable. Total time spent on discharge planning, discharge summary, and medication reconciliation: 55 minutes Vital Signs/I&Os Vital Signs Date Time Temp Pulse Resp B/P (MAP) Pulse Ox O2 Delivery O2 Flow Rate FiO2 12/28/20 08:38 71 152/74 12/28/20 06:00 98.0 19 95 Room Air I&O- Last 24 Hours up to 6 AM 12/28/20 06:00 Intake Total 920 ml Output Total 870 ml Balance 50 ml Laboratory Data Labs 24H Laboratory Tests 2 12/28/20 06:22: Nucleated Red Blood Cells % (auto) 0.0, Erythrocyte Sedimentation Rate 69H, Anion Gap 7L, Glomerular Filtration Rate > 60.0, Calcium Level 8.7L, C-Reactive Protein, Quantitative 5.50H CBC/BMP Laboratory Tests 12/28/20 06:22 Microbiology Microbiology 12/27/20 Gastrointestinal Tract Panel (PCR) - Final, Complete 12/25/20 Blood Culture - Preliminary, Resulted No Growth after 48 hours. All Specime... 12/25/20 Blood Culture - Preliminary, Resulted No Growth after 48 hours. All Specime... 12/25/20 Urine Culture - Final, Complete Escherichia Coli Discharge Medications Scheduled Atenolol (Atenolol) 25 Mg Tab, 25 MG PO DAILY, (Reported) Fluoxetine Hcl (Fluoxetine HCl) 40 Mg Cap, 40 MG PO DAILY, (Reported) Gabapentin (Gabapentin) 300 Mg Capsule, 600 MG PO BID, (Reported) TAKES AFTERNOON AND AT BEDTIME Pantoprazole Sodium (Pantoprazole Sodium) 40 Mg Tablet.dr, 40 MG PO DAILY, (Reported) Sulfamethoxazole/Trimethoprim (Sulfamethoxazole-Tmp Ds Tablet) 1 Each Tablet, 1 TAB PO BID Zolpidem Tartrate (Zolpidem Tartrate) 10 Mg Tablet, 10 MG PO QHS, (Reported) Scheduled PRN Alprazolam (Alprazolam) 0.25 Mg Tablet, 0.25 MG PO TID PRN for ANXIETY, (Reported) Hydrocodone/Acetaminophen (Hydrocodone-Acetamin 5-325 mg) 1 Tab Tab, 1 TAB PO TID PRN for PAIN, (Reported) Allergies Coded Allergies: Penicillins (Verified Allergy, Intermediate, SWELLING, 03/06/19) RAMSEY OCHOA DO Dec 28, 2020 19:42
== END 2020-12-28 12:18 | disposition home health service (06) | DRG 871 ==
LOC: M ED 14:44 → EDBD 14:44 → M ED INP 19:28 → ENRESERV 21:49 → M MSPAV 22:50
PROVIDERS: ADMIT Family Medicine; ATTEND Internal Medicine
DX: A41.51 Sepsis due to Escherichia coli [E. coli] (principal); G93.41 Metabolic encephalopathy; N39.0 Urinary tract infection, site not specified; N17.9 Acute kidney failure, unspecified; K21.9 Gastro-esophageal reflux disease without esophagitis; J44.9 Chronic obstructive pulmonary disease, unspecified; F17.200 Nicotine dependence, unspecified, uncomplicated; F41.9 Anxiety disorder, unspecified; F32.9 Major depressive disorder, single episode, unspecified; G89.29 Other chronic pain; F01.50 Vascular dementia, unspecified severity, without behavioral disturbance, psychotic disturbance, mood disturbance, and anxiety; Z95.2 Presence of prosthetic heart valve; K57.30 Diverticulosis of large intestine without perforation or abscess without bleeding; K44.9 Diaphragmatic hernia without obstruction or gangrene; E11.51 Type 2 diabetes mellitus with diabetic peripheral angiopathy without gangrene; G47.00 Insomnia, unspecified; I10 Essential (primary) hypertension; M19.90 Unspecified osteoarthritis, unspecified site; Z79.899 Other long term (current) drug therapy; Z88.0 Allergy status to penicillin; E83.42 Hypomagnesemia

== ENCOUNTER → 2021-09-23 | Outpatient (REF) | payer MEDICARE ==
[~2021-09-23] MED LIST changes: -ASPI-281 PO; +ASPI-310 PO; +BACTDSTA PO; +ZOLP10TA2 PO
== END ==
LOC: M LAB REF 11:27
PROVIDERS: ATTEND Family Medicine
DX: D64.9 Anemia, unspecified (principal)

== ENCOUNTER 2021-10-14 10:54 | Emergency (ER) | payer MEDICARE ==
[~2021-10-14] VITALS: Ht 167.6 cm; Wt 81.8 kg
[2021-10-14] MEDS ORDERED: ALBU8.5H (11:17)
[2021-10-14 12:37] LABS: BASO # 0.1 10^3/uL (0.0-0.2); BASO % 0.4 % (0.0-1.0); EOS # 0.2 10^3/uL (0.0-0.5); EOS % 1.8 % (0.0-3.0); HEMATOCRIT 35.6 % (36.0-47.0); HEMOGLOBIN 11.2 g/dl (12.0-15.5); LYMPH # 0.6 10^3/uL (1.5-5.0); LYMPH % 5.2 % (24.0-44.0); MEAN CORPUSCULAR HEMOGLOBIN 27.3 pg (27.0-33.0); MEAN CORPUSCULAR HGB CONC 31.5 g/dl (32.0-36.5); MEAN CORPUSCULAR VOLUME 86.8 fl (80.0-96.0); MONO # 0.9 10^3/uL (0.0-0.8); MONO % 7.6 % (2.0-8.0); NEUTROPHILS # 9.5 10^3/uL (1.5-8.5); NEUTROPHILS % 83.3 % (36.0-66.0); PLATELET COUNT, AUTOMATED 280 10^3/uL (150-450); WHITE BLOOD COUNT 11.4 10^3/uL (4.0-10.0)
[2021-10-14 13:04] LABS: CK-MB VALUE MASS 2.7 NG/ML (<3.6); MB/CK RELATIVE INDEX 3.33 (< OR =4)
[2021-10-14 13:13] LABS: ALBUMIN 2.9 GM/DL (3.2-5.2); BILIRUBIN,DIRECT 0.1 MG/DL (0.0-0.2); BILIRUBIN,TOTAL 0.3 MG/DL (0.2-1.0); CALCIUM LEVEL 9.3 MG/DL (8.8-10.2); CREATININE FOR GFR 1.23 MG/DL (0.55-1.30); GLOMERULAR FILTRATION RATE 45.7 (>39); POTASSIUM SERUM 4.7 MEQ/L (3.5-5.1); THYROID STIMULATING HORMONE 0.104 uIU/ML (0.358-3.740); TOTAL PROTEIN 7.2 GM/DL (6.4-8.2)
[2021-10-14] MEDS ORDERED: NS 500 ML IV ONE (13:25)
[2021-10-14] MEDS ORDERED: NS 1,000 ML IV SCH (13:25)
[2021-10-14 16:54] VITALS: BP 166/73
== END 2021-10-14 17:05 | disposition home or self-care (01) ==
LOC: M ED 10:54
DX: U07.1 COVID-19 (principal); R19.7 Diarrhea, unspecified; I10 Essential (primary) hypertension; J44.9 Chronic obstructive pulmonary disease, unspecified; E78.5 Hyperlipidemia, unspecified; K57.90 Diverticulosis of intestine, part unspecified, without perforation or abscess without bleeding; N17.9 Acute kidney failure, unspecified; M54.50 Low back pain, unspecified; Z95.5 Presence of coronary angioplasty implant and graft; F17.200 Nicotine dependence, unspecified, uncomplicated; Z79.899 Other long term (current) drug therapy; Z88.0 Allergy status to penicillin

== ENCOUNTER 2021-12-23 21:11 | Inpatient (IN) | payer MEDICARE ==
[~2021-12-23] VITALS: Ht 167.6 cm; Wt 77.1 kg
[~2021-12-23 21:11] MED LIST changes: +ALBU8.5H
[2021-12-23 22:00] LABS: BASO # 0.1 10^3/uL (0.0-0.2); BASO % 1.1 % (0.0-1.0); EOS # 0.4 10^3/uL (0.0-0.5); EOS % 5.9 % (0.0-3.0); HEMATOCRIT 33.7 % (36.0-47.0); HEMOGLOBIN 10.8 g/dl (12.0-15.5); LYMPH % 13.8 % (24.0-44.0); MEAN CORPUSCULAR HEMOGLOBIN 29.3 pg (27.0-33.0); MEAN CORPUSCULAR VOLUME 91.6 fl (80.0-96.0); NEUTROPHILS # 4.6 10^3/uL (1.5-8.5); NEUTROPHILS % 64.6 % (36.0-66.0); PLATELET COUNT, AUTOMATED 235 10^3/uL (150-450); RED BLOOD COUNT 3.68 10^6/uL (4.00-5.40); WHITE BLOOD COUNT 7.1 10^3/uL (4.0-10.0)
[2021-12-23 22:12] LABS: INR 0.98; PROTHROMBIN TIME 13.4 SECONDS (12.7-14.5)
[2021-12-23 22:32] LABS: CK-MB VALUE MASS 2.6 NG/ML (<3.6); MB/CK RELATIVE INDEX 2.28 (< OR =4)
[2021-12-23 22:40] LABS: CALCIUM LEVEL 8.1 MG/DL (8.8-10.2); CREATININE FOR GFR 1.67 MG/DL (0.55-1.30); FREE T4 0.83 NG/DL (0.76-1.46); GLOMERULAR FILTRATION RATE 32.1 (>39); MAGNESIUM LEVEL 1.8 MG/DL (1.8-2.4); POTASSIUM SERUM 4.3 MEQ/L (3.5-5.1); THYROID STIMULATING HORMONE 0.287 uIU/ML (0.358-3.740)
[2021-12-23] MEDS ORDERED: NS 1,000 ML IV ONE (23:10)
[2021-12-24] VITALS (7 sets, daily range): BP systolic 146–168; BP diastolic 70–80; O2SAT 91–95
[2021-12-24 00:11] LABS: CK-MB VALUE MASS 2.5 NG/ML (<3.6); MB/CK RELATIVE INDEX 2.07 (< OR =4)
[2021-12-24] MEDS: ATORVASTATIN 20 MG TAB PO SCH ×2 (04:03→21:07)
[2021-12-24 04:22] LABS: RSV AMPLIFICATION NEGATIVE (NEGATIVE)
[2021-12-24] MEDS ORDERED: MUCI600T31 PO (05:18)
[2021-12-24] MEDS ORDERED: VITA100093 PO (05:18)
[2021-12-24] MEDS ORDERED: ALBU8.5H INH (05:18)
[2021-12-24] MEDS ORDERED: FERR325T82 PO (05:18)
[2021-12-24] MEDS ORDERED: NITR4TASL SL (05:18)
[2021-12-24] MEDS ORDERED: FISH1000 PO (05:18)
[2021-12-24] MEDS ORDERED: HOME MED LIST COMPLETE! XX SCH (05:20)
[2021-12-24] MEDS ORDERED: ALBUTEROL 90 MCG/ACT 8GM HFA INHALER INH PRN (05:40)
[2021-12-24] MEDS ORDERED: NITROGLYCERIN 0.4 MG SUBL TABLET SL PRN (05:40)
[2021-12-24] MEDS ORDERED: hydrALAZINE 20MG/ML 1ML VIAL (J0360 PER 20MG) IV PRN ×2 (07:20→16:55)
[2021-12-24 08:34] LABS: HEMATOCRIT 36.5 % (36.0-47.0); HEMOGLOBIN 11.2 g/dl (12.0-15.5); MEAN CORPUSCULAR HEMOGLOBIN 28.4 pg (27.0-33.0); MEAN CORPUSCULAR HGB CONC 30.7 g/dl (32.0-36.5); MEAN CORPUSCULAR VOLUME 92.4 fl (80.0-96.0); PLATELET COUNT, AUTOMATED 175 10^3/uL (150-450); RED BLOOD COUNT 3.95 10^6/uL (4.00-5.40); WHITE BLOOD COUNT 6.5 10^3/uL (4.0-10.0)
[2021-12-24 08:59] LABS: ALBUMIN 3.5 GM/DL (3.2-5.2); ALT/SGPT 17 U/L (12-78); BILIRUBIN,DIRECT < 0.1 MG/DL (0.0-0.2); BILIRUBIN,TOTAL 0.4 MG/DL (0.2-1.0); BLOOD UREA NITROGEN 21 MG/DL (7-18); CALCIUM LEVEL 9.2 MG/DL (8.8-10.2); CARBON DIOXIDE LEVEL 26 MEQ/L (21-32); CHLORIDE LEVEL 109 MEQ/L (98-107); CK-MB VALUE MASS 2.7 NG/ML (<3.6); CREATININE FOR GFR 1.26 MG/DL (0.55-1.30); GLOMERULAR FILTRATION RATE 44.4 (>39); GLUCOSE, FASTING 141 MG/DL (70-100); MB/CK RELATIVE INDEX 1.96 (< OR =4); POTASSIUM SERUM 4.6 MEQ/L (3.5-5.1); SODIUM LEVEL 142 MEQ/L (136-145); TOTAL PROTEIN 7.4 GM/DL (6.4-8.2)
[2021-12-24] MEDS: FLUoxetine 20MG CAP PO SCH (09:01)
[2021-12-24] MEDS: FERROUS SULFATE 325MG TAB PO SCH (09:01)
[2021-12-24] MEDS: PANTOPRAZOLE 40MG TAB (PROTONIX) PO SCH (09:01)
[2021-12-24] MEDS: GABAPENTIN 300 MG CAP PO SCH ×3 (09:01→21:07)
[2021-12-24] MEDS: ASPIRIN 81MG ENTERIC TABLET PO SCH (09:01)
[2021-12-24] MEDS: VITAMIN D 1,000 INTERNATIONAL UNITS TABLET PO SCH (09:02)
[2021-12-24] MEDS: ENOXAPARIN 40MG/0.4ML SYRINGE (J1650 PER 10MG) SC SCH (09:02)
[2021-12-24] MEDS: NICOTINE 21MG/24HR 1 EA TRANSDERMAL TD SCH (09:02)
[2021-12-24 09:58] LABS: HEMOGLOBIN A1c 6.3 %
[2021-12-24 10:03] LABS: INR 0.92; PARTIAL THROMBOPLASTIN TIME 26.9 SECONDS (25.9-37.0); PROTHROMBIN TIME 12.8 SECONDS (12.7-14.5)
[2021-12-24] MEDS ORDERED: NORCO, ANEXSIA 5/325MG TABLET (HYDROcodone/ACETAMINOPHEN) PO PRN (12:10)
[2021-12-24] MEDS ORDERED: ALPRAZolam 0.25 MG TAB PO PRN (12:10)
[2021-12-24] MEDS: atenoloL 25 MG TAB PO SCH (13:38)
[2021-12-24 14:03] LABS: CHOLESTEROL LEVEL 126 MG/DL (<200); CHOLESTEROL RISK RATIO 3.405 (<5); HDL CHOLESTEROL 37 MG/DL (>40); LDL CHOLESTEROL 57 MG/DL (<100); NON-HDL-C 89 MG/DL; TRIGLYCERIDES LEVEL 161 MG/DL (<150)
[2021-12-24] MEDS: guaiFENesin ER 600 MG TAB PO SCH ×2 (16:00→21:18)
[2021-12-24] MEDS ORDERED: hydrALAZINE 20MG/ML 1ML VIAL (J0360 PER 20MG) IV ONE (16:50)
[2021-12-24] MEDS ORDERED: amLODIPine 5 MG TAB PO ONE (16:55)
[2021-12-24] MEDS ORDERED: ONDANSETRON 4MG/2ML VIAL IV PRN (18:30)
[2021-12-24] MEDS ORDERED: zolPIDEM TARTRATE 5 MG TAB PO SCH (21:00)
[2021-12-25] VITALS (13 sets, daily range): BP systolic 135–151; BP diastolic 63–75; O2SAT 89–94
[2021-12-25 06:13] LABS: HEMATOCRIT 33.2 % (36.0-47.0); HEMOGLOBIN 10.3 g/dl (12.0-15.5); MEAN CORPUSCULAR HEMOGLOBIN 27.8 pg (27.0-33.0); MEAN CORPUSCULAR VOLUME 89.7 fl (80.0-96.0); PLATELET COUNT, AUTOMATED 237 10^3/uL (150-450)
[2021-12-25 06:42] LABS: ALBUMIN 3.1 GM/DL (3.2-5.2); BILIRUBIN,TOTAL 0.5 MG/DL (0.2-1.0); CALCIUM LEVEL 9.3 MG/DL (8.8-10.2); CREATININE FOR GFR 1.11 MG/DL (0.55-1.30); GLOMERULAR FILTRATION RATE 51.4 (>39); POTASSIUM SERUM 4.1 MEQ/L (3.5-5.1); TOTAL PROTEIN 7.1 GM/DL (6.4-8.2)
[2021-12-25] MEDS ORDERED: ASPI-551 PO (07:41)
[2021-12-25] MEDS ORDERED: ATOR1TAB21 PO (07:41)
[2021-12-25] MEDS ORDERED: AMLO1TAB24 PO (07:41)
[2021-12-25] MEDS ORDERED: amLODIPine 5 MG TAB PO SCH (09:00)
[2021-12-25] MEDS: NICOTINE 21MG/24HR 1 EA TRANSDERMAL TD SCH (09:21)
[2021-12-25] MEDS: guaiFENesin ER 600 MG TAB PO SCH (09:22)
[2021-12-25] MEDS: FERROUS SULFATE 325MG TAB PO SCH (09:23)
[2021-12-25] MEDS: ASPIRIN 81MG ENTERIC TABLET PO SCH (09:23)
[2021-12-25] MEDS: GABAPENTIN 300 MG CAP PO SCH (09:23)
[2021-12-25] MEDS: VITAMIN D 1,000 INTERNATIONAL UNITS TABLET PO SCH (09:23)
[2021-12-25] MEDS: atenoloL 25 MG TAB PO SCH (09:24)
[2021-12-25] MEDS: FLUoxetine 20MG CAP PO SCH (09:24)
[2021-12-25] MEDS: PANTOPRAZOLE 40MG TAB (PROTONIX) PO SCH (09:24)
[2021-12-25] MEDS: ENOXAPARIN 40MG/0.4ML SYRINGE (J1650 PER 10MG) SC SCH (09:25)
== END 2021-12-25 12:07 | disposition home or self-care (01) | DRG 305 ==
LOC: M ED 21:11 → M ED INP 12-24 02:36 → ENRESERV 12-24 15:08 → M PCU 12-24 17:25
PROVIDERS: ADMIT Family Medicine; ATTEND Internal Medicine
DX: I16.1 Hypertensive emergency (principal); N17.9 Acute kidney failure, unspecified; R47.01 Aphasia; M06.9 Rheumatoid arthritis, unspecified; K21.9 Gastro-esophageal reflux disease without esophagitis; D64.9 Anemia, unspecified; E55.9 Vitamin D deficiency, unspecified; Z95.5 Presence of coronary angioplasty implant and graft; I25.10 Atherosclerotic heart disease of native coronary artery without angina pectoris; F17.210 Nicotine dependence, cigarettes, uncomplicated; E11.51 Type 2 diabetes mellitus with diabetic peripheral angiopathy without gangrene; I25.2 Old myocardial infarction; Z95.2 Presence of prosthetic heart valve; F32.A Depression, unspecified; K57.30 Diverticulosis of large intestine without perforation or abscess without bleeding; K44.9 Diaphragmatic hernia without obstruction or gangrene; M19.90 Unspecified osteoarthritis, unspecified site; Z96.651 Presence of right artificial knee joint

== ENCOUNTER → 2022-01-21 | Outpatient (REF) | payer MEDICARE ==
[~2022-01-21] MED LIST changes: +ALBU8.5H INH; +AMLO1TAB24 PO; +ASPI-551 PO; +FERR325T82 PO; +MUCI600T31 PO; +VITA100093 PO
== END ==
LOC: M LAB REF 16:07
PROVIDERS: ATTEND Family Medicine
DX: D64.9 Anemia, unspecified (principal)

== ENCOUNTER → 2022-04-29 | Outpatient (REF) | payer MEDICARE | LOC: M LAB REF 16:36 | PROVIDERS: ATTEND Family Medicine | DX: D64.9 Anemia, unspecified (principal) ==

== ENCOUNTER → 2022-10-18 | Outpatient (REF) | payer MEDICARE ==
[~2022-10-18] MED LIST changes: +CLOP75TA99 PO; -PLAV1TAB2 PO
== END ==
LOC: M LAB REF 12:53
PROVIDERS: ATTEND Family Medicine
DX: N18.30 Chronic kidney disease, stage 3 unspecified (principal); D64.9 Anemia, unspecified

== ENCOUNTER 2023-03-11 23:50 | Emergency (ER) | payer MEDICARE ==
[~2023-03-11] VITALS: Ht 167.6 cm; Wt 77.3 kg
[2023-03-12] VITALS: BP 128/62; TEMP 98.9; O2SAT 98
== END 2023-03-12 03:55 | disposition left against medical advice (07) ==
LOC: M ED 23:50
DX: Z53.21 Procedure and treatment not carried out due to patient leaving prior to being seen by health care provider (principal)

== ENCOUNTER 2023-08-18 20:03 | Emergency (ER) | payer MEDICARE ==
[~2023-08-18] VITALS: Ht 165.1 cm; Wt 80.0 kg
[2023-08-18 21:37] LABS: VENOUS O2 SATURATION 99.5 % (60.0-80.0); VENOUS PARTIAL PRESSURE CO2 24.4 mmHg (38.0-50.0); VENOUS PARTIAL PRESSURE O2 224.6 mmHg (30.0-50.0); VENOUS PH 7.346 UNITS (7.330-7.430); VENOUS STANDARD HCO3 15.8 MMOL/L; VENOUS TOTAL CO2 13.8 MMOL/L (24.0-28.0)
[2023-08-18 21:42] LABS: BASO % 0.1 % (0.0-1.0); HEMATOCRIT 33.6 % (36.0-47.0); HEMOGLOBIN 10.7 g/dl (12.0-15.5); LYMPH # 0.7 10^3/uL (1.5-5.0); LYMPH % 3.1 % (24.0-44.0); MEAN CORPUSCULAR HEMOGLOBIN 27.6 pg (27.0-33.0); MEAN CORPUSCULAR HGB CONC 31.8 g/dl (32.0-36.5); MEAN CORPUSCULAR VOLUME 86.8 fl (80.0-96.0); MONO % 9.1 % (2.0-8.0); NEUTROPHILS # 19.3 10^3/uL (1.5-8.5); NEUTROPHILS % 86.4 % (36.0-66.0); PLATELET COUNT, AUTOMATED 397 10^3/uL (150-450); RED BLOOD COUNT 3.87 10^6/uL (4.00-5.40); WHITE BLOOD COUNT 22.3 10^3/uL (4.0-10.0)
[2023-08-18 22:07] LABS: ALKALINE PHOSPHATASE 135 U/L (46-116); ALT/SGPT 25 U/L (7.0-40); AST/SGOT 106 U/L (<34); BILIRUBIN,DIRECT 0.5 MG/DL (<0.4); BILIRUBIN,TOTAL 0.9 MG/DL (0.3-1.2); BLOOD UREA NITROGEN 29 MG/DL (9-23); CARBON DIOXIDE LEVEL 12 MMOL/L (20-31); CHLORIDE LEVEL 118 MMOL/L (98-107); CK-MB VALUE MASS 54.4 NG/ML (<3.6); CPK CREATINE PHOSPHOKINASE 961 U/L (34-145); CREATININE FOR GFR 1.07 MG/DL (0.55-1.30); GLOMERULAR FILTRATION RATE 53.4 (>39); GLUCOSE, FASTING 201 MG/DL (74-106); MB/CK RELATIVE INDEX 5.66 (< OR =4); SALICYLATE LEVEL < 3.0 MG/DL (<30); SODIUM LEVEL 151 MMOL/L (136-145); TOTAL PROTEIN 6.8 G/DL (5.7-8.2)
[2023-08-18 22:11] LABS: THYROID STIMULATING HORMONE 0.059 uIU/ML (0.55-4.78)
[2023-08-18] MEDS ORDERED: NS 2,400 ML in IV 1 EA IV ONE (22:40)
[2023-08-18] MEDS ORDERED: VANCOMYCIN HCL 1,000 MG in IV FLUID PLACE HOLDER 1 EA IV ONE (22:45)
[2023-08-18] MEDS ORDERED: LevoFLOXacin IV 750 MG in IV 1 EA IV ONE (22:45)
[2023-08-18] MEDS ORDERED: VANCOMYCIN HCL 1,000 MG, VIAL MATE ADAPTER 1 EACH in D5W 250 ML IV ONE (23:00)
[2023-08-18 23:01] LABS: AMPHETAMINES LEVEL URINE NEGATIVE (NEGATIVE); BARBITURATES URINE NEGATIVE (NEGATIVE); CANNABINOIDS URINE NEGATIVE (NEGATIVE); COCAINE METABOLITE URINE NEGATIVE (NEGATIVE); METHADONE URINE NEGATIVE (NEGATIVE); PHENCYCLIDINE URINE NEGATIVE (NEGATIVE)
[2023-08-18 23:03] LABS: BENZODIAZEPINES URINE POSITIVE (NEGATIVE); OPIATES URINE POSITIVE (NEGATIVE)
[2023-08-18] MEDS ORDERED: HEPARIN DRIP 25,000 UNITS in IV 1 EA IV SCH (23:50)
[2023-08-19 00:33] LABS: INR 1.3; PARTIAL THROMBOPLASTIN TIME 23.6 SECONDS (24.8-34.2); PROTHROMBIN TIME 15.7 SECONDS (12.5-14.5)
[2023-08-19] MEDS ORDERED: ONDANSETRON 4MG 2ML VIAL IV ONE (00:55)
[2023-08-19 01:00] LABS: CK-MB VALUE MASS 53.3 NG/ML (<3.6); MB/CK RELATIVE INDEX 5.55 (< OR =4)
[2023-08-19] MEDS ORDERED: MORPHINE 2 MG/ML 1ML VIAL As Ordered ONE (01:26)
[2023-08-19] MEDS: MORPHINE 2 MG/ML 1ML VIAL IV PRN ×3 (01:31→02:11)
[2023-08-19 02:11] VITALS: TEMP 98.5
[2023-08-19 02:15] VITALS: BP 142/69; O2SAT 99
== END 2023-08-19 02:30 | disposition short-term general hospital (02) ==
LOC: EDSEX 20:03 → M ED 20:03 → EDBD 20:03 → M ED 08-19 02:30
DX: I21.3 ST elevation (STEMI) myocardial infarction of unspecified site (principal); J18.9 Pneumonia, unspecified organism; A41.9 Sepsis, unspecified organism; E86.0 Dehydration; I48.91 Unspecified atrial fibrillation; I25.2 Old myocardial infarction; I10 Essential (primary) hypertension; F41.9 Anxiety disorder, unspecified; F32.A Depression, unspecified; Z86.79 Personal history of other diseases of the circulatory system; Z88.0 Allergy status to penicillin; Z79.52 Long term (current) use of systemic steroids; Z79.82 Long term (current) use of aspirin; Z79.899 Other long term (current) drug therapy
CPT/HCPCS: 51701; 70450; 71045; 71250; 80048; 80076; 80143; 80307; 81001; 82550; 82553; 82803; 83605; 83880; 84443; 84484; 85025; 85610; 85730; 87040; 87486; 87581; 87633; 87798; 93005; 93041; 94760; 96365; 96366; 96375; 96376; 99285; J1956; J2405; J3370

== ENCOUNTER 2023-08-30 22:24 | Inpatient (IN) | payer MEDICARE ==
[~2023-08-30] VITALS: Ht 170.2 cm; Wt 75.2 kg
[2023-08-31] VITALS (11 sets, daily range): BP systolic 82–168; BP diastolic 44–81; TEMP 96.8–98.9; O2SAT 94–100
[2023-08-31] MEDS: fentaNYL 100 MCG/2 ML INJECTION IV ONE (00:15)
[2023-08-31] MEDS: ACETAMINOPHEN *IV* 1,000 MG in IV 1 EA IV ONE (00:24)
[2023-08-31 01:12] LABS: CALCIUM LEVEL 7.2 MG/DL (8.3-10.6); CREATININE FOR GFR 1.83 MG/DL (0.55-1.30); GLOMERULAR FILTRATION RATE 28.7 (>39); POTASSIUM SERUM 4.7 MMOL/L (3.5-5.1)
[2023-08-31] MEDS: NS 500 ML IV ONE ×2 (02:30→22:58)
[2023-08-31 03:15] LABS: BASO % 0.2 % (0.0-1.0); EOS % 0.3 % (0.0-3.0); HEMATOCRIT 31.9 % (36.0-47.0); HEMOGLOBIN 9.6 g/dl (12.0-15.5); LYMPH # 0.6 10^3/uL (1.5-5.0); LYMPH % 5.1 % (24.0-44.0); MEAN CORPUSCULAR HEMOGLOBIN 27.9 pg (27.0-33.0); MEAN CORPUSCULAR HGB CONC 30.1 g/dl (32.0-36.5); MEAN CORPUSCULAR VOLUME 92.7 fl (80.0-96.0); MONO # 1.2 10^3/uL (0.0-0.8); MONO % 9.3 % (2.0-8.0); NEUTROPHILS # 10.5 10^3/uL (1.5-8.5); NEUTROPHILS % 84.3 % (36.0-66.0); RED BLOOD COUNT 3.44 10^6/uL (4.00-5.40); WHITE BLOOD COUNT 12.4 10^3/uL (4.0-10.0)
[2023-08-31 03:31] LABS: RSV AMPLIFICATION NEGATIVE (NEGATIVE)
[2023-08-31] MEDS ORDERED: HEPARIN SOD (PORCINE) 5000UNITS/ML 1ML VIAL/SYRINGE SC SCH (03:40)
[2023-08-31] MEDS ORDERED: ACETAMINOPHEN TAB 650MG DOSE (2X325MG) PO PRN (03:40)
[2023-08-31] MEDS ORDERED: FISH100015 PO (05:21)
[2023-08-31] MEDS ORDERED: FURO40TA2 PO (05:21)
[2023-08-31] MEDS ORDERED: ENTR1TAB PO (05:21)
[2023-08-31] MEDS ORDERED: METO1TAB7 PO (05:21)
[2023-08-31] MEDS ORDERED: ASPI-615 PO (05:21)
[2023-08-31] MEDS ORDERED: ELIQ5TAB PO (05:21)
[2023-08-31] MEDS ORDERED: HOME MED LIST COMPLETE! XX SCH (05:25)
[2023-08-31] MEDS ORDERED: ALBUTEROL SULFATE 2.5MG/0.5ML INH NEB SOLN INH PRN (05:45)
[2023-08-31] MEDS: HYDROMORPHONE HCL 0.5 MG/ 0.5 ML SYRINGE IV PRN (06:12)
[2023-08-31] MEDS: IPRATROPIUM 0.5MG/ALBUTEROL 2.5MG INH SOL UD 3ML (DUONEB) NEB SCH (07:26)
[2023-08-31 07:31] LABS: PLTBLUE- EDTA FREE CALC 336 K/mm3 (172-450)
[2023-08-31 07:53] LABS: FREE T4 0.92 NG/DL (0.89-1.76); THYROID STIMULATING HORMONE 1.53 uIU/ML (0.55-4.78)
[2023-08-31 07:53] LABS: BASO # 0.1 10^3/uL (0.0-0.2); BASO % 0.5 % (0.0-1.0); EOS # 0.1 10^3/uL (0.0-0.5); EOS % 0.8 % (0.0-3.0); HEMATOCRIT 37.9 % (36.0-47.0); HEMOGLOBIN 11.3 g/dl (12.0-15.5); LYMPH # 0.8 10^3/uL (1.5-5.0); LYMPH % 7.3 % (24.0-44.0); MEAN CORPUSCULAR HEMOGLOBIN 27.4 pg (27.0-33.0); MEAN CORPUSCULAR HGB CONC 29.8 g/dl (32.0-36.5); MEAN CORPUSCULAR VOLUME 91.8 fl (80.0-96.0); MONO # 1.6 10^3/uL (0.0-0.8); MONO % 14.8 % (2.0-8.0); NEUTROPHILS # 8.4 10^3/uL (1.5-8.5); PLATELET COUNT, AUTOMATED 315 10^3/uL (150-450); RED BLOOD COUNT 4.13 10^6/uL (4.00-5.40); WHITE BLOOD COUNT 11.1 10^3/uL (4.0-10.0)
[2023-08-31] MEDS ORDERED: HYDROMORPHONE HCL 0.5 MG/ 0.5 ML SYRINGE IV PRN (07:55)
[2023-08-31 07:56] LABS: PLTBLUE- EDTA FREE MACHINE 305 10^3/uL (172-450)
[2023-08-31 08:05] LABS: ALBUMIN 2.6 G/DL (3.2-5.2); BILIRUBIN,TOTAL 0.2 MG/DL (0.3-1.2); CREATININE FOR GFR 1.79 MG/DL (0.55-1.30); GLOMERULAR FILTRATION RATE 29.5 (>39); MAGNESIUM LEVEL 1.5 MG/DL (1.8-2.4); POTASSIUM SERUM 5.8 MMOL/L (3.5-5.1); TOTAL PROTEIN 5.9 G/DL (5.7-8.2)
[2023-08-31] MEDS: METOPROLOL SUCC (TopROL XL) 50MG **XL** TAB PO SCH (08:12)
[2023-08-31] MEDS: FLUoxetine 20MG CAP PO SCH (08:12)
[2023-08-31] MEDS: PANTOPRAZOLE 40MG TAB (PROTONIX) PO SCH (08:12)
[2023-08-31] MEDS: FERROUS SULFATE 325MG TAB PO SCH (08:12)
[2023-08-31] MEDS: GABAPENTIN 300 MG CAP PO SCH (08:12)
[2023-08-31] MEDS: NS 1,000 ML IV SCH ×2 (08:18→10:47)
[2023-08-31] MEDS ORDERED: ASPIRIN 81MG ENTERIC TABLET PO SCH (09:00)
[2023-08-31] MEDS: MAG SULF 1GM/100ML (MAG RUN) 1 GM in IV 1 EA IV SCH (09:17)
[2023-08-31 11:38] LABS: CALCIUM LEVEL 8.1 MG/DL (8.3-10.6); CREATININE FOR GFR 1.72 MG/DL (0.55-1.30); GLOMERULAR FILTRATION RATE 30.9 (>39); POTASSIUM SERUM 5.5 MMOL/L (3.5-5.1)
[2023-08-31] MEDS: PATIROMER SORBITEX CALCIUM 8.4 GM POWDER PACKET (VELTASSA) PO ONE (12:37)
[2023-08-31] MEDS: ceFAZolin 2 GM/D5W 50 ML IV BAG As Ordered ONE (13:55)
[2023-08-31] MEDS ORDERED: LIDOCAINE 2% 100MG/5ML SDV (FOR ANES.) As Ordered ONE (14:07)
[2023-08-31] MEDS ORDERED: fentaNYL 100 MCG/2 ML INJECTION As Ordered ONE (14:07)
[2023-08-31] MEDS ORDERED: DESFLURANE 240 ML INHALANT As Ordered ONE (14:07)
[2023-08-31] MEDS ORDERED: PHENYLEPHRINE 10MG/ML 1ML VIAL As Ordered ONE (14:07)
[2023-08-31] MEDS ORDERED: MIDAZOLAM INJ 2MG/2ML VIAL As Ordered ONE (14:07)
[2023-08-31] MEDS ORDERED: ROCURONIUM BROMIDE 50MG/5ML VIAL As Ordered ONE (14:07)
[2023-08-31] MEDS ORDERED: propofoL 200 MG/20 ML VIAL As Ordered ONE (14:07)
[2023-08-31] MEDS ORDERED: ONDANSETRON 4MG 2ML VIAL As Ordered ONE (14:14)
[2023-08-31] MEDS ORDERED: SUGAMMADEX SODIUM 500 MG/5 ML VIAL (BRIDION) As Ordered ONE (14:16)
[2023-08-31] MEDS: HEPARIN SOD (PORCINE) 5000UNITS/ML 1ML VIAL/SYRINGE SQ SCH (22:53)
[2023-08-31] MEDS: ceFAZolin SOD 2 GM in IV 1 EA IV SCH (22:53)
[2023-09-01] VITALS (14 sets, daily range): BP systolic 86–130; BP diastolic 40–62; TEMP 97.1–99.1; O2SAT 93–99
[2023-09-01] MEDS: NS 500 ML IV ONE ×2 (00:48→03:15)
[2023-09-01 03:30] LABS: HEMATOCRIT 24.7 % (36.0-47.0); HEMOGLOBIN 7.2 g/dl (12.0-15.5); MEAN CORPUSCULAR HEMOGLOBIN 27.1 pg (27.0-33.0); MEAN CORPUSCULAR HGB CONC 29.1 g/dl (32.0-36.5); MEAN CORPUSCULAR VOLUME 92.9 fl (80.0-96.0); PLATELET COUNT, AUTOMATED 230 10^3/uL (150-450); RED BLOOD COUNT 2.66 10^6/uL (4.00-5.40); WHITE BLOOD COUNT 7.4 10^3/uL (4.0-10.0)
[2023-09-01 05:59] LABS: BASO % 0.3 % (0.0-1.0); EOS % 0.6 % (0.0-3.0); LYMPH # 0.5 10^3/uL (1.5-5.0); LYMPH % 7.8 % (24.0-44.0); MEAN CORPUSCULAR HEMOGLOBIN 27.6 pg (27.0-33.0); MEAN CORPUSCULAR HGB CONC 30.3 g/dl (32.0-36.5); MEAN CORPUSCULAR VOLUME 91.2 fl (80.0-96.0); MONO # 1.2 10^3/uL (0.0-0.8); MONO % 18.4 % (2.0-8.0); NEUTROPHILS # 4.8 10^3/uL (1.5-8.5); PLATELET COUNT, AUTOMATED 201 10^3/uL (150-450); RED BLOOD COUNT 2.28 10^6/uL (4.00-5.40); WHITE BLOOD COUNT 6.7 10^3/uL (4.0-10.0)
[2023-09-01 06:11] LABS: CALCIUM LEVEL 7.3 MG/DL (8.3-10.6); CREATININE FOR GFR 1.77 MG/DL (0.55-1.30); GLOMERULAR FILTRATION RATE 29.9 (>39); MAGNESIUM LEVEL 1.6 MG/DL (1.8-2.4)
[2023-09-01 06:13] LABS: HEMATOCRIT 20.8 % (36.0-47.0); HEMOGLOBIN 6.3 g/dl (12.0-15.5)
[2023-09-01] MEDS ORDERED: PERCOCET 5MG/325MG TAB PO PRN (08:40)
[2023-09-01] MEDS: MAG SULF 1GM/100ML (MAG RUN) 1 GM in IV 1 EA IV SCH (09:19)
[2023-09-01] MEDS: PERCOCET 5MG/325MG TAB PO PRN (09:20)
[2023-09-01 15:10] LABS: BASO % 0.4 % (0.0-1.0); EOS % 0.5 % (0.0-3.0); HEMATOCRIT 32.1 % (36.0-47.0); HEMOGLOBIN 10.2 g/dl (12.0-15.5); LYMPH # 0.6 10^3/uL (1.5-5.0); LYMPH % 8.3 % (24.0-44.0); MEAN CORPUSCULAR HEMOGLOBIN 29.1 pg (27.0-33.0); MEAN CORPUSCULAR HGB CONC 31.8 g/dl (32.0-36.5); MEAN CORPUSCULAR VOLUME 91.7 fl (80.0-96.0); MONO # 1.4 10^3/uL (0.0-0.8); MONO % 18.2 % (2.0-8.0); NEUTROPHILS # 5.4 10^3/uL (1.5-8.5); NEUTROPHILS % 71.8 % (36.0-66.0); PLATELET COUNT, AUTOMATED 181 10^3/uL (150-450); WHITE BLOOD COUNT 7.5 10^3/uL (4.0-10.0)
[2023-09-02] VITALS (24 sets, daily range): BP systolic 100–135; BP diastolic 46–62; TEMP 97.4–98.6; O2SAT 92–100
[2023-09-02 07:41] LABS: BASO % 0.4 % (0.0-1.0); EOS # 0.2 10^3/uL (0.0-0.5); EOS % 1.9 % (0.0-3.0); HEMATOCRIT 26.9 % (36.0-47.0); HEMOGLOBIN 8.5 g/dl (12.0-15.5); LYMPH # 0.4 10^3/uL (1.5-5.0); LYMPH % 4.9 % (24.0-44.0); MEAN CORPUSCULAR HEMOGLOBIN 28.5 pg (27.0-33.0); MEAN CORPUSCULAR HGB CONC 31.6 g/dl (32.0-36.5); MEAN CORPUSCULAR VOLUME 90.3 fl (80.0-96.0); MONO % 12.1 % (2.0-8.0); NEUTROPHILS # 6.7 10^3/uL (1.5-8.5); PLATELET COUNT, AUTOMATED 188 10^3/uL (150-450); RED BLOOD COUNT 2.98 10^6/uL (4.00-5.40); WHITE BLOOD COUNT 8.4 10^3/uL (4.0-10.0)
[2023-09-02 08:12] LABS: CALCIUM LEVEL 7.7 MG/DL (8.3-10.6); CREATININE FOR GFR 1.52 MG/DL (0.55-1.30); GLOMERULAR FILTRATION RATE 35.6 (>39); MAGNESIUM LEVEL 1.7 MG/DL (1.8-2.4); POTASSIUM SERUM 4.6 MMOL/L (3.5-5.1)
[2023-09-02] MEDS: MAG SULF 1GM/100ML (MAG RUN) 1 GM in IV 1 EA IV SCH (10:38)
[2023-09-02 12:14] LABS: HEMATOCRIT 29.7 % (36.0-47.0); HEMOGLOBIN 9.2 g/dl (12.0-15.5)
[2023-09-02] MEDS ORDERED: guaiFENesin ER TABLET 600 MG TAB PO PRN (13:45)
[2023-09-02] MEDS ORDERED: ALPRAZolam 0.25 MG TAB PO PRN (13:45)
[2023-09-02] MEDS ORDERED: NITROGLYCERIN 0.4MG SUBL TABLET SL PRN (13:45)
[2023-09-02] MEDS: OMEGA-3 1000MG CAPSULE PO SCH (14:34)
[2023-09-02] MEDS: VITAMIN D 1,000 INTERNATIONAL UNITS TABLET PO SCH (14:34)
[2023-09-02] MEDS: ASPIRIN 81MG ENTERIC TABLET PO SCH (14:34)
[2023-09-03] VITALS (23 sets, daily range): BP systolic 104–142; BP diastolic 52–70; TEMP 97.5–98.6; O2SAT 92–97
[2023-09-03 07:10] LABS: BASO % 0.3 % (0.0-1.0); EOS # 0.2 10^3/uL (0.0-0.5); HEMATOCRIT 23.7 % (36.0-47.0); HEMOGLOBIN 7.4 g/dl (12.0-15.5); LYMPH # 0.4 10^3/uL (1.5-5.0); LYMPH % 7.4 % (24.0-44.0); MEAN CORPUSCULAR HEMOGLOBIN 28.5 pg (27.0-33.0); MEAN CORPUSCULAR HGB CONC 31.2 g/dl (32.0-36.5); MEAN CORPUSCULAR VOLUME 91.2 fl (80.0-96.0); MONO # 0.9 10^3/uL (0.0-0.8); MONO % 14.3 % (2.0-8.0); NEUTROPHILS # 4.3 10^3/uL (1.5-8.5); PLATELET COUNT, AUTOMATED 199 10^3/uL (150-450); WHITE BLOOD COUNT 5.9 10^3/uL (4.0-10.0)
[2023-09-03 07:34] LABS: CALCIUM LEVEL 7.6 MG/DL (8.3-10.6); CREATININE FOR GFR 1.35 MG/DL (0.55-1.30); GLOMERULAR FILTRATION RATE 40.8 (>39); MAGNESIUM LEVEL 1.8 MG/DL (1.8-2.4); POTASSIUM SERUM 4.3 MMOL/L (3.5-5.1)
[2023-09-03] MEDS: ACETAMINOPHEN TAB 650MG DOSE (2X325MG) PO PRN (11:19)
[2023-09-03 12:13] LABS: HEMATOCRIT 25.2 % (36.0-47.0); HEMOGLOBIN 7.8 g/dl (12.0-15.5)
[2023-09-03] MEDS: ALPRAZolam 0.25 MG TAB PO PRN (20:02)
[2023-09-04] VITALS (18 sets, daily range): BP systolic 111–158; BP diastolic 56–74; TEMP 97–99; O2SAT 93–98
[2023-09-04 07:26] LABS: BASO % 0.4 % (0.0-1.0); EOS # 0.1 10^3/uL (0.0-0.5); EOS % 2.7 % (0.0-3.0); HEMATOCRIT 28.7 % (36.0-47.0); HEMOGLOBIN 9.1 g/dl (12.0-15.5); LYMPH # 0.4 10^3/uL (1.5-5.0); LYMPH % 7.6 % (24.0-44.0); MEAN CORPUSCULAR HEMOGLOBIN 29.1 pg (27.0-33.0); MEAN CORPUSCULAR HGB CONC 31.7 g/dl (32.0-36.5); MEAN CORPUSCULAR VOLUME 91.7 fl (80.0-96.0); MONO # 0.6 10^3/uL (0.0-0.8); MONO % 11.1 % (2.0-8.0); NEUTROPHILS % 77.2 % (36.0-66.0); PLATELET COUNT, AUTOMATED 192 10^3/uL (150-450); RED BLOOD COUNT 3.13 10^6/uL (4.00-5.40); WHITE BLOOD COUNT 5.2 10^3/uL (4.0-10.0)
[2023-09-04 08:00] LABS: CALCIUM LEVEL 7.7 MG/DL (8.3-10.6); CREATININE FOR GFR 1.23 MG/DL (0.55-1.30); GLOMERULAR FILTRATION RATE 45.4 (>39); MAGNESIUM LEVEL 1.5 MG/DL (1.8-2.4); POTASSIUM SERUM 4.4 MMOL/L (3.5-5.1)
[2023-09-04] MEDS: APIXABAN 5 MG TAB (ELIQUIS) PO SCH (09:21)
[2023-09-04] MEDS: MAGNESIUM OXIDE 400MG TAB (MAG-OX) PO SCH (09:22)
[2023-09-04] MEDS: MAG SULF 1GM/100ML (MAG RUN) 1 GM in IV 1 EA IV SCH (09:30)
[2023-09-05] VITALS (15 sets, daily range): BP systolic 123–139; BP diastolic 65–92; TEMP 98.1–98.5; O2SAT 92–99
[2023-09-05 06:23] LABS: BASO % 0.6 % (0.0-1.0); EOS # 0.2 10^3/uL (0.0-0.5); EOS % 4.1 % (0.0-3.0); HEMATOCRIT 27.4 % (36.0-47.0); HEMOGLOBIN 8.5 g/dl (12.0-15.5); LYMPH # 0.4 10^3/uL (1.5-5.0); LYMPH % 8.1 % (24.0-44.0); MEAN CORPUSCULAR HEMOGLOBIN 28.5 pg (27.0-33.0); MEAN CORPUSCULAR VOLUME 91.9 fl (80.0-96.0); MONO # 0.6 10^3/uL (0.0-0.8); MONO % 12.2 % (2.0-8.0); NEUTROPHILS # 3.8 10^3/uL (1.5-8.5); NEUTROPHILS % 74.2 % (36.0-66.0); PLATELET COUNT, AUTOMATED 206 10^3/uL (150-450); RED BLOOD COUNT 2.98 10^6/uL (4.00-5.40); WHITE BLOOD COUNT 5.2 10^3/uL (4.0-10.0)
[2023-09-05 06:51] LABS: CALCIUM LEVEL 7.9 MG/DL (8.3-10.6); CREATININE FOR GFR 1.15 MG/DL (0.55-1.30); GLOMERULAR FILTRATION RATE 49.1 (>39); MAGNESIUM LEVEL 1.6 MG/DL (1.8-2.4); POTASSIUM SERUM 4.5 MMOL/L (3.5-5.1)
[2023-09-05] MEDS: MAG SULF 1GM/100ML (MAG RUN) 1 GM in IV 1 EA IV SCH (09:37)
[2023-09-05] MEDS: MAGNESIUM OXIDE 400MG TAB (MAG-OX) PO SCH (09:38)
[2023-09-05] MEDS: FUROSEMIDE 40 MG TAB PO SCH (09:38)
[2023-09-05] MEDS: FLUoxetine 20MG CAP PO SCH (20:07)
[2023-09-05] MEDS: NYSTATIN CREAM 15GM TOP SCH (20:09)
[2023-09-06 06:20] LABS: BASO % 0.5 % (0.0-1.0); EOS # 0.2 10^3/uL (0.0-0.5); EOS % 3.2 % (0.0-3.0); HEMATOCRIT 29.7 % (36.0-47.0); HEMOGLOBIN 9.3 g/dl (12.0-15.5); LYMPH # 0.5 10^3/uL (1.5-5.0); LYMPH % 8.3 % (24.0-44.0); MEAN CORPUSCULAR HEMOGLOBIN 28.5 pg (27.0-33.0); MEAN CORPUSCULAR HGB CONC 31.3 g/dl (32.0-36.5); MEAN CORPUSCULAR VOLUME 91.1 fl (80.0-96.0); MONO # 0.7 10^3/uL (0.0-0.8); NEUTROPHILS # 4.2 10^3/uL (1.5-8.5); NEUTROPHILS % 74.1 % (36.0-66.0); PLATELET COUNT, AUTOMATED 219 10^3/uL (150-450); RED BLOOD COUNT 3.26 10^6/uL (4.00-5.40); WHITE BLOOD COUNT 5.7 10^3/uL (4.0-10.0)
[2023-09-06 06:52] LABS: CALCIUM LEVEL 7.8 MG/DL (8.3-10.6); CREATININE FOR GFR 1.08 MG/DL (0.55-1.30); GLOMERULAR FILTRATION RATE 52.8 (>39); MAGNESIUM LEVEL 1.6 MG/DL (1.8-2.4); POTASSIUM SERUM 4.5 MMOL/L (3.5-5.1)
[2023-09-06 08:00] VITALS: BP 160/70; O2SAT 97
[2023-09-06] MEDS: MAG SULF 1GM/100ML (MAG RUN) 1 GM in IV 1 EA IV SCH (08:56)
[2023-09-06] MEDS ORDERED: MAGNESIUM GLUCONATE 500 MG TAB PO SCH (09:00)
[2023-09-06] MEDS: NYSTATIN 100,000 UNITS/GM TOPICAL PWD 15GM TOP SCH (10:58)
[2023-09-06 22:00] VITALS: BP 121/67; TEMP 98.1
[2023-09-07 06:00] VITALS: BP 129/70; TEMP 98.2
[2023-09-07 06:34] LABS: BASO % 0.4 % (0.0-1.0); EOS # 0.2 10^3/uL (0.0-0.5); EOS % 3.2 % (0.0-3.0); HEMATOCRIT 30.7 % (36.0-47.0); HEMOGLOBIN 9.8 g/dl (12.0-15.5); LYMPH # 0.4 10^3/uL (1.5-5.0); MEAN CORPUSCULAR HEMOGLOBIN 29.3 pg (27.0-33.0); MEAN CORPUSCULAR HGB CONC 31.9 g/dl (32.0-36.5); MEAN CORPUSCULAR VOLUME 91.6 fl (80.0-96.0); MONO # 0.6 10^3/uL (0.0-0.8); MONO % 11.8 % (2.0-8.0); NEUTROPHILS % 75.5 % (36.0-66.0); PLATELET COUNT, AUTOMATED 194 10^3/uL (150-450); RED BLOOD COUNT 3.35 10^6/uL (4.00-5.40); WHITE BLOOD COUNT 5.3 10^3/uL (4.0-10.0)
[2023-09-07 07:07] LABS: CALCIUM LEVEL 7.8 MG/DL (8.3-10.6); CREATININE FOR GFR 1.09 MG/DL (0.55-1.30); GLOMERULAR FILTRATION RATE 52.2 (>39); MAGNESIUM LEVEL 1.7 MG/DL (1.8-2.4); POTASSIUM SERUM 4.1 MMOL/L (3.5-5.1)
[2023-09-07] MEDS ORDERED: MAGN400T2 PO (08:21)
[2023-09-07 09:36] VITALS: BP 137/76
== END 2023-09-07 11:35 | DRG 480 ==
LOC: M ED 22:24 → EDBD 22:24 → M ED INP 08-31 03:36 → ENRESERV 08-31 03:49 → M PCU 08-31 06:30 → M MS5PR 09-05 13:30
PROVIDERS: ADMIT Internal Medicine; ATTEND Internal Medicine
PROC: 0QS706Z Reposition Left Upper Femur with Intramedullary Internal Fixation Device, Open Approach (ICD-10-PCS; principal; 2023-08-31 16:00)
PROC: 30233N1 Transfusion of Nonautologous Red Blood Cells into Peripheral Vein, Percutaneous Approach (ICD-10-PCS; 2023-09-01)
DX: S72.22XA Displaced subtrochanteric fracture of left femur, initial encounter for closed fracture (principal); I21.A1 Myocardial infarction type 2; I50.42 Chronic combined systolic (congestive) and diastolic (congestive) heart failure; N17.9 Acute kidney failure, unspecified; E87.1 Hypo-osmolality and hyponatremia; D62 Acute posthemorrhagic anemia; S72.142A Displaced intertrochanteric fracture of left femur, initial encounter for closed fracture; E11.51 Type 2 diabetes mellitus with diabetic peripheral angiopathy without gangrene; E11.42 Type 2 diabetes mellitus with diabetic polyneuropathy; J44.9 Chronic obstructive pulmonary disease, unspecified; I11.0 Hypertensive heart disease with heart failure; F32.A Depression, unspecified; I48.0 Paroxysmal atrial fibrillation; E78.5 Hyperlipidemia, unspecified; K21.9 Gastro-esophageal reflux disease without esophagitis; I25.10 Atherosclerotic heart disease of native coronary artery without angina pectoris; K44.9 Diaphragmatic hernia without obstruction or gangrene; F41.9 Anxiety disorder, unspecified; E87.5 Hyperkalemia; E55.9 Vitamin D deficiency, unspecified; E83.42 Hypomagnesemia; R31.9 Hematuria, unspecified; Z88.0 Allergy status to penicillin; Z88.8 Allergy status to other drugs, medicaments and biological substances; Z79.899 Other long term (current) drug therapy; Z79.82 Long term (current) use of aspirin; F17.200 Nicotine dependence, unspecified, uncomplicated; Z66 Do not resuscitate; Z95.2 Presence of prosthetic heart valve; K57.90 Diverticulosis of intestine, part unspecified, without perforation or abscess without bleeding; Z86.718 Personal history of other venous thrombosis and embolism; Z79.01 Long term (current) use of anticoagulants; R19.7 Diarrhea, unspecified

== ENCOUNTER → 2023-09-14 | Outpatient (REF) ==
[~2023-09-14] MED LIST changes: +ASPI-615 PO; +ELIQ5TAB PO; +ENTR1TAB PO; +FISH100015 PO; +FURO40TA2 PO; +MAGN400T2 PO; +METO1TAB7 PO
[2023-09-14 10:32] LABS: HEMATOCRIT 35.7 % (36.0-47.0); HEMOGLOBIN 10.8 g/dl (12.0-15.5); MEAN CORPUSCULAR HEMOGLOBIN 29.3 pg (27.0-33.0); MEAN CORPUSCULAR HGB CONC 30.3 g/dl (32.0-36.5); MEAN CORPUSCULAR VOLUME 96.7 fl (80.0-96.0); PLATELET COUNT, AUTOMATED 279 10^3/uL (150-450); RED BLOOD COUNT 3.69 10^6/uL (4.00-5.40); WHITE BLOOD COUNT 6.1 10^3/uL (4.0-10.0)
[2023-09-14 11:14] LABS: ALBUMIN 2.7 G/DL (3.2-5.2); CALCIUM LEVEL 8.6 MG/DL (8.3-10.6); CREATININE FOR GFR 1.17 MG/DL (0.55-1.30); GLOMERULAR FILTRATION RATE 48.1 (>39); PHOSPHORUS LEVEL 4.7 MG/DL (2.4-5.1); POTASSIUM SERUM 4.6 MMOL/L (3.5-5.1)
== END ==
PROVIDERS: ATTEND Internal Medicine
DX: I10 Essential (primary) hypertension (principal)

== ENCOUNTER → 2023-09-15 | Outpatient (CLI) | payer MEDICARE, OTHER | LOC: M SOG 08:08 | PROVIDERS: ATTEND Physician Assistant | DX: S72.142A Displaced intertrochanteric fracture of left femur, initial encounter for closed fracture (principal); Y93.9 Activity, unspecified; Y92.9 Unspecified place or not applicable ==

== ENCOUNTER → 2023-09-21 | Outpatient (REF) ==
[2023-09-21 10:06] LABS: HEMATOCRIT 36.4 % (36.0-47.0); HEMOGLOBIN 11.2 g/dl (12.0-15.5); MEAN CORPUSCULAR HEMOGLOBIN 29.9 pg (27.0-33.0); MEAN CORPUSCULAR HGB CONC 30.8 g/dl (32.0-36.5); MEAN CORPUSCULAR VOLUME 97.3 fl (80.0-96.0); PLATELET COUNT, AUTOMATED 307 10^3/uL (150-450); RED BLOOD COUNT 3.74 10^6/uL (4.00-5.40); WHITE BLOOD COUNT 5.7 10^3/uL (4.0-10.0)
[2023-09-21 10:30] LABS: CREATININE FOR GFR 1.14 MG/DL (0.55-1.30); GLOMERULAR FILTRATION RATE 49.6 (>39); MAGNESIUM LEVEL 1.8 MG/DL (1.8-2.4); POTASSIUM SERUM 4.7 MMOL/L (3.5-5.1)
== END ==
PROVIDERS: ATTEND Physician Assistant
DX: I10 Essential (primary) hypertension (principal)

== ENCOUNTER → 2023-10-03 | Outpatient (CLI) | payer MEDICARE, OTHER | LOC: M SOG 09:23 | PROVIDERS: ATTEND Orthopaedic Surgery | DX: S72.142D Displaced intertrochanteric fracture of left femur, subsequent encounter for closed fracture with routine healing (principal) ==

== ENCOUNTER → 2023-10-04 | Outpatient (REF) | PROVIDERS: ATTEND Physician Assistant | DX: I10 Essential (primary) hypertension (principal); Z53.8 Procedure and treatment not carried out for other reasons ==

== ENCOUNTER → 2023-10-18 | Outpatient (CLI) | payer MEDICARE, OTHER | LOC: M SOG 15:16 | PROVIDERS: ATTEND Physician Assistant | DX: S72.142D Displaced intertrochanteric fracture of left femur, subsequent encounter for closed fracture with routine healing (principal) ==

== ENCOUNTER → 2023-11-11 | Outpatient (CLI) | payer MEDICARE | LOC: M SOG 11:00 | PROVIDERS: ATTEND Orthopaedic Surgery | DX: S72.142D Displaced intertrochanteric fracture of left femur, subsequent encounter for closed fracture with routine healing (principal); Y93.9 Activity, unspecified; Y92.9 Unspecified place or not applicable ==

== ENCOUNTER → 2023-12-26 | Outpatient (CLI) | payer MEDICARE ==
[~2023-12-26] MED LIST changes: +ONDA-282 PO; -ONDA4TAB6 PO
== END ==
LOC: M RAD 10:03
PROVIDERS: ATTEND Nurse Practitioner Family
DX: N28.89 Other specified disorders of kidney and ureter (principal); N28.1 Cyst of kidney, acquired

== ENCOUNTER → 2024-01-06 | Outpatient (CLI) | payer MEDICARE | LOC: M WUC 11:48 | PROVIDERS: ATTEND Family Medicine | DX: I50.23 Acute on chronic systolic (congestive) heart failure (principal) ==

== ENCOUNTER → 2024-01-19 | Outpatient (REF) | payer MEDICARE | LOC: M LAB REF 11:59 | PROVIDERS: ATTEND Family Medicine | DX: I50.23 Acute on chronic systolic (congestive) heart failure (principal) ==

== ENCOUNTER 2024-04-30 18:12 | Emergency (ER) | payer MEDICARE ==
[~2024-04-30] VITALS: Ht 167.6 cm; Wt 68.7 kg
[~2024-04-30 18:12] MED LIST changes: +GABA-1172 PO; -GABA-282 PO
[2024-04-30 21:28] LABS: BASO # 0.1 10^3/uL (0.0-0.2); BASO % 0.6 % (0.0-1.0); EOS # 0.1 10^3/uL (0.0-0.5); EOS % 1.1 % (0.0-3.0); HEMATOCRIT 36.6 % (36.0-47.0); HEMOGLOBIN 11.8 g/dl (12.0-15.5); LYMPH # 0.9 10^3/uL (1.5-5.0); LYMPH % 11.4 % (24.0-44.0); MEAN CORPUSCULAR HEMOGLOBIN 30.6 pg (27.0-33.0); MEAN CORPUSCULAR HGB CONC 32.2 g/dl (32.0-36.5); MEAN CORPUSCULAR VOLUME 95.1 fl (80.0-96.0); MONO # 1.2 10^3/uL (0.0-0.8); MONO % 14.7 % (2.0-8.0); NEUTROPHILS # 5.9 10^3/uL (1.5-8.5); NEUTROPHILS % 71.7 % (36.0-66.0); PLATELET COUNT, AUTOMATED 230 10^3/uL (150-450); RED BLOOD COUNT 3.85 10^6/uL (4.00-5.40); WHITE BLOOD COUNT 8.2 10^3/uL (4.0-10.0)
[2024-04-30 21:48] LABS: INR 1.53; PARTIAL THROMBOPLASTIN TIME 37.2 SECONDS (24.8-34.2); PROTHROMBIN TIME 17.9 SECONDS (12.5-14.5)
[2024-04-30 21:50] LABS: LIPASE 36 U/L (12-53)
[2024-04-30 21:51] LABS: AMYLASE 35 U/L (30-118)
[2024-04-30 21:52] LABS: ALBUMIN 3.4 G/DL (3.2-5.2); ALKALINE PHOSPHATASE 118 U/L (46-116); ALT/SGPT < 9 U/L (7.0-40); AST/SGOT 12 U/L (<34); BILIRUBIN,DIRECT 0.1 MG/DL (<0.4); BILIRUBIN,TOTAL 0.5 MG/DL (0.3-1.2); BLOOD UREA NITROGEN 23 MG/DL (9-23); CALCIUM LEVEL 9.8 MG/DL (8.3-10.6); CARBON DIOXIDE LEVEL 22 MMOL/L (20-31); CHLORIDE LEVEL 111 MMOL/L (98-107); CREATININE FOR GFR 1.32 MG/DL (0.55-1.30); GLOMERULAR FILTRATION RATE 41.9 (>39); GLUCOSE, FASTING 82 MG/DL (74-106); POTASSIUM SERUM 4.5 MMOL/L (3.5-5.1); SODIUM LEVEL 144 MMOL/L (136-145); TOTAL PROTEIN 7.5 G/DL (5.7-8.2)
[2024-05-01] MEDS ORDERED: ISOVUE-370 76% 100ML VIAL As Ordered ONE (04:27)
[2024-05-01] MEDS: ONDANSETRON 4MG 2ML VIAL IV ONE (05:07)
[2024-05-01] MEDS: MORPHINE 2 MG/ML 1ML VIAL IV ONE (05:08)
[2024-05-01 08:37] VITALS: BP 187/79; O2SAT 97
[2024-05-01 08:57] VITALS: TEMP 98.6
== END 2024-05-01 08:55 | disposition home or self-care (01) ==
LOC: EDBD 18:12 → M ED 18:12
DX: R10.9 Unspecified abdominal pain (principal); I10 Essential (primary) hypertension; K21.9 Gastro-esophageal reflux disease without esophagitis; J44.9 Chronic obstructive pulmonary disease, unspecified; F51.01 Primary insomnia; F32.A Depression, unspecified; K76.0 Fatty (change of) liver, not elsewhere classified; E55.9 Vitamin D deficiency, unspecified; Z86.79 Personal history of other diseases of the circulatory system; Z88.0 Allergy status to penicillin; Z88.8 Allergy status to other drugs, medicaments and biological substances; Z79.01 Long term (current) use of anticoagulants; Z79.52 Long term (current) use of systemic steroids; Z79.82 Long term (current) use of aspirin; Z79.899 Other long term (current) drug therapy
CPT/HCPCS: 74177; 76705; 80048; 80076; 81001; 82150; 83690; 85025; 85610; 85730; 87088; 87186; 87486; 87581; 87633; 87798; 96374; 99284; J2405; Q9967

== ENCOUNTER 2024-05-10 09:39 | Inpatient (IN) | payer MEDICARE ==
[~2024-05-10] VITALS: Ht 162.6 cm; Wt 70.3 kg
[2024-05-10 11:04] LABS: BASO % 0.5 % (0.0-1.0); EOS # 0.3 10^3/uL (0.0-0.5); HEMATOCRIT 38.9 % (36.0-47.0); HEMOGLOBIN 12.5 g/dl (12.0-15.5); LYMPH # 0.4 10^3/uL (1.5-5.0); LYMPH % 7.1 % (24.0-44.0); MEAN CORPUSCULAR HEMOGLOBIN 30.3 pg (27.0-33.0); MEAN CORPUSCULAR HGB CONC 32.1 g/dl (32.0-36.5); MEAN CORPUSCULAR VOLUME 94.4 fl (80.0-96.0); MONO # 0.6 10^3/uL (0.0-0.8); MONO % 9.5 % (2.0-8.0); NEUTROPHILS # 4.9 10^3/uL (1.5-8.5); NEUTROPHILS % 78.3 % (36.0-66.0); PLATELET COUNT, AUTOMATED 224 10^3/uL (150-450); RED BLOOD COUNT 4.12 10^6/uL (4.00-5.40); WHITE BLOOD COUNT 6.2 10^3/uL (4.0-10.0)
[2024-05-10 11:17] LABS: INR 1.79; PARTIAL THROMBOPLASTIN TIME 45.2 SECONDS (24.8-34.2); PROTHROMBIN TIME 20.2 SECONDS (12.5-14.5)
[2024-05-10 11:24] LABS: CPK CREATINE PHOSPHOKINASE 37 U/L (34-145)
[2024-05-10 11:25] LABS: ALBUMIN 3.2 G/DL (3.2-5.2); ALKALINE PHOSPHATASE 123 U/L (46-116); ALT/SGPT < 9 U/L (7.0-40); AST/SGOT < 8 U/L (<34); BILIRUBIN,DIRECT 0.1 MG/DL (<0.4); BILIRUBIN,TOTAL 0.3 MG/DL (0.3-1.2); BLOOD UREA NITROGEN 48 MG/DL (9-23); CALCIUM LEVEL 8.9 MG/DL (8.3-10.6); CARBON DIOXIDE LEVEL 19 MMOL/L (20-31); CHLORIDE LEVEL 110 MMOL/L (98-107); CK-MB VALUE MASS < 1.0 NG/ML (<3.6); CREATININE FOR GFR 2.74 MG/DL (0.55-1.30); GLUCOSE, FASTING 96 MG/DL (74-106); POTASSIUM SERUM 3.7 MMOL/L (3.5-5.1); SODIUM LEVEL 137 MMOL/L (136-145); TOTAL PROTEIN 7.1 G/DL (5.7-8.2)
[2024-05-10 11:28] LABS: THYROID STIMULATING HORMONE 0.261 uIU/ML (0.55-4.78)
[2024-05-10] MEDS: NS 1,000 ML IV SCH (12:47)
[2024-05-10 12:52] LABS: CK-MB VALUE MASS < 1.0 NG/ML (<3.6)
[2024-05-10 12:53] LABS: CPK CREATINE PHOSPHOKINASE 37 U/L (34-145)
[2024-05-10] MEDS ORDERED: LEVO1TAB38 PO (13:27)
[2024-05-10] MEDS ORDERED: LOPE-39 PO (13:27)
[2024-05-10] MEDS ORDERED: HOME MED LIST COMPLETE! XX SCH (13:30)
[2024-05-10] MEDS: MORPHINE 4 MG/ML 1ML VIAL IV ONE ×2 (14:35→21:42)
[2024-05-11] MEDS ORDERED: ACETAMINOPHEN 325 MG TAB PO PRN (01:45)
[2024-05-11] MEDS ORDERED: ALPRAZolam 0.25 MG TAB PO PRN (02:10)
[2024-05-11] MEDS ORDERED: guaiFENesin ER TABLET 600 MG TAB PO PRN (02:10)
[2024-05-11] MEDS ORDERED: ALBUTEROL 90 MCG/ACT 8GM HFA INHALER INH PRN (02:10)
[2024-05-11] MEDS ORDERED: NITROGLYCERIN 0.4MG SUBL TABLET SL PRN (02:10)
[2024-05-11] MEDS: NICOTINE 21MG/24HR 1 EA TRANSDERMAL TD SCH (02:51)
[2024-05-11] MEDS: zolPIDEM TARTRATE 5 MG TAB PO PRN (02:52)
[2024-05-11] MEDS: LR 1,000 ML IV SCH (02:52)
[2024-05-11 06:07] LABS: VENOUS BASE EXCESS -9.5 (-2.0-2.0); VENOUS HCO3 17.7 MMOL/L (23.0-27.0); VENOUS O2 SATURATION 92.7 % (60.0-80.0); VENOUS PARTIAL PRESSURE CO2 43.6 mmHg (38.0-50.0); VENOUS PARTIAL PRESSURE O2 73.5 mmHg (30.0-50.0); VENOUS PH 7.227 UNITS (7.330-7.430); VENOUS STANDARD HCO3 16.8 MMOL/L; VENOUS TOTAL CO2 19.1 MMOL/L (24.0-28.0)
[2024-05-11 06:12] LABS: HEMATOCRIT 33.9 % (36.0-47.0); HEMOGLOBIN 10.8 g/dl (12.0-15.5); MEAN CORPUSCULAR HEMOGLOBIN 30.8 pg (27.0-33.0); MEAN CORPUSCULAR HGB CONC 31.9 g/dl (32.0-36.5); MEAN CORPUSCULAR VOLUME 96.6 fl (80.0-96.0); PLATELET COUNT, AUTOMATED 193 10^3/uL (150-450); RED BLOOD COUNT 3.51 10^6/uL (4.00-5.40); WHITE BLOOD COUNT 5.7 10^3/uL (4.0-10.0)
[2024-05-11 06:41] LABS: HEMOGLOBIN A1c 5.3 % (4.0-6.0)
[2024-05-11 06:42] LABS: ALBUMIN 2.7 G/DL (3.2-5.2); CALCIUM LEVEL 8.8 MG/DL (8.3-10.6); CREATININE FOR GFR 1.77 MG/DL (0.55-1.30); GLOMERULAR FILTRATION RATE 29.9 (>39); MAGNESIUM LEVEL 1.4 MG/DL (1.8-2.4); PHOSPHORUS LEVEL 3.6 MG/DL (2.4-5.1)
[2024-05-11] MEDS: GABAPENTIN 300 MG CAP PO SCH (08:08)
[2024-05-11] MEDS: FLUoxetine 20MG CAP PO SCH (08:08)
[2024-05-11] MEDS: APIXABAN 5 MG TAB (ELIQUIS) PO SCH (08:08)
[2024-05-11] MEDS: VITAMIN D 1,000 INTERNATIONAL UNITS TABLET PO SCH (08:09)
[2024-05-11] MEDS: ASPIRIN 81MG ENTERIC TABLET PO SCH (08:09)
[2024-05-11] MEDS: PANTOPRAZOLE 40MG TAB (PROTONIX) PO SCH (08:09)
[2024-05-11] MEDS: MAG SULF 1GM/100ML (MAG RUN) 1 GM in IV 1 EA IV SCH (08:58)
[2024-05-11] MEDS: LACTOBACILLUS ACIDOPHILUS CAP (BACID) PO SCH (10:36)
[2024-05-11 14:40] VITALS: BP_SYST 134; BP_DIAS 64; BP_DIAS 66; TEMP 98.4; O2SAT 97
[2024-05-11] MEDS ORDERED: SODIUM BICARBONATE 325 MG TAB PO SCH (14:40)
[2024-05-11 14:42] VITALS: BP 136/64
[2024-05-11 14:44] VITALS: BP 106/50
[2024-05-11 16:12] VITALS: BP 141/64; TEMP 98.6; O2SAT 100
[2024-05-11] MEDS: SODIUM BICARBONATE 150 MEQ in D5W 1,000 ML IV SCH (17:35)
[2024-05-11] MEDS: NORCO, ANEXSIA 5/325MG TABLET (HYDROcodone/ACETAMINOPHEN) PO PRN (17:55)
[2024-05-11 19:33] VITALS: BP 138/65; TEMP 98.1; O2SAT 96
[2024-05-12 03:02] VITALS: BP 145/70; TEMP 97.9; O2SAT 97
[2024-05-12 04:00] VITALS: BP 145/70; TEMP 97.9; O2SAT 97
[2024-05-12 05:14] LABS: HEMATOCRIT 30.2 % (36.0-47.0); HEMOGLOBIN 10.2 g/dl (12.0-15.5); MEAN CORPUSCULAR HEMOGLOBIN 31.4 pg (27.0-33.0); MEAN CORPUSCULAR HGB CONC 33.8 g/dl (32.0-36.5); MEAN CORPUSCULAR VOLUME 92.9 fl (80.0-96.0); PLATELET COUNT, AUTOMATED 184 10^3/uL (150-450); RED BLOOD COUNT 3.25 10^6/uL (4.00-5.40); WHITE BLOOD COUNT 4.8 10^3/uL (4.0-10.0)
[2024-05-12 05:46] LABS: ALBUMIN 2.4 G/DL (3.2-5.2); CALCIUM LEVEL 8.6 MG/DL (8.3-10.6); CREATININE FOR GFR 1.17 MG/DL (0.55-1.30); GLOMERULAR FILTRATION RATE 48.1 (>39); MAGNESIUM LEVEL 1.7 MG/DL (1.8-2.4); PHOSPHORUS LEVEL 2.7 MG/DL (2.4-5.1); POTASSIUM SERUM 3.1 MMOL/L (3.5-5.1)
[2024-05-12 08:00] VITALS: BP 157/77; TEMP 97.7; O2SAT 98
[2024-05-12] MEDS: POTASSIUM CHLORIDE 10MEQ SR TABLET PO ONE (08:14)
[2024-05-12] MEDS: MAG SULF 1GM/100ML (MAG RUN) 1 GM in IV 1 EA IV SCH (08:14)
[2024-05-12 09:26] VITALS: BP_SYST 128; BP_SYST 131; BP_SYST 134; BP_DIAS 56; BP_DIAS 58; BP_DIAS 59
[2024-05-12] MEDS ORDERED: POTASSIUM CHLORIDE INJ 20 MEQ in LR 1,000 ML IV SCH (10:00)
[2024-05-12] MEDS ORDERED: RISATAB3 PO (10:17)
[2024-05-12 12:00] VITALS: BP 130/75; TEMP 97.7; O2SAT 97
== END 2024-05-12 13:04 | disposition home or self-care (01) | DRG 683 ==
LOC: M ED 09:39 → EDBD 09:39 → M ED INP 05-11 01:45 → M MSPAV 05-11 14:43
PROVIDERS: ADMIT Student in an Organized Health Care Education/Training Program; ATTEND Student in an Organized Health Care Education/Training Program
DX: N17.9 Acute kidney failure, unspecified (principal); K86.2 Cyst of pancreas; E87.20 Acidosis, unspecified; I50.32 Chronic diastolic (congestive) heart failure; K21.9 Gastro-esophageal reflux disease without esophagitis; J44.9 Chronic obstructive pulmonary disease, unspecified; I48.0 Paroxysmal atrial fibrillation; D50.9 Iron deficiency anemia, unspecified; I73.9 Peripheral vascular disease, unspecified; E78.5 Hyperlipidemia, unspecified; I95.1 Orthostatic hypotension; I25.10 Atherosclerotic heart disease of native coronary artery without angina pectoris; Z86.718 Personal history of other venous thrombosis and embolism; Z95.2 Presence of prosthetic heart valve; Z79.01 Long term (current) use of anticoagulants; E11.51 Type 2 diabetes mellitus with diabetic peripheral angiopathy without gangrene; E86.0 Dehydration; Z88.0 Allergy status to penicillin; Z88.8 Allergy status to other drugs, medicaments and biological substances; Z79.899 Other long term (current) drug therapy; Z79.82 Long term (current) use of aspirin; Z86.73 Personal history of transient ischemic attack (TIA), and cerebral infarction without residual deficits; M19.90 Unspecified osteoarthritis, unspecified site; K52.9 Noninfective gastroenteritis and colitis, unspecified; G89.29 Other chronic pain; F41.9 Anxiety disorder, unspecified; N18.9 Chronic kidney disease, unspecified

== ENCOUNTER 2024-07-07 09:36 | Emergency (ER) | payer MEDICARE ==
[~2024-07-07 09:36] MED LIST changes: +LEVO1TAB38 PO; +LOPE-39 PO; +OMEP-611 PO; -OMEP20TA2 PO; +RISATAB3 PO
[2024-07-07 11:15] LABS: BASO % 0.5 % (0.0-1.0); EOS # 0.1 10^3/uL (0.0-0.5); HEMATOCRIT 34.8 % (36.0-47.0); HEMOGLOBIN 10.9 g/dl (12.0-15.5); LYMPH # 0.6 10^3/uL (1.5-5.0); LYMPH % 10.1 % (24.0-44.0); MEAN CORPUSCULAR HEMOGLOBIN 28.9 pg (27.0-33.0); MEAN CORPUSCULAR HGB CONC 31.3 g/dl (32.0-36.5); MEAN CORPUSCULAR VOLUME 92.3 fl (80.0-96.0); MONO # 0.3 10^3/uL (0.0-0.8); MONO % 5.2 % (2.0-8.0); NEUTROPHILS # 4.9 10^3/uL (1.5-8.5); NEUTROPHILS % 82.9 % (36.0-66.0); PLATELET COUNT, AUTOMATED 224 10^3/uL (150-450); RED BLOOD COUNT 3.77 10^6/uL (4.00-5.40); WHITE BLOOD COUNT 5.9 10^3/uL (4.0-10.0)
[2024-07-07 11:46] LABS: LIPASE 33 U/L (12-53)
[2024-07-07 11:48] LABS: ALKALINE PHOSPHATASE 105 U/L (35-104); ALT/SGPT < 9 U/L (7.0-40); AST/SGOT 9 U/L (<34); BILIRUBIN,DIRECT 0.2 MG/DL (<0.4); BILIRUBIN,TOTAL 0.4 MG/DL (0.3-1.2); TOTAL PROTEIN 6.6 G/DL (5.7-8.2)
[2024-07-07] MEDS: GABAPENTIN 300 MG CAP PO ONE (12:26)
[2024-07-07] MEDS: ACETAMINOPHEN 325 MG TAB PO ONE (12:26)
[2024-07-07 13:48] LABS: MAGNESIUM LEVEL 1.6 MG/DL (1.8-2.4)
[2024-07-07 14:20] LABS: VENOUS BASE EXCESS -4.8 (-2.0-2.0); VENOUS HCO3 19.7 MMOL/L (23.0-27.0); VENOUS O2 SATURATION 95.4 % (60.0-80.0); VENOUS PARTIAL PRESSURE CO2 34.5 mmHg (38.0-50.0); VENOUS PARTIAL PRESSURE O2 77.9 mmHg (30.0-50.0); VENOUS PH 7.374 UNITS (7.330-7.430); VENOUS STANDARD HCO3 20.5 MMOL/L; VENOUS TOTAL CO2 20.7 MMOL/L (24.0-28.0)
[2024-07-07] MEDS ORDERED: MAG100TA PO (14:51)
[2024-07-07 15:22] VITALS: BP 156/72; TEMP 97.7; O2SAT 98
== END 2024-07-07 15:55 | disposition home or self-care (01) ==
LOC: M ED 09:36
DX: M25.551 Pain in right hip (principal); R19.7 Diarrhea, unspecified; I10 Essential (primary) hypertension; F31.9 Bipolar disorder, unspecified; E11.9 Type 2 diabetes mellitus without complications; Z86.73 Personal history of transient ischemic attack (TIA), and cerebral infarction without residual deficits; Z79.01 Long term (current) use of anticoagulants; Z88.0 Allergy status to penicillin; Z88.8 Allergy status to other drugs, medicaments and biological substances; Z79.52 Long term (current) use of systemic steroids; Z79.82 Long term (current) use of aspirin; Z79.899 Other long term (current) drug therapy

== ENCOUNTER → 2024-11-02 | Outpatient (CLI) | payer MEDICARE ==
[~2024-11-02] MED LIST changes: -BAYE325T12 PO; +BAYE325T2 PO; +MAG100TA PO
== END ==
LOC: M RAD 12:15
PROVIDERS: ATTEND Family Medicine
DX: N18.30 Chronic kidney disease, stage 3 unspecified (principal); N28.1 Cyst of kidney, acquired

== ENCOUNTER → 2024-11-19 | Outpatient (CLI) | payer MEDICARE ==
[~2024-11-19] MED LIST changes: -AMBI10TA PO; +ZOLP-533 PO
== END ==
LOC: M CARPUL 12:03
PROVIDERS: ATTEND Registered Nurse
DX: I50.22 Chronic systolic (congestive) heart failure (principal); I51.81 Takotsubo syndrome; I36.0 Nonrheumatic tricuspid (valve) stenosis

== ENCOUNTER → 2024-11-19 | Outpatient (CLI) | payer MEDICARE ==
[2024-11-19 13:03] LABS: BASO # 0.1 10^3/uL (0.0-0.2); BASO % 1.3 % (0.0-1.0); EOS # 0.5 10^3/uL (0.0-0.5); EOS % 8.7 % (0.0-3.0); HEMATOCRIT 32.5 % (36.0-47.0); HEMOGLOBIN 9.7 g/dl (12.0-15.5); LYMPH # 0.9 10^3/uL (1.5-5.0); LYMPH % 16.6 % (24.0-44.0); MEAN CORPUSCULAR HEMOGLOBIN 26.7 pg (27.0-33.0); MEAN CORPUSCULAR HGB CONC 29.8 g/dl (32.0-36.5); MEAN CORPUSCULAR VOLUME 89.5 fl (80.0-96.0); MONO # 0.6 10^3/uL (0.0-0.8); MONO % 10.6 % (2.0-8.0); NEUTROPHILS # 3.4 10^3/uL (1.5-8.5); NEUTROPHILS % 62.4 % (36.0-66.0); PLATELET COUNT, AUTOMATED 224 10^3/uL (150-450); RED BLOOD COUNT 3.63 10^6/uL (4.00-5.40); WHITE BLOOD COUNT 5.5 10^3/uL (4.0-10.0)
[2024-11-19 13:29] LABS: ALBUMIN 3.2 G/DL (3.2-5.2); BILIRUBIN,TOTAL 0.2 MG/DL (0.3-1.2); CALCIUM LEVEL 8.7 MG/DL (8.3-10.6); CHOLESTEROL RISK RATIO 5.7 (<5); CREATININE FOR GFR 1.25 MG/DL (0.55-1.30); HDL CHOLESTEROL 32.8 MG/DL (>40); LDL CHOLESTEROL 104.8 MG/DL (<100); MAGNESIUM LEVEL 1.6 MG/DL (1.8-2.4); NON-HDL-C 154.2 MG/DL; POTASSIUM SERUM 5.5 MMOL/L (3.5-5.1); TOTAL PROTEIN 6.8 G/DL (5.7-8.2)
== END ==
LOC: M LAB 12:08
PROVIDERS: ATTEND Family Medicine
DX: I50.22 Chronic systolic (congestive) heart failure (principal); I48.0 Paroxysmal atrial fibrillation; I25.10 Atherosclerotic heart disease of native coronary artery without angina pectoris

== ENCOUNTER 2025-01-31 07:05 | Observation (INO) | payer MEDICARE ==
[~2025-01-31] VITALS: Ht 167.6 cm; Wt 77.3 kg
[~2025-01-31 07:05] MED LIST changes: -ASPI-310 PO; +ASPI-730 PO; -FISH100015 PO; +FISH100019 PO
[2025-01-31 12:38] LABS: PLATELET COUNT, AUTOMATED 207 10^3/uL (150-450)
[2025-01-31 13:01] LABS: CALCIUM LEVEL 8.6 MG/DL (8.3-10.6); CARBON DIOXIDE LEVEL 20.0 MMOL/L (20-31); CHLORIDE LEVEL 112.0 MMOL/L (98-107); CREATININE FOR GFR 1.39 MG/DL (0.55-1.30); GLOMERULAR FILTRATION RATE 39.6 (>39); POTASSIUM SERUM 4.9 MMOL/L (3.5-5.1); SODIUM LEVEL 143.0 MMOL/L (136-145)
[2025-01-31] MEDS ORDERED: GABA-1490 PO (15:33)
[2025-01-31] MEDS ORDERED: PRES10CA2 PO (15:33)
[2025-01-31] MEDS ORDERED: HOME MED LIST COMPLETE! XX SCH (15:35)
[2025-01-31 15:38] LABS: ALT/SGPT 12.0 U/L (7.0-40); AST/SGOT 19.0 U/L (<34)
[2025-01-31] MEDS ORDERED: ALBUTEROL 90 MCG/ACT 8 GM HFA INHALER INH PRN (15:45)
[2025-01-31] MEDS ORDERED: NITROGLYCERIN 0.4 MG SUBL TABLET SL PRN (15:45)
[2025-01-31] MEDS: LR 1,000 ML IV SCH (16:35)
[2025-01-31] MEDS ORDERED: PILL CUTTER 1 EACH XX PRN (16:40)
[2025-01-31 17:11] LABS: APPEARANCE, URINE CLEAR (CLEAR); BACTERIA, URINE AUTO NEGATIVE (NEGATIVE); BILIRUBIN, URINE AUTO NEGATIVE (NEGATIVE); BLOOD, URINE BLOOD 1+ (NEGATIVE); GLUCOSE, URINE (UA) AUTO NEGATIVE (NEGATIVE); KETONE, URINE AUTO NEGATIVE (NEGATIVE); LEUKOCYTE ESTERASE, URINE AUTO TRACE (NEGATIVE); NITRITE, URINE AUTO NEGATIVE (NEGATIVE); PROTEIN, URINE AUTO NEGATIVE (NEGATIVE); RBC, URINE AUTO 1 /HPF (0-3); SPECIFIC GRAVITY URINE AUTO 1.016 (1.002-1.035); SQUAMOUS EPITHELIAL CELL UR AU 0 /HPF (0-6); UROBILINOGEN, URINE AUTO 0.2 mg/dL (0.0-2.0); WBC, URINE AUTO 1 /HPF (0-3)
[2025-01-31 17:51] LABS: IRON (FE) 58.0 UG/DL (50-170); PERCENT SATURATION 16.5 % (13.2-45.0)
[2025-01-31 17:54] LABS: VITAMIN B12 LEVEL 261.0 PG/ML (211-911)
[2025-01-31] MEDS: GABAPENTIN 300 MG CAP PO SCH (21:29)
[2025-01-31] MEDS: APIXABAN 5 MG TAB PO SCH (21:29)
[2025-01-31] MEDS: ENTRESTO 24-26 MG TABLET (SACUBITRIL/VALSARTAN) PO SCH (21:29)
[2025-01-31] MEDS: FLUoxetine 20 MG CAP PO SCH (21:29)
[2025-01-31] MEDS: ALPRAZolam 0.25 MG TAB PO PRN (21:33)
[2025-02-01 07:02] LABS: PLATELET COUNT, AUTOMATED 164 10^3/uL (150-450)
[2025-02-01 07:33] LABS: CALCIUM LEVEL 8.1 MG/DL (8.3-10.6); CARBON DIOXIDE LEVEL 19.0 MMOL/L (20-31); CHLORIDE LEVEL 113.0 MMOL/L (98-107); CREATININE FOR GFR 1.13 MG/DL (0.55-1.30); GLOMERULAR FILTRATION RATE 50.7 (>39); MAGNESIUM LEVEL 1.6 MG/DL (1.8-2.4); POTASSIUM SERUM 4.7 MMOL/L (3.5-5.1); SODIUM LEVEL 143.0 MMOL/L (136-145)
[2025-02-01] MEDS: PANTOPRAZOLE 40MG TAB PO SCH (08:19)
[2025-02-01] MEDS: VITAMIN D 1,000 INTERNATIONAL UNITS TABLET PO SCH (08:19)
[2025-02-01] MEDS: ASPIRIN 81 MG ENTERIC TABLET PO SCH (08:19)
[2025-02-01] MEDS: METOPROLOL SUCC. 50 MG *XL* TAB PO SCH (08:20)
[2025-02-02 06:58] LABS: PLATELET COUNT, AUTOMATED 157 10^3/uL (150-450)
[2025-02-02] MEDS ORDERED: PERCOCET 5MG/325MG TAB PO PRN (07:30)
[2025-02-02 07:32] LABS: CALCIUM LEVEL 8.8 MG/DL (8.3-10.6); CARBON DIOXIDE LEVEL 19.0 MMOL/L (20-31); CHLORIDE LEVEL 109.0 MMOL/L (98-107); CREATININE FOR GFR 1.06 MG/DL (0.55-1.30); GLOMERULAR FILTRATION RATE 54.8 (>39); POTASSIUM SERUM 4.2 MMOL/L (3.5-5.1); SODIUM LEVEL 142.0 MMOL/L (136-145)
[2025-02-02] MEDS: PREVNAR-20 VACCINE 0.5ML SYRINGE IM.IMMUN ONE (09:00)
[2025-02-02] MEDS: FUROSEMIDE 40 MG TAB PO SCH (09:00)
[2025-02-02] MEDS: DICLOFENAC EPOLAMINE 1.3% PATCH TOP SCH (11:45)
[2025-02-02 16:00] VITALS: BP 143/70; TEMP 97.7; O2SAT 96
[2025-02-02 19:40] VITALS: BP 150/73; TEMP 97.5; O2SAT 92
[2025-02-02] MEDS: PERCOCET 5MG/325MG TAB PO PRN (20:22)
[2025-02-03 04:07] VITALS: BP 149/74; TEMP 97.2; O2SAT 90
[2025-02-03 07:29] LABS: PLATELET COUNT, AUTOMATED 182 10^3/uL (150-450)
[2025-02-03 07:54] LABS: CALCIUM LEVEL 8.6 MG/DL (8.3-10.6); CARBON DIOXIDE LEVEL 22.0 MMOL/L (20-31); CHLORIDE LEVEL 108.0 MMOL/L (98-107); CREATININE FOR GFR 1.34 MG/DL (0.55-1.30); GLOMERULAR FILTRATION RATE 41.4 (>39); POTASSIUM SERUM 4.2 MMOL/L (3.5-5.1); SODIUM LEVEL 145.0 MMOL/L (136-145)
[2025-02-03 12:00] VITALS: BP 134/68; TEMP 97.3
[2025-02-03 19:19] VITALS: BP 133/63; TEMP 97.5; O2SAT 96
[2025-02-04] MEDS: ACETAMINOPHEN 325 MG TAB PO PRN (02:43)
[2025-02-04 03:47] VITALS: BP 134/63; TEMP 97.3; O2SAT 93
[2025-02-04 07:49] LABS: BASO # 0.0 10^3/uL (0.0-0.2); BASO % 0.4 % (0.0-1.0); EOS # 0.3 10^3/uL (0.0-0.5); EOS % 3.5 % (0.0-3.0); LYMPH # 0.8 10^3/uL (1.5-5.0); LYMPH % 9.3 % (24.0-44.0); MONO # 1.3 10^3/uL (0.0-0.8); MONO % 15.9 % (2.0-8.0); NEUTROPHILS # 5.9 10^3/uL (1.5-8.5); NEUTROPHILS % 70.2 % (36.0-66.0); PLATELET COUNT, AUTOMATED 188 10^3/uL (150-450)
[2025-02-04 08:16] LABS: CALCIUM LEVEL 8.2 MG/DL (8.3-10.6); CARBON DIOXIDE LEVEL 22.0 MMOL/L (20-31); CHLORIDE LEVEL 110.0 MMOL/L (98-107); CREATININE FOR GFR 1.24 MG/DL (0.55-1.30); GLOMERULAR FILTRATION RATE 45.4 (>39); POTASSIUM SERUM 4.6 MMOL/L (3.5-5.1); SODIUM LEVEL 143.0 MMOL/L (136-145)
[2025-02-04 12:00] VITALS: BP 126/55; TEMP 97.7; O2SAT 96
[2025-02-04 19:33] VITALS: BP 146/62; TEMP 97.3; O2SAT 96
[2025-02-05 03:59] VITALS: BP 146/66; TEMP 97.2; O2SAT 95
[2025-02-05 08:15] LABS: PLATELET COUNT, AUTOMATED 217 10^3/uL (150-450)
[2025-02-05 08:38] LABS: CALCIUM LEVEL 8.3 MG/DL (8.3-10.6); CARBON DIOXIDE LEVEL 22.0 MMOL/L (20-31); CHLORIDE LEVEL 109.0 MMOL/L (98-107); CREATININE FOR GFR 1.25 MG/DL (0.55-1.30); GLOMERULAR FILTRATION RATE 45.0 (>39); POTASSIUM SERUM 4.3 MMOL/L (3.5-5.1); SODIUM LEVEL 143.0 MMOL/L (136-145)
[2025-02-05] MEDS: DAPAGLIFLOZIN PROPANEDIOL 10 MG TABLET PO SCH (11:53)
[2025-02-05 12:00] VITALS: BP 140/68; TEMP 97.3; O2SAT 94
[2025-02-05 13:09] LABS: ESTIMATED AVERAGE GLUCOSE 117.0 MG/DL (60-110)
[2025-02-05 19:38] VITALS: BP 140/93; TEMP 97.5; O2SAT 92
[2025-02-06 04:12] VITALS: BP 145/85; TEMP 97.2; O2SAT 92
[2025-02-06 06:10] LABS: PLATELET COUNT, AUTOMATED 222 10^3/uL (150-450)
[2025-02-06 06:43] LABS: CALCIUM LEVEL 8.5 MG/DL (8.3-10.6); CARBON DIOXIDE LEVEL 23.0 MMOL/L (20-31); CHLORIDE LEVEL 106.0 MMOL/L (98-107); CREATININE FOR GFR 1.16 MG/DL (0.55-1.30); GLOMERULAR FILTRATION RATE 49.2 (>39); POTASSIUM SERUM 4.2 MMOL/L (3.5-5.1); SODIUM LEVEL 142.0 MMOL/L (136-145)
[2025-02-06 12:00] VITALS: BP 141/73; TEMP 97.7; O2SAT 95
[2025-02-06 20:46] VITALS: BP 139/72; TEMP 98.4; O2SAT 91
[2025-02-07 06:07] LABS: PLATELET COUNT, AUTOMATED 256 10^3/uL (150-450)
[2025-02-07 06:34] LABS: CALCIUM LEVEL 8.7 MG/DL (8.3-10.6); CARBON DIOXIDE LEVEL 23.0 MMOL/L (20-31); CHLORIDE LEVEL 105.0 MMOL/L (98-107); CREATININE FOR GFR 1.31 MG/DL (0.55-1.30); GLOMERULAR FILTRATION RATE 42.5 (>39); MAGNESIUM LEVEL 1.7 MG/DL (1.8-2.4); POTASSIUM SERUM 4.3 MMOL/L (3.5-5.1); SODIUM LEVEL 141.0 MMOL/L (136-145)
[2025-02-07] MEDS: MAGNESIUM OXIDE 400 MG TAB PO ONE (08:44)
[2025-02-07 08:50] VITALS: BP 116/53
[2025-02-07] MEDS: LR 1,000 ML IV SCH (08:58)
[2025-02-07 12:02] VITALS: BP 127/88; TEMP 97.7; O2SAT 92
[2025-02-07] MEDS ORDERED: MAGNESIUM OXIDE 400 MG TAB PO SCH (21:00)
== END 2025-02-07 15:05 ==
LOC: M ED 07:05 → M ED INP 07:06 → M MS5PR 02-02 15:57
PROVIDERS: ADMIT Internal Medicine; ATTEND Internal Medicine
DX: M25.552 Pain in left hip (principal); S32.402A Unspecified fracture of left acetabulum, initial encounter for closed fracture; S32.509A Unspecified fracture of unspecified pubis, initial encounter for closed fracture; W19.XXXA Unspecified fall, initial encounter; Y92.9 Unspecified place or not applicable; Y93.9 Activity, unspecified; G89.29 Other chronic pain; I48.0 Paroxysmal atrial fibrillation; Z79.01 Long term (current) use of anticoagulants; I25.10 Atherosclerotic heart disease of native coronary artery without angina pectoris; Z86.73 Personal history of transient ischemic attack (TIA), and cerebral infarction without residual deficits; I73.9 Peripheral vascular disease, unspecified; E11.51 Type 2 diabetes mellitus with diabetic peripheral angiopathy without gangrene; I11.0 Hypertensive heart disease with heart failure; K21.9 Gastro-esophageal reflux disease without esophagitis; I50.9 Heart failure, unspecified; M19.90 Unspecified osteoarthritis, unspecified site; M48.061 Spinal stenosis, lumbar region without neurogenic claudication; J44.9 Chronic obstructive pulmonary disease, unspecified; D35.01 Benign neoplasm of right adrenal gland; F41.9 Anxiety disorder, unspecified; K86.2 Cyst of pancreas; Z79.82 Long term (current) use of aspirin; Z79.899 Other long term (current) drug therapy
CPT/HCPCS: 36415; 70450; 71045; 72148; 73502; 73552; 73721; 80048; 80076; 81001; 82607; 82728; 82746; 83036; 83550; 83735; 85025; 85027; 87426; 87486; 87507; 87581; 87633; 87635; 87798; 93005; 96360; 96361; 97116; 97161; 97165; 97530; 97535; 99285; G0378

== ENCOUNTER 2025-02-21 12:22 | Inpatient (IN) | payer MEDICARE ==
[~2025-02-21] VITALS: Ht 167.6 cm; Wt 68.5 kg
[~2025-02-21 12:22] MED LIST changes: +GABA-1490 PO; +PRES10CA2 PO; -PROZ20CA11 PO; +PROZ20CA12 PO
[2025-02-21] MEDS ORDERED: HYDR-3713 PO (12:39)
[2025-02-21 13:54] LABS: BASO # 0.0 10^3/uL (0.0-0.2); BASO % 0.5 % (0.0-1.0); EOS # 0.4 10^3/uL (0.0-0.5); EOS % 4.8 % (0.0-3.0); LYMPH # 0.6 10^3/uL (1.5-5.0); LYMPH % 7.5 % (24.0-44.0); MONO # 0.7 10^3/uL (0.0-0.8); MONO % 8.5 % (2.0-8.0); NEUTROPHILS # 6.0 10^3/uL (1.5-8.5); NEUTROPHILS % 78.2 % (36.0-66.0); PLATELET COUNT, AUTOMATED 369 10^3/uL (150-450)
[2025-02-21 14:13] LABS: ETHYL ALCOHOL (ETHANOL) < 0.003 % (0.000-0.010)
[2025-02-21 14:14] LABS: CPK CREATINE PHOSPHOKINASE 25 U/L (34-145)
[2025-02-21 14:15] LABS: ALT/SGPT 10 U/L (7.0-40); AST/SGOT 10 U/L (<34); CALCIUM LEVEL 8.7 MG/DL (8.3-10.6); CARBON DIOXIDE LEVEL 24 MMOL/L (20-31); CHLORIDE LEVEL 111 MMOL/L (98-107); CREATININE FOR GFR 1.28 MG/DL (0.55-1.30); GLOMERULAR FILTRATION RATE 43.7 (>39); POTASSIUM SERUM 5.7 MMOL/L (3.5-5.1); SALICYLATE LEVEL < 3.0 MG/DL (<30); SODIUM LEVEL 144 MMOL/L (136-145)
[2025-02-21] MEDS ORDERED: HOME MED LIST COMPLETE! XX SCH (14:15)
[2025-02-21] MEDS: METOPROLOL SUCC. 50 MG *XL* TAB PO ONE (14:19)
[2025-02-21 15:45] LABS: AMPHETAMINES LEVEL URINE NEGATIVE (NEGATIVE); BARBITURATES URINE NEGATIVE (NEGATIVE); COCAINE METABOLITE URINE NEGATIVE (NEGATIVE); METHADONE URINE NEGATIVE (NEGATIVE)
[2025-02-21 15:46] LABS: CANNABINOIDS URINE NEGATIVE (NEGATIVE); PHENCYCLIDINE URINE NEGATIVE (NEGATIVE)
[2025-02-21 15:47] LABS: BENZODIAZEPINES URINE POSITIVE (NEGATIVE); OPIATES URINE POSITIVE (NEGATIVE)
[2025-02-21] MEDS: PATIROMER SORBITEX CALCIUM 8.4GM POWDER PACKET PO ONE (17:40)
[2025-02-21] MEDS ORDERED: MAALOX 30 ML SUSP *UDC PO PRN (20:45)
[2025-02-21] MEDS ORDERED: MOM 30 ML SUSPENSION UDC PO PRN (20:45)
[2025-02-21] MEDS ORDERED: NICOTINE 21 MG/24 HR 1 EA TRANSDERMAL TD PRN (20:45)
[2025-02-21] MEDS ORDERED: ALBUTEROL 90 MCG/ACT 8 GM HFA INHALER INH PRN (20:55)
[2025-02-21] MEDS ORDERED: GLUCOSE 4 GM CHEW PO PRN (20:55)
[2025-02-21] MEDS ORDERED: DEXTROSE 50% 50 ML SYRINGE IV PRN (20:55)
[2025-02-21] MEDS ORDERED: GLUCAGON INJ 1 MG VIAL SC PRN (20:55)
[2025-02-21] MEDS: DOCUSATE SODIUM 100 MG CAPSULE PO SCH (21:20)
[2025-02-21] MEDS: GABAPENTIN 300 MG CAP PO SCH (21:21)
[2025-02-21] MEDS: APIXABAN 5 MG TAB PO SCH (21:21)
[2025-02-21] MEDS: FLUoxetine 20 MG CAP PO SCH (21:21)
[2025-02-21 22:03] LABS: INR 1.2
[2025-02-21 22:18] LABS: CALCIUM LEVEL 8.9 MG/DL (8.3-10.6); CARBON DIOXIDE LEVEL 23.0 MMOL/L (20-31); CHLORIDE LEVEL 112.0 MMOL/L (98-107); CREATININE FOR GFR 1.2 MG/DL (0.55-1.30); GLOMERULAR FILTRATION RATE 47.2 (>39); MAGNESIUM LEVEL 1.6 MG/DL (1.8-2.4); POTASSIUM SERUM 5.2 MMOL/L (3.5-5.1); SODIUM LEVEL 145.0 MMOL/L (136-145)
[2025-02-21] MEDS: MAG SULF 1GM/100ML (MAG RUN) 1 GM in IV 1 EA IV ONE (23:13)
[2025-02-21] MEDS: NS (Normal Saline) 0.9% 1,000 ML IV SCH (23:13)
[2025-02-21 23:46] VITALS: BP 181/82; TEMP 99.3; O2SAT 97
[2025-02-22] VITALS: BP 155/69; O2SAT 96
[2025-02-22] MEDS: MAGNESIUM OXIDE 400 MG TAB PO ONE (00:27)
[2025-02-22 03:18] LABS: CALCIUM LEVEL 9.1 MG/DL (8.3-10.6); CARBON DIOXIDE LEVEL 22.0 MMOL/L (20-31); CHLORIDE LEVEL 110.0 MMOL/L (98-107); CREATININE FOR GFR 1.15 MG/DL (0.55-1.30); GLOMERULAR FILTRATION RATE 49.7 (>39); POTASSIUM SERUM 5.0 MMOL/L (3.5-5.1); SODIUM LEVEL 144.0 MMOL/L (136-145)
[2025-02-22 04:00] VITALS: BP 163/74; TEMP 97.8; O2SAT 97
[2025-02-22 08:00] VITALS: BP 155/70; TEMP 98.4; O2SAT 96
[2025-02-22] MEDS: ONDANSETRON 4MG 2ML VIAL IV PRN (08:40)
[2025-02-22 09:14] LABS: PLATELET COUNT, AUTOMATED 381 10^3/uL (150-450)
[2025-02-22 09:38] LABS: ALT/SGPT < 9 U/L (7.0-40); AST/SGOT 11 U/L (<34); CALCIUM LEVEL 8.9 MG/DL (8.3-10.6); CARBON DIOXIDE LEVEL 22 MMOL/L (20-31); CHLORIDE LEVEL 109 MMOL/L (98-107); CREATININE FOR GFR 1.14 MG/DL (0.55-1.30); GLOMERULAR FILTRATION RATE 50.2 (>39); MAGNESIUM LEVEL 2.0 MG/DL (1.8-2.4); POTASSIUM SERUM 5.0 MMOL/L (3.5-5.1); SODIUM LEVEL 142 MMOL/L (136-145)
[2025-02-22] MEDS: METOPROLOL SUCC. 50 MG *XL* TAB PO SCH (10:16)
[2025-02-22] MEDS: VITAMIN D 1,000 INTERNATIONAL UNITS TABLET PO SCH (10:16)
[2025-02-22] MEDS: PANTOPRAZOLE 40MG TAB PO SCH (10:17)
[2025-02-22] MEDS: ASPIRIN 81 MG ENTERIC TABLET PO SCH (10:17)
[2025-02-22 12:00] VITALS: BP 166/73; TEMP 98.2; O2SAT 99
[2025-02-22 15:22] LABS: CALCIUM LEVEL 8.4 MG/DL (8.3-10.6); CARBON DIOXIDE LEVEL 22.0 MMOL/L (20-31); CHLORIDE LEVEL 110.0 MMOL/L (98-107); CREATININE FOR GFR 1.15 MG/DL (0.55-1.30); GLOMERULAR FILTRATION RATE 49.7 (>39); POTASSIUM SERUM 5.0 MMOL/L (3.5-5.1); SODIUM LEVEL 142.0 MMOL/L (136-145)
[2025-02-22 16:00] VITALS: BP 143/64; TEMP 97.2; O2SAT 96
[2025-02-22 20:00] VITALS: BP 147/66; TEMP 101.3; O2SAT 98
[2025-02-22] MEDS: ACETAMINOPHEN 325 MG TAB PO PRN (20:41)
[2025-02-22] MEDS: RAMELTEON 8 MG TAB PO PRN (20:45)
[2025-02-22 21:22] LABS: CALCIUM LEVEL 8.4 MG/DL (8.3-10.6); CARBON DIOXIDE LEVEL 22.0 MMOL/L (20-31); CHLORIDE LEVEL 111.0 MMOL/L (98-107); CREATININE FOR GFR 1.14 MG/DL (0.55-1.30); GLOMERULAR FILTRATION RATE 50.2 (>39); POTASSIUM SERUM 4.5 MMOL/L (3.5-5.1); SODIUM LEVEL 144.0 MMOL/L (136-145)
[2025-02-22] MEDS: ALPRAZolam 0.25 MG TAB PO PRN (21:52)
[2025-02-23] VITALS: BP 136/72; TEMP 98.6; O2SAT 98
[2025-02-23 03:35] LABS: CALCIUM LEVEL 8.0 MG/DL (8.3-10.6); CARBON DIOXIDE LEVEL 21.0 MMOL/L (20-31); CHLORIDE LEVEL 113.0 MMOL/L (98-107); CREATININE FOR GFR 1.18 MG/DL (0.55-1.30); GLOMERULAR FILTRATION RATE 48.2 (>39); POTASSIUM SERUM 4.6 MMOL/L (3.5-5.1); SODIUM LEVEL 145.0 MMOL/L (136-145)
[2025-02-23 04:00] VITALS: BP 140/73; TEMP 97.9; O2SAT 98
[2025-02-23 08:00] VITALS: BP 194/76; TEMP 97.7; O2SAT 100
[2025-02-23 12:00] VITALS: BP 172/75; TEMP 98.7; O2SAT 98
[2025-02-23 16:00] VITALS: BP 165/73; TEMP 97.6; O2SAT 99
[2025-02-23 20:00] VITALS: BP 160/70; TEMP 98.1; O2SAT 99
[2025-02-24 08:00] VITALS: BP 180/77; TEMP 97.8; O2SAT 98
[2025-02-24 13:00] VITALS: BP 176/79; TEMP 97.2; O2SAT 100
[2025-02-25 05:16] VITALS: BP 172/75; TEMP 97.2; O2SAT 98
[2025-02-25 19:50] VITALS: BP 132/80
[2025-02-26 04:52] VITALS: BP 156/70; TEMP 97.2; O2SAT 97
[2025-02-26 08:45] VITALS: BP 160/71; TEMP 98; O2SAT 97
[2025-02-26] MEDS: ENTRESTO 24-26 MG TABLET (SACUBITRIL/VALSARTAN) PO SCH (09:28)
[2025-02-26 21:41] VITALS: BP 147/55
[2025-02-27 05:04] VITALS: BP 170/75; TEMP 97; O2SAT 95
[2025-02-27 12:00] VITALS: BP 171/98; TEMP 97.2; O2SAT 97
[2025-02-27] MEDS ORDERED: MAG30ORA8 PO (14:01)
[2025-02-27] MEDS ORDERED: ACET32TAB PO (14:01)
[2025-02-27] MEDS ORDERED: NICO21PAT TD (14:01)
[2025-02-27] MEDS ORDERED: COLA100C5 PO (14:01)
[2025-02-27 14:14] VITALS: BP 153/70
[2025-02-27] MEDS ORDERED: GABA-1172 PO (14:14)
[2025-02-27] MEDS: amLODIPine 5 MG TAB PO SCH (14:14)
== END 2025-02-27 15:56 | DRG 918 ==
LOC: EDBD 12:22 → M ED 12:22 → M ED INP 20:43 → M ICU 23:03 → M MS5PR 02-24 12:45
PROVIDERS: ADMIT Internal Medicine; ATTEND Internal Medicine
DX: T42.6X1A Poisoning by other antiepileptic and sedative-hypnotic drugs, accidental (unintentional), initial encounter (principal); I50.32 Chronic diastolic (congestive) heart failure; I25.10 Atherosclerotic heart disease of native coronary artery without angina pectoris; E78.5 Hyperlipidemia, unspecified; E11.51 Type 2 diabetes mellitus with diabetic peripheral angiopathy without gangrene; K21.9 Gastro-esophageal reflux disease without esophagitis; D50.9 Iron deficiency anemia, unspecified; M19.90 Unspecified osteoarthritis, unspecified site; J44.9 Chronic obstructive pulmonary disease, unspecified; F41.9 Anxiety disorder, unspecified; F17.210 Nicotine dependence, cigarettes, uncomplicated; N18.9 Chronic kidney disease, unspecified; E87.5 Hyperkalemia; R11.2 Nausea with vomiting, unspecified; E11.22 Type 2 diabetes mellitus with diabetic chronic kidney disease; I48.91 Unspecified atrial fibrillation; Z66 Do not resuscitate; Z96.651 Presence of right artificial knee joint; Z86.73 Personal history of transient ischemic attack (TIA), and cerebral infarction without residual deficits; Z98.1 Arthrodesis status; Z95.820 Peripheral vascular angioplasty status with implants and grafts; Z79.01 Long term (current) use of anticoagulants; Z79.82 Long term (current) use of aspirin; Z79.891 Long term (current) use of opiate analgesic; Z79.899 Other long term (current) drug therapy; Z88.0 Allergy status to penicillin; Z88.8 Allergy status to other drugs, medicaments and biological substances

== ENCOUNTER → 2025-02-26 | Outpatient (CLI) | payer MEDICARE ==
[~2025-02-26] MED LIST changes: +ACET32TAB PO; +COLA100C5 PO; +MAG30ORA8 PO; +NICO21PAT TD
== END ==
LOC: M SOG 07:02
PROVIDERS: ATTEND Physician Assistant
DX: M25.552 Pain in left hip (principal)

== ENCOUNTER 2025-03-27 11:04 | Observation (INO) | payer MEDICARE ==
[~2025-03-27] VITALS: Ht 167.6 cm; Wt 73.2 kg
[~2025-03-27 11:04] MED LIST changes: +ALPR-515 PO; -ALPR0.5T6 PO; +ZOLP10TA11 PO; -ZOLP10TA2 PO
[2025-03-27 12:24] LABS: VENOUS BASE EXCESS -0.4 (-2.0-2.0); VENOUS HCO3 25.8 MMOL/L (23.0-27.0); VENOUS O2 SATURATION 47.8 % (60.0-80.0); VENOUS PARTIAL PRESSURE CO2 50.0 mmHg (38.0-50.0); VENOUS PARTIAL PRESSURE O2 27.8 mmHg (30.0-50.0); VENOUS PH 7.331 UNITS (7.330-7.430); VENOUS STANDARD HCO3 23.4 MMOL/L; VENOUS TOTAL CO2 27.4 MMOL/L (24.0-28.0)
[2025-03-27 12:36] LABS: BASO # 0.0 10^3/uL (0.0-0.2); BASO % 0.4 % (0.0-1.0); EOS # 0.2 10^3/uL (0.0-0.5); EOS % 2.5 % (0.0-3.0); LYMPH # 0.7 10^3/uL (1.5-5.0); LYMPH % 7.3 % (24.0-44.0); MONO # 0.9 10^3/uL (0.0-0.8); MONO % 9.6 % (2.0-8.0); NEUTROPHILS # 7.4 10^3/uL (1.5-8.5); NEUTROPHILS % 79.9 % (36.0-66.0); PLATELET COUNT, AUTOMATED 231 10^3/uL (150-450)
[2025-03-27 12:48] LABS: OSMOLALITY SERUM 306 MOSM/KG (280-301)
[2025-03-27 12:52] LABS: ETHYL ALCOHOL (ETHANOL) < 0.003 % (0.000-0.010)
[2025-03-27 12:54] LABS: ALT/SGPT 12 U/L (7.0-40); AST/SGOT 13 U/L (<34); CALCIUM LEVEL 9.0 MG/DL (8.3-10.6); CARBON DIOXIDE LEVEL 29 MMOL/L (20-31); CHLORIDE LEVEL 104 MMOL/L (98-107); CREATININE FOR GFR 1.36 MG/DL (0.55-1.30); GLOMERULAR FILTRATION RATE 40.6 (>39); POTASSIUM SERUM 4.5 MMOL/L (3.5-5.1); SALICYLATE LEVEL < 3.0 MG/DL (<30); SODIUM LEVEL 144 MMOL/L (136-145)
[2025-03-27] MEDS ORDERED: MED REC COMMENT (13:35)
[2025-03-27] MEDS ORDERED: HOME MED LIST COMPLETE! XX SCH (13:40)
[2025-03-27 15:14] LABS: FREE T4 1.21 NG/DL (0.89-1.76)
[2025-03-27 15:45] VITALS: BP_SYST 142; BP_SYST 149; BP_DIAS 78; BP_DIAS 93; TEMP 97.3; O2SAT 100; O2SAT 99
[2025-03-27 15:48] LABS: CK-MB VALUE MASS 1.1 NG/ML (<3.6)
[2025-03-27 15:53] VITALS: O2SAT 91
[2025-03-27 16:01] LABS: CPK CREATINE PHOSPHOKINASE 43.0 U/L (34-145); MB/CK RELATIVE INDEX 2.55 (< OR =4)
[2025-03-27] MEDS ORDERED: ALBUTEROL 90 MCG/ACT 8 GM HFA INHALER INH PRN (16:10)
[2025-03-27] MEDS: NS (Normal Saline) 0.9% 1,000 ML IV ONE (16:29)
[2025-03-27 18:37] VITALS: O2SAT 85
[2025-03-27] MEDS: ACETAMINOPHEN 325 MG TAB PO PRN (18:40)
[2025-03-27 18:41] VITALS: O2SAT 90
[2025-03-27 19:17] LABS: KETONE, URINE AUTO RFX NEGATIVE (NEGATIVE); NITRITE, URINE AUTO RFX NEGATIVE (NEGATIVE); RBC, URINE AUTO RFX 3 /HPF (0-3); SQUAM EPITHELIAL CELL UR AURFX 0 /HPF (0-6); WBC, URINE AUTO RFX 2 /HPF (0-3)
[2025-03-27 19:18] LABS: LEUKOCYTE ESTERASE UR AUTO RFX TRACE (NEGATIVE)
[2025-03-27 20:26] VITALS: BP 144/56; TEMP 97.3; O2SAT 93
[2025-03-27] MEDS: FLUoxetine 20 MG CAP PO SCH (20:50)
[2025-03-27] MEDS: APIXABAN 5 MG TAB PO SCH (20:50)
[2025-03-27] MEDS: GABAPENTIN 100 MG CAP PO SCH (20:50)
[2025-03-27] MEDS: RAMELTEON 8 MG TAB PO PRN (23:15)
[2025-03-28 04:03] VITALS: BP 149/63; TEMP 97.2; O2SAT 95
[2025-03-28 04:47] VITALS: O2SAT 93
[2025-03-28 07:55] LABS: PLATELET COUNT, AUTOMATED 210 10^3/uL (150-450)
[2025-03-28 08:26] LABS: THYROXINE (T4) 7.9 UG/DL (4.5-10.9)
[2025-03-28 08:29] LABS: ALT/SGPT 11.0 U/L (7.0-40); AST/SGOT 14.0 U/L (<34); CALCIUM LEVEL 8.6 MG/DL (8.3-10.6); CARBON DIOXIDE LEVEL 27.0 MMOL/L (20-31); CHLORIDE LEVEL 106.0 MMOL/L (98-107); CREATININE FOR GFR 1.24 MG/DL (0.55-1.30); GLOMERULAR FILTRATION RATE 45.4 (>39); POTASSIUM SERUM 4.5 MMOL/L (3.5-5.1); SODIUM LEVEL 144.0 MMOL/L (136-145); T UPTAKE 52.2 % (22.5-37.0)
[2025-03-28] MEDS: ASPIRIN 81 MG ENTERIC TABLET PO SCH (09:54)
[2025-03-28] MEDS: VITAMIN D 1,000 INTERNATIONAL UNITS TABLET PO SCH (09:54)
[2025-03-28] MEDS: PANTOPRAZOLE 40MG TAB PO SCH (09:55)
[2025-03-28 12:00] VITALS: BP 152/70; TEMP 97.3; O2SAT 95
[2025-03-28] MEDS: ALPRAZolam 0.25 MG TAB PO PRN (14:27)
[2025-03-28 19:47] VITALS: BP 133/56; TEMP 97.5; O2SAT 91
[2025-03-29 04:35] VITALS: BP 161/70; TEMP 97.3; O2SAT 97
[2025-03-29] MEDS ORDERED: NALOXONE INJ 0.4 MG/1 ML VIAL IV PRN (11:25)
[2025-03-29] MEDS: traMADol 50 MG TAB PO ONE (11:59)
[2025-03-29] MEDS: ASCORBIC ACID 500 MG TAB PO SCH (11:59)
[2025-03-29] MEDS: SUCRALFATE 1 GM TAB PO SCH (11:59)
[2025-03-29 12:00] VITALS: BP 138/78; TEMP 97.2; O2SAT 94
[2025-03-29 12:19] LABS: IRON (FE) 15.0 UG/DL (50-170); PERCENT SATURATION 4.5 % (13.2-45.0)
[2025-03-29] MEDS ORDERED: BENZONATATE 100 MG CAPSULE PO PRN (12:35)
[2025-03-29] MEDS: MONTELUKAST 10 MG TAB PO ONE (13:25)
[2025-03-29] MEDS: FERROUS SULFATE 300 MG/5 ML UDC LIQUID PO SCH (13:25)
[2025-03-29] MEDS: BENZONATATE 100 MG CAPSULE PO ONE (13:25)
[2025-03-29] MEDS: FUROSEMIDE 100 MG/10 ML VIAL IV ONE (13:25)
[2025-03-29] MEDS: CETIRIZINE 10 MG TAB PO ONE (13:26)
[2025-03-29] MEDS: guaiFENesin ER TABLET 600 MG TAB PO SCH (13:28)
[2025-03-29] MEDS: TIOTROPIUM BROM 2.5MCG/ACTUATION 4GM INH INH SCH (14:54)
[2025-03-29] MEDS: IPRATROPIUM 0.5 MG/ALBUTEROL 2.5 MG INH SOL UD 3 ML NEB ONE (14:54)
[2025-03-29 20:07] VITALS: BP 108/81; TEMP 97.5; O2SAT 93
[2025-03-29] MEDS: MORPHINE SULFATE TAB IMM. REL. 15 MG PO PRN (22:27)
[2025-03-30 04:43] VITALS: BP 124/63; TEMP 97.2; O2SAT 94
[2025-03-30] MEDS: MONTELUKAST 10 MG TAB PO SCH (08:52)
[2025-03-30] MEDS: CETIRIZINE 10 MG TAB PO SCH (08:52)
[2025-03-30 09:01] VITALS: O2SAT 88
[2025-03-30 11:40] LABS: PLATELET COUNT, AUTOMATED 215 10^3/uL (150-450)
[2025-03-30 12:00] VITALS: BP 122/63; TEMP 97.2; O2SAT 88
[2025-03-30 12:04] LABS: CALCIUM LEVEL 8.7 MG/DL (8.3-10.6); CARBON DIOXIDE LEVEL 29.0 MMOL/L (20-31); CHLORIDE LEVEL 103.0 MMOL/L (98-107); CREATININE FOR GFR 1.57 MG/DL (0.55-1.30); GLOMERULAR FILTRATION RATE 34.2 (>39); POTASSIUM SERUM 3.8 MMOL/L (3.5-5.1); SODIUM LEVEL 143.0 MMOL/L (136-145)
[2025-03-30] MEDS: MIDODRINE 5 MG TAB PO ONE (12:06)
[2025-03-30 20:36] VITALS: BP 127/69; TEMP 97.5; O2SAT 92
[2025-03-31 04:49] VITALS: BP 138/67; TEMP 97.5; O2SAT 92
[2025-03-31 12:00] VITALS: BP 151/71; TEMP 97.8; O2SAT 93
[2025-03-31 15:44] LABS: PLATELET COUNT, AUTOMATED 204 10^3/uL (150-450)
[2025-03-31] MEDS: NS 0.45% 1,000 ML IV ONE (15:48)
[2025-03-31 16:09] LABS: CALCIUM LEVEL 8.5 MG/DL (8.3-10.6); CARBON DIOXIDE LEVEL 24.0 MMOL/L (20-31); CHLORIDE LEVEL 104.0 MMOL/L (98-107); CREATININE FOR GFR 1.46 MG/DL (0.55-1.30); GLOMERULAR FILTRATION RATE 37.3 (>39); POTASSIUM SERUM 4.5 MMOL/L (3.5-5.1); SODIUM LEVEL 139.0 MMOL/L (136-145)
[2025-03-31 19:37] VITALS: BP 143/57; TEMP 97.5; O2SAT 95
[2025-03-31 23:45] VITALS: O2SAT 92
[2025-04-01 03:21] VITALS: BP 135/66; TEMP 97.8; O2SAT 93
[2025-04-01 07:02] LABS: BASO # 0.0 10^3/uL (0.0-0.2); BASO % 0.6 % (0.0-1.0); EOS # 0.3 10^3/uL (0.0-0.5); EOS % 4.1 % (0.0-3.0); LYMPH # 0.7 10^3/uL (1.5-5.0); LYMPH % 11.8 % (24.0-44.0); MONO # 0.9 10^3/uL (0.0-0.8); MONO % 14.8 % (2.0-8.0); NEUTROPHILS # 4.3 10^3/uL (1.5-8.5); NEUTROPHILS % 68.1 % (36.0-66.0); PLATELET COUNT, AUTOMATED 221 10^3/uL (150-450)
[2025-04-01 07:30] LABS: CALCIUM LEVEL 8.5 MG/DL (8.3-10.6); CARBON DIOXIDE LEVEL 26.0 MMOL/L (20-31); CHLORIDE LEVEL 104.0 MMOL/L (98-107); CREATININE FOR GFR 1.38 MG/DL (0.55-1.30); GLOMERULAR FILTRATION RATE 39.9 (>39); POTASSIUM SERUM 4.0 MMOL/L (3.5-5.1); SODIUM LEVEL 140.0 MMOL/L (136-145)
[2025-04-01 12:00] VITALS: BP 137/67; TEMP 97.9; O2SAT 91
[2025-04-01] MEDS: NS (Normal Saline) 0.9% 1,000 ML IV SCH (14:48)
[2025-04-01 20:38] VITALS: BP 152/76; TEMP 97.9; O2SAT 93
[2025-04-02 03:32] VITALS: BP 134/61; TEMP 97.7; O2SAT 93
[2025-04-02 06:17] VITALS: O2SAT 93
[2025-04-02 06:19] VITALS: O2SAT 92
[2025-04-02 12:00] VITALS: BP 155/66; TEMP 97.5; O2SAT 93
[2025-04-02 20:37] VITALS: BP 107/64; TEMP 97.7; O2SAT 94
[2025-04-03 03:14] VITALS: BP 158/82; TEMP 97.9; O2SAT 94
[2025-04-03 12:00] VITALS: BP 175/70; TEMP 97.7; O2SAT 96
[2025-04-03 16:11] VITALS: BP 156/73
[2025-04-04 02:40] VITALS: BP 162/72; TEMP 97.3; O2SAT 96
[2025-04-04] MEDS ORDERED: AMLO-751 PO (07:04)
[2025-04-04] MEDS: amLODIPine 10 MG TAB PO ONE (07:45)
[2025-04-04 07:46] VITALS: BP 177/82
[2025-04-04] MEDS: NITROGLYCERIN 2% OINT 1 GM *U/D* PKT TOP ONE (07:46)
[2025-04-04 09:25] VITALS: BP 147/70
== END 2025-04-04 15:18 ==
LOC: EDBD 11:04 → M ED 12:53 → M ED INP 12:54 → UNDOADMOB 14:31 → M ED INP 14:31 → M MSPAV 15:34
PROVIDERS: ADMIT General Practice; ATTEND General Practice
DX: S22.41XA Multiple fractures of ribs, right side, initial encounter for closed fracture (principal); S32.435A Nondisplaced fracture of anterior column [iliopubic] of left acetabulum, initial encounter for closed fracture; Z66 Do not resuscitate; I48.21 Permanent atrial fibrillation; S00.93XA Contusion of unspecified part of head, initial encounter; W01.0XXA Fall on same level from slipping, tripping and stumbling without subsequent striking against object, initial encounter; Y92.002 Bathroom of unspecified non-institutional (private) residence as the place of occurrence of the external cause; Y92.003 Bedroom of unspecified non-institutional (private) residence as the place of occurrence of the external cause; I25.10 Atherosclerotic heart disease of native coronary artery without angina pectoris; E78.5 Hyperlipidemia, unspecified; I73.9 Peripheral vascular disease, unspecified; E11.51 Type 2 diabetes mellitus with diabetic peripheral angiopathy without gangrene; Z86.73 Personal history of transient ischemic attack (TIA), and cerebral infarction without residual deficits; I50.32 Chronic diastolic (congestive) heart failure; K21.9 Gastro-esophageal reflux disease without esophagitis; D50.9 Iron deficiency anemia, unspecified; Z86.718 Personal history of other venous thrombosis and embolism; M19.90 Unspecified osteoarthritis, unspecified site; E27.40 Unspecified adrenocortical insufficiency; F41.9 Anxiety disorder, unspecified; F17.210 Nicotine dependence, cigarettes, uncomplicated; R26.89 Other abnormalities of gait and mobility; R29.6 Repeated falls; Z88.0 Allergy status to penicillin; J90 Pleural effusion, not elsewhere classified; Z88.8 Allergy status to other drugs, medicaments and biological substances; R00.1 Bradycardia, unspecified; J42 Unspecified chronic bronchitis; N39.0 Urinary tract infection, site not specified; N17.9 Acute kidney failure, unspecified; G47.00 Insomnia, unspecified; S32.502A Unspecified fracture of left pubis, initial encounter for closed fracture; T39.8X5A Adverse effect of other nonopioid analgesics and antipyretics, not elsewhere classified, initial encounter; G62.9 Polyneuropathy, unspecified; E55.9 Vitamin D deficiency, unspecified; G89.29 Other chronic pain; E11.42 Type 2 diabetes mellitus with diabetic polyneuropathy; F32.A Depression, unspecified; Z79.82 Long term (current) use of aspirin; Z79.899 Other long term (current) drug therapy; Z79.01 Long term (current) use of anticoagulants; G93.41 Metabolic encephalopathy
CPT/HCPCS: 36415; 70450; 71046; 71111; 74176; 76775; 80048; 80053; 80076; 80143; 81001; 82077; 82140; 82550; 82553; 82728; 82803; 83550; 83605; 83880; 83930; 84238; 84436; 84439; 84443; 84479; 84484; 85025; 85027; 85046; 87088; 87186; 93005; 93041; 94640; 94760; 96361; 96374; 97161; 97530; 97535; 99285; G0378; J1938